=== PATIENT | female | born 1965 | race Caucasian/White ===

== ENCOUNTER 2018-01-14 09:30 | Outpatient (CLI) | payer MEDICAID ==
[~2018-01-14] VITALS: Ht 157.5 cm; Wt 108.4 kg
[2018-01-14] MEDS ORDERED: INSU100V31 IJ (09:41)
[2018-01-14] MEDS ORDERED: ROSU20TA31 PO (09:41)
[2018-01-14] MEDS ORDERED: SITA25TA5 PO (09:41)
[2018-01-14] MEDS ORDERED: LEVO75TA6 PO (09:41)
[2018-01-14] MEDS ORDERED: GABA-488 PO (09:41)
[2018-01-14] MEDS ORDERED: DILT120C63 PO (09:41)
[2018-01-14] MEDS ORDERED: BUME1TAB4 PO (09:41)
[2018-01-14] MEDS ORDERED: TRAZ-189 PO (09:41)
[2018-01-14] MEDS ORDERED: ESCI20TA PO (09:41)
[2018-01-14] MEDS ORDERED: HYDR12.5 PO (09:41)
[2018-01-14] MEDS ORDERED: FERR325T18 PO (09:41)
[2018-01-14] MEDS ORDERED: COLC0.6T56 PO (09:41)
[2018-01-14] MEDS ORDERED: INSU100V5 SQ (09:41)
== END 2018-01-14 10:24 ==
LOC: PREOP 09:30
PROVIDERS: ATTEND Internal Medicine
DX: Z01.818 Encounter for other preprocedural examination (principal)

== ENCOUNTER 2018-01-18 07:27 | Day surgery (SDC) | payer MEDICAID ==
--- NOTE | 2018-01-17 15:42 | HISTORY AND PHYSICAL ---
DATE OF SERVICE: 01/18/2018 COLONOSCOPY HISTORY AND PHYSICAL HISTORY OF PRESENT ILLNESS: The patient is a 52-year-old white female referred by Dr. Lundy for screening colonoscopy. She did have a bout of left lower quadrant abdominal pain and has a known history of diverticulum. She was treated as diverticulitis. She had some bowel habit change with cramping and loss of appetite. After antibiotics after several days, there was improvement in her symptoms. She states she is back to her more chronic left-sided lumbar back pain that radiates around into the left groin area. It tends to be somewhat positional and worse if she is standing for too long and will typically subside within 5 to 10 minutes of lying down. She denies any current chills or fever. In 2000, she reported colonoscopy. She was told she had diverticulum at that time and she believes she may have had a polyp or 2, but she is not sure. She does not recall if there was no one who has recommended that she undergo colonoscopy again. FAMILY HISTORY: Pertinent for one maternal grandparent with prostate cancer and colon cancer. She believes he was over the age of 65 diagnosis. Mother had lung cancer with liver and adrenal metastasis and father had lung cancer as well in their 60s and 70s. Both were heavy smokers. She also has one sister with lung cancer, also heavy smoker. SOCIAL HISTORY: She reports no significant past alcohol history. She did smoke with a [id number] smoking history, but quit over 10 years ago. PAST MEDICAL HISTORY: She has a history of type 2 diabetes mellitus which is insulin requiring, hypothyroidism, depression, hypertension, obesity and gout as well as hyperlipidemia. She has no known history of coronary artery disease. PHYSICAL EXAMINATION: GENERAL: Reveals a pleasant overweight white female, in no acute distress. VITAL SIGNS: Blood pressure 136/70, BMI 40 to 44 ranges. The patient roughly 5 feet 2 inches and weighing 239 pounds. HEENT: Oral cavity reveals a Mallampati class 3 pharyngeal configuration. CHEST: Clear. CARDIOVASCULAR: Reveals regular rate and rhythm without murmur, S3 or S4. ABDOMEN: Soft, supple. There is no tenderness to palpation. No masses noted, but obesity precludes sensitivity evaluation. Bowel sounds are positive in all 4 quadrants. EXTREMITIES: Reveal no cyanosis or clubbing. There is trace bilateral edema. No venous insufficiency changes are noted. ASSESSMENT AND PLAN: The patient is set up for screening colonoscopy on 01/18 advising that we wait several weeks due to possible recent diagnosis of diverticulitis with reported known diverticulosis. There is also questionable past history of polyp formation. Prep instructions with the Suprep kit were given. The patient reports that she had significant difficulty with her colonoscopy in 2000. We will obtain anesthesiology consultation for Diprivan administration. Considering this and likely significant diverticular disease. I thank you for the referral of this pleasant lady. Job ID: [id number] DocumentID: [id number] Dictated Date: 01/08/2018 11:58:33 Drying Frame Operator Date: 01/08/2018 12:54:25 Dictated By: KIRT ANN MD
[~2018-01-18] VITALS: Ht 157.5 cm; Wt 108.4 kg
[~2018-01-18 07:27] MED LIST: BUME1TAB4 PO; COLC0.6T56 PO; DILT120C63 PO; ESCI20TA PO; FERR325T18 PO; GABA-488 PO; HYDR12.5 PO; INSU100V31 IJ; INSU100V5 SQ; LEVO75TA6 PO; ROSU20TA31 PO; SITA25TA5 PO; TRAZ-189 PO
[2018-01-18] MEDS ORDERED: D5 LR IV SOLUTION 1,000 ML IV STA (07:38)
[2018-01-18] MEDS ORDERED: D5 LR IV SOLUTION 1,000 ML IV ONE (07:40)
[2018-01-18] MEDS ORDERED: LIDOCAINE JELLY 2% (XYLOCAINE) 5 ML TUBE MM PRN (07:45)
[2018-01-18] MEDS ORDERED: fentaNYL INJECTION 100 MCG/2 ML AMP IVP PRN (07:45)
[2018-01-18] MEDS ORDERED: MIDAZOLAM 2 MG/2 ML (VERSED) VIAL IVP PRN (07:45)
[2018-01-18] MEDS ORDERED: ESCI20TA PO (07:52)
[2018-01-18] MEDS ORDERED: MIDAZOLAM 2 MG/2 ML (VERSED) VIAL ONE (08:31)
[2018-01-18] MEDS ORDERED: proPOfol 200 MG/20 ML (DIPRIVAN) VIAL IV ONE (08:31)
--- NOTE | 2018-01-18 08:37 | Pre-Op Note & Conscious Sedat ---
Pre-Operative Progress Note H&P Reviewed The H&P was reviewed, patient examined and no changes noted. Date H&P Reviewed: Jan 18, 2018 Time H&P Reviewed: 08:30 Conscious Sedation Pre-Proced ASA Class: 3 Airway Mallampati Classification: (kaw appropriate class) I. II. III, IV Lungs Heart ASA score ASA 1: a normal healthy patient ASA 2: a patient with a mild systemic disease (mid diabetes, controlled hypertension, obesity ASA 3: a patient with a severe systemic disease that limits activity (angina , COPD, prior Myocardial infarction) ASA 4: a patient with an incapacitating disease that is a constant threat to life (CHF, renal failure) ASA 5: a moribund patient not expected to survive 24 hrs. (ruptured aneurysm) ASA 6: a declared brain patient whose organs are being harvested. For emergent operations, add the letter E after the classification Grade 3 Sedation Plan: Analgesia, Amnesia, Plan communicated to team members, Discussed options with patient/fam, Discussed risks with patient/fam Note The patient is an appropriate candidate to undergo the planned procedure, sedation, and anesthesia. The patient immediately re-assessed prior to indication. KIRT ANN MD Jan 18, 2018 08:37
[2018-01-18] MEDS ORDERED: LIDOCAINE JELLY 2% (XYLOCAINE) 5 ML TUBE ONE (08:41)
[2018-01-18 09:15] VITALS: BP 139/70
--- NOTE | 2018-01-18 09:26 | Anesthesia-General Post-Op ---
MAC Patient Condition Mental Status/LOC: Same as Preop Cardiovascular: Satisfactory Nausea/Vomiting: Absent Respiratory: Satisfactory Pain: Controlled Complications: Absent Post Op Complications Complications None Follow Up Care/Instructions Patient Instructions None needed. Anesthesiology Discharge Order Discharge Order Patient is doing well, no complaints, stable vital signs, no apparent adverse anesthesia problems. No complications reported per nursing. JELENA HUSSEIN CRNA Jan 18, 2018 09:26
--- OUTSIDE RECORDS SUMMARY | 2018-01-18 09:39 | XMS REPORT | Referral Summary ---
Author Author [facility] Organization [facility] Address Unknown Phone Unavailable Care Team Providers Care Rotary Cutter Name Role Phone Connie Begum PCP Unavailable Encounter VC Date(s): 09/14/17 - 09/15/17 [facility] [address] [place] [address] [phone] Discharge Disposition: 01-Home or Self Care Attending Physician: Ruthie Rodgers MD Admitting Physician: Jaciel Castro MD Vital Signs Most recent to 1 oldest [Reference Range]: Temperature Oral 36.8 degC [35.8-37.3 degC] (09/15/17 8:00 AM) Peripheral Pulse 60 bpm Rate [60-100 bpm] (09/15/17 8:00 AM) Respiratory Rate 18 br/min [14-20 br/min] (09/15/17 8:00 AM) Blood Pressure 128/75 mmHg [90-140/60-90 mmHg] (09/15/17 8:00 AM) SpO2 95 % (09/15/17 8:00 AM) Remote Telemetry Initiated (09/14/17 5:14 AM) Problem List Condition Effective Dates Status Health Status Informant Acute Active pain(Confirmed) COPD (chronic Active patient obstructive pulmonary disease)(Confirmed) CHF (congestive Active patient heart failure)(Confirmed) Diabetes(Confirmed) Active patient Hypertension(Confirm Active patient ed) Allergies, Adverse Reactions, Alerts Substance Reaction Severity Status sulfa drugs Active Medications aspirin 325 mg, Oral, Daily, 0 Refill(s) Start Date: 09/14/17 Status: Ordered bumetanide 1 mg, Oral, Daily, 0 Refill(s) Start Date: 09/14/17 Status: Ordered colchicine 0.3 mg, Oral, Daily, 0 Refill(s) Start Date: 09/14/17 Status: Ordered cyclobenzaprine 10 mg oral tablet 10 mg 1 tabs, Oral, TID, as needed for muscle spasm, 0 Refill(s) Start Date: 09/14/17 Status: Ordered dilTIAZem 120 mg oral tablet 120 mg 1 tabs, Oral, Daily, # 90 tabs, 0 Refill(s) Start Date: 09/14/17 Status: Ordered escitalopram 20 mg oral tablet 20 mg 1 tabs, Oral, Daily, 0 Refill(s) Start Date: 09/14/17 Status: Ordered gabapentin 300 mg, Oral, TID, 0 Refill(s) Start Date: 09/14/17 Status: Ordered hydroCHLOROthiazide 12.5 mg oral capsule 12.5 mg 1 caps, Oral, Daily, # 30 caps, 0 Refill(s) Start Date: 09/14/17 Status: Ordered Januvia 25 mg, Oral, Daily, 0 Refill(s) Start Date: 09/14/17 Status: Ordered Levemir 100 units/mL subcutaneous solution 40 units, SubCutaneous, BID, 0 Refill(s) Start Date: 09/14/17 Status: Ordered levothyroxine 75 mcg, Oral, Daily, 0 Refill(s) Start Date: 09/14/17 Status: Ordered loratadine 10 mg, Oral, Daily, 0 Refill(s) Start Date: 09/14/17 Status: Ordered NovoLOG 100 units/mL injectable solution 25 units, SubCutaneous, TIDAC, 0 Refill(s) Start Date: 09/14/17 Status: Ordered ProAir HFA 90 mcg/inh inhalation aerosol 2 puffs, Inhalation, QID, as needed for wheezing, 0 Refill(s) Start Date: 09/14/17 Status: Ordered rosuvastatin 20 mg, Oral, Daily, 0 Refill(s) Start Date: 09/14/17 Status: Ordered traZODone 100 mg, Oral, Bedtime (once a day), 0 Refill(s) Start Date: 09/14/17 Status: Ordered Results Hematology Most recent to 1 oldest [Reference Range]: WBC [4.8-10.8 6.2 10*3/uL 10*3/uL] (09/15/17 7:46 AM) RBC [4.00-5.20] 3.98 *LOW* (09/15/17 7:46 AM) Hgb [12.0-16.0 11.2 gm/dL gm/dL] *LOW* (09/15/17 7:46 AM) Hct [37.0-47.0 %] 36.6 % *LOW* (09/15/17 7:46 AM) MCV [82.0-99.0 fL] 92.0 fL (09/15/17 7:46 AM) MCH [27.0-32.0 pg] 28.1 pg (09/15/17 7:46 AM) MCHC [32.0-36.0 30.6 gm/dL gm/dL] *LOW* (09/15/17 7:46 AM) RDW [11.5-14.5 %] 14.5 % (09/15/17 7:46 AM) Platelet [150-400 154 10*3/uL 10*3/uL] (09/15/17 7:46 AM) MPV [9.4-12.4 fL] 11.6 fL (09/15/17 7:46 AM) Immature 0.3 % Granulocytes (09/15/17 7:46 AM) [0.0-1.0 %] Neutrophils [51-75 57 % %] (09/15/17 7:46 AM) Lymphocytes [20-46 34 % %] (09/15/17 7:46 AM) Monocytes [4-11 %] 6 % (09/15/17 7:46 AM) Eosinophils [0-4 %] 3 % (09/15/17 7:46 AM) Basophils [0-2 %] 1 % (09/15/17 7:46 AM) Neutro Absolute 3.51 [1.90-7.00] (09/15/17 7:46 AM) Lymph Absolute 2.11 [0.80-3.30] (09/15/17 7:46 AM) Frio Absolute 0.36 [0.30-1.00] (09/15/17 7:46 AM) Eos Absolute 0.18 [0.00-0.50] (09/15/17 7:46 AM) Baso Absolute 0.03 [0.00-0.20] (09/15/17 7:46 AM) Nucleated RBC 0.0 /100 WBC Automated [0 /100 (09/15/17 7:46 AM) WBC] Chemistry Most recent to 1 oldest [Reference Range]: Sodium Lvl [136-144 139 mEq/L mEq/L] (09/15/17 7:46 AM) Potassium Lvl 3.7 mEq/L [3.6-5.1 mEq/L] (09/15/17 7:46 AM) Chloride [99-109 106 mEq/L mEq/L] (09/15/17 7:46 AM) CO2 [22-32 mEq/L] 26 mEq/L (09/15/17 7:46 AM) AGAP [3-20 mEq/L] 7 mEq/L (09/15/17 7:46 AM) BUN [4-20 mg/dL] 52 mg/dL *HI* (09/15/17 7:46 AM) Glucose Lvl [70-100 150 mg/dL mg/dL] *HI* (09/15/17 7:46 AM) Creatinine Lvl 1.69 mg/dL [0.44-1.03 mg/dL] *HI* (09/15/17 7:46 AM) eGFR [>60 mL/min] 32 mL/min 1 *ABN* (09/15/17 7:46 AM) Calcium Lvl 8.4 mg/dL [8.6-10.0 mg/dL] *LOW* (09/15/17 7:46 AM) Albumin Lvl [3.5-4.8 2.9 gm/dL gm/dL] *LOW* (09/15/17 7:46 AM) Total Protein 5.8 gm/dL [6.1-7.9 gm/dL] *LOW* (09/15/17 7:46 AM) Globulin [1.9-4.3 2.9 gm/dL gm/dL] (09/15/17 7:46 AM) ALT [14-54 U/L] 15 U/L (09/15/17 7:46 AM) AST [15-41 U/L] 17 U/L (09/15/17 7:46 AM) Alk Phos [26-104 47 U/L U/L] (09/15/17 7:46 AM) Bili Total [0.2-1.2 0.4 mg/dL 2 mg/dL] (09/15/17 7:46 AM) Bili Direct [0.0-0.2 0.0 mg/dL mg/dL] (09/15/17 7:46 AM) Bili Indirect 0.4 mg/dL [0.0-1.0 mg/dL] (09/15/17 7:46 AM) Magnesium Lvl 1.9 mg/dL [1.8-2.5 mg/dL] (09/15/17 7:46 AM) Phosphorus [2.4-4.7 3.3 mg/dL 3 mg/dL] (09/15/17 7:46 AM) BNP [0-99 pg/mL] 131 pg/mL *HI* (09/15/17 7:46 AM) Lipase Lvl [8-48 147 U/L U/L] *HI* (09/15/17 7:46 AM) Blood Glucose, 139 mg/dL Capillary [70-100 *HI* mg/dL] (09/15/17 6:47 AM) Chol [0-199 mg/dL] 199 mg/dL (09/14/17 5:45 AM) Trig [0-149 mg/dL] 714 mg/dL 4 *HI* (09/14/17 5:45 AM) HDL [40-84 mg/dL] 24 mg/dL *LOW* (09/14/17 5:45 AM) LDL [0-130] INVALID (09/14/17 5:45 AM) VLDL Cholesterol INVALID [0-28] (09/14/17 5:45 AM) Cardiac Risk 8.3 [0.0-5.0] *HI* (09/14/17 5:45 AM) Hgb A1c [4.1-5.6 %] 7.9 % *HI* (09/14/17 5:45 AM) eAvg Glucose 180.0 mg/dL (09/14/17 5:45 AM) 1Result Comment: Multiply eGFR results by 1.21 for race. 2Result Comment: Naproxen, specifically the metabolite O-desmethylnaproxen, may cause spurious elevation in Total Bilirubin levels. 3Result Comment: High dosages of liposomal Amphotericin B (AmBisome) therapy or other drug preparations that use a liposomal envelope to facilitate drug delivery may cause falsely elevated results for phosphorus. 4Result Comment: LDL and VLDL are invalid with Triglyceride greater than 400. Urinalysis Most recent to 1 oldest [Reference Range]: UA Color Yellow (09/14/17 6:55 AM) UA Appear Sl Cloudy (09/14/17 6:55 AM) UA pH [5.0-8.0] 5.0 (09/14/17 6:55 AM) UA Leuk Est Trace [Negative] *ABN* (09/14/17 6:55 AM) UA Nitrite Negative [Negative] (09/14/17 6:55 AM) UA Protein Pos 2+ [Negative] *ABN* (09/14/17 6:55 AM) UA Glucose Negative [Negative] (09/14/17 6:55 AM) UA Ketones Negative [Negative] (09/14/17 6:55 AM) UA Urobilinogen Negative [<1.0] (09/14/17 6:55 AM) UA Bili [Negative] Negative (09/14/17 6:55 AM) UA Blood [Negative] Negative (09/14/17 6:55 AM) UA Spec Grav 1.015 [1.003-1.030] (09/14/17 6:55 AM) Type Clean Catch (09/14/17 6:55 AM) UA WBC [0-4] 10-20 *ABN* (09/14/17 6:55 AM) UA RBC [0-2] 0-2 (09/14/17 6:55 AM) Epithelial Cells 0-2 (09/14/17 6:55 AM) UA Bacteria Numerous *ABN* (09/14/17 6:55 AM) UA Hyal Cast [0-3] 1-3 (09/14/17 6:55 AM) UA Mucous Present (09/14/17 6:55 AM) Microbiology Reports TEST: Respiratory Virus Panel - PCR STATUS: Auth (Verified) BODY SITE: SOURCE: Nasopharyngeal Swab COLLECTED DATE/TIME: 09/14/17 8:05 AM Respiratory Virus Panel - PCR Enterovirus/Rhinovirus Detected - Specimen tested for the following targets: Influenza A, Influenza A subtype H1, Influenza A subtype H3, Influenza A 2009 H1N1, Influenza B, Respiratory Syncytial Virus subtype A, Respiratory Syncytial Virus subtype B, Adenovirus, Rhinovirus/Enterovirus, Coronavirus, Parainfluenza Virus 1, Parainfluenza Virus 2, Parainfluenza Virus 3, Parainfluenza Virus 4, Human Metapneumovirus, Chlamydia pneumoniae and Mycoplasma pneumoniae. ORGANISM:Enterovirus/Rhinovirus TEST: Urine Culture STATUS: Auth (Verified) BODY SITE: SOURCE: Urine COLLECTED DATE/TIME: 09/14/17 6:55 AM Urine Culture Normal urogenital/skin jann present Immunizations No data available for this section Procedures No data available for this section Social History Social History Type Response Smoking Status Never (less than 100 in lifetime) entered on: 09/14/17 Assessment and Plan No data available for this section
[2018-01-18 09:45] VITALS: BP 163/71
[2018-01-18 09:50] VITALS: BP 152/80
[2018-01-18 09:56] VITALS: BP 152/80
--- NOTE | 2018-01-18 13:17 | OPERATIVE REPORT ---
DATE OF SERVICE: COLONOSCOPY SUMMARY INDICATION FOR THE PROCEDURE: Screening colonoscopy. The patient was placed in the left lateral decubitus position. Prior to undergoing a colonoscopy, digital rectal evaluation was performed. Anal sphincter tone was normal and the perianal reflex was intact. The colonoscope was then inserted into the rectum and under direct visualization advanced to the cecum. The cecum was identified by identification of the ileocecal valve and cecal strap. Photographic documentation was obtained. Careful inspection was made as colonoscope was withdrawn. FINDINGS: There was no evidence for internal or external hemorrhoids. There was some mild perianal erythema, but no evidence to suggest tenia or Jacklyn on gross inspection. The rectum was unremarkable. A moderate number of small to medium size sigmoid diverticulum were present without evidence for diverticulitis. No other sigmoid colonic abnormalities were appreciated. The descending colon, splenic flexure, transverse colon, hepatic flexure, ascending colon and cecum were unremarkable. ASSESSMENT AND PLAN: Moderate diverticular disease confined to the sigmoid colon was present without evidence for diverticulitis. This was otherwise normal colonoscopy of the cecum. Advocate consideration for repeat screening colonoscopy in 10 years. I thank you for the referral. Job ID: [id number] DocumentID: [id number] Dictated Date: 01/18/2018 09:10:54 Motorcycle Fabricator Date: 01/18/2018 13:16:22 Dictated By: KIRT ANN MD [facility]
== END 2018-01-18 09:58 | disposition home or self-care (01) ==
LOC: ENDO 07:27
PROVIDERS: ATTEND Internal Medicine
DX: Z12.11 Encounter for screening for malignant neoplasm of colon (principal); K57.30 Diverticulosis of large intestine without perforation or abscess without bleeding; I25.10 Atherosclerotic heart disease of native coronary artery without angina pectoris; I11.0 Hypertensive heart disease with heart failure; I50.9 Heart failure, unspecified; E11.43 Type 2 diabetes mellitus with diabetic autonomic (poly)neuropathy; E66.01 Morbid (severe) obesity due to excess calories; Z68.41 Body mass index [BMI] 40.0-44.9, adult; Z79.84 Long term (current) use of oral hypoglycemic drugs; Z79.899 Other long term (current) drug therapy
CPT/HCPCS: 82962

== ENCOUNTER → 2018-02-22 | Outpatient (CLI) | payer MEDICAID ==
--- NOTE | 2018-02-22 11:46 | Diagnostic Imaging Report ---
PROCEDURE: MRI lumbar spine. TECHNIQUE: Multiplanar, multisequence MRI of the lumbar spine was performed without contrast. INDICATION: Chronic low back pain as well as right hip pain radiating into the leg with numbness and tingling. COMPARISON: No prior studies are available for comparison. FINDINGS: There is straightening of the normal lumbar lordotic curvature. Alignment is normal. Vertebral body heights are maintained. 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 No acute compression fracture is seen. There is some mild disc desiccation at L1-2 and L4-5 levels as well as slight disc space narrowing compatible with degenerative change. The conus is unremarkable at the T12-L1 level. T12-L1: No central canal or neural foraminal narrowing is identified. L1-2: Unremarkable. L2-3: Unremarkable. L3-4: Minimal left far lateral broad-based disc/osteophyte complex is present resulting in slight left neural foraminal narrowing. Right neural foramen and central canal are patent. L4-5: Degenerative facet changes and broad-based disc/osteophyte complex are present. Central canal is widely patent. There does appear to be moderate neural foraminal narrowing as well as bilateral lateral recess narrowing. L5-S1: Unremarkable. Paraspinous tissues are unremarkable. IMPRESSION: Lumbar spondylosis. There is bilateral lateral recess and neural foraminal narrowing at L4-5 level, greater on the right. No central canal stenosis is seen. There is also mild left neural foraminal narrowing at L3-4. No acute compression fracture is seen. Dictated by: Dictated on workstation # [id number]
== END ==
LOC: RAD 10:46
PROVIDERS: ATTEND Internal Medicine
DX: M48.061 Spinal stenosis, lumbar region without neurogenic claudication (principal); M47.26 Other spondylosis with radiculopathy, lumbar region; M99.73 Connective tissue and disc stenosis of intervertebral foramina of lumbar region
CPT/HCPCS: 72148

== ENCOUNTER 2018-04-24 11:40 | Outpatient (CLI) | payer MEDICAID ==
[~2018-04-24] VITALS: Ht 157.5 cm; Wt 108.4 kg
[2018-04-24] MEDS ORDERED: ALLO100T PO (11:46)
[2018-04-24] MEDS ORDERED: GABA-486 PO (11:46)
== END 2018-04-24 12:16 | disposition home or self-care (01) ==
LOC: PREOP 11:40
PROVIDERS: ATTEND Surgery
DX: Z01.818 Encounter for other preprocedural examination (principal)

== ENCOUNTER 2018-04-26 09:26 | Day surgery (SDC) | payer MEDICAID ==
[~2018-04-26] VITALS: Ht 157.5 cm; Wt 108.4 kg
[~2018-04-26 09:26] MED LIST changes: +ALLO100T PO; +GABA-486 PO
[2018-04-26] MEDS ORDERED: BUPIVACAINE 0.5% 30 ML (SENSORCAINE) VIAL ONE (09:35)
[2018-04-26] MEDS ORDERED: LIDOCAINE 1% INJ 20 ML 20 ML VIAL ONE (09:36)
[2018-04-26] MEDS ORDERED: FAMOTIDINE 20MG/2ML IV (PEPCID) ONE (09:40)
[2018-04-26] MEDS ORDERED: LACTATED RINGERS 1,000 ML IV PRN (09:46)
[2018-04-26] MEDS ORDERED: MIDAZOLAM 2 MG/2 ML (VERSED) VIAL ONE (09:47)
[2018-04-26] MEDS ORDERED: proPOfol 200 MG/20 ML (DIPRIVAN) VIAL IV ONE ×3 (09:47→10:49)
[2018-04-26] MEDS ORDERED: PROPOFOL INJECTION 50 ML IV ONE (09:48)
[2018-04-26] MEDS ORDERED: fentaNYL INJECTION 100 MCG/2 ML AMP ONE ×2 (09:48→10:39)
[2018-04-26] MEDS ORDERED: ONDANSETRON 4 MG/2 ML (SDV) Z0FRAN ONE (09:56)
[2018-04-26] MEDS ORDERED: ceFAZolin 2 GM IV Premixed 50 ML IV ONE (10:00)
[2018-04-26 10:16] VITALS: BP 167/105
--- NOTE | 2018-04-26 10:21 | Progress Note-Pre Operative ---
Pre-Operative Progress Note H&P Reviewed The H&P was reviewed, patient examined and no changes noted. Date Seen by Provider: Apr 26, 2018 Time Seen by Provider: 10:20 Date H&P Reviewed: Apr 26, 2018 Time H&P Reviewed: 10:20 Pre-Operative Diagnosis: skin lesion nose SAVANNAH VILLAR DO Apr 26, 2018 10:21
[2018-04-26] MEDS ORDERED: MUPIROCIN 2% OINT 22 GM (BACTROBAN) TUBE ONE (10:51)
--- NOTE | 2018-04-26 11:09 | Progress Note-Post Operative ---
Post-Operative Progess Note Surgeon (s)/Director Of Labor Relations (s) Surgeon SAVANNAH VILLAR DO Director Of Labor Relations: na Pre-Operative Diagnosis skin lesion nose Post-Operative Diagnosis same Procedure & Operative Findings Date of Procedure 04/26/18 Procedure Performed/Findings excision skin lesion nose 0.5x1.3 Anesthesia Type gen Estimated Blood Loss Estimated blood loss (mL): min Specimens/Packing Specimens Removed skin lesion nose SAVANNAH VLILAR DO Apr 26, 2018 11:09
[2018-04-26] MEDS ORDERED: fentaNYL INJECTION 100 MCG/2 ML AMP IVP ONE (11:15)
[2018-04-26] MEDS ORDERED: morphine INJ 10 MG/ML 1ML (SYR OR VIAL) IVP ONE (11:15)
--- NOTE | 2018-04-26 11:18 | Discharge Inst-Simple/Standard ---
Discharge Inst-Standard Patient Instructions/Follow Up Plan of Care/Instructions/FU: [address] Chung nurse to possibly remove sutures. Follow up with Dr. Chung in 1-2 weeks. Activity as Tolerated: Yes Discharge Diet: Regular Diet Other Inst to Patient Instructions: May shower in 24 hours, no tub bath or soaking. No Smoking Skin/Wound Care: Keep clean and dry. Symptoms to Report: Appetite Changes, Extremity Discoloration, Numbness/Tingling, Swelling Increased , Bleeding Excessive, Eyesight Changes, Pain Increased, Urine Color Change, Constipation(Persistent), Fever over 101 degree F, Pain/Pressure in chest, Urinating Difficulty, Cough Up/Vomit Blood, Heart Beat Irreg/Pounding, Pain/ Pressure in jaw, Vaginal Bleeding Increase, Cramps in feet or legs, Lightheadedness, Pain/Pressure in shoulder, Diarrhea(Persistent), Memory Changes Suddenly, Questions/Concerns, Weight gain consecutive days, Dizziness/ Fainting, Nausea/Vomiting, Shortness of Breath, Weight gain over 2 pounds If questions or concerns contact your physician Or seek help at emergency department. SAVANNAH CHUNG DO Apr 26, 2018 11:18
[2018-04-26] MEDS ORDERED: NEO/POLY/BAC (NEOSPORIN) OINT 15 GM TUBE ONE (11:21)
[2018-04-26] MEDS ORDERED: diphenhydrAMINE 50 MG/ML INJ (BENADRYL) ONE (11:48)
[2018-04-26] MEDS ORDERED: diphenhydrAMINE 50 MG/ML INJ (BENADRYL) IVP ONE (12:00)
[2018-04-26 12:15] VITALS: BP 162/72
[2018-04-26 12:45] VITALS: BP 154/64
--- NOTE | 2018-04-26 12:46 | Anesthesia-General Post-Op ---
General Patient Condition Mental Status/LOC: Same as Preop Cardiovascular: Satisfactory Nausea/Vomiting: Absent Respiratory: Satisfactory Pain: Controlled Complications: Absent Post Op Complications Complications None Follow Up Care/Instructions Patient Instructions None needed. Anesthesia/Patient Condition Patient Condition Patient is doing well, no complaints, stable vital signs, no apparent adverse anesthesia problems. No complications reported per nursing. D/C home per [facility] Criteria: Yes CONSTANCE JONAS CRNA Apr 26, 2018 12:46
[2018-04-26] MEDS: ONDANSETRON 4 MG/2 ML (SDV) Z0FRAN IVP PRN ×2 (12:47→13:08)
[2018-04-26 13:15] VITALS: BP 146/78
--- NOTE | 2018-04-26 15:33 | OPERATIVE REPORT ---
DATE OF SERVICE: 04/26/2018 PREOPERATIVE DIAGNOSIS: Skin lesion, nose. POSTOPERATIVE DIAGNOSIS: Skin lesion, nose. PROCEDURE: Excision of skin lesion of nose 1.3 x 0.5 cm. SURGEON: Savannah Chung DO. ANESTHESIA: General. ESTIMATED BLOOD LOSS: Minimal. COMPLICATIONS: None. INDICATIONS: The patient is a 53-year-old female with nonhealing skin lesion on the bridge of her nose. She understands risks and benefits of procedure and wished to proceed with procedure. Consent was signed in the chart. DESCRIPTION OF PROCEDURE: The patient was taken into the operating suite. She was prepped and draped in sterile fashion. Surgical pause was performed. Local anesthetic was infiltrated around the lesion. A 15 blade scalpel was used to make an elliptical incision around the lesion and skin and subcutaneous tissue was removed. The skin was then closed using 5-0 Prolene in a simple interrupted fashion. The area was then washed and dried and antibiotic ointment was placed over the incision. The specimen was labeled for orientation and sent to pathology. Job ID: [id number] DocumentID: [id number] Dictated Date: 04/26/2018 11:29:07 Equipment Specialist Date: 04/26/2018 15:33:04 Dictated By: SAVANNAH CHUNG DO
== END 2018-04-26 13:25 | disposition home or self-care (01) ==
LOC: SDC 09:26
PROVIDERS: ATTEND Surgery
DX: D23.39 Other benign neoplasm of skin of other parts of face (principal); E11.40 Type 2 diabetes mellitus with diabetic neuropathy, unspecified; I13.0 Hypertensive heart and chronic kidney disease with heart failure and stage 1 through stage 4 chronic kidney disease, or unspecified chronic kidney disease; I50.9 Heart failure, unspecified; N18.9 Chronic kidney disease, unspecified; K21.9 Gastro-esophageal reflux disease without esophagitis; Z79.4 Long term (current) use of insulin; Z79.899 Other long term (current) drug therapy
CPT/HCPCS: 82962; 87081; 88305

== ENCOUNTER → 2018-06-25 | Outpatient (CLI) | payer MEDICAID ==
--- NOTE | 2018-06-25 12:23 | Diagnostic Imaging Report ---
PROCEDURE: US DOPPLER ABD/COMPLETE TECHNIQUE: Multiple real-time grayscale images were obtained over the kidneys in various projections. Duplex evaluation of renal arteries was also attempted. INDICATION: Chronic kidney disease There are no prior renal Doppler studies available for comparison. This study was technically difficult due to patient's body habitus. Both kidneys were identified. Right kidney measures 12.7 x 5.1 x 7.5 CM while the left kidney is estimated to be 13.2 x 5.2 x 7.0 CM. There is no evidence for a solid renal mass or for hydronephrosis of either kidney. The renal cortices are normal in thickness and echogenicity. Both renal arteries were identified. The renal artery to aorta ratios are within normal limits and there is no sign of a hemodynamically significant stenosis of either renal artery. The bladder was not imaged during the course this exam. IMPRESSION: 1. There is no evidence for a solid renal mass or for an acute abnormality of the kidney. 2. The renal cortices are normal in thickness and echogenicity. 3. There is no sign of renal artery stenosis. 4. The bladder was not imaged during the course of this exam. Dictated by: Dictated on workstation # [id number]
--- NOTE | 2018-06-25 12:24 | Diagnostic Imaging Report ---
Pelvic ultrasound, limited. Indication: Bladder function. There no prior studies available for comparison. The bladder was imaged. The bladder is fairly well distended. There is no obvious bladder abnormality evident. The prevoid bladder volume was 361.3 mL. Following voiding there was only 12 mL of urine still present. Impression: 1. There is no obvious bladder abnormality evident. 2. There was good clearing of the urine from the bladder following voiding. Dictated by: Dictated on workstation # [id number]
== END ==
LOC: RAD 08:40
PROVIDERS: ATTEND Nurse Practitioner
DX: E11.22 Type 2 diabetes mellitus with diabetic chronic kidney disease (principal); N18.4 Chronic kidney disease, stage 4 (severe); E11.21 Type 2 diabetes mellitus with diabetic nephropathy; M10.9 Gout, unspecified; I12.9 Hypertensive chronic kidney disease with stage 1 through stage 4 chronic kidney disease, or unspecified chronic kidney disease; E78.5 Hyperlipidemia, unspecified; I50.9 Heart failure, unspecified; N39.0 Urinary tract infection, site not specified; Z87.891 Personal history of nicotine dependence
CPT/HCPCS: 76857; 93975

== ENCOUNTER 2018-08-27 10:48 | Emergency (ER) | payer MEDICAID ==
[~2018-08-27] VITALS: Ht 160 cm; Wt 111.1 kg
[~2018-08-27 10:48] MED LIST changes: -DILT120C63 PO; +DILT120C94 PO
--- NOTE | 2018-08-27 12:55 | ED Integumentary General ---
General Chief Complaint: Skin/Wound Problems Stated Complaint: POSSIBLE NECK ABCESS Nursing Triage Note: PT PRESENTS TO ED FROM DR HAYWARD OFFICE WITH COMPLAINTS OF NECK SWELLING AND REDNESS/SORE AREA. REPORTS FIRST NOTICED IT 3 DAYS AGO. PT ALSO REPORTS L EAR PAIN. Source: patient Exam Limitations: no limitations History of Present Illness Date Seen by Provider: Aug 27, 2018 Time Seen by Provider: 11:50 Initial Comments 53-year-old female who was sent to the emergency room by Dr. Liriano's office with complaints of neck swelling for the past 3 days. She reports that she she just woke up with the swelling 3 days ago but it has not changed in size when she noticed it 3 days ago. She denies fevers, nausea, vomiting, or shortness of breath. Timing/Duration: other (3 days ago) Severity: mild Associated Symptoms: swelling/mass/lumps (neck) Allergies and Home Medications Allergies Coded Allergies: Sulfa (Sulfonamide Antibiotics) (Verified Allergy, Mild, HIVES, 01/14/18) Home Medications Bumetanide 1 Mg Tablet, 1 MG PO DAILY, (Reported) Cefuroxime Axetil 250 Mg Tablet, 250 MG PO BID Prescribed by: SHERLYN HARRIS on 08/27/18 1347 Escitalopram Oxalate 20 Mg Tablet, 40 MG PO DAILY, (Reported) take 2 (20mg) tabs Gabapentin 100 Mg Capsule, 100 MG PO TID, (Reported) Insulin Determir 1,000 Units/10 Ml Soln, 45 UNITS SQ BID, (Reported) Insulin Regular, Human 100 Unit/1 Ml Vial, 35 UNIT IJ TIDAC, (Reported) Levothyroxine Sodium 75 Mcg Tablet, 75 MCG PO DAILY, (Reported) Rosuvastatin Calcium 20 Mg Tablet, 20 MG PO DAILY, (Reported) Sitagliptin Phosphate 25 Mg Tablet, 25 MG PO DAILY, (Reported) Trazodone HCl 50 Mg Tablet, 50 MG PO HS, (Reported) Patient Home Medication List Home Medication List Reviewed: Yes Review of Systems Review of Systems Constitutional: no symptoms reported, see HPI EENTM: see HPI, other (swelling of neck) All Other Systems Reviewed Negative Unless Noted: Yes Past Pbovbjb-Pmxhwi-Kigprv Hx Past Med/Social Hx: Reviewed Nursing Past Med/Soc Hx Patient Social History Alcohol Use: Denies Use Recreational Drug Use: Yes (MARIJUANA) Smoking Status: Former Smoker Former Smoker, Quit: Jan 14, 1999 Recent Foreign Travel: No Contact w/Someone Who Travel: No Recent Infectious Disease Expo: No Recent Hopitalizations: No Physical Abuse: No Sexual Abuse: No Mistreated: No Fear: No Seasonal Allergies Seasonal Allergies: Yes Past Medical History Surgeries: Yes (PILONIDAL CYST, DX LAP ) Gallbladder, Hysterectomy Respiratory: Yes COPD Cardiac: Yes (CHF) High Cholesterol, Hypertension Neurological: Yes Neuropathy 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 Disorders: No [employer] 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[employer]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[employer] History: Hysterectomy Sexually Transmitted Disease: No HIV/AIDS: No Renal Failure, UTI-Chronic Gastrointestinal: Yes Chronic Constipation, Chronic Diarrhea Musculoskeletal: Yes Arthritis, Chronic Back Pain Endocrine: Yes Diabetes, Insulin dep Are Your Blood Sugars Over 250: No HEENT: No Loss of Vision: Bilateral Hearing Impairment: Denies Cancer: Yes Skin Psychosocial: Yes Anxiety, Depression Integumentary: Yes (skin lesion) Blood Disorders: No Adverse Reaction/Blood Tranf: No (N/A) Family Medical History Reviewed Nursing Family Hx Physical Exam Vital Signs Vital Signs - First Documented 08/27/18 11:35 Temp 98.8 Pulse 60 Resp 18 B/P (MAP) 177/75 (109) Pulse Ox 96 Capillary Refill : Less Than 3 Seconds General Appearance: WD/WN, no apparent distress Neck: full range of motion, supple, normal inspection, other (anterior neck swelling and tenderness see images for location) Cardiovascular: normal peripheral pulses, regular rate, rhythm, no edema, no gallop, no JVD, no murmur Respiratory: chest non-tender, lungs clear, normal breath sounds, no respiratory distress, no accessory muscle use Gastrointestinal: normal bowel sounds, non tender, soft, no organomegaly, no pulsatile mass Extremities: normal capillary refill Neurologic/Psychiatric: alert, normal mood/affect, oriented x 3 Skin: normal color, warm/dry Skin Problem Location: neck Skin Problem Character: swelling Progress/Results/Core Measures Results/Orders Lab Results Laboratory Tests Test 08/27/18 12:57 Range/Units White Blood Count 11.7 H 4.3-11.0 10^3/uL Red Blood Count 4.26 L 4.35-5.85 10^6/uL Hemoglobin 11.5 11.5-16.0 G/DL Hematocrit 39 35-52 % Mean Corpuscular Volume 91 80-99 FL Mean Corpuscular Hemoglobin 27 25-34 PG Mean Corpuscular Hemoglobin Concent 30 L 32-36 G/DL Red Cell Distribution Width 15.3 H 10.0-14.5 % Platelet Count 220 130-400 10^3/uL Mean Platelet Volume 11.2 H 7.4-10.4 FL Neutrophils (%) (Auto) 71 42-75 % Lymphocytes (%) (Auto) 21 12-44 % Monocytes (%) (Auto) 7 0-12 % Eosinophils (%) (Auto) 1 0-10 % Basophils (%) (Auto) 0 0-10 % Neutrophils # (Auto) 8.3 H 1.8-7.8 X 10^3 Lymphocytes # (Auto) 2.5 1.0-4.0 X 10^3 Monocytes # (Auto) 0.8 0.0-1.0 X 10^3 Eosinophils # (Auto) 0.2 0.0-0.3 10^3/uL Basophils # (Auto) 0.0 0.0-0.1 10^3/uL Prothrombin Time 13.8 12.2-14.7 SEC INR Comment 1.1 0.8-1.4 Activated Partial Thromboplast Time 35 24-35 SEC Sodium Level 143 135-145 MMOL/L Potassium Level 3.5 L 3.6-5.0 MMOL/L Chloride Level 103 98-107 MMOL/L Carbon Dioxide Level 31 21-32 MMOL/L Anion Gap 9 5-14 MMOL/L Blood Urea Nitrogen 21 H 7-18 MG/DL Creatinine 1.98 H 0.60-1.30 MG/DL Estimat Glomerular Filtration Rate 26 BUN/Creatinine Ratio 11 Glucose Level 181 H 70-105 MG/DL Lactic Acid Level 0.81 0.50-2.00 MMOL/L Calcium Level 9.1 8.5-10.1 MG/DL Corrected Calcium 9.7 8.5-10.1 MG/DL Total Bilirubin 0.3 0.1-1.0 MG/DL Aspartate Amino Transf (AST/SGOT) 13 5-34 U/L Alanine Aminotransferase (ALT/SGPT) 9 0-55 U/L Alkaline Phosphatase 84 40-136 U/L Total Protein 6.6 6.4-8.2 GM/DL Albumin 3.3 3.2-4.5 GM/DL Thyroid Stimulating Hormone (TSH) 7.19 H 0.35-4.94 UIU/ML Free Thyroxine 0.81 0.70-1.48 NG/DL My Orders Orders - SHERLYN HARRIS Free T4 (Free Thyroxine) (08/27/18 11:57) Thyroid Stimulating Hormone (08/27/18 11:57) Cbc With Automated Diff (08/27/18 11:57) Comprehensive Metabolic Panel (08/27/18 11:57) Blood Culture (08/27/18 11:57) Protime With Inr (08/27/18 11:57) Partial Thromboplastin Time (08/27/18 11:57) Saline Lock/Iv-Start (08/27/18 11:57) Lactic Acid Analyzer (08/27/18 11:57) Ct Neck (Soft Tissue) Wo (08/27/18 11:57) Vital Signs/I&O 08/27/18 11:35 Temp 98.8 Pulse 60 Resp 18 B/P (MAP) 177/75 (109) Pulse Ox 96 Blood Pressure Mean: 109 Progress Progress Note : Time: 11:[address] soft tissue neck without contrast was ordered due to the patient's chronic stage IV kidney disease. 1335: Discussed the case with Dr. Zhao and he believes that it is a thyroglossal duct cyst and would like the patient placed on Ceftin 250 mg twice a day for 10 days and he will see the patient in the office this week for possible I&D. Diagnostic Imaging Diagonstic Imaging: CT Plain Films/CT/US/NM/MRI: other (neck) Comments [facility], [place] NAME: EVASABINO M [employer] REC#: [id number] PT STATUS: REG ER : 1965 PHYSICIAN: SHERLYN HARRIS ADMIT DATE: 08/27/18/ER Draft Date of Exam:08/27/18 CT NECK (SOFT TISSUE) WO PROCEDURE: CT neck soft tissue without contrast. TECHNIQUE: Multiple contiguous axial images were obtained through the neck without the use of intravenous contrast. INDICATION: Neck pain and swelling. COMPARISON: No prior studies are available for comparison. FINDINGS: The visualized intracranial structures are unremarkable. Posterior nasopharynx and oropharynx are unremarkable. Parapharyngeal fat planes are preserved. At the floor of the mouth, there is a rounded low density mass measuring 3.1 cm AP x 3.3 cm transverse x 2.2 cm cephalocaudal. This appears to displace the genioglossus and geniohyoid musculature laterally. This displaces the mylohyoid muscle inferiorly. No gas within the collection is identified. The posterior margin of this mass does abut the anterior aspect of the hyoid. Submandibular and parotid glands are symmetric bilaterally. No definite cervical lymphadenopathy is seen. No other fluid collections are identified. IMPRESSION: Circumscribed low-density mass at the floor of the mouth in the midline, with posterior margin abutting the hyoid. Diagnostic considerations include abscess, thyroglossal duct cyst as well as other less common things such as dermoid/epidermoid. MRI may be useful for further evaluation, if clinically indicated. No other significant abnormalities seen. Dictated on workstation # [id number] Dict: 08/27/18 1245 Trans: 08/27/18 1321 TS [id number] Interpreted by: ARPITA GUADARRAMA MD Electronically signed by: Reviewed: Reviewed by Me Departure Impression Primary Impression: thyroid glossal duct cyst Additional Impression: Abscess of neck Disposition: HOME, SELF-CARE Condition: Stable/Unchanged Departure-Patient Inst. Decision time for Depature: 13:43 Referrals: KEN VERNON MD (PCP/Family) Primary Care Physician Patient Instructions: ABSCESS Add. Discharge Instructions: Take antibiotics as directed. You may use Tylenol as directed by the bottle for pain relief. I have made you an appointment with Dr. Zhao on 08/29/18 at 3:15 for evaluation and possible drainage of the cyst. It would probably be best if you arrived a little early to fill out paperwork. Return back to the emergency room for worsening pain, swelling, shortness of breath, feeling like her throat was closing, or any other worsening symptoms or concerns as needed. All discharge instructions reviewed with patient and/or family. Voiced understanding. Scripts Cefuroxime Axetil (Cefuroxime) 250 Mg Tablet 250 MG PO BID for 10 Days, #20 TAB Prov: SHERLYN HARRIS 08/27/18 Images Head/Face 1 - Swelling Copy Copies To 1: JASEN ZHAO MD, TRAVIS Aug 27, 2018 12:55
[2018-08-27 13:07] LABS: BASOPHILS % (AUTO) 0 % (0-10); EOSINOPHILS # (AUTO) 0.2 10^3/uL (0.0-0.3); EOSINOPHILS % (AUTO) 1 % (0-10); HEMATOCRIT 39 % (35-52); HEMOGLOBIN 11.5 G/DL (11.5-16.0); LYMPHOCYTES # (AUTO) 2.5 X 10^3 (1.0-4.0); LYMPHOCYTES % (AUTO) 21 % (12-44); MEAN CORPUSCULAR HEMOGLOBIN 27 PG (25-34); MEAN CORPUSCULAR HGB CONC 30 G/DL (32-36); MEAN CORPUSCULAR VOLUME 91 FL (80-99); MEAN PLATELET VOLUME 11.2 FL (7.4-10.4); MONOCYTES # (AUTO) 0.8 X 10^3 (0.0-1.0); MONOCYTES % (AUTO) 7 % (0-12); NEUTROPHILS # (AUTO) 8.3 X 10^3 (1.8-7.8); NEUTROPHILS % (AUTO) 71 % (42-75); PLATELET COUNT 220 10^3/uL (130-400); RED CELL DISTRIBUTION WIDTH 15.3 % (10.0-14.5); WHITE BLOOD COUNT 11.7 10^3/uL (4.3-11.0)
[2018-08-27 13:20] LABS: INR 1.1 (0.8-1.4); PROTHROMBIN TIME PATIENT 13.8 SEC (12.2-14.7)
--- NOTE | 2018-08-27 13:21 | Diagnostic Imaging Report ---
PROCEDURE: CT neck soft tissue without contrast. TECHNIQUE: Multiple contiguous axial images were obtained through the neck without the use of intravenous contrast. INDICATION: Neck pain and swelling. COMPARISON: No prior studies are available for comparison. FINDINGS: The visualized intracranial structures are unremarkable. Posterior nasopharynx and oropharynx are unremarkable. Parapharyngeal fat planes are preserved. At the floor of the mouth, there is a rounded low density mass measuring 3.1 cm AP x 3.3 cm transverse x 2.2 cm cephalocaudal. This appears to displace the genioglossus and geniohyoid musculature laterally. This displaces the mylohyoid muscle inferiorly. No gas within the collection is identified. The posterior margin of this mass does abut the anterior aspect of the hyoid. Submandibular and parotid glands are symmetric bilaterally. No definite cervical lymphadenopathy is seen. No other fluid collections are identified. IMPRESSION: Circumscribed low-density mass at the floor of the mouth in the midline, with posterior margin abutting the hyoid. Diagnostic considerations include abscess, thyroglossal duct cyst as well as other less common things such as dermoid/epidermoid. MRI may be useful for further evaluation, if clinically indicated. No other significant abnormalities seen. Dictated by: Dictated on workstation # [id number]
[2018-08-27 13:25] LABS: ALBUMIN 3.3 GM/DL (3.2-4.5); BILIRUBIN,TOTAL 0.3 MG/DL (0.1-1.0); CALCIUM 9.1 MG/DL (8.5-10.1); CREATININE SERUM 1.98 MG/DL (0.60-1.30); POTASSIUM 3.5 MMOL/L (3.6-5.0); TOTAL PROTEIN 6.6 GM/DL (6.4-8.2)
[2018-08-27] MEDS ORDERED: CEFU250T80 PO (13:47)
[2018-08-27 13:49] LABS: FREE T4 (FREE THYROXINE) 0.81 NG/DL (0.70-1.48)
[2018-08-27 14:23] VITALS: BP 142/80
== END 2018-08-27 14:23 | disposition home or self-care (01) ==
LOC: EDUNIT# 10:48 → ER 10:51
DX: L02.11 Cutaneous abscess of neck (principal); Q89.2 Congenital malformations of other endocrine glands; J44.9 Chronic obstructive pulmonary disease, unspecified; E78.00 Pure hypercholesterolemia, unspecified; I11.0 Hypertensive heart disease with heart failure; I50.9 Heart failure, unspecified; E11.40 Type 2 diabetes mellitus with diabetic neuropathy, unspecified; F41.9 Anxiety disorder, unspecified; F32.9 Major depressive disorder, single episode, unspecified; Z85.828 Personal history of other malignant neoplasm of skin; Z87.19 Personal history of other diseases of the digestive system; Z88.2 Allergy status to sulfonamides; Z79.4 Long term (current) use of insulin; Z87.891 Personal history of nicotine dependence; Z90.710 Acquired absence of both cervix and uterus; Z98.890 Other specified postprocedural states
CPT/HCPCS: 36415; 70490; 80053; 83605; 84439; 84443; 85025; 85610; 85730; 87040

== ENCOUNTER 2019-03-06 19:22 | Inpatient (IN) | payer MEDICARE, MEDICAID | END 2019-03-07 15:24 | disposition other institution (70) | LOC: ER 19:22 → ICU 21:25 | DX: I13.0 Hypertensive heart and chronic kidney disease with heart failure and stage 1 through stage 4 chronic kidney disease, or unspecified chronic kidney disease (principal); N18.4 Chronic kidney disease, stage 4 (severe); I50.9 Heart failure, unspecified; N39.0 Urinary tract infection, site not specified; D63.1 Anemia in chronic kidney disease; E03.9 Hypothyroidism, unspecified; E11.40 Type 2 diabetes mellitus with diabetic neuropathy, unspecified; J30.2 Other seasonal allergic rhinitis; E78.00 Pure hypercholesterolemia, unspecified; M19.91 Primary osteoarthritis, unspecified site; M54.9 Dorsalgia, unspecified; E83.42 Hypomagnesemia; E88.09 Other disorders of plasma-protein metabolism, not elsewhere classified; E83.51 Hypocalcemia; Z79.4 Long term (current) use of insulin; Z85.828 Personal history of other malignant neoplasm of skin; Z91.19 Patient's noncompliance with other medical treatment and regimen ==

== ENCOUNTER → 2019-04-08 | Outpatient (CLI) | payer MEDICARE, MEDICAID ==
[~2019-04-08] VITALS: Ht 157 cm; Wt 123.0 kg
[~2019-04-08] MED LIST changes: +AMLO5TAB9 PO; +AMOX500T2 PO; +ASPI-999 PO; -BUME1TAB4 PO; +BUME1TAB8 PO; +CATHETER FLUSH 10 ML SYR IV PRN; +CEFU250T80 PO; +ERGO50006 PO; +ESCI20TA45 PO; +INSU100I14 SQ; +INSU100I29 SC; +LEVO150T PO; +LISI10TA2 PO; +METO-395 PO; +REGADENOSON 0.4 MG/5 ML SYR (LEXISCAN) IV ONE; -ROSU20TA31 PO; +ROSU20TA32 PO; -TRAZ-189 PO; +TRAZ-222 PO
[2019-04-08 09:33] VITALS: BP 154/83
[2019-04-08 09:36] VITALS: BP 154/74
--- NOTE | 2019-04-08 15:24 | STRESS TEST ---
DATE OF SERVICE: 04/08/2019 RESTING AND POST REGADENOSON TECHNETIUM-99M TETROFOSMIN SPECT CT IMAGING ORDERING PHYSICIAN: Tj Manjarrez MD, MARYJO, FACP, FACC. PRIMARY CARE PHYSICIAN: Dr. Lundy. CLINICAL DIAGNOSIS: Acute diastolic heart failure. Baseline images were carried out after injection of 10.93 mCi of technetium-99m Tetrofosmin. This was followed by 0.4 mg regadenoson and 29.3 mCi of technetium-99m Tetrofosmin for stress imaging. Electrocardiogram showed atrial fibrillation versus ectopic atrial rhythm. Ventricular rate varied between 50 and 80 beats per minute. The electrocardiogram did not change significantly with regadenoson infusion. Review of images at rest and following stress indicates a small transient anterolateral perfusion defect. Gated images show normal global left ventricular systolic function with normal regional wall motion. Left ventricular ejection fraction is calculated to be 69%. Left ventricular end diastolic volume is 95 mL. TID is absent (0.99). CONCLUSIONS: 1. This study is suggestive of a small amount of anterolateral ischemia. 2. No evidence of significant myocardial infarction. 3. Normal regional wall motion. 4. Normal global left ventricular systolic function with a calculated ejection fraction of 69%. Job ID: [id number] DocumentID: [id number] Dictated Date: 04/08/2019 12:42:28 Administrative Technician Date: 04/08/2019 15:22:48 Dictated By: TJ MANJARREZ MD, MA, FACP, FACC,
== END ==
LOC: CARD 07:55
PROVIDERS: ATTEND Internal Medicine Cardiovascular Disease
DX: I50.31 Acute diastolic (congestive) heart failure (principal); I13.0 Hypertensive heart and chronic kidney disease with heart failure and stage 1 through stage 4 chronic kidney disease, or unspecified chronic kidney disease; E11.22 Type 2 diabetes mellitus with diabetic chronic kidney disease; N18.4 Chronic kidney disease, stage 4 (severe)
CPT/HCPCS: 78452; 93017

== ENCOUNTER 2019-04-10 13:22 | Outpatient (RCR) | payer MEDICARE, MEDICAID ==
[~2019-04-10] VITALS: Ht 157 cm; Wt 123.0 kg
[~2019-04-10 13:22] MED LIST changes: -CATHETER FLUSH 10 ML SYR IV PRN; -REGADENOSON 0.4 MG/5 ML SYR (LEXISCAN) IV ONE
[2019-04-10] MEDS ORDERED: ACETAMINOPHEN 500 MG TAB (TYLENOL) PO PRN (13:45)
[2019-04-10] MEDS ORDERED: diphenhydrAMINE 50 MG/ML INJ (BENADRYL) IV PRN (13:45)
[2019-04-10] MEDS: FERRIC CARBOXYMALTOSE INJ 750 MG in NS (IVPB) 250 ML IV SCH (14:02)
[2019-04-10 15:41] VITALS: BP 134/59
[2019-04-17 11:05] VITALS: BP 145/76
[2019-04-17] MEDS: FERRIC CARBOXYMALTOSE INJ 750 MG in NS (IVPB) 250 ML IV SCH (11:49)
== END 2019-04-17 12:15 | disposition home or self-care (01) ==
LOC: SDC 13:22
PROVIDERS: ATTEND Internal Medicine Nephrology
DX: N18.4 Chronic kidney disease, stage 4 (severe) (principal); D50.9 Iron deficiency anemia, unspecified; D63.1 Anemia in chronic kidney disease
CPT/HCPCS: 96365

== ENCOUNTER 2019-08-06 20:39 | Outpatient (CLI) | payer MEDICARE, OTHER, MEDICAID ==
[~2019-08-06 20:39] MED LIST changes: +DILT120C88 PO; -DILT120C94 PO; -METO-395 PO; +MTP100TCR PO; -TRAZ-222 PO; +TRZ50T PO
== END 2019-08-07 07:29 | disposition home or self-care (01) ==
LOC: SLEEP 20:39
PROVIDERS: ATTEND Nurse Practitioner
DX: G47.33 Obstructive sleep apnea (adult) (pediatric) (principal); I10 Essential (primary) hypertension
CPT/HCPCS: 95811

== ENCOUNTER 2019-08-26 20:56 | Outpatient (CLI) | payer MEDICARE, MEDICAID | END 2019-08-27 06:25 | disposition home or self-care (01) | LOC: SLEEP 20:56 | PROVIDERS: ATTEND Nurse Practitioner | DX: G47.33 Obstructive sleep apnea (adult) (pediatric) (principal); G47.36 Sleep related hypoventilation in conditions classified elsewhere | CPT/HCPCS: 95811 ==

== ENCOUNTER → 2019-09-01 | Outpatient (CLI) | payer MEDICARE, MEDICAID ==
--- NOTE | 2019-09-01 11:45 | Diagnostic Imaging Report ---
INDICATION: Screening. The current study was also evaluated with a Computer Aided Detection (CAD) system. 3-D Tomographic imaging was also performed. No prior examinations are available for comparison. FINDINGS: There are scattered fibroglandular densities bilaterally. There are benign-type calcifications in both breasts. There is no dominant mass, spiculated lesion, or suspicious calcification identified. Skin, nipples, and axillae are unremarkable. IMPRESSION: Benign. ACR BI-RADS Category 2: Benign findings. Result letter will be mailed to the patient. Note: At least 10% of breast cancer is not imaged by mammography. Dictated by: Dictated on workstation # [id number]
== END ==
LOC: RAD 10:19
PROVIDERS: ATTEND Internal Medicine
DX: Z12.31 Encounter for screening mammogram for malignant neoplasm of breast (principal)
CPT/HCPCS: 77067

== ENCOUNTER 2019-12-27 15:05 | Emergency (ER) | payer MEDICARE, MEDICAID ==
[~2019-12-27] VITALS: Ht 160 cm; Wt 106.4 kg
--- OUTSIDE RECORDS SUMMARY | 2019-12-27 15:12 | XMS REPORT | Continuity of Care Document ---
Author Organization Unknown Address Unknown Phone Unavailable Allergies Active Description Code Type Severity Reaction Onset Reported/Identified Relationship to Patient Clinical Status Yes sulfa drugs NKMA N/A N/A 09/14/2017 Yes Sulfa (Sulfonamide Antibiotics) [id number] Drug Allergy Mild HIVES 8 Medications Medication Packaging Start Date St op Date Route Dosage Sig heparin(heparin) 1 mL 09/14/2017 09/15/2017 SubCutaneous 5,000 units 5,000 units = 1 mL, SubCutaneous, q8hr cyclobenzaprine(cyclobenzapr ine 10 mg oral tablet) 1 tabs 09/14/2017 Oral 1 0 mg 10 mg = 1 tabs, Oral, TID, P RN: as needed for muscle spasm, 0 Refill(s) albuterol(ProAir HFA 90 mcg/ inh inhalation aerosol) 2 puffs 09/14/2017 Inhalation 2 puffs, Inhalation, QID, [place] N: as needed for wheezing, 0 Refill(s) insulin detemir(Levemir 100 units/mL subcutaneous solution) 09/14/2017 SubCutaneous 40 units 40 units, SubCutaneous, BID, 0 Refill(s) escitalopram(escitalopram 20 mg oral table t) 1 tabs 09/14/2017 Oral 20 mg 20 mg = 1 tabs, Oral, Daily, 0 Refill(s) lisinopril(lisinopril 20 mg oral tablet) 1 tabs 09/14/2017 09/15/2017 Oral 20 mg 20 mg = 1 tabs, Oral, Daily, 0 Refill(s) cefTRIAXone(Rocephin) 10 mL 09/14/2017 09/15/2017 IV Push 1 g 1 g = 10 mL, IV Push, q24hr ondansetron(Zofran) 2 mL 09/14/2017 09/15/2017 IV Push 4 mg 4 mg = 2 mL, IV Push, q6hr, PRN: Nausea or Vomiting HYDROmorphone(Dilaudid) 1 mL 09/14/2017 09/15/2017 IV Push 1 mg 1 mg = 1 mL, IV Push, q4hr, PRN: Pain diltiazem(dilTIAZem 120 mg oral tablet) 1 tabs 09/14/2017 Oral 120 mg 120 mg = 1 tabs, Oral, Daily, 90 tabs, 0 Refill(s) colchicine(colchicine) 09/14/2017 Oral 0.3 mg 0.3 mg, Oral, Daily, 0 Refill(s) sitaGLIPtin(Januvia) 09/14/2017 Oral 25 mg 25 m g, Oral, Daily, 0 Refill(s) gabapentin(gabapentin) 09/14/2017 Oral 300 mg 300 mg, Oral, TID, 0 Refill(s) levothyroxine(levothyroxine) 09/14/2017 Oral 75 mcg 75 mcg, Oral, Daily, 0 Refill(s) rosuvastatin(rosuvastatin) 09/14/2017 Oral 20 mg 20 mg, Oral, Daily, 0 Refill(s) hydrochlorothiazide(hydroCHL OROthiazide 12.5 mg oral capsule) 1 caps 09/14/2017 Oral 12.5 mg 12.5 mg = 1 caps, Oral, Celso y, 30 caps, 0 Refill(s) bumetanide(bumetanide) 09/14/2017 Oral 1 mg 1 mg , Oral, Daily, 0 Refill(s) traZODone(traZODone) 09/14/2017 Oral 100 mg 100 mg, Oral, Bedtime (once a day), 0 Refill(s) loratadine(loratadine) 09/14/2017 Oral 10 mg 10 m g, Oral, Daily, 0 Refill(s) aspirin(aspirin) 09/14/2017 Oral 325 mg 325 mg, Oral, Daily, 0 Refill(s) HYDROcodone-acetaminophen(No rco 5 mg-325 mg oral tablet) 1 tabs 09/14/2017 09/15/2017 Oral 1 tabs, Oral, q4 hr, PRN: Pain Moderate (4-6) pantoprazole(Protonix) 1 tab s 09/14/2017 09/15/2017 Oral 40 mg 40 mg = 1 tabs, Oral, Before Breakfast albuterol sulfate HFA 90 mcg /actuation aerosol inhaler Canister 10/10/2017 9 0 mcg/actuation 2 (two) Puff(s) daily as ne eded traZODone 100 mg tablet Tabl et 10/10/2017 100 mg take 1 (one) Tablet by Oral route at bedtime levothyroxine 75 mcg tablet Tablet 10/10/2017 75 mcg 1 (one) by Oral route daily cyclobenzaprine 10 mg tablet Tablet 10/10/2017 10 mg take 1 (one) Tablet by Oral route three times per day as needed hydroCHLOROthiazide 12.5 mg tablet Tablet 10/10/2017 12.5 mg take 1 (one) Tablet by Oral route daily NovoLOG 100 unit/mL subcutaneous solution Milliliter 10/10/2017 100 un it/mL take 25 Milliliter(s) by Sub cutaneous route three times per day Levemir 100 unit/mL subcutaneous solution Milliliter 10/10/2017 100 un it/mL take 40 Unit(s) by Subcutane ous route two times per day colchicine 0.6 mg capsule Ca psule 10/10/2017 0.6 mg take 0.5 (1/2) Capsule by Oral route daily aspirin 325 mg tablet Box 10/10/2017 325 mg raquel e 1 (one) Tablet by Oral route daily rosuvastatin 20 mg tablet Ta blet 10/10/2017 20 mg take 1 (one) Tablet by Oral route daily escitalopram 20 mg tablet Bl ister 10/10/2017 20 mg take 1 (one) Tablet by Oral route daily bumetanide 1 mg tablet Table t 10/10/2017 1 mg take 1 (one) Tablet by Oral route daily dilTIAZem 120 mg tablet Tabl et 10/10/2017 120 mg take 1 (one) Tablet by Oral route daily loratadine [address] 10/10/2017 10 mg take 1 (one) Tablet by Oral route daily Januvia 25 mg tablet Tablet 10/10/2017 25 mg take 1 (one) Tablet by Oral route daily ferrous sulfate 325 mg (65 mg iron) tablet Blister 10/11/2017 05/09/2018 325 mg (65 mg iron) 1 (one) by Oral route two ti mes per day for 30 days Problems Date Dx Coded Attending Type Code Diagnosis Diagnosed By 06/14/1214 LINH CORLEY MD Ot D50.9 IRON DEFICIENCY ANEMIA, UNSPECIFIED 06/14/1214 LINH CORLEY MD Ot D63.1 ANEMIA IN CHRONIC KIDNEY DISEASE 06/14/1214 BARNEY CROWDER, LINH Ot N18.4 CHRONIC KIDNEY DISEASE, STAGE 4 (SEVERE) 09/17/2017 Sarraf,, Chady Final B97. 10 Unspecified enterovirus as the cause of diseases classified elsewhere 09/17/2017 Sarraf,, Chady Final B97. 89 Other viral agents as the cause of diseases classified elsewhere 09/17/2017 Sarraf,, Chady Final D63. 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 8 Other obesity 09/17/2017 Sarraf,, Chady Final E78. 5 Hyperlipidemia, unspecified 09/17/2017 Sarraf,, Chady Final E86. 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 9 Heart failure, unspecified 09/17/2017 Sarraf,, Chady Final J06. 9 Acute upper respiratory infection, unspecified 09/17/2017 Sarraf,, Chady Final K85. 90 Acute pancreatitis without necrosis or infection, unspecified 09/17/2017 Sarraf,, Chady Final M10. 9 Gout, unspecified 09/17/2017 Sarraf,, Chady Final N18. 3 Chronic kidney disease, stage 3 (moderate) 09/17/2017 Sarraf,, Chady Final N39. 0 Urinary tract infection, site not specified 09/17/2017 Sarraf,, Chady Final R19. 7 Diarrhea, unspecified 09/17/2017 Sarraf,, Chady Final R55 Syncope and collapse 09/17/2017 Sarraf,, Chady Final Z68. 41 Body mass index (BMI) 40.0-44.9, adult 09/17/2017 Sarraf,, Chady Final N17. 9 Acute kidney failure, unspecified 09/19/2017 TIMBO SMITH I D64.89 Other specified anemias JASEN KHAN MD 09/19/2017 LUIS, TIMBO I E11.22 Type 2 diabetes mellitus with diabetic chronic kidney disease BILL CROWDER, JASEN Greene 09/19/2017 LUISPERCY DALEYD I E66.8 Other obesity BILL CROWDER, JASEN Greene 09/19/2017 PERCY SMITHD I I12.9 Hypertensive chronic kidney disease with stage 1 through stage 4 chronic kidney disease, or unspecified chronic kidney disease BILL CROWDER, JASEN Greene 09/19/2017 LUISPERCY DALEYD I N17.8 Other acute kidney failure BILL CROWDER, JASEN Greene 09/19/2017 PERCY SMITHD I N18.3 Chronic kidney disease, stage 3 (moderate) BILL CROWDER, JASEN Greene 09/19/2017 PERCY SMITHD I R19.7 Diarrhea, unspecified BILL CROWDER, JASEN Greene 09/19/2017 PERCY SMITHD I R55 Syncope and collapse JASEN KHAN MD 09/19/2017 LUISPERCY DALEYD I D64.89 Other specified anemias RANJIT CROWDER, YECENIA 09/19/2017 TIMBO SMITH I E11.22 Type 2 diabetes mellitus with diabetic chronic kidney disease RANJIT CROWDER, YECENIA 09/19/2017 LUISPERCY DALEYD I E66.8 Other obesity RANJIT CROWDER, YECENIA 09/19/2017 TIMBO SMITH I I12.9 Hypertensive chronic kidney disease with stage 1 through stage 4 chronic kidney disease, or unspecified chronic kidney disease RANJIT CROWDER, YECENIA 09/19/2017 LUISPERCY DALEYD I N17.8 Other acute kidney failure RANJIT CROWDER, YECENIA 09/19/2017 PERCY SMITHD I N18.3 Chronic kidney disease, stage 3 (moderate) RANJIT CROWDER, YECENIA 09/19/2017 PERCY SMITHD I R19.7 Diarrhea, unspecified RANJIT CROWDER, YECENIA 09/19/2017 PERCY SMITHD I R55 Syncope and collapse RANJIT CROWDER, YECENIA 10/18/2017 PERCY SMITHD I D50.8 Other iron deficiency anemias TIMBO SMITH I 10/18/2017 LUISDMITRIYTIMBO I E11.22 Type 2 diabetes mellitus with diabetic chronic kidney disease TIMBO SMITH I 10/18/2017 LUIS, TIMBO I I12.9 Hypertensive chronic kidney disease with stage 1 through stage 4 chronic kidney disease, or unspecified chronic kidney disease LUIS, TIMBO I 10/18/2017 LUIS, TIMBO I N18.3 Chronic kidney disease, stage 3 (moderate) LUIS, TIMBO I 01/11/2018 SETH CROWDER, KIRT [place] Ot Z01.818 ENCOUNTER FOR OTHER PREPROCEDURAL EXAMIN 01/14/2018 KIRT ANN MD Ot Z01.818 ENCOUNTER FOR OTHER PREPROCEDURAL EXAMIN 01/14/2018 KIRT ANN MD Ot Z01.818 ENCOUNTER FOR OTHER PREPROCEDURAL EXAMIN 01/14/2018 KIRT ANN MD Ot Z01.818 ENCOUNTER FOR OTHER PREPROCEDURAL EXAMIN 01/18/2018 KIRT ANN MD Ot E11. 43 TYPE 2 DIABETES W DIABETIC AUTONOMIC (PO 01/18/2018 KIRT ANN MD Ot E66. 01 MORBID (SEVERE) OBESITY DUE TO EXCESS CA 01/18/2018 KIRT ANN MD Ot I11. 0 HYPERTENSIVE HEART DISEASE WITH HEART FA 01/18/2018 KIRT ANN MD Ot I25. 10 ATHSCL HEART DISEASE OF [place] CORONARY 01/18/2018 KIRT ANN MD Ot I50. 9 HEART FAILURE, UNSPECIFIED 01/18/2018 KIRT ANN MD Ot K57. 30 DVRTCLOS OF LG INT W/O PERFORATION OR AB 01/18/2018 KIRT ANN MD Ot Z12. 11 ENCOUNTER FOR SCREENING FOR MALIGNANT NE 01/18/2018 KIRT ANN MD Ot Z68. 41 BODY MASS INDEX (BMI) 40.0-44.9, ADULT 01/18/2018 KIRT ANN MD Ot Z79. 84 [facility] (CURRENT) USE OF ORAL HYPOGLYC 01/18/2018 KIRT ANN MD Ot Z79.899 OTHER [facility] (CURRENT) DRUG THERAPY 01/22/2018 KIRT ANN MD Ot E11. 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 01 MORBID (SEVERE) OBESITY DUE TO EXCESS CA 01/22/2018 KIRT ANN MD Ot I11. 0 HYPERTENSIVE HEART DISEASE WITH HEART FA 01/22/2018 KIRT ANN MD, Ot I25. 10 ATHSCL HEART DISEASE OF [place] CORONARY 01/22/2018 KIRT ANN MD Ot I50. 9 HEART FAILURE, UNSPECIFIED 01/22/2018 KIRT NAN MD, Ot K57. 30 DVRTCLOS OF LG INT W/O PERFORATION OR AB 01/22/2018 KIRT ANN MD Ot Z12. 11 ENCOUNTER FOR SCREENING FOR MALIGNANT NE 01/22/2018 KIRT ANN MD Ot Z68. 41 BODY MASS INDEX (BMI) 40.0-44.9, ADULT 01/22/2018 KIRT ANN MD Ot Z79. 84 [facility] (CURRENT) USE OF ORAL HYPOGLYC 01/22/2018 KIRT ANN MD, Ot Z79.899 OTHER [facility] (CURRENT) DRUG THERAPY 01/23/2018 KIRT ANN MD Ot E11. 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 01 MORBID (SEVERE) OBESITY DUE TO EXCESS CA 01/23/2018 KIRT ANN MD Ot I11. 0 HYPERTENSIVE HEART DISEASE WITH HEART FA 01/23/2018 KIRT ANN MD, Ot I25. 10 ATHSCL HEART DISEASE OF [place] CORONARY 01/23/2018 KIRT ANN MD, Ot I50. 9 HEART FAILURE, UNSPECIFIED 01/23/2018 KIRT ANN MD, Ot K57. 30 DVRTCLOS OF LG INT W/O PERFORATION OR AB 01/23/2018 KIRT ANN MD Ot Z12. 11 ENCOUNTER FOR SCREENING FOR MALIGNANT NE 01/23/2018 KIRT ANN MD Ot Z68. 41 BODY MASS INDEX (BMI) 40.0-44.9, ADULT 01/23/2018 KIRT ANN MD Ot Z79. 84 [facility] (CURRENT) USE OF ORAL HYPOGLYC 01/23/2018 KIRT ANN MD Ot Z79.899 OTHER STUDENT LIFE COORDINATOR (CURRENT) DRUG THERAPY 03/05/2018 Ot M47.26 OTH ER SPONDYLOSIS WITH RADICULOPATHY, WONG 03/05/2018 Ot M48.061 SP INAL STENOSIS, LUMBAR REGION WITHOUT N 03/05/2018 Ot M99.73 CON N TISS AND DISC STENOS OF INTVRT [place] 04/24/2018 SAVANNAH VILLAR DO Ot Z01.818 ENCOUNTER FOR OTHER PREPROCEDURAL EXAMIN 04/26/2018 VILLAR DOSAVANNAH D Ot D23. 39 OTHER BENIGN NEOPLASM OF SKIN OF OTHER P 04/26/2018 VILLAR DO, SAVANNAH D Ot E11. 40 TYPE 2 DIABETES MELLITUS WITH DIABETIC N 04/26/2018 VILLAR DOILIANATT D Ot I13. 0 HYP HRT CHR [place] DIS W HRT FAIL AND ST 04/26/2018 VILLAR DOILIANATT D Ot I50. 9 HEART FAILURE, UNSPECIFIED 04/26/2018 VILLAR DO, SAVANNAH D Ot K21. 9 GASTRO-ESOPHAGEAL REFLUX DISEASE WITHOUT 04/26/2018 VILLAR DO, SAVANNAH D Ot N18. 9 CHRONIC KIDNEY DISEASE, UNSPECIFIED 04/26/2018 VILLAR DOSAVANNAH D Ot Z79. 4 STUDENT LIFE COORDINATOR (CURRENT) USE OF INSULIN 04/26/2018 VILLAR DOSAVANNAH D Ot Z79.899 OTHER [facility] (CURRENT) DRUG THERAPY 04/30/2018 VILLAR DOSAVANNAH D Ot D23. 39 OTHER BENIGN NEOPLASM OF SKIN OF OTHER P 04/30/2018 VILLAR DO, SAVANNAH D Ot E11. 40 TYPE 2 DIABETES MELLITUS WITH DIABETIC N 04/30/2018 VILLAR DO, SAVANNAH D Ot I13. 0 HYP HRT CHR KD[place] DIS W HRT FAIL AND ST 04/30/2018 VILLAR DOSAVANNAH D Ot I50. 9 HEART FAILURE, UNSPECIFIED 04/30/2018 VILLAR DO SAVANNAH D Ot K21. 9 GASTRO-ESOPHAGEAL REFLUX DISEASE WITHOUT 04/30/2018 VILLAR DOILIANATT D Ot N18. 9 CHRONIC KIDNEY DISEASE, UNSPECIFIED 04/30/2018 VILLAR DOSAVANNAH D Ot Z79. 4 STUDENT LIFE COORDINATOR (CURRENT) USE OF INSULIN 04/30/2018 VILLAR DO, SAVANNAH D Ot Z79.899 OTHER STUDENT LIFE COORDINATOR (CURRENT) DRUG THERAPY 04/30/2018 VILLAR DO, SAVANNAH D Ot D23. 39 OTHER BENIGN NEOPLASM OF SKIN OF OTHER P 04/30/2018 VILLAR DO, SAVANNAH D Ot E11. 40 TYPE 2 DIABETES MELLITUS WITH DIABETIC N 04/30/2018 VILLAR DO, SAVANNAH D Ot I13. 0 HYP HRT CHR KD[place] DIS W HRT FAIL AND ST 04/30/2018 VILLAR DO, SAVANNAH D Ot I50. 9 HEART FAILURE, UNSPECIFIED 04/30/2018 VILLAR DO, SAVANNAH D Ot K21. 9 GASTRO-ESOPHAGEAL REFLUX DISEASE WITHOUT 04/30/2018 VILLAR DO, SAVANNAH D Ot N18. 9 CHRONIC KIDNEY DISEASE, UNSPECIFIED 04/30/2018 VILLAR DO, SAVANNAH D Ot Z79. 4 [facility] (CURRENT) USE OF INSULIN 04/30/2018 VILLAR DO, SAVANNAH D Ot Z79.899 OTHER STUDENT LIFE COORDINATOR (CURRENT) DRUG THERAPY 05/09/2018 VILLAR DO, SAVANNAH D Ot D23. 39 OTHER BENIGN NEOPLASM OF SKIN OF OTHER P 05/09/2018 VILLAR DO, SAVANNAH D Ot E11. 40 TYPE 2 DIABETES MELLITUS WITH DIABETIC N 05/09/2018 VILLAR DO, SAVANNAH D Ot I13. 0 HYP HRT CHR [place] DIS W HRT FAIL AND ST 05/09/2018 VILLAR DO, SAVANNAH D Ot I50. 9 HEART FAILURE, UNSPECIFIED 05/09/2018 VILLAR DO, SAVANNAH D Ot K21. 9 GASTRO-ESOPHAGEAL REFLUX DISEASE WITHOUT 05/09/2018 VILLAR DO, SAVANNAH D Ot N18. 9 CHRONIC KIDNEY DISEASE, UNSPECIFIED 05/09/2018 VLILAR DO, SAVANNAH D Ot Z79. 4 [facility] (CURRENT) USE OF INSULIN 05/09/2018 VILLAR DO, SAVANNAH D Ot Z79.899 OTHER STUDENT LIFE COORDINATOR (CURRENT) DRUG THERAPY 06/27/2018 ISABELLA MEJIA APRN Ot E11.21 TYPE 2 DIABETES MELLITUS WITH DIABETIC N 06/27/2018 ISABELLA MEJIA APRN Ot E11.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 W DIABETIC FUNERAL SERVICE APPRENTICE 06/27/2018 ISABELLA MEJIA APRN Ot E78.5 HYPERLIPIDEMIA, UNSPECIFIED 06/27/2018 ISABELLA MEJIA APRN Ot I12.9 HYPERTENSIVE CHRONIC KIDNEY DISEASE W ST 06/27/2018 ISABELLA MEJIA APRN Ot I50.9 HEART FAILURE, UNSPECIFIED 06/27/2018 ISABELLA MEJIA APRN Ot M10.9 GOUT, UNSPECIFIED 06/27/2018 ISABELLA MEJIA APRN Ot N18.4 CHRONIC KIDNEY DISEASE, STAGE 4 (SEVERE) 06/27/2018 ISABELLA MEJIA APRN Ot N39.0 URINARY TRACT INFECTION, SITE NOT SPECIF 06/27/2018 ISABELLA MEJIA APRN Ot Z87.891 PERSONAL HISTORY OF NICOTINE DEPENDENCE 07/10/2018 ISABELLA MEJIA PV DESIGN ENGINEER Ot E11.21 TYPE 2 DIABETES MELLITUS WITH DIABETIC N 07/10/2018 ISABELLA MEJIA APRN Ot E11.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 W DIABETIC FUNERAL SERVICE APPRENTICE 07/10/2018 ISABELLA MEJIA APRN Ot E78.5 HYPERLIPIDEMIA, UNSPECIFIED 07/10/2018 ISABELLA MEJIA APRN Ot I12.9 HYPERTENSIVE CHRONIC KIDNEY DISEASE W ST 07/10/2018 ISABELLA MEJIA APRN Ot I50.9 HEART FAILURE, UNSPECIFIED 07/10/2018 ISABELLA MEJIA APRN Ot M10.9 GOUT, UNSPECIFIED 07/10/2018 ISABELLA MEJIA APRN Ot N18.4 CHRONIC KIDNEY DISEASE, STAGE 4 (SEVERE) 07/10/2018 ISABELLA MEJIA PV DESIGN ENGINEER Ot N39.0 URINARY TRACT INFECTION, SITE NOT SPECIF 07/10/2018 ISABELLA MEJIA APRN Ot Z87.891 PERSONAL HISTORY OF NICOTINE DEPENDENCE 08/27/2018 SHERLYN HARRIS Ot E11.40 TYPE 2 DIABETES MELLITUS WITH DIABETIC N 08/27/2018 SHERLYN HARRIS Ot E78.00 PURE HYPERCHOLESTEROLEMIA, UNSPECIFIED 08/27/2018 SHERLYN HARRIS Ot F32.9 MAJOR DEPRESSIVE DISORDER, SINGLE EPISOD 08/27/2018 SHERLYN HARRIS Ot F41.9 ANXIETY DISORDER, UNSPECIFIED 08/27/2018 SHERLYN HARRIS Ot I11.0 HYPERTENSIVE HEART DISEASE WITH HEART FA 08/27/2018 SHERLYN HARRIS Ot I50.9 HEART FAILURE, UNSPECIFIED 08/27/2018 SHERLYN HARRIS Ot J44.9 CHRONIC OBSTRUCTIVE PULMONARY DISEASE, U 08/27/2018 SHERLYN HARRIS Ot L02.11 CUTANEOUS ABSCESS OF NECK 08/27/2018 SHERLYN HARRIS Ot 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 08/27/2018 SHERLYN HARRIS Ot R22.0 LOCALIZED SWELLING, MASS AND LUMP, HEAD 08/27/2018 SHERLYN HARRIS Ot Z79.4 [facility] (CURRENT) USE OF INSULIN 08/27/2018 SHERLYN HARRIS Ot Z85.828 PERSONAL HISTORY OF OTHER MALIGNANT NEOP 08/27/2018 SHERLYN HARRIS Ot Z87.19 PERSONAL HISTORY OF OTHER DISEASES OF TH 08/27/2018 SHERLYN HARRIS Ot Z87.891 PERSONAL HISTORY OF NICOTINE DEPENDENCE 08/27/2018 SHERLYN HARRIS Ot Z88.2 ALLERGY STATUS TO SULFONAMIDES STATUS 08/27/2018 SHERLYN HARRIS Ot Z90.710 ACQUIRED ABSENCE OF BOTH CERVIX AND UTER 08/27/2018 SHERLYN HARRIS Ot Z98.890 OTHER SPECIFIED POSTPROCEDURAL STATES 08/27/2018 ISABELLA MEJIA PV DESIGN ENGINEER Ot E11.21 TYPE 2 DIABETES MELLITUS WITH DIABETIC N 08/27/2018 ISABELLA MEJIA PV DESIGN ENGINEER Ot E11.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 W DIABETIC FUNERAL SERVICE APPRENTICE 08/27/2018 ISABELLA MEJIA APRN Ot E78.5 HYPERLIPIDEMIA, UNSPECIFIED 08/27/2018 ISABELLA MEJIA APRN Ot I12.9 HYPERTENSIVE CHRONIC KIDNEY DISEASE W ST 08/27/2018 ISABELLA MEJIA APRN Ot I50.9 HEART FAILURE, UNSPECIFIED 08/27/2018 ISABELLA MEJIA APRN Ot M10.9 GOUT, UNSPECIFIED 08/27/2018 ISABELLA MEJIA APRN Ot N18.4 CHRONIC KIDNEY DISEASE, STAGE 4 (SEVERE) 08/27/2018 ISABELLA MEJIA APRN Ot N39.0 URINARY TRACT INFECTION, SITE NOT SPECIF 08/27/2018 ISABELLA MEJIA APRN Ot Z87.891 PERSONAL HISTORY OF NICOTINE DEPENDENCE 08/29/2018 SHERLYN HARRIS Ot E11.40 TYPE 2 DIABETES MELLITUS WITH DIABETIC N 08/29/2018 SHERLYN HARRIS Ot E78.00 PURE HYPERCHOLESTEROLEMIA, UNSPECIFIED 08/29/2018 SHERLYN HARRIS Ot F32.9 MAJOR DEPRESSIVE DISORDER, SINGLE EPISOD 08/29/2018 SHERLYN HARRIS Ot F41.9 ANXIETY DISORDER, UNSPECIFIED 08/29/2018 SHERLYN HARRIS Ot I11.0 HYPERTENSIVE HEART DISEASE WITH HEART FA 08/29/2018 SHERLYN HARRIS Ot I50.9 HEART FAILURE, UNSPECIFIED 08/29/2018 SHERLYN HARRIS Ot J44.9 CHRONIC OBSTRUCTIVE PULMONARY DISEASE, U 08/29/2018 SHERLYN HARRIS Ot L02.11 CUTANEOUS ABSCESS OF NECK 08/29/2018 SHERLYN HARRIS Ot 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 08/29/2018 SHERLYN HARRIS Ot R22.0 LOCALIZED SWELLING, MASS AND LUMP, HEAD 08/29/2018 SHERLYN HARRIS Ot Z79.4 [facility] (CURRENT) USE OF INSULIN 08/29/2018 SHERLYN HARRIS Ot Z85.828 PERSONAL HISTORY OF OTHER MALIGNANT NEOP 08/29/2018 SHERLYN HARRIS Ot Z87.19 PERSONAL HISTORY OF OTHER DISEASES OF TH 08/29/2018 SHERLYN HARRIS Ot Z87.891 PERSONAL HISTORY OF NICOTINE DEPENDENCE 08/29/2018 SHERLYN HARRIS Ot Z88.2 ALLERGY STATUS TO SULFONAMIDES STATUS 08/29/2018 SHERLYN HARRIS Ot Z90.710 ACQUIRED ABSENCE OF BOTH CERVIX AND UTER 08/29/2018 SHERLYN HARRIS Ot Z98.890 OTHER SPECIFIED POSTPROCEDURAL STATES 03/06/2019 ISABELLA MEJIA APRN Ot E11.21 TYPE 2 DIABETES MELLITUS WITH DIABETIC N 03/06/2019 ISABELLA MEJIA APRN Ot E11.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 W DIABETIC FUNERAL SERVICE APPRENTICE 03/06/2019 ISABELLA MEJIA APRN Ot E78.5 HYPERLIPIDEMIA, UNSPECIFIED 03/06/2019 ISABELLA MEJIA APRN Ot I12.9 HYPERTENSIVE CHRONIC KIDNEY DISEASE W ST 03/06/2019 ISABELLA MEJIA APRN Ot I50.9 HEART FAILURE, UNSPECIFIED 03/06/2019 ISABELLA MEJIA APRN Ot M10.9 GOUT, UNSPECIFIED 03/06/2019 ISABELLA MEJIA APRN Ot N18.4 CHRONIC KIDNEY DISEASE, STAGE 4 (SEVERE) 03/06/2019 ISABELLA MEJIA APRN Ot N39.0 URINARY TRACT INFECTION, SITE NOT SPECIF 03/06/2019 ISABELLA MEJIA APRN Ot Z87.891 PERSONAL HISTORY OF NICOTINE DEPENDENCE 03/07/2019 CLAUDIO FARAH MD, Ot D63 .1 ANEMIA IN CHRONIC KIDNEY DISEASE 03/07/2019 CLAUDIO FARAH MD, Ot E03 .9 HYPOTHYROIDISM, UNSPECIFIED 03/07/2019 CLAUDIO FARAH MD Ot E11.21 TYPE 2 DIABETES MELLITUS WITH DIABETIC N 03/07/2019 CLAUDIO FARAH MD, Ot E11.40 TYPE 2 DIABETES MELLITUS WITH DIABETIC N 03/07/2019 CLAUDIO FARAH MD Ot E66 .9 OBESITY, UNSPECIFIED 03/07/2019 CLAUDIO FARAH MD, Ot E78.00 PURE HYPERCHOLESTEROLEMIA, UNSPECIFIED 03/07/2019 CLAUDIO FARAH MD, Ot E83.42 HYPOMAGNESEMIA 03/07/2019 CLAUDIO FARAH MD Ot E83.51 HYPOCALCEMIA 03/07/2019 CLAUDIO FARAH MD, Ot E88.09 OT DISORDERS OF PLASMA-PROTEIN METABOLI 03/07/2019 CLAUDIO FARAH MD Ot F32 .9 MAJOR DEPRESSIVE DISORDER, SINGLE EPISOD 03/07/2019 CLAUDIO FARAH MD, Ot F41 .9 ANXIETY DISORDER, UNSPECIFIED 03/07/2019 CLAUDIO FARAH MD, Ot I13 .0 HYP HRT CHR [place] DIS W HRT FAIL AND ST 03/07/2019 CLAUDIO FARAH MD Ot I50.31 ACUTE DIASTOLIC (CONGESTIVE) HEART FAILU 03/07/2019 CLAUDIO FARAH MD, Ot I50 .9 HEART FAILURE, UNSPECIFIED 03/07/2019 CLAUDIO FARAH MD Ot J30 .2 OTHER SEASONAL ALLERGIC RHINITIS 03/07/2019 CLAUDIO FARAH MD, Ot M19.91 PRIMARY OSTEOARTHRITIS, UNSPECIFIED SITE 03/07/2019 CLAUDIO FARAH MD, Ot M54 .9 DORSALGIA, UNSPECIFIED 03/07/2019 CLAUDIO FARAH MD, Ot N18 .4 CHRONIC KIDNEY DISEASE, STAGE 4 (SEVERE) 03/07/2019 CLAUDIO FARAH MD, Ot N39 .0 URINARY TRACT INFECTION, SITE NOT SPECIF 03/07/2019 CLAUDIO FARAH MD, Ot Z68.42 BODY MASS INDEX (BMI) 45.0-49.9, ADULT 03/07/2019 CLAUDIO FARAH MD, Ot Z79 .4 [facility] (CURRENT) USE OF INSULIN 03/07/2019 CLAUDIO FARAH MD, Ot Z85.828 PERSONAL HISTORY OF OTHER MALIGNANT NEOP 03/07/2019 CLAUDIO FARAH MD, Ot Z91.19 PATIENT'S NONCOMPLIANCE W OT MEDICAL TR 03/17/2019 ISABELLA MEJIA APRN Ot E11.21 TYPE 2 DIABETES MELLITUS WITH DIABETIC N 03/17/2019 ISABELLA MEJIA APRN Ot E11.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 W DIABETIC FUNERAL SERVICE APPRENTICE 03/17/2019 ISABELLA MEJIA APRN Ot E78.5 HYPERLIPIDEMIA, UNSPECIFIED 03/17/2019 ISABELLA MEJIA APRN Ot I12.9 HYPERTENSIVE CHRONIC KIDNEY DISEASE W ST 03/17/2019 ISABELLA MEJIA APRN Ot I50.9 HEART FAILURE, UNSPECIFIED 03/17/2019 ISABELLA MEJIA APRN Ot M10.9 GOUT, UNSPECIFIED 03/17/2019 ISABELLA MEJIA APRN Ot N18.4 CHRONIC KIDNEY DISEASE, STAGE 4 (SEVERE) 03/17/2019 ISABELLA MEJIA APRN Ot N39.0 URINARY TRACT INFECTION, SITE NOT SPECIF 03/17/2019 ISABELLA MEJIA APRN Ot Z87.891 PERSONAL HISTORY OF NICOTINE DEPENDENCE 03/17/2019 ISABELLA MEJIA APRN Ot E11.21 TYPE 2 DIABETES MELLITUS WITH DIABETIC N 03/17/2019 ISABELLA MEJIA APRN Ot E11.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 W DIABETIC FUNERAL SERVICE APPRENTICE 03/17/2019 ISABELLA MEJIA APRN Ot E78.5 HYPERLIPIDEMIA, UNSPECIFIED 03/17/2019 ISABELLA MEJIA APRN Ot I12.9 HYPERTENSIVE CHRONIC KIDNEY DISEASE W ST 03/17/2019 ISABELLA MEJIA APRN Ot I50.9 HEART FAILURE, UNSPECIFIED 03/17/2019 ISABELLA MEJIA APRN Ot M10.9 GOUT, UNSPECIFIED 03/17/2019 ISABELLA MEJIA APRN Ot N18.4 CHRONIC KIDNEY DISEASE, STAGE 4 (SEVERE) 03/17/2019 ISABELLA MEJIA APRN Ot N39.0 URINARY TRACT INFECTION, SITE NOT SPECIF 03/17/2019 ISABELLA MEJIA APRN Ot Z87.891 PERSONAL HISTORY OF NICOTINE DEPENDENCE 04/08/2019 ISABELLA MEJIA APRN Ot E11.21 TYPE 2 DIABETES MELLITUS WITH DIABETIC N 04/08/2019 ISABELLA MEJIA APRN Ot E11.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 W DIABETIC FUNERAL SERVICE APPRENTICE 04/08/2019 ISABELLA MEJIA APRN Ot E78.5 HYPERLIPIDEMIA, UNSPECIFIED 04/08/2019 ISABELLA MEJIA APRN Ot I12.9 HYPERTENSIVE CHRONIC KIDNEY DISEASE W ST 04/08/2019 ISABELLA MEJIA APRN Ot I50.9 HEART FAILURE, UNSPECIFIED 04/08/2019 ISABELLA MEJIA APRN Ot M10.9 GOUT, UNSPECIFIED 04/08/2019 ISABELLA MEJIA APRN Ot N18.4 CHRONIC KIDNEY DISEASE, STAGE 4 (SEVERE) 04/08/2019 ISABELLA MEJIA APRN Ot N39.0 URINARY TRACT INFECTION, SITE NOT SPECIF 04/08/2019 ISABELLA MEJIA APRN Ot Z87.891 PERSONAL HISTORY OF NICOTINE DEPENDENCE 04/08/2019 ISABELLA MEJIA APRN Ot E11.21 TYPE 2 DIABETES MELLITUS WITH DIABETIC N 04/08/2019 ISABELLA MEJIA APRN Ot E11.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 W DIABETIC FUNERAL SERVICE APPRENTICE 04/08/2019 ISABELLA MEJIA APRN Ot E78.5 HYPERLIPIDEMIA, UNSPECIFIED 04/08/2019 ISABELLA MEJIA APRN Ot I12.9 HYPERTENSIVE CHRONIC KIDNEY DISEASE W ST 04/08/2019 ISABELLA MEJIA APRN Ot I50.9 HEART FAILURE, UNSPECIFIED 04/08/2019 ISABELLA MEJIA APRN Ot M10.9 GOUT, UNSPECIFIED 04/08/2019 ISABELLA MEJIA APRN Ot N18.4 CHRONIC KIDNEY DISEASE, STAGE 4 (SEVERE) 04/08/2019 ISABELLA MEJIA APRN Ot N39.0 URINARY TRACT INFECTION, SITE NOT SPECIF 04/08/2019 ISABELLA MEJIA APRN Ot Z87.891 PERSONAL HISTORY OF NICOTINE DEPENDENCE 04/10/2019 JOHANNA CROWDER FACC, LYDIA FACP CCDS Ot E11.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 W DIABETIC FUNERAL SERVICE APPRENTICE 04/10/2019 JOHANNA CROWDER FACC, LYDIA FACP CCDS Ot I13.0 HYP HRT CHR KDNY DIS W HRT FAIL AND ST 04/10/2019 JOHANNA CROWDER FACC, LYDIA FACP CCDS Ot I50.31 ACUTE DIASTOLIC (CONGESTIVE) HEART FAILU 04/10/2019 JOHANNA CROWDER FACC, LYDIA FACP CCDS Ot N18.4 CHRONIC KIDNEY DISEASE, STAGE 4 (SEVERE) 04/17/2019 LINH CORLEY MD Ot D50.9 IRON DEFICIENCY ANEMIA, UNSPECIFIED 04/17/2019 LINH CORLEY MD Ot D63.1 ANEMIA IN CHRONIC KIDNEY DISEASE 04/17/2019 LINH CORLEY MD Ot N18.4 CHRONIC KIDNEY DISEASE, STAGE 4 (SEVERE) 04/17/2019 LINH CORLEY MD Ot D50.9 IRON DEFICIENCY ANEMIA, UNSPECIFIED 04/17/2019 BARNEY CROWDER LINH Ot D63.1 ANEMIA IN CHRONIC KIDNEY DISEASE 04/17/2019 LINH CORLEY MD Ot N18.4 CHRONIC KIDNEY DISEASE, STAGE 4 (SEVERE) 04/17/2019 LINH CORLEY MD Ot D50.9 IRON DEFICIENCY ANEMIA, UNSPECIFIED 04/17/2019 LINH CORLEY MD Ot D63.1 ANEMIA IN CHRONIC KIDNEY DISEASE 04/17/2019 LINH CORLEY MD Ot N18.4 CHRONIC KIDNEY DISEASE, STAGE 4 (SEVERE) 05/09/2019 JOHANNA CROWDER FACC, ALI FACP CCDS Ot E11.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 W DIABETIC FUNERAL SERVICE APPRENTICE 05/09/2019 JOHANNA CROWDER FACC, ALI FACP CCDS Ot I13.0 HYP HRT CHR KDNY DIS W HRT FAIL AND ST 05/09/2019 JOHANNA CROWDER FACC, ALI FACP CCDS Ot I50.31 ACUTE DIASTOLIC (CONGESTIVE) HEART FAILU 05/09/2019 JOHANNA CROWDER FACC, ALI FACP CCDS Ot N18.4 CHRONIC KIDNEY DISEASE, STAGE 4 (SEVERE) 08/05/2019 ISABELLA MEJIA APRN Ot G47.33 OBSTRUCTIVE SLEEP APNEA (ADULT) (PEDIATR 08/06/2019 ISABELLA MEJIA PV DESIGN ENGINEER Ot G47.33 OBSTRUCTIVE SLEEP APNEA (ADULT) (PEDIATR 08/06/2019 ISABELLA MEJIA APRN Ot G47.33 OBSTRUCTIVE SLEEP APNEA (ADULT) (PEDIATR 08/06/2019 ISABLELA MEJIA APRN Ot G47.33 OBSTRUCTIVE SLEEP APNEA (ADULT) (PEDIATR 08/07/2019 ISABELLA MEJIA APRN Ot G47.33 OBSTRUCTIVE SLEEP APNEA (ADULT) (PEDIATR 08/07/2019 DOUTHITT, ISABELLA B PV DESIGN ENGINEER Ot I10 ESSENTIAL (PRIMARY) HYPERTENSION 08/08/2019 ISABELLA MEJIA PV DESIGN ENGINEER Ot G47.33 OBSTRUCTIVE SLEEP APNEA (ADULT) (PEDIATR 08/08/2019 ISABELLA MEJIA PV DESIGN ENGINEER Ot I10 ESSENTIAL (PRIMARY) HYPERTENSION 08/15/2019 YAZMIN, DAYNA R PV DESIGN ENGINEER Ot G47.33 OBSTRUCTIVE SLEEP APNEA (ADULT) (PEDIATR 08/21/2019 YAZMIN, DAYNA R PV DESIGN ENGINEER Ot G47.33 OBSTRUCTIVE SLEEP APNEA (ADULT) (PEDIATR 08/21/2019 YAZMIN, DAYNA R PV DESIGN ENGINEER Ot G47.33 OBSTRUCTIVE SLEEP APNEA (ADULT) (PEDIATR 08/21/2019 YAZMIN, DAYNA R PV DESIGN ENGINEER Ot G47.33 OBSTRUCTIVE SLEEP APNEA (ADULT) (PEDIATR 08/21/2019 YAZMIN, DAYNA R PV DESIGN ENGINEER Ot G47.33 OBSTRUCTIVE SLEEP APNEA (ADULT) (PEDIATR 08/21/2019 YAZMIN, DAYNA R PV DESIGN ENGINEER Ot G47.33 OBSTRUCTIVE SLEEP APNEA (ADULT) (PEDIATR 08/22/2019 YAZMIN, DAYNA R PV DESIGN ENGINEER Ot G47.33 OBSTRUCTIVE SLEEP APNEA (ADULT) (PEDIATR 08/22/2019 YAZMIN, DAYNA R PV DESIGN ENGINEER Ot G47.33 OBSTRUCTIVE SLEEP APNEA (ADULT) (PEDIATR 08/22/2019 YAZMIN, DAYNA R PV DESIGN ENGINEER Ot G47.33 OBSTRUCTIVE SLEEP APNEA (ADULT) (PEDIATR 08/26/2019 YAZMIN, DAYNA R PV DESIGN ENGINEER Ot G47.33 OBSTRUCTIVE SLEEP APNEA (ADULT) (PEDIATR 08/26/2019 SAULO CROWDER, KEN Sood Ot Z12.31 ENCNTR SCREEN MAMMOGRAM FOR MALIGNANT NE 08/26/2019 DAYNA ARCE R PV DESIGN ENGINEER Ot G47.33 OBSTRUCTIVE SLEEP APNEA (ADULT) (PEDIATR 08/26/2019 SAULO CROWDER, KEN Sood Ot Z12.31 ENCNTR SCREEN MAMMOGRAM FOR MALIGNANT NE 08/27/2019 DAYNA ARCE R PV DESIGN ENGINEER Ot G47.33 OBSTRUCTIVE SLEEP APNEA (ADULT) (PEDIATR 08/27/2019 DAYNA ARCE R PV DESIGN ENGINEER Ot G47.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 08/27/2019 SAULO CROWDER, KEN Sood Ot Z12.31 ENCNTR SCREEN MAMMOGRAM FOR MALIGNANT NE 09/02/2019 KEN VERNON MD Ot Z12.31 ENCNTR SCREEN MAMMOGRAM FOR MALIGNANT NE 09/03/2019 DAYNA ARCE APRN Ot G47.33 OBSTRUCTIVE SLEEP APNEA (ADULT) (PEDIATR 09/03/2019 DAYNA ARCE APRN Ot G47.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 09/16/2019 KEN VERNON MD, Ot Z12.31 ENCNTR SCREEN MAMMOGRAM FOR MALIGNANT NE 09/16/2019 KEN VERNON MD, Ot Z12.31 ENCNTR SCREEN MAMMOGRAM FOR MALIGNANT NE 09/19/2019 KEN VERNON MD, Ot Z12.31 ENCNTR SCREEN MAMMOGRAM FOR MALIGNANT NE Procedures Code Description [place] [id number] [facility], per day, for the evaluation and management of a patient, which requires these JASEN KHAN MD 09/19/2017 [id number] [facility], per day, for the evaluation and management of a patient, which requires at YECENIA CHURCH MD 09/19/2017 [id number] Offi ce or other outpatient visit for the evaluation and management of an established patient, which TIMBO SMITH I 10/18/2017 [id number] Offi ce or other outpatient visit for the evaluation and management of an established patient, which TIMBO SMITH I 03/29/2018 [id number] [facility], per day, for the evaluation and management of a patient, which requires these JASEN KHAN MD 03/29/2018 [id number] [facility], per day, for the evaluation and management of a patient, which requires at YECENIA CHURCH MD 03/29/2018 Results Test Result Range Glucose NPT - 09/14/17 05:14 Glucose NPT 148 mg/dL 70-100 CBC With Platelet and Differential - 09/02 05:45 Absolute Basophils 0.03 10*3/uL 0.00-0.2 0 Absolute Eosinophils 0.18 10*3/uL 0.00-0 .50 Absolute Lymphocytes 2.95 10*3/uL 0.80-3 .30 Absolute Monocytes 0.51 10*3/uL 0.30-1.0 0 Absolute Neutrophils 6.13 10*3/uL 1.90-7 .00 Basophils 0 % 0-2 Eosinophils 2 % 0-4 HCT 34.6 % 37.0-47.0 HGB 10.8 g/dL 12.0-16.0 Immature Granulocytes 0.2 % 0.0-1.0 Lymphocytes 30 % 20-46 MCH 28.4 pg 27.0-32.0 MCHC 31.2 g/dL 32.0-36.0 MCV 91.1 fL 82.0-99.0 Monocytes 5 % 4-11 MPV 11.4 fL 9.4-12.4 Neutrophils 63 % 51-75 Nucleated RBC Automated 0.0 /100 WBC Platelet Count 173 K/uL 150-400 RBC 3.80 10*6/uL 4.00-5.20 RDW 15.0 % 11.5-14.5 WBC 9.8 K/uL 4.8-10.8 Comprehensive Metabolic Panel (CMP) - 05:45 Albumin 2.9 g/dL 3.5-4.8 Alkaline Phosphatase 49 U/L 26-104 ALT (SGPT) 14 U/L 14-54 Anion Gap 11 mEq/L 3-20 AST (SGOT) 14 U/L 15-41 Bilirubin Total 0.1 mg/dL 0.2-1.2 BUN 80 mg/dL 4-20 Calcium 7.5 mg/dL 8.6-10.0 Chloride 102 mEq/L 99-109 CO2 24 mEq/L 22-32 Creatinine 3.50 mg/dL 0.44-1.03 Globulin 2.7 g/dL 1.9-4.3 Glucose 139 mg/dL 70-100 Potassium 3.6 mEq/L 3.6-5.1 Protein 5.6 g/dL 6.1-7.9 Sodium 137 mEq/L 136-144 Magnesium - 09/14/17 05:45 Magnesium 1.9 mg/dL 1.8-2.5 Lipase - 09/14/17 05:45 Lipase 58 U/L 8-48 Phosphorus - 09/14/17 05:45 Phosphorus 5.6 mg/dL 2.4-4.7 eGFR - 09/14/17 05:45 eGFR 14 mL/min >60 Hemoglobin A1C - 09/14/17 05:45 Hemoglobin A1C 7.9 % 4.1-5.6 Estimated Average Glucose - 09/14/17 05: 45 Estimated Average Glucose 180.0 mg/dL Lipid Panel - 09/14/17 05:45 Cardiac Risk 8.3 0.0-5.0 Cholesterol 199 mg/dL 0-199 HDL Cholesterol 24 mg/dL 40-84 LDL Cholesterol INVALID mg/dL 0-130 Triglycerides 714 mg/dL 0-149 VLDL Cholesterol INVALID mg/dL 0-28 Urinalysis with reflex microscopic - 09/02 06:55 Appearance Sl Cloudy NA Bilirubin Negative NA Negative Blood Negative NA Negative Color Yellow NA Glucose, Urine Negative Negative Ketones Negative Negative Leukocyte Esterase Trace NA Negative Nitrites Negative NA Negative pH 5.0 NA 5.0-8.0 Protein Pos 2+ NA Negative Specific Siren 1.015 NA 1.003-1.030 UA Collection type Clean Catch NA Urobilinogen Negative mg/dL <1.0 Urine Microscopic - 09/14/17 06:55 Bacteria Numerous NA Epithelial Cells 0 /HPF Hyaline Casts 1 /LPF 0-3 RBC, Urine 0 /HPF 0-2 Urine Mucus Present NA WBC, Urine 10 /HPF 0-4 Sodium Random Urine - 09/14/17 06:55 Sodium Random Urine 39 mEq/L Creatinine Random Urine - 09/14/17 06:55 Creatinine Random Urine 153 mg/dL Glucose NPT - 09/14/17 21:19 Glucose NPT 134 mg/dL 70-100 Glucose NPT - 09/15/17 06:47 Glucose NPT 139 mg/dL 70-100 CBC With Platelet and Differential - 09/30 07:46 Absolute Basophils 0.03 10*3/uL 0.00-0.2 0 Absolute Eosinophils 0.18 10*3/uL 0.00-0 .50 Absolute Lymphocytes 2.11 10*3/uL 0.80-3 .30 Absolute Monocytes 0.36 10*3/uL 0.30-1.0 0 Absolute Neutrophils 3.51 10*3/uL 1.90-7 .00 Basophils 1 % 0-2 Eosinophils 3 % 0-4 HCT 36.6 % 37.0-47.0 HGB 11.2 g/dL 12.0-16.0 Immature Granulocytes 0.3 % 0.0-1.0 Lymphocytes 34 % 20-46 MCH 28.1 pg 27.0-32.0 MCHC 30.6 g/dL 32.0-36.0 MCV 92.0 fL 82.0-99.0 Monocytes 6 % 4-11 MPV 11.6 fL 9.4-12.4 Neutrophils 57 % 51-75 Nucleated RBC Automated 0.0 /100 WBC Platelet Count 154 K/uL 150-400 RBC 3.98 10*6/uL 4.00-5.20 RDW 14.5 % 11.5-14.5 WBC 6.2 K/uL 4.8-10.8 B-Type Natriuretic Peptide - 09/15/17 07 :46 B-Type Natriuretic Peptide 131 pg/mL 0-9 9 Magnesium - 09/15/17 07:46 Magnesium 1.9 mg/dL 1.8-2.5 Comprehensive Metabolic Panel (CMP) - 07:46 Albumin 2.9 g/dL 3.5-4.8 Alkaline Phosphatase 47 U/L 26-104 ALT (SGPT) 15 U/L 14-54 Anion Gap 7 mEq/L 3-20 AST (SGOT) 17 U/L 15-41 Bilirubin Total 0.4 mg/dL 0.2-1.2 BUN 52 mg/dL 4-20 Calcium 8.4 mg/dL 8.6-10.0 Chloride 106 mEq/L 99-109 CO2 26 mEq/L 22-32 Creatinine 1.69 mg/dL 0.44-1.03 Globulin 2.9 g/dL 1.9-4.3 Glucose 150 mg/dL 70-100 Potassium 3.7 mEq/L 3.6-5.1 Protein 5.8 g/dL 6.1-7.9 Sodium 139 mEq/L 136-144 Renal Function Panel - 09/15/17 07:46 Phosphorus 3.3 mg/dL 2.4-4.7 Hepatic Function Panel - 09/15/17 07:46 Bilirubin Direct 0.0 mg/dL 0.0-0.2 Bilirubin Indirect 0.4 mg/dL 0.0-1.0 Lipase - 09/15/17 07:46 Lipase 147 U/L 8-48 eGFR - 09/15/17 07:46 eGFR 32 mL/min >60 Capillary blood glucose measurement by g lucometer (mass/volume) - 01/18/18 08:32 Capillary blood glucose measurement by glucometer (mas s/volume) 186 mg/dL 70-110 Methicillin resistant Staphylococcus aur eus (MRSA) screening culture - 04/26/18 09:40 Methicillin resistant Staphylococcus aureus (MRSA) scr eening culture NEG NRG Capillary blood glucose measurement by g lucometer (mass/volume) - 04/26/18 09:42 Capillary blood glucose measurement by glucometer (mas s/volume) 210 mg/dL 70-110 Complete blood count (CBC) with automate d white blood cell (WBC) differential - 08/27/18 12:57 Blood leukocytes automated count (number/volume) 11.7 10*3/uL 4.3-11.0 Blood erythrocytes automated count (number/volume) 4.26 10*6/uL 4.35-5.85 Venous blood hemoglobin measurement (mass/volume) 11.5 g/dL 11.5-16.0 Blood hematocrit (volume fraction) 39 % 35-52 Automated erythrocyte mean corpuscular volume 91 [ foz_us] 80-99 Automated erythrocyte mean corpuscular h emoglobin (mass per erythrocyte) 27 pg 25-34 Automated erythrocyte mean corpuscular h emoglobin concentration measurement (mass/volume) 30 g/dL 32-36 Automated erythrocyte distribution width ratio 15. 3 % 10.0- 14.5 Automated blood platelet count (count/volume) 220 10*3/uL 130-400 Automated blood platelet mean volume measurement 11.2 [foz_us] 7.4-10.4 Automated blood neutrophils/100 leukocytes 71 % 42-75 Automated blood lymphocytes/100 leukocytes 21 % 12-44 Blood monocytes/100 leukocytes 7 % 0-12 Automated blood eosinophils/100 leukocytes 1 % 0-10 Automated blood basophils/100 leukocytes 0 % 0-10 Blood neutrophils automated count (number/volume) 8.3 10*3 1.8-7.8 Blood lymphocytes automated count (number/volume) 2.5 10*3 1.0-4.0 Blood monocytes automated count (number/volume) 0. 8 10*3 0.0-1.0 Automated eosinophil count 0.2 10*3/uL 0 .0-0.3 Automated blood basophil count (count/volume) 0.0 10*3/uL 0.0-0.1 Blood lactic acid measurement (moles/vol ume) - 08/27/18 12:57 Blood lactic acid measurement (moles/volume) 0.81 mmol/L 0.50-2.00 PT panel in platelet poor plasma by coag ulation assay - 08/27/18 12:57 Prothrombin time (PT) in platelet poor plasma by coagu lation assay 13.8 s 12.2-14.7 INR in platelet poor plasma or blood by coagulation as say 1.1 0.8-1.4 Activated partial thromboplastin time (a PTT) in platelet poor plasma bycoagulation assay - 08/27/18 12:57 Activated partial thromboplastin time (a PTT) in platelet poor plasma bycoagulation assay 35 s 24-35 Comprehensive metabolic panel - 08/27/18 12:57 Serum or plasma sodium measurement (moles/volume) 143 mmol/L 135-145 Serum or plasma potassium measurement (moles/volume) 3.5 mmol/L 3.6-5.0 Serum or plasma chloride measurement (moles/volume) 103 mmol/L 98-107 Carbon dioxide 31 mmol/L 21-32 Serum or plasma anion gap determination (moles/volume) 9 mmol/L 5-14 Serum or plasma urea nitrogen measurement (mass/volume ) 21 mg/dL 7-18 Serum or plasma creatinine measurement (mass/volume) 1.98 mg/dL 0.60-1.30 Serum or plasma urea nitrogen/creatinine mass ratio 11 NRG Serum or plasma creatinine measurement w ith calculation of estimated glomerular filtration rate 26 NRG Serum or plasma glucose measurement (mass/volume) 181 mg/dL 70-105 Serum or plasma calcium measurement (mass/volume) 9.1 mg/dL 8.5-10.1 Serum or plasma total bilirubin measurement (mass/volu me) 0.3 mg/dL 0.1-1.0 Serum or plasma alkaline phosphatase apurva surement (enzymatic activity/volume) 84 U/L 40-136 Serum or plasma aspartate aminotransfera se measurement (enzymatic activity/volume) 13 U/L 5-34 Serum or plasma alanine aminotransferase measurement (enzymatic activity/volume) 9 U/L 0-55 Serum or plasma protein measurement (mass/volume) 6.6 g/dL 6.4-8.2 Serum or plasma albumin measurement (mass/volume) 3.3 g/dL 3.2-4.5 CALCIUM CORRECTED 9.7 mg/dL 8.5-10.1 THYROID STIMULATING HORMONE - 08/27/18 1 2:57 THYROID STIMULATING HORMONE 7.19 u[iU]/mL 0.35-4.94 Serum or plasma thyroxine (T4) free wolf urement (mass/volume) - 08/27/18 12:57 Serum or plasma thyroxine (T4) free measurement (mass/ volume) 0.81 ng/dL 0.70-1.48 Bacterial blood culture - 08/27/18 12:57 Bacterial blood culture NG NRG Bacterial blood culture - 08/27/18 13:21 Bacterial blood culture NG NRG Bacterial blood culture - 03/06/19 17:59 Bacterial blood culture NG NRG Complete blood count (CBC) with automate d white blood cell (WBC) differential - 03/06/19 19:59 Blood leukocytes automated count (number/volume) 8.7 10*3/uL 4.3-11.0 Blood erythrocytes automated count (number/volume) 3.48 10*6/uL 4.35-5.85 Venous blood hemoglobin measurement (mass/volume) 9.6 g/dL 11.5-16.0 Blood hematocrit (volume fraction) 32 % 35-52 Automated erythrocyte mean corpuscular volume 91 [ foz_us] 80-99 Automated erythrocyte mean corpuscular h emoglobin (mass per erythrocyte) 28 pg 25-34 Automated erythrocyte mean corpuscular h emoglobin concentration measurement (mass/volume) 30 g/dL 32-36 Automated erythrocyte distribution width ratio 15. 5 % 10.0- 14.5 Automated blood platelet count (count/volume) 185 10*3/uL 130-400 Automated blood platelet mean volume measurement 11.6 [foz_us] 7.4-10.4 Automated blood neutrophils/100 leukocytes 71 % 42-75 Automated blood lymphocytes/100 leukocytes 21 % 12-44 Blood monocytes/100 leukocytes 6 % 0-12 Automated blood eosinophils/100 leukocytes 2 % 0-10 Automated blood basophils/100 leukocytes 1 % 0-10 Blood neutrophils automated count (number/volume) 6.2 10*3 1.8-7.8 Blood lymphocytes automated count (number/volume) 1.8 10*3 1.0-4.0 Blood monocytes automated count (number/volume) 0. 6 10*3 0.0-1.0 Automated eosinophil count 0.2 10*3/uL 0 .0-0.3 Automated blood basophil count (count/volume) 0.0 10*3/uL 0.0-0.1 Blood lactic acid measurement (moles/vol ume) - 03/06/19 19:59 Blood lactic acid measurement (moles/volume) 0.86 mmol/L 0.50-2.00 Comprehensive metabolic panel - 03/06/19 19:59 Serum or plasma sodium measurement (moles/volume) 144 mmol/L 135-145 Serum or plasma potassium measurement (moles/volume) 3.8 mmol/L 3.6-5.0 Serum or plasma chloride measurement (moles/volume) 109 mmol/L 98-107 Carbon dioxide 25 mmol/L 21-32 Serum or plasma anion gap determination (moles/volume) 10 mmol/L 5-14 Serum or plasma urea nitrogen measurement (mass/volume ) 34 mg/dL 7-18 Serum or plasma creatinine measurement (mass/volume) 2.83 mg/dL 0.60-1.30 Serum or plasma urea nitrogen/creatinine mass ratio 12 NRG Serum or plasma creatinine measurement w ith calculation of estimated glomerular filtration rate 17 NRG Serum or plasma glucose measurement (mass/volume) 144 mg/dL 70-105 Serum or plasma calcium measurement (mass/volume) 8.0 mg/dL 8.5-10.1 Serum or plasma total bilirubin measurement (mass/volu me) 0.2 mg/dL 0.1-1.0 Serum or plasma alkaline phosphatase apurva surement (enzymatic activity/volume) 62 U/L 40-136 Serum or plasma aspartate aminotransfera se measurement (enzymatic activity/volume) 13 U/L 5-34 Serum or plasma alanine aminotransferase measurement (enzymatic activity/volume) 9 U/L 0-55 Serum or plasma protein measurement (mass/volume) 5.5 g/dL 6.4-8.2 Serum or plasma albumin measurement (mass/volume) 2.6 g/dL 3.2-4.5 CALCIUM CORRECTED 9.1 mg/dL 8.5-10.1 Magnesium - 03/06/19 19:59 Magnesium 1.4 mg/dL 1.6-2.4 Serum or plasma creatine kinase measurem ent (enzymatic activity/volume) - 03/06/19 19:59 Serum or plasma creatine kinase measurem ent (enzymatic activity/volume) 65 U/L 29-168 PT panel in platelet poor plasma by coag ulation assay - 03/06/19 19:59 Prothrombin time (PT) in platelet poor plasma by coagu lation assay 14.3 s 12.2-14.7 INR in platelet poor plasma or blood by coagulation as say 1.1 0.8-1.4 Activated partial thromboplastin time (a PTT) in platelet poor plasma bycoagulation assay - 03/06/19 19:59 Activated partial thromboplastin time (a PTT) in platelet poor plasma bycoagulation assay 33 s 24-35 Serum or plasma creatine kinase MB measu rement (enzymatic activity/volume) - 03/06/19 19:59 Serum or plasma creatine kinase MB measu rement (enzymatic activity/volume) 1.1 ng/mL <6.6 Serum or plasma troponin i.cardiac measu rement (mass/volume) - 03/06/19 19:59 Serum or plasma troponin i.cardiac measurement (mass/v olume) < ng/mL <0.028 Myoglobin, serum - 03/06/19 19:59 Myoglobin, serum 70.8 ng/mL 10.0-92.0 Serum or plasma thyroxine (T4) free wolf urement (mass/volume) - 03/06/19 19:59 Serum or plasma thyroxine (T4) free measurement (mass/ volume) 0.49 ng/dL 0.70-1.48 Serum or plasma lithium measurement (mol es/volume) - 03/06/19 19:59 BNP PT 233.7 pg/mL <100.0 Serum or plasma thyrotropin measurement by detection limit <=0.05 miu/l (units/volume) - 03/06/19 19:59 Serum or plasma thyrotropin measurement by detection limit <=0.05 miu/l (units/volume) 31.47 u[iU]/mL 0.35-4.94 Bacterial blood culture - 03/06/19 20:29 Bacterial blood culture NG NRG Complete urinalysis with reflex to cultu re - 03/06/19 20:56 Urine color determination YELLOW NRG Urine clarity determination CLEAR NR G Urine pH measurement by test strip 6 5-9 Specific gravity of urine by test strip 1.020 1.016-1.022 Urine protein assay by test strip, semi-quantitative 4+ NEGATIVE Urine glucose detection by automated test strip 2+ NEGATIVE Erythrocytes detection in urine sediment by light micr oscopy 1+ NEGATIVE Urine ketones detection by automated test strip NE GATIVE NEGATIVE Urine nitrite detection by test strip NEGATIVE NEGATIVE Urine total bilirubin detection by test strip NEGA TIVE NEGATIVE Urine urobilinogen measurement by automated test strip (mass/volume) NORMAL NORMAL Urine leukocyte esterase detection by dipstick NEG ATIVE NEGATIVE Automated urine sediment erythrocyte cou nt by microscopy (number/high power field) NONE NRG Automated urine sediment leukocyte count by microscopy (number/high power field) [HPF] NRG Bacteria detection in urine sediment by light microsco py MODERATE NRG Squamous epithelial cells detection in u rine sediment by light microscopy RARE NRG Crystals detection in urine sediment by light microsco py NONE NRG Casts detection in urine sediment by light microscopy PRESENT NRG Mucus detection in urine sediment by light microscopy NEGATIVE NRG Complete urinalysis with reflex to culture YES NRG WBC casts detection in urine sediment by light microsc opy 0-2 NRG Coarse granular casts detection in urine sediment by l ight microscopy RARE NRG Bacterial urine culture - 03/06/19 20:56 Bacterial urine culture 3 OR MORE NRG COLONY COUNT 60,000 cfu/ml NRG FTX;REPORTABLE GRAM POSITIVES, SUGGESTING PROBABLE NRG FREE TEXT ENTRY 2 COLLECTION CONTAMINATION WITH SK IN LEONA NRG FREE TEXT ENTRY 3 NO SUSCEPTIBILITY PERFORMED NRG Complete blood count (CBC) with automate d white blood cell (WBC) differential - 03/07/19 03:17 Blood leukocytes automated count (number/volume) 9.6 10*3/uL 4.3-11.0 Blood erythrocytes automated count (number/volume) 3.79 10*6/uL 4.35-5.85 Venous blood hemoglobin measurement (mass/volume) 10.4 g/dL 11.5-16.0 Blood hematocrit (volume fraction) 35 % 35-52 Automated erythrocyte mean corpuscular volume 91 [ foz_us] 80-99 Automated erythrocyte mean corpuscular h emoglobin (mass per erythrocyte) 27 pg 25-34 Automated erythrocyte mean corpuscular h emoglobin concentration measurement (mass/volume) 30 g/dL 32-36 Automated erythrocyte distribution width ratio 15. 6 % 10.0- 14.5 Automated blood platelet count (count/volume) 195 10*3/uL 130-400 Automated blood platelet mean volume measurement 11.2 [foz_us] 7.4-10.4 Automated blood neutrophils/100 leukocytes 70 % 42-75 Automated blood lymphocytes/100 leukocytes 22 % 12-44 Blood monocytes/100 leukocytes 6 % 0-12 Automated blood eosinophils/100 leukocytes 2 % 0-10 Automated blood basophils/100 leukocytes 0 % 0-10 Blood neutrophils automated count (number/volume) 6.7 10*3 1.8-7.8 Blood lymphocytes automated count (number/volume) 2.1 10*3 1.0-4.0 Blood monocytes automated count (number/volume) 0. 6 10*3 0.0-1.0 Automated eosinophil count 0.2 10*3/uL 0 .0-0.3 Automated blood basophil count (count/volume) 0.0 10*3/uL 0.0-0.1 Comprehensive metabolic panel - 03/07/19 03:17 Serum or plasma sodium measurement (moles/volume) 144 mmol/L 135-145 Serum or plasma potassium measurement (moles/volume) 3.4 mmol/L 3.6-5.0 Serum or plasma chloride measurement (moles/volume) 108 mmol/L 98-107 Carbon dioxide 25 mmol/L 21-32 Serum or plasma anion gap determination (moles/volume) 11 mmol/L 5-14 Serum or plasma urea nitrogen measurement (mass/volume ) 41 mg/dL 7-18 Serum or plasma creatinine measurement (mass/volume) 2.83 mg/dL 0.60-1.30 Serum or plasma urea nitrogen/creatinine mass ratio 14 NRG Serum or plasma creatinine measurement w ith calculation of estimated glomerular filtration rate 17 NRG Serum or plasma glucose measurement (mass/volume) 137 mg/dL 70-105 Serum or plasma calcium measurement (mass/volume) 8.4 mg/dL 8.5-10.1 Serum or plasma total bilirubin measurement (mass/volu me) 0.2 mg/dL 0.1-1.0 Serum or plasma alkaline phosphatase apurva surement (enzymatic activity/volume) 65 U/L 40-136 Serum or plasma aspartate aminotransfera se measurement (enzymatic activity/volume) 11 U/L 5-34 Serum or plasma alanine aminotransferase measurement (enzymatic activity/volume) 9 U/L 0-55 Serum or plasma protein measurement (mass/volume) 5.8 g/dL 6.4-8.2 Serum or plasma albumin measurement (mass/volume) 2.8 g/dL 3.2-4.5 CALCIUM CORRECTED 9.4 mg/dL 8.5-10.1 Magnesium - 03/07/19 03:17 Magnesium 1.6 mg/dL 1.6-2.4 Serum or plasma troponin i.cardiac measu rement (mass/volume) - 03/07/19 03:17 Serum or plasma troponin i.cardiac measurement (mass/v olume) 0.029 ng/mL <0.028 Capillary blood glucose measurement by g lucometer (mass/volume) - 03/07/19 11:14 Capillary blood glucose measurement by glucometer (mas s/volume) 157 mg/dL 70-110 Radiology Report from [id number] on 09/14 10:09:00 Reason For ExamAbdominal pain, epigastri cREPORTINDICATION:Abdominal pain.TECHNIQUE:Abdominal sonography was performed in the routine fashion.FINDINGS:The liver shows normal echogenicity with no focal lesions. The gallbladder issurgically absent. The common duct measures 4.8 mm. The pancreas is unremarkableto the extent seen. The spleen is unremarkable and not enlarged. The visualizedportions of the aorta and IVC are normal. The right kidney is unremarkablemeasuring 12.6 cm in length. The left kidney measures 12.2 cm in length andshows A cyst measuring 2.1 x 1.5 cm. The portal vein is patent with f low in thenormal direction toward the liver. There is no ascites.IMPRESSION:Status post cholecystectomy. Small cyst in the left kidney inferiorly. Nohydronephrosis. There is no ascites.Dictated on worksta tion:[id number] Line PRELIMINARY DICTATED BY: ALBIN GUTIERREZ MDDICTATED DT/TM: 09/14/2017 9:54 Radiology Report from [id number] on 09/14 10:09:00 Reason For ExamSyncopeREPORTIndication: Syncope.Procedure: Carotid Doppler study performed in the routine fashion with colorflow Doppler and waveform analysis.There is minimal plaquing in the carotid bifurcation on both sides. ICA/CCAsystolic velocity ratio is 0.6 on the right side and 0.8 on the left side. Bothvertebral show antegrade flow.Parameters based on the consensus panel Ramos-Scale and Doppler ultrasoundcriteria publishedNov2002, Radiology, Volume 229.DOPPLER (peak systolic velocity M/SRight LeftCCA 1.29 0.9ICA 0.8 0.74RATIO 0.6 0.8ECA 0.96 1.02VERT 0.64 0.59Impression:Minimal plaquing in the carotid bifurcation on both sides. No significantstenosis hemodynamically. Both vertebrals are patent.Dictated on workstation:[id number] Line PRELIMINARY DICTATED BY: ALBIN GUTIERREZ MDDICTATED DT/TM: 09/14/2017 9:49 Radiology Report from [id number] on 09/14 12:41:00 Reason For ExamCoughREPORTINDICATION: Co ugh.COMPARISON: None available.TECHNIQUE: Frontal and lateral radiographs of the chest dated September 14, 2017.FINDINGS: The cardiac silhouette is mildly enlarged. No significant pulmonaryvascular congestion. The lungs are clear. No pleural effusion. No pneumothorax.Mild scattered osseous degenerative changes without acute osseous abnormality.IMPRESSION: Cardiomegaly without overt congestive heart failure or additionalsuperimposed acute cardiopulmonary abnormality.Dictated on workstation:[id number] Line PRELIMINARY DICTATED BY: MANSI LARSON MDDICTATED DT/TM: 09/14/2017 12:38 Encounters ACCT No. Visit Date/Time Discharge Status Pt. Type Provider Facility Loc./Unit Complaint [id number] 09/14/2017 04:48:00 018 10:59:00 DIS Inpatient Rodgers Chady [facility] F5SE Pancreatitis, Acute Renal Failure [id number] 09/15/2017 05:19:03 Document Registration [id number] 12/18/2017 13:34:06 018 23:59:59 [facility] Outpatient TIMBO SMITH I [id number] 09/01/2019 10:19:00 020 23:59:59 CLS Outpatient KEN VERNON MD [facility] RAD SCREENING [id number] 08/26/2019 20:56:00 020 06:25:00 DIS Outpatient DAYNA ARCE APRN [facility] SLEEP OBSTRUCTIVE SLEEP APNE A [id number] 08/06/2019 20:39:00 020 07:29:00 DIS Outpatient ISABELLA MEJIA APRN [facility] SLEEP KARO G47.33 [id number] 04/10/2019 13:22:00 12:15:00 DIS Outpatient LINH CORLEY MD [facility] IRON DEFICIENCY ANEMIA [id number] 04/08/2019 07:55:00 23:59:59 CLS Outpatient JOHANNA CROWDER FACC, LYDIA BRICEÑO CC DS [facility] CARD ACUTE DIAST OLIC CHF [id number] 03/06/2019 21:25:00 15:24:00 DIS Inpatient CLAUDIO FARAH MD [facility] ICU CHF,UTI,CHRONIC RENAL FAILURE,HYPOMAGNESEMIA,HYPOT [id number] 08/27/2018 10:51:00 14:23:00 DIS Emergency KIMBERLY SHERLYN [facility] ER POSSIBLE NECK ABCESS [id number] 06/25/2018 08:40:00 23:59:59 CLS Outpatient ISABELLA MEJIA APRN [facility] RAD CKD STAGE 4 [id number] 04/26/2018 09:26:00 13:25:00 DIS Outpatient SAVANNAH VILLAR DO [facility] SKIN LESION NOSE [id number] 04/24/2018 11:40:00 12:16:00 DIS Outpatient SAVANNAH VILLAR DO [facility] PREOP SKIN LESION NOSE [id number] 01/18/2018 07:27:00 09:58:00 DIS Outpatient KIRT ANN MD [facility] ENDO SCREENING [id number] 01/14/2018 09:30:00 10:24:00 DIS Outpatient KIRT ANN MD [facility] PREOP COLONOSCOPY [id number] 04/26/2018 09:26:00 Document Registration [id number] 02/22/2018 10:46:00 Document Registration
[2019-12-27 15:40] LABS: BASOPHILS # (AUTO) 0.1 10^3/uL (0.0-0.1); BASOPHILS % (AUTO) 1 % (0-10); EOSINOPHILS # (AUTO) 0.2 10^3/uL (0.0-0.3); EOSINOPHILS % (AUTO) 2 % (0-10); HEMATOCRIT 42 % (35-52); HEMOGLOBIN 13.3 G/DL (11.5-16.0); LYMPHOCYTES # (AUTO) 1.8 X 10^3 (1.0-4.0); LYMPHOCYTES % (AUTO) 18 % (12-44); MEAN CORPUSCULAR HEMOGLOBIN 32 PG (25-34); MEAN CORPUSCULAR HGB CONC 31 G/DL (32-36); MEAN CORPUSCULAR VOLUME 102 FL (80-99); MEAN PLATELET VOLUME 10.3 FL (7.4-10.4); MONOCYTES # (AUTO) 0.7 X 10^3 (0.0-1.0); MONOCYTES % (AUTO) 7 % (0-12); NEUTROPHILS # (AUTO) 7.3 X 10^3 (1.8-7.8); NEUTROPHILS % (AUTO) 73 % (42-75); PLATELET COUNT 263 10^3/uL (130-400); RED CELL DISTRIBUTION WIDTH 19.2 % (10.0-14.5)
[2019-12-27] MEDS: NS IV 1000 ML 1,000 ML IV SCH ×2 (15:46→18:29)
[2019-12-27 15:50] LABS: ALBUMIN 4.3 GM/DL (3.2-4.5); POTASSIUM 4.2 MMOL/L (3.6-5.0)
[2019-12-27 15:51] LABS: CALCIUM 8.4 MG/DL (8.5-10.1)
[2019-12-27 15:52] LABS: TOTAL PROTEIN 8.9 GM/DL (6.4-8.2)
[2019-12-27 15:54] LABS: BILIRUBIN,TOTAL 0.5 MG/DL (0.1-1.0); PROTHROMBIN TIME PATIENT 13.3 SEC (12.2-14.7)
[2019-12-27 15:56] LABS: CREATININE SERUM 4.42 MG/DL (0.60-1.30)
--- NOTE | 2019-12-27 16:17 | ED Cardiac General ---
History of Present Illness General Chief Complaint: Cardiac/General Problems Stated Complaint: HIGH PULSE - 145 Nursing Triage Note: Patient ambulatory to ER room 3 with complaint of elevated heart rate. Patient states she was at dialysis today and was sent to ER due to heart rate being 140. Patient is MCGRAW x4. She denies any chest pain, shortness of breath or weakness. She states she left dialysis 30 minutes early today due to having cramping in her arms. Patient states she does have an abscess under the right breast that was looked at by Dr. Vital on . She was not placed on any antibiotics and it was not drained. Source: patient Exam Limitations: no limitations History of Present Illness Date Seen by Provider: Dec 27, 2019 Time Seen by Provider: 15:30 Initial Comments Here with report of rapid heart rate. She was at dialysis today and left approximately 30 minutes early due to cramps in her left arm. They noted that she had rapid heart rate recommended she come to the emergency department. She has been following with a senior control systems engineer here in [facility] but she does not know the name (I believe this is Dr. Manjarrez). Apparently she's had intermittent fast heart rate. Was seen by the senior control systems engineer last week and they're setting her up for either Holter monitor or implanted monitor next month. Arrives with heart rate of 144 that appears to be sustained. Denies chest pain, breathing problems, fever, chills, sore throat or cough. Does have a small abscess under the right breast. Reports taking her medications as directed. Also reports doing dialysis as prescribed. Follows with Dr. Carrasco for nephrology thru [facility] in [facility]. Timing/Duration: 1 hour, constant Severity: mild Location: other (no pain) Activities at Onset: other (dialysis) Prior CP/Workup: echocardiography, stress test Modifying Factors: improves with rest NTG SL HIDE SALTER: No ASA po HIDE SALTER: Yes Associated Systoms: No Chest Pain, No Cough, No Fever/Chills, No Nausea/Vomiting, No Shortness of Air, No Weakness Allergies and Home Medications Allergies Coded Allergies: Sulfa (Sulfonamide Antibiotics) (Verified Allergy, Mild, HIVES, 01/14/18) Home Medications Amlodipine Besylate 5 Mg Tablet, 5 MG PO DAILY, (Reported) Amoxicillin 500 Mg Tablet, 500 MG PO BID Prescribed by: CLAUDIO FARAH on 03/07/19 1429 Aspirin 81 Mg Tab.chew, 81 MG PO DAILY Prescribed by: CLAUDIO FARAH on 03/07/19 1435 Bumetanide 1 Mg Tablet, 2 MG PO DAILY, (Reported) TAKES 2 (1MG) TABLETS Ergocalciferol (Vitamin D2) 50,000 Unit Capsule, 50,000 UNITS PO Fr, (Reported) Escitalopram Oxalate 20 Mg Tablet, 40 MG PO DAILY, (Reported) TAKES 2 (20MG) TABLETS Gabapentin 300 Mg Capsule, 600 MG PO BID, (Reported) LAST FILLED #180 12-19-18 TAKES 2 (300MG) CAPSULES Insulin Aspart 300 Units/3 Ml Solution, 20 UNITS SQ AC, (Reported) LAST FILLED AUG 2018 Insulin Detemir 100 Unit/1 Ml Insuln.pen, 40 UNITS SC BID, (Reported) Levothyroxine Sodium 150 Mcg Tablet, 150 MCG PO DAILY@0630 Prescribed by: CLAUDIO FARAH on 03/07/19 1435 Lisinopril 10 Mg Tablet, 10 MG PO DAILY, (Reported) Metoprolol Succinate 100 Mg Tab.er.24h, 100 MG PO DAILY Prescribed by: CLAUDIO FARAH on 03/07/19 1435 Rosuvastatin Calcium 20 Mg Tablet, 20 MG PO HS, (Reported) Sitagliptin Phosphate 25 Mg Tablet, 25 MG PO DAILY, (Reported) LAST FILLED #90 11-15-18 Trazodone HCl 50 Mg Tablet, 50 MG PO HS, (Reported) Patient Home Medication List Home Medication List Reviewed: Yes Review of Systems Review of Systems Constitutional: see HPI; No chills, No fever EENTM: No Symptoms Reported Respiratory: No Symptoms Reported Cardiovascular: See HPI; Denies Chest Pain, Denies Edema Gastrointestinal: Denies Nausea, Denies Vomiting Genitourinary: No Symptoms Reported Musculoskeletal: no symptoms reported Skin: see HPI, change in color, lesions Psychiatric/Neurological: No Symptoms Reported All Other Systems Reviewed Negative Unless Noted: Yes Past Uoncjbk-Fctqgw-Kckeht Hx Past Med/Social Hx: Reviewed Nursing Past Med/Soc Hx Patient Social History Alcohol Use: Denies Use Recreational Drug Use: Yes Drug of Choice: THC Smoking Status: Former Smoker Former Smoker, Quit: Jan 14, 1999 2nd Hand Smoke Exposure: No Recent Foreign Travel: No Contact w/Someone Who Travel: No Recent Infectious Disease Expo: No Recent Hopitalizations: No Immunizations Up To Date Tetanus Booster (TDap): Less than 5yrs PED Vaccines UTD: Yes Seasonal Allergies Seasonal Allergies: Yes Past Medical History Surgeries: Yes (PILONIDAL CYST; DX LAPAROSCOPY; HYST/BSO, dialysis shunt in right forearm ) Dialysis, Gallbladder, Hysterectomy, Oophorectomy Respiratory: Yes COPD Cardiac: Yes (CHF) Chronic Edema/Swelling, High Cholesterol, Hypertension Neurological: No Neuropathy 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 Disorders: No Female 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 Disorders: 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: Hysterectomy, Menopausal Sexually Transmitted Disease: No HIV/AIDS: No Genitourinary: Yes Renal Failure, Dialysis, UTI-Chronic Gastrointestinal: Yes Chronic Constipation, Chronic Diarrhea Musculoskeletal: Yes Arthritis, Chronic Back Pain Endocrine: Yes Diabetes, Insulin dep HEENT: No Loss of Vision: Bilateral Hearing Impairment: Denies Cancer: Yes Skin Psychosocial: Yes Anxiety, Depression Integumentary: Yes (skin lesion) Blood Disorders: No Adverse Reaction/Blood Tranf: No (N/A) Family Medical History Reviewed Nursing Family Hx Cardiovascular disease G8 SISTER Diabetes mellitus G8 SISTER FH: lung cancer G8 SISTER Physical Exam Vital Signs Vital Signs - First Documented 12/27/19 12/27/19 15:18 16:52 Temp 36.5 Pulse 142 Resp 20 B/P (MAP) 81/60 (67) Pulse Ox 94 O2 Delivery Room Air O2 Flow Rate 2.00 Capillary Refill : Less Than 3 Seconds Height, Weight, BMI Height: 5'3.00" Weight: 264lbs. 1.0oz. 119.711945pk; 41.00 BMI Method:Stated General Appearance: No Apparent Distress, WD/WN HEENT: PERRL/EOMI, Pharynx Normal Neck: Non Tender, Supple Respiratory: Lungs Clear, Normal Breath Sounds Cardiovascular: No Murmur, Tachycardia, Other (heart rate 144-146 without any significant variability despite movement, breathing or other stimuli.) Gastrointestinal: Non Tender, Soft Extremity: Normal Range of Motion, Non Tender Neurologic/Psychiatric: Alert, Oriented x3 Skin: Warm/Dry, Other (2 x 2 centimeter abscess to the fold line of the right breast laterally.) Focused Exam Lactate Level 12/27/19 15:31: Lactic Acid Level 1.93 Lactic Acid Level Laboratory Tests Test 12/27/19 15:31 Lactic Acid Level 1.93 MMOL/L (0.50-2.00) Procedures/Interventions Patient Education: Explained Benefits, Explained Risks, Pt. Ack. Understanding Agreement on procedure with pt: Yes Breath Sounds per Auscultation: Clear Heart Sounds per Auscultation: Regular Airway Exam: Mouth opens >2 fingers, Neck Full Range of Motion, Visulation of Uvula Sedation Adminstration Time: 17:33 Total Time spent in CS 15 min 1745: Tolerated procedure well with no complications. Already recovering from sedation. 1805: Blood pressure 104/45 and recovered Progress/Results/Core Measures Results/Orders Lab Results Laboratory Tests Test 12/27/19 15:31 Range/Units White Blood Count 10.0 4.3-11.0 10^3/uL Red Blood Count 4.16 L 4.35-5.85 10^6/uL Hemoglobin 13.3 11.5-16.0 G/DL Hematocrit 42 35-52 % Mean Corpuscular Volume 102 H 80-99 FL Mean Corpuscular Hemoglobin 32 25-34 PG Mean Corpuscular Hemoglobin Concent 31 L 32-36 G/DL Red Cell Distribution Width 19.2 H 10.0-14.5 % Platelet Count 263 130-400 10^3/uL Mean Platelet Volume 10.3 7.4-10.4 FL Neutrophils (%) (Auto) 73 42-75 % Lymphocytes (%) (Auto) 18 12-44 % Monocytes (%) (Auto) 7 0-12 % Eosinophils (%) (Auto) 2 0-10 % Basophils (%) (Auto) 1 0-10 % Neutrophils # (Auto) 7.3 1.8-7.8 X 10^3 Lymphocytes # (Auto) 1.8 1.0-4.0 X 10^3 Monocytes # (Auto) 0.7 0.0-1.0 X 10^3 Eosinophils # (Auto) 0.2 0.0-0.3 10^3/uL Basophils # (Auto) 0.1 0.0-0.1 10^3/uL Prothrombin Time 13.3 12.2-14.7 SEC INR Comment 1.0 0.8-1.4 Activated Partial Thromboplast Time 30 24-35 SEC Sodium Level 138 135-145 MMOL/L Potassium Level 4.2 3.6-5.0 MMOL/L Chloride Level 96 L 98-107 MMOL/L Carbon Dioxide Level 23 21-32 MMOL/L Anion Gap 19 H 5-14 MMOL/L Blood Urea Nitrogen 36 H 7-18 MG/DL Creatinine 4.42 H 0.60-1.30 MG/DL Estimat Glomerular Filtration Rate 10 BUN/Creatinine Ratio 8 Glucose Level 268 H 70-105 MG/DL Lactic Acid Level 1.93 0.50-2.00 MMOL/L Calcium Level 8.4 L 8.5-10.1 MG/DL Corrected Calcium 8.2 L 8.5-10.1 MG/DL Total Bilirubin 0.5 0.1-1.0 MG/DL Aspartate Amino Transf (AST/SGOT) 19 5-34 U/L Alanine Aminotransferase (ALT/SGPT) 10 0-55 U/L Alkaline Phosphatase 100 40-136 U/L Troponin I < 0.028 <0.028 NG/ML B-Type Natriuretic Peptide 456.6 H <100.0 PG/ML Total Protein 8.9 H 6.4-8.2 GM/DL Albumin 4.3 3.2-4.5 GM/DL My Orders Orders - ALY JORDAN MD BNP (12/27/19 15:41) Troponin I (12/27/19 15:41) Amiodarone For Bolus (Cordarone Bolus) (12/27/19 16:59) Amiodarone For Bolus (Cordarone Bolus) (12/27/19 17:02) D5w 100 Ml Ivpb (Dextrose 5% Water Iv So (12/27/19 17:02) Propofol Injection (Diprivan Injection) (12/27/19 17:19) Vital Signs/I&O 12/27/19 12/27/19 12/27/19 12/27/19 15:18 16:52 17:00 17:22 Temp 36.5 36.5 Pulse 142 141 Resp 20 24 B/P (MAP) 81/60 (67) 103/65 Pulse Ox 94 89 97 O2 Delivery Room Air Nasal Cannula Nasal Cannula Nasal Cannula O2 Flow Rate 2.00 2.00 2.00 2.00 12/27/19 12/27/19 17:27 17:47 Pulse 60 63 Resp 14 14 B/P (MAP) 95/39 80/39 Pulse Ox 96 99 O2 Delivery Nasal Cannula Nasal Cannula O2 Flow Rate 4.00 4.00 Blood Pressure Mean: 67 Progress Progress Note : Progress Note Seen and evaluated. IV, labs, UA, blood cultures and lactic acid ordered. Chest x-ray and EKG ordered. EKG noted with machinery sinus tachycardia although I believe this is atrial flutter given the limited variability and paroxysmal report. I did discuss the case with Dr. Thapa as patient is hypotensive in the 70s and 80s. We have initiated normal saline 500 mL bolus and all that will allow us to initiate medication dosing versus sacrum as cardioversion. Patient is denying pain, weakness or breathing problems and otherwise appears stable despite her blood pressure. 1605: Blood pressure has improved somewhat. Dr. hTapa will see the patient in the emergency department. Patient has stated that she does not want to be transferred and does not want stay in the hospital. I did discuss with her that this may present challenges and cannot assure her safety for her but we will do everything we can emergency department to improve her situation and then she can decide after that. She was in agreement with that plan. Monitor patient.. 1725: I did discuss at length with the patient and her boyfriend regarding current situation. She has agreed to synchronized cardioversion after discussion with myself and the senior control systems engineer, Dr. Thapa. 1733: Sedation initiated. 1740: Synchronized cardioversion complete with excellent results and patient now in sinus rhythm at rate of 68. 1753: I did discuss the case with Dr. Mabry at [facility] in [facility] who accepts the patient for transfer to their ICU. 1805: Blood pressure has been up and down but currently 104/45. 1815: Blood pressure right at 90 systolic. We will use fluid if needed to keep blood pressure appropriate although patient is mentating well and showing no signs of distress. O2 sat 100% on 2 L. No respiratory distress. Pending bed assignment and transfer to [facility] in [facility]. Initial ECG Impression Date: Dec 27, 2019 Initial ECG Impression Time: 15:19 Initial ECG Rate: 144 Initial ECG Rhythm: S.Tach Comment Atrial flutter with normal axis. No evidence of ST elevation CT. Nonverbal on monitor. Discussed with cardiology. Interpreted by me. EKG : EKG Time: 17:45 Rate: 68 Rhythm: Normal Sinus Comment Sinus rhythm with normal axis. No evidence of ST elevation CT. Change from previous done earlier which was atrial flutter. Interpreted by me. Departure Impression Primary Impression: Atrial flutter Qualified Codes: I48.3 - Typical atrial flutter Additional Impression: End stage renal disease on dialysis Disposition: XFER SHT-TRM HOSP Condition: Stable Transfer Transfer Reason: Exceeds level of care Time Spoke to Accepting Phy: 17:53 Transfer Facility: [place], [place], Dr. Mabry accepting Method of Transfer: EMS Departure-Patient Inst. Referrals: BIMAL VITAL MD (PCP/Family) Primary Care Physician ALY JORDAN MD Dec 27, 2019 16:17
--- NOTE | 2019-12-27 16:31 | Diagnostic Imaging Report ---
INDICATION: Rapid heart rate. TIME OF EXAM: 4:20 p.m. COMPARISON: Correlation is made with prior chest from 03/07/2019. FINDINGS: The heart is enlarged. The lungs are clear. No infiltrate or failure is seen. No effusion or pneumothorax is detected. IMPRESSION: Stable cardiomegaly. No acute feature is detected. Dictated by: Dictated on workstation # [id number]
--- NOTE | 2019-12-27 16:40 | NUR ---
Fluids restarted per verbal order by Dr. Fontanez due to patient's systolic BP of 77. Patient remains awake and alert. She denies any chest pain or shortness of breath.
--- NOTE | 2019-12-27 16:51 | NUR ---
Patient placed on 2 LPM of oxygen due to oxygen saturation of 89% while sleeping. Oxygen saturation rises to 95%.
[2019-12-27] MEDS ORDERED: AMIODARONE (OMNICELL DRIP KIT) 150 MG/3 ML IV ONE ×2 (16:59→17:02)
--- NOTE | 2019-12-27 17:00 | NUR ---
17:00 Consent signed by patient for sychronized cardioversion. Dr. Fontanez and Dr. Thapa in room with patient. Patient verbalizes understanding of risks and benefits associated with procedure. 17:20 Defibrillator pads placed anteriorly and posteriorly per Dr. Thapa. 17:22 BP 103/65, Pulse 141, O2 Saturation 97% 2 LPM, Co2 40, Resp. 24 17:22 Propofol 25 mg given in left forearm IV by Dr. Fontanez. 17:24 Patient remains awake and alert. 2nd dose of Propofol [address] Fontanez. 17:25 Patient still awake. 3rd dose of Propofol [address] Fontanez. 17:26 Pulse 141, Co2 32, Resp 14, O2 Sat 95% 4 LPM 17:27 Synchronized cardioversion performed at 120 joules. Patient's heart rate is now 60. 17:27 BP 95/39, Pulse 60, O2 97% 4 LPM, Co2 35 17:29 Repeat EKG done showing Sinus Rhythm. 17:41 BP 81/44, Pulse 62, O2 Sat 97% 4 LPM, Co2 40 17:55 BP 105/45, Pulse 64, O2 Sat 95% 4 LPM, Co2 44. Patient is awake and alert. Sitting up in bed.
[2019-12-27] MEDS ORDERED: D5W 100 ML IVPB 100 ML IV ONE (17:02)
[2019-12-27] MEDS ORDERED: proPOfol 200 MG/20 ML (DIPRIVAN) VIAL IV ONE ×2 (17:19→18:45)
--- NOTE | 2019-12-27 18:05 | NUR ---
Patient awake and alert, talking to family on phone. Patient's heart rate is 64 showing Normal Sinus rhythm.
--- NOTE | 2019-12-27 18:26 | NUR ---
Report called to Elsa ESPARZA at [facility]. Room # 4117 obtained.
--- NOTE | 2019-12-27 18:28 | NUR ---
2nd liter of NS infusing at TKO rate per verbal order by Dr. Fontanez.
[2019-12-27 18:57] VITALS: BP 91/55
--- NOTE | 2019-12-27 18:57 | NUR ---
[facility] arrived to transfer patient. Patient remains awake and alert at time of transfer. Patient is able to drink water without difficulty. She denies any chest pain or shortness of breath. Heart rate remains 68 showing Normal Sinus rhythm. NS infusing TKO rate upon transfer. Personal belongings sent with patient.
--- NOTE | 2019-12-27 21:36 | Consultation-Cardiology ---
HPI-Cardiology Cardiology Consultation: Date of Consultation 12/27/19 Date of Admission Attending Physician Admitting Physician Gabby Benavidez MD Consulting Physician Rex THAPA MD HPI: Time Seen by a Provider: 16:50 Chief Complaint: Atrial flutter This is a 54 -year-old lady with history of end-stage renal disease on dialysis, diabetes, hypertension, hyperlipidemia. She follows with Dr. Carrasco for nephrology at [facility] in [place]. During dialysis today she was noted to have rapid heart beating and therefore was sent to the ER. She was found to be in atrial flutter with rapid ventricular rate. She denied any complaints however her blood pressure systolic was consistently below 90 mmHg. She denies active smoking. Pertinent family history is negative. Review of Systems-Cardiology Review of Systems Constitutional: As described under HPI; No As described under HPI, No no symptoms reported, No chills, No fever, No lightheadedness Eyes: No As described under HPI, No no symptoms reported, No blindness, No b lurred vision, No contact lenses, No drainage, No decreased acuity, No foreign body sensation, No pain, No vision change Ears/Nose/Throat: No As described under HPI, No no symptoms reported, No chronic hearing loss, No ear discharge, No ear pain, No nasal drainage, No ulcerations Respiratory: No no symptoms reported; As described under HPI; No As described under HPI, No cough, No orthopnea, No shortness of breath, No SOB with excertion Cardiovascular: No no symptoms reported; As described under HPI; No As described under HPI, No chest pain, No edema, No irregular heart rate, No lightheadedness; palpitations Gastrointestinal: No no symptoms reported, No As described under HPI, No abdomen distended, No abdominal pain, No blood streaked bowels, No constipation, No diarrhea, No nausea, No vomiting, No stool coloration changes Genitourinary: No As described under HPI, No burning, No dysuria, No discharge, No frequency, No flank pain, No hematuria, No urgency : Yes : No Skin: No rash, No skin related problems, No ulcerations Psychiatric/Neurological: No anxiety, No depression, No seizure, No focal weakness, No syncope Hematologic: No bleeding abnormalities All Other Systems Reviewed Negative Unless Noted: Yes [id number] Hx Patient Social History Alcohol Use: Denies Use Recreational Drug Use: Yes Drug of Choice: THC Smoking Status: Former Smoker 2nd Hand Smoke Exposure: No Recent Foreign Travel: No Recent Infectious Disease Expo: No Hospitalization with Isolation: Denies Immunizations Up To Date Tetanus Booster (TDap): Less than 5yrs Past Medical History PMH As described under Assessment. Family Medical History Family History: Cardiovascular disease G8 SISTER Diabetes mellitus G8 SISTER FH: lung cancer G8 SISTER Allergies and Home Medications Allergies Coded Allergies: Sulfa (Sulfonamide Antibiotics) (Verified Allergy, Mild, HIVES, 01/14/18) Home Medications Amlodipine Besylate 5 Mg Tablet, 5 MG PO DAILY, (Reported) Amoxicillin 500 Mg Tablet, 500 MG PO BID Prescribed by: CLAUDIO FARAH on 03/07/19 1429 Aspirin 81 Mg Tab.chew, 81 MG PO DAILY Prescribed by: CLAUDIO FARAH on 03/07/19 1435 Bumetanide 1 Mg Tablet, 2 MG PO DAILY, (Reported) TAKES 2 (1MG) TABLETS Ergocalciferol (Vitamin D2) 50,000 Unit Capsule, 50,000 UNITS PO Fr, (Reported) Escitalopram Oxalate 20 Mg Tablet, 40 MG PO DAILY, (Reported) TAKES 2 (20MG) TABLETS Gabapentin 300 Mg Capsule, 600 MG PO BID, (Reported) LAST FILLED #180 12-19-18 TAKES 2 (300MG) CAPSULES Insulin Aspart 300 Units/3 Ml Solution, 20 UNITS SQ AC, (Reported) LAST FILLED AUG 2018 Insulin Detemir 100 Unit/1 Ml Insuln.pen, 40 UNITS SC BID, (Reported) Levothyroxine Sodium 150 Mcg Tablet, 150 MCG PO DAILY@0630 Prescribed by: CLAUDIO FARAH on 03/07/19 1435 Lisinopril 10 Mg Tablet, 10 MG PO DAILY, (Reported) Metoprolol Succinate 100 Mg Tab.er.24h, 100 MG PO DAILY Prescribed by: CLAUDIO FARAH on 03/07/19 1435 Rosuvastatin Calcium 20 Mg Tablet, 20 MG PO HS, (Reported) Sitagliptin Phosphate 25 Mg Tablet, 25 MG PO DAILY, (Reported) LAST FILLED #90 11-15-18 Trazodone HCl 50 Mg Tablet, 50 MG PO HS, (Reported) Patient Home Medication List Home Medication List Reviewed: Yes Physical Exam-Cardiology Physical Exam Vital Signs/I&O Capillary Refill : Less Than 3 Seconds Constitutional: AAO x 3 HEENT: PERRL; No discharge; hearing is well preserved, oral hygience is good; No ulceration, No xanthelasmas are seen Neck: No carotid bruit; carotid pulses are 2 + bilaterally Respiratory: chest is bilaterally symmetric, lungs clear to auscultation; No wheezing, No pleural rub Cardiovascular: irregularly irregular, tachycardia, S1 and S2; No diastolic murmur, No systolic murmur Gastrointestinal: distended, audible bowel sounds; No spleenomegaly Rectal: deferred Extremities: normal range of motion, non-tender, normal inspection, pedal edema; No clubbing, No cyanosis, No significant edema Neurologic/Psychiatric: no motor/sensory deficits, alert, normal mood/affect, oriented x 3, power is 5/5 both on sides Skin: cool; No rash, No ulcerations Data Review Labs Microbiology 12/27/19 Blood Culture - Preliminary, Resulted No growth ECG Impression ECG Comment Atrial flutter with rapid ventricular rate heart rate close to 150 BPM. A/P-Cardiology Assessment/Admission Diagnosis Atrial flutter with rapid ventricular rate, Hypotension with systolic blood pressure of less than 90 mmHg, End stage renal disease on dialysis, Diabetes, Hypertension, Hyperlipidemia, Plan Critically ill patient. Over 30 minutes were spent at the bedside of the patient. She had rapid atrial flutter with hemodynamic compromise. Wide open IV fluids given. Atrial flutter with rapid ventricular rate, with hemodynamic compromise. Electrical cardioversion is recommended. Risk of stroke was discussed with the patient. Propofol will be given by Dr. Fontanez. Since the patient has hemodynamically significant atrial flutter she'll be a candidate for atrial flutter ablation in the future. Hypotension with systolic blood pressure of less than 90 mmHg, did not respond to IV fluids. Likely due to atrial flutter with rapid ventricular rate. Emergent electrical cardioversion is recommended. End stage renal disease on dialysis, will require transfer to [facility] where her travel sales consultant is. Diabetes, continue outpatient medical therapy. Hypertension, currently hypotensive. Hyperlipidemia, on statin therapy as an outpatient. Thank you for your consultation. Please call me if you have any questions. Damaris Thapa MD, FACP, FACC, FSCAI, FHRS, CCDS Interventional Cardiology Cardiac Electrophysiology Vascular Medicine and Endovascular Interventions Clinical Quality Measures AMI/AHF: ASA po Prior to arrival: Yes Rex THAPA MD Dec 27, 2019 21:36
--- NOTE | 2019-12-27 21:37 | Cardioversion ---
Cardioversion PROCEDURE PHYSICIAN: Damaris Thapa MD DATE OF PROCEDURE: 12/27/19 DIRECT EXTERNAL ELECTRICAL CARDIOVERSION: Indications: Atrial Flutter with rapid ventricular rate Preoperative diagnoses: Atrial Flutter with rapid ventricular rate Postoperative diagnosis: Sinus rhythm, Successful Electrical Cardioversion History: Hemodynamically significant atrial flutter with 2-1 AV block. Anesthesia: By Dr Fontanez with propofol. 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 Electrical cardioversion was carried out with anesthesia support with propofol. 120 joules of synchronized shock was delivered through external patches which promptly r estored sinus rhythm. The patient tolerated the procedure well. Conclusions: 1.Successful Cardioversion. 2.Continue oral anticoagulation and rate controlling agent. 3.I'm happy to see her as an outpatient in the electrophysiology office. Damaris Thapa MD, [facility] Cardiac Electrophysiology Rex THAPA MD Dec 27, 2019 21:37
== END 2019-12-27 18:58 | disposition short-term general hospital (02) ==
LOC: EDUNIT# 15:05 → ER 15:07
DX: I48.92 Unspecified atrial flutter (principal); E11.22 Type 2 diabetes mellitus with diabetic chronic kidney disease; I13.2 Hypertensive heart and chronic kidney disease with heart failure and with stage 5 chronic kidney disease, or end stage renal disease; I50.9 Heart failure, unspecified; N18.6 End stage renal disease; E78.00 Pure hypercholesterolemia, unspecified; E11.40 Type 2 diabetes mellitus with diabetic neuropathy, unspecified; F41.9 Anxiety disorder, unspecified; F32.9 Major depressive disorder, single episode, unspecified; Z85.828 Personal history of other malignant neoplasm of skin; Z88.2 Allergy status to sulfonamides; Z79.4 Long term (current) use of insulin; Z79.82 Long term (current) use of aspirin; Z99.2 Dependence on renal dialysis; Z82.49 Family history of ischemic heart disease and other diseases of the circulatory system; Z80.1 Family history of malignant neoplasm of trachea, bronchus and lung
CPT/HCPCS: 36415; 71045; 80053; 83605; 83880; 84484; 85025; 85610; 85730; 87040; 93041; 99291

== ENCOUNTER 2019-12-30 16:10 | Emergency (ER) | payer MEDICARE, MEDICAID ==
[~2019-12-30] VITALS: Ht 157 cm; Wt 106.4 kg
[2019-12-30] MEDS ORDERED: fentaNYL INJECTION 100 MCG/2 ML AMP INJ ONE (16:14)
[2019-12-30] MEDS ORDERED: MIDAZOLAM 5 MG/5 ML (VERSED) VIAL IJ ONE (16:14)
[2019-12-30] MEDS ORDERED: ENOXAPARIN 100 MG/1 ML (LOVENOX) SYR SC ONE (16:15)
[2019-12-30] MEDS ORDERED: ASPIRIN 81 MG CHEW (CHILDREN'S ASA) PO ONE (16:15)
[2019-12-30] MEDS ORDERED: dilTIAZem DRIP PRE-MIX 125 ML IV ONE (16:18)
[2019-12-30 16:29] LABS: BASOPHILS # (AUTO) 0.1 10^3/uL (0.0-0.1); BASOPHILS % (AUTO) 1 % (0-10); EOSINOPHILS # (AUTO) 0.1 10^3/uL (0.0-0.3); EOSINOPHILS % (AUTO) 1 % (0-10); HEMATOCRIT 42 % (35-52); HEMOGLOBIN 13.1 G/DL (11.5-16.0); LYMPHOCYTES # (AUTO) 1.7 X 10^3 (1.0-4.0); LYMPHOCYTES % (AUTO) 20 % (12-44); MEAN CORPUSCULAR HEMOGLOBIN 32 PG (25-34); MEAN CORPUSCULAR HGB CONC 31 G/DL (32-36); MEAN CORPUSCULAR VOLUME 103 FL (80-99); MEAN PLATELET VOLUME 10.5 FL (7.4-10.4); MONOCYTES # (AUTO) 0.6 X 10^3 (0.0-1.0); MONOCYTES % (AUTO) 7 % (0-12); NEUTROPHILS # (AUTO) 6.2 X 10^3 (1.8-7.8); NEUTROPHILS % (AUTO) 72 % (42-75); PLATELET COUNT 194 10^3/uL (130-400); WHITE BLOOD COUNT 8.7 10^3/uL (4.3-11.0)
[2019-12-30] MEDS ORDERED: ENOXAPARIN 40 MG/0.4 ML (LOVENOX) SYR SC ONE (16:30)
[2019-12-30] MEDS ORDERED: dilTIAZem DRIP PRE-MIX 125 ML IV SCH (16:30)
--- NOTE | 2019-12-30 16:32 | ED Cardiac General ---
History of Present Illness General Chief Complaint: Cardiac/General Problems Stated Complaint: ATRIAL FLUTTER Source: patient, other ([facility] NURSE) History of Present Illness Date Seen by Provider: Dec 30, 2019 Time Seen by Provider: 16:15 Initial Comments PT ARRIVES VIA POV FROM [facility] PT WITH RECENT ONSET OF ATRIAL FLUTTER WAS SEEN HERE AND CARDIOVERTED ON SUNDAY NIGHT 12/27/19 AND TRANSFERRED TO [facility], DUE TO PT BEING ON DIALYSIS WAS DISMISSED LAST PM FROM [facility] HAD FOLLOW UP APPOINTMENT TO ESTABLISH CARE TODAY AT [facility] PT WAS FOUND TO BE BACK IN ATRIAL FLUTTER--PT STATES SHE WOKE UP AT 0600 THIS MORNING AND HAD SENSATION OF BEING BACK IN ATRIAL FLUTTER NO CHEST PAIN NO SHORTNESS OF BREATH NO SWELLING IN LEGS/ FEET OR PAIN IN CALVES NO DIZZINESS OR SYNCOPE NO SWEATS PT HAS ESRD ON DIALYSIS --DUE TOMORROW MORNING FOR NEXT SESSION PT IS INSULIN DIABETIC PT HAS NOT BEEN WEARING HER CPAP PRESCRIBED PT WAS PRESCRIBED ELIQUIS, LOPRESSOR, AND DOXYCYCLINE AND LACTOBACILLUS AT DISMISSAL FROM HOSPITAL, BUT DID NOT INTAKE SPECIALIST THOSE RX'S YET PT WAS ADVISED TO STOP HER AMLODIPINE AND TOPROL XL 100 MG NO KNOWN EXPOSURE TO COVID-19 Allergies and Home Medications Allergies Coded Allergies: Sulfa (Sulfonamide Antibiotics) (Verified Allergy, Mild, HIVES, 01/14/18) Home Medications Amlodipine Besylate 5 Mg Tablet, 5 MG PO DAILY, (Reported) Amoxicillin 500 Mg Tablet, 500 MG PO BID Prescribed by: CLAUDIO FARAH on 03/07/19 1429 Aspirin 81 Mg Tab.chew, 81 MG PO DAILY Prescribed by: CLAUDIO FARAH on 03/07/19 1435 Bumetanide 1 Mg Tablet, 2 MG PO DAILY, (Reported) TAKES 2 (1MG) TABLETS Diltiazem HCl 120 Mg Cap.er.24h, 120 MG PO DAILY Prescribed by: BENTON SANDERS on 12/30/19 1820 Ergocalciferol (Vitamin D2) 50,000 Unit Capsule, 50,000 UNITS PO Fr, (Reported) Escitalopram Oxalate 20 Mg Tablet, 40 MG PO DAILY, (Reported) TAKES 2 (20MG) TABLETS Gabapentin 300 Mg Capsule, 600 MG PO BID, (Reported) LAST FILLED #180 12-19-18 TAKES 2 (300MG) CAPSULES Insulin Aspart 300 Units/3 Ml Solution, 20 UNITS SQ AC, (Reported) LAST FILLED AUG 2018 Insulin Detemir 100 Unit/1 Ml Insuln.pen, 40 UNITS SC BID, (Reported) Levothyroxine Sodium 150 Mcg Tablet, 150 MCG PO DAILY@0630 Prescribed by: CLAUDIO FARAH on 03/07/19 1435 Lisinopril 10 Mg Tablet, 10 MG PO DAILY, (Reported) Metoprolol Succinate 100 Mg Tab.er.24h, 100 MG PO DAILY Prescribed by: CLAUDIO FARAH on 03/07/19 1435 Rosuvastatin Calcium 20 Mg Tablet, 20 MG PO HS, (Reported) Sitagliptin Phosphate 25 Mg Tablet, 25 MG PO DAILY, (Reported) LAST FILLED #90 11-15-18 Trazodone HCl 50 Mg Tablet, 50 MG PO HS, (Reported) Patient Home Medication List Home Medication List Reviewed: Yes Review of Systems Review of Systems Constitutional: no symptoms reported; No chills, No diaphoresis, No dizziness, No fever, No malaise, No weakness Respiratory: No Symptoms Reported; Denies Cough, Denies Shortness of Air Cardiovascular: See HPI; Denies Chest Pain, Denies Edema; Irregular Heart Rate; Denies Lightheadedness; Palpitations Gastrointestinal: No Symptoms Reported Genitourinary: No Symptoms Reported Musculoskeletal: no symptoms reported Skin: no symptoms reported Psychiatric/Neurological: No Symptoms Reported Endocrine: No Symptoms Reported Past Juhnsbu-Bxercg-Bwfchc Hx Past Med/Social Hx: Reviewed and Corrections made Patient Social History Alcohol Use: Denies Use Recreational Drug Use: Yes (THC) Drug of Choice: THC Smoking Status: Former Smoker Type Used: Cigarettes Former Smoker, Quit: Jan 14, 1999 2nd Hand Smoke Exposure: No Recent Foreign Travel: No Contact w/Someone Who Travel: No Recent Hopitalizations: No Immunizations Up To Date Tetanus Booster (TDap): Less than 5yrs PED Vaccines UTD: Yes Seasonal Allergies Seasonal Allergies: Yes Past Medical History Surgeries: Yes (PILONIDAL CYST; DX LAPAROSCOPY; HYST/BSO, dialysis shunt in right forearm ) Dialysis, Gallbladder, Hysterectomy, Oophorectomy Respiratory: Yes Sleep Apnea, COPD Currently Using CPAP: No (HAS CPAP, BUT DOES NOT WEAR IT) Cardiac: Yes (CHF; ELEVATED TRIGLYCERIDES; ATRIAL FLUTTER) Chronic Edema/Swelling, High Cholesterol, Hypertension Neurological: Yes Neuropathy 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 Disorders: No Female 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 Disorders: 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, 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 Sexually Transmitted Disease: No HIV/AIDS: No Genitourinary: Yes (DIALYSIS M-W-F) Renal Failure, Dialysis, UTI-Chronic Gastrointestinal: Yes Chronic Constipation, Chronic Diarrhea Musculoskeletal: Yes Arthritis, Chronic Back Pain Endocrine: Yes Diabetes, Insulin dep HEENT: No Loss of Vision: Bilateral Hearing Impairment: Denies Cancer: Yes Skin Psychosocial: Yes Anxiety, Depression Integumentary: Yes (skin lesion) Blood Disorders: No Adverse Reaction/Blood Tranf: No (N/A) Family Medical History Cardiovascular disease G8 SISTER Diabetes mellitus G8 SISTER FH: lung cancer G8 SISTER Physical Exam Vital Signs Vital Signs - First Documented 12/30/19 12/30/19 16:15 16:17 Temp 37.0 Pulse 140 Resp 20 B/P (MAP) 133/77 (95) Pulse Ox 95 O2 Delivery Nasal Cannula O2 Flow Rate 2.00 Capillary Refill : Height, Weight, BMI Height: 5'3.00" Weight: 264lbs. 1.0oz. 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 Ack. Understanding Agreement on procedure with pt: Yes Patient History: Sleep Apnea Breath Sounds per Auscultation: Clear Heart Sounds per Auscultation: Regular Airway Exam: Mouth opens >2 fingers, Neck Full Range of Motion, Visulation of Uvula Sedation Adminstration Time: 1723 SEE NURSING NOTES FOR DETAILS CARDIOVERSION PERFORMED BY DR. RIVERA AT 120 J X 1 ATTEMPT Progress/Results/Core Measures Results/Orders Lab Results Laboratory Tests Test 12/30/19 16:17 Range/Units White Blood Count 8.7 4.3-11.0 10^3/uL Red Blood Count 4.08 L 4.35-5.85 10^6/uL Hemoglobin 13.1 11.5-16.0 G/DL Hematocrit 42 35-52 % Mean Corpuscular Volume 103 H 80-99 FL Mean Corpuscular Hemoglobin 32 25-34 PG Mean Corpuscular Hemoglobin Concent 31 L 32-36 G/DL Red Cell Distribution Width 19.0 H 10.0-14.5 % Platelet Count 194 130-400 10^3/uL Mean Platelet Volume 10.5 H 7.4-10.4 FL Neutrophils (%) (Auto) 72 42-75 % Lymphocytes (%) (Auto) 20 12-44 % Monocytes (%) (Auto) 7 0-12 % Eosinophils (%) (Auto) 1 0-10 % Basophils (%) (Auto) 1 0-10 % Neutrophils # (Auto) 6.2 1.8-7.8 X 10^3 Lymphocytes # (Auto) 1.7 1.0-4.0 X 10^3 Monocytes # (Auto) 0.6 0.0-1.0 X 10^3 Eosinophils # (Auto) 0.1 0.0-0.3 10^3/uL Basophils # (Auto) 0.1 0.0-0.1 10^3/uL Prothrombin Time 14.2 12.2-14.7 SEC INR Comment 1.1 0.8-1.4 Activated Partial Thromboplast Time 33 24-35 SEC Sodium Level 140 135-145 MMOL/L Potassium Level 4.1 3.6-5.0 MMOL/L Chloride Level 99 98-107 MMOL/L Carbon Dioxide Level 22 21-32 MMOL/L Anion Gap 19 H 5-14 MMOL/L Blood Urea Nitrogen 53 H 7-18 MG/DL Creatinine 6.19 #H 0.60-1.30 MG/DL Estimat Glomerular Filtration Rate 7 BUN/Creatinine Ratio 9 Glucose Level 241 H 70-105 MG/DL Calcium Level 8.6 8.5-10.1 MG/DL Corrected Calcium 8.6 8.5-10.1 MG/DL Magnesium Level 2.4 1.6-2.4 MG/DL Total Bilirubin 0.4 0.1-1.0 MG/DL Aspartate Amino Transf (AST/SGOT) 13 5-34 U/L Alanine Aminotransferase (ALT/SGPT) 10 0-55 U/L Alkaline Phosphatase 85 40-136 U/L Troponin I < 0.028 <0.028 NG/ML B-Type Natriuretic Peptide 504.7 H <100.0 PG/ML Total Protein 8.0 6.4-8.2 GM/DL Albumin 4.0 3.2-4.5 GM/DL Free Thyroxine 0.74 0.70-1.48 NG/DL TSH [place] Testing 5.35 H 0.35-4.94 UIU/ML My Orders Orders - BENTON SANDERS DO Ed Iv/Invasive Line Start (12/30/19 16:13) Ekg Tracing (12/30/19 16:13) O2 (12/30/19 16:13) Monitor-Rhythm Ecg Trace Only (12/30/19 16:13) Chest 1 View, Ap/Pa Only (12/30/19 16:13) BNP (12/30/19 16:13) Cbc With Automated Diff (12/30/19 16:13) Comprehensive Metabolic Panel (12/30/19 16:13) Magnesium (12/30/19 16:13) Protime With Inr (12/30/19 16:13) Partial Thromboplastin Time (12/30/19 16:13) Thyroid Analyzer (12/30/19 16:13) Troponin I (12/30/19 16:13) Aspirin Chewable Tablet (Baby Aspirin Ch (12/30/19 16:15) Enoxaparin Injection (Lovenox Injection) (12/30/19 16:15) Diltiazem Drip Pre-Mix (Cardizem Drip Pr (12/30/19 16:18) Diltiazem Injection (Cardizem Injection) (12/30/19 16:18) Enoxaparin Injection (Lovenox Injection) (12/30/19 16:30) Diltiazem Injection (Cardizem Injection) (12/30/19 16:30) Diltiazem Drip Pre-Mix (Cardizem Drip Pr (12/30/19 16:30) Digoxin Injection (Lanoxin Injection) (12/30/19 17:15) Free T4 (Free Thyroxine) (12/30/19 16:17) Propofol Drip (Icu) (Diprivan Drip (Icu) (12/30/19 17:42) Diltiazem Cd 24 Hr Capsule (Cardizem Cd (12/30/19 18:15) Ekg Tracing (12/30/19 18:24) Ekg Tracing (12/30/19 18:24) Ekg Tracing (12/30/19 18:24) Fentanyl Injection (Sublimaze Injection (12/30/19 16:14) Midazolam Injection (Versed Injection) (12/30/19 16:14) Medications Given in ED Vital Signs/I&O 12/30/19 12/30/19 12/30/19 12/30/19 16:15 16:17 17:38 17:52 Temp 37.0 Pulse 140 141 Resp 20 B/P (MAP) 133/77 (95) Pulse Ox 95 94 O2 Delivery Nasal Cannula Nasal Cannula Nasal Cannula O2 Flow Rate 2.00 2.00 2.00 2.00 12/30/19 12/30/19 17:54 19:18 Temp 37.0 Pulse 133 65 Resp 20 B/P (MAP) 136/72 95/51 (93) Pulse Ox 96 O2 Delivery Room Air Initial ECG Impression Date: Dec 30, 2019 Initial ECG Impression Time: 16:11 Initial ECG Rate: 143 Initial ECG Rhythm: S.Tach (VS A FLUTTER) EKG : EKG Time: 16:17 Rate: 140 Rhythm: A Fib/Flutter (A FLUTTER) Comment EKG #3 AT 1756--RATE 140, ATRIAL FLUTTER EKG #4 AT 1807--RATE 64--NSR Diagnostic Imaging Comments CXR--PER RADIOLOGIST REPORT AT 1725 IMPRESSION: No acute cardiopulmonary process is detected. Reviewed: Reviewed by Me Departure Communication (Admissions) 1708--SPOKE WITH DR RIVERA, HE ADVISES TO GIVE DIGOXIN 0.5 MG IV X 1 DOSE, AND HE WILL BE IN TO SEE PT. 1723--DR. RIVERA HERE TO SEE PT. HAS DISCUSSED WITH PT AND WILL DO CARDIOVERSION HERE IN ER, PT HAS NOT HAD ANY CHANGE IN HEART RATE DESPITE CARDIZEM AND DIGOXIN. POST CARDIOVERSION, DR. RIVERA ADVISES TO START PT ON CARDIZEM CD 120--GIVE FIR ST DOSE HERE. HAVE PT INTAKE SPECIALIST RX FOR ELIQUIS IN THE MORNING WILL SEND HOME TONIGHT, PT CAN HAVE REGULARLY SCHEDULED DIALYSIS IN THE MORNING HE WILL SEE PT IN OFFICE AND WILL SCHEDULE CARDIAC ABLATION IN NEAR FUTURE Impression Primary Impression: Atrial flutter with rapid ventricular response Additional Impressions: ESRD (end stage renal disease) on dialysis IDDM (insulin dependent diabetes mellitus) S/P CARDIOVERSION Disposition: 01 HOME, SELF-CARE Condition: Improved Departure-Patient Inst. Referrals: Rex RIVERA MD, JULIE A MD (PCP/Family) Primary Care Physician Patient Instructions: Cardioversion (DC), Atrial Flutter (DC) Add. Discharge Instructions: INTAKE SPECIALIST YOUR ELIQUIS AND OTHER PRESCRIPTIONS IN THE MORNING AND TAKE PRESCRIBED FOLLOW UP WITH DR. RIVERA THIS WEEK FOR FURTHER CARE--CALL IN AM FOR APPOINTMENT RETURN TO ER IF SYMPTOMS RETURN All discharge instructions reviewed with patient and/or family. Voiced understa nding. Scripts Diltiazem HCl (Cardizem Cd) 120 Mg Cap.er.24h 120 MG PO DAILY, #30 CAP Prov: BENTON SANDERS DO 12/30/19 BENTON SANDERS DO Dec 30, 2019 16:32
[2019-12-30 16:47] LABS: INR 1.1 (0.8-1.4); PROTHROMBIN TIME PATIENT 14.2 SEC (12.2-14.7)
[2019-12-30 16:58] LABS: ALANINE AMINOTRANSFERASE 10 U/L (0-55); ALKALINE PHOSPHATASE 85 U/L (40-136); BILIRUBIN,TOTAL 0.4 MG/DL (0.1-1.0); BUN/CREATININE RATIO 9; CALCIUM 8.6 MG/DL (8.5-10.1); CARBON DIOXIDE 22 MMOL/L (21-32); CHLORIDE 99 MMOL/L (98-107); CREATININE SERUM 6.19 MG/DL (0.60-1.30); GFR ESTIMATED 7; GLUCOSE 241 MG/DL (70-105); MAGNESIUM 2.4 MG/DL (1.6-2.4); POTASSIUM 4.1 MMOL/L (3.6-5.0); SODIUM 140 MMOL/L (135-145)
[2019-12-30] MEDS ORDERED: DIGOXIN 0.25 MG/ML (LANOXIN) 2 ML AMP IV ONE (17:15)
[2019-12-30 17:19] LABS: TSH (THYROID ANALYZER) 5.35 UIU/ML (0.35-4.94)
--- NOTE | 2019-12-30 17:24 | Diagnostic Imaging Report ---
INDICATION: Atrial flutter. TIME OF EXAM: 05:19 p.m. COMPARISON: Correlation is made with prior chest from 12/27/2019. FINDINGS: The heart size is normal. The pulmonary vascularity is unremarkable. The lungs are clear. No infiltrate, effusion or pneumothorax is detected. IMPRESSION: No acute cardiopulmonary process is detected. Dictated by: Dictated on workstation # [id number]
[2019-12-30] MEDS ORDERED: PROPOFOL DRIP (ICU) 100 ML IV ONE (17:42)
--- NOTE | 2019-12-30 17:52 | NUR ---
175 PULSE 133, RESP 7, 95% ON 2 LPM NC, CO2 38, 136/72 175 CARDIZEM DRIP DC'D PER DR. RIVERA 175 PROPOFOL 25MG (ALL PROPOFOL PUSHES BY DR. SANDERS) 175 PROPOFOL 25 MG 175 PROPOFOL 25 MG 180 PT DENTURES TAKEN OUT 180 VERSED 4 MG 180 FENTANYL 50 MCG 180 CHARGE ZOLL TO 120 J, ALL CLEAR, SHOCK DELIVERED BY DR. RIVERA 180 PULSE 61, 6 RESP, 98% ON 3 LPM NC, CO2 24, 107/56 1818 PT ASKING FOR A DRINK, ADVISED WE ARE GOING TO WAIT A FEW MORE MINUTES FOR HER TO WAKE UP MORE AND PT STATES UNDERSTANDING. 182 PT STATES NAME AND BIRTHDAY WHEN ASKED, KNOWS DAY OF WEEK AND DATE OF MONTH
[2019-12-30 18:05] LABS: FREE T4 (FREE THYROXINE) 0.74 NG/DL (0.70-1.48)
[2019-12-30] MEDS ORDERED: dilTIAZem120 MG (CARDIZEM CD) CAP PO SCH (18:15)
[2019-12-30] MEDS ORDERED: DILT120C82 PO (18:20)
[2019-12-30 19:18] VITALS: BP 95/51
--- NOTE | 2019-12-30 19:28 | Consultation-Cardiology ---
HPI-Cardiology Cardiology Consultation: Date of Consultation 12/30/19 Date of Admission Attending Physician Admitting Physician Gabby Benavidez MD Consulting Physician Rex THAPA MD HPI: Time Seen by a Provider: 16:45 Chief Complaint: Palpitations This is a 54-year-old lady with known history of end-stage renal disease on dial ysis and follows with Dr. Carrasco at [facility]. She gets her dialysis done in [place]. She also has history of hypertension and hyperlipidemia. Significant diabetes. She was recently seen on 12/27/2019 for hemodynamically significant atrial flutter with 2-1 AV block with RVR requiring urgent cardioversion. Due to history of dialysis she was transferred to [facility]. She remained in sinus rhythm until 12/30/2019. She was discharged on 12/29/2019 from [facility]. According to the patient she started to have palpitations few hours before arrival to the ER. She denies any syncope, near- syncope, shortness of breath or chest pain. She denies active smoking. No significant family history of premature CAD. Review of Systems-Cardiology Review of Systems Constitutional: As described under HPI; No As described under HPI, No no symptoms reported, No chills, No fever, No lightheadedness Eyes: No As described under HPI, No no symptoms reported, No blindness, No blurred vision, No contact lenses, No drainage, No decreased acuity, No foreign body sensation, No pain, No vision change Ears/Nose/Throat: No As described under HPI, No no symptoms reported, No chr onic hearing loss, No ear discharge, No ear pain, No nasal drainage, No ulcerations Respiratory: No no symptoms reported; As described under HPI; No As described under HPI, No cough, No orthopnea, No shortness of breath, No SOB with excertion Cardiovascular: No no symptoms reported; As described under HPI; No As described under HPI, No chest pain, No edema, No irregular heart rate, No lightheadedness; palpitations Gastrointestinal: No no symptoms reported, No As described under HPI, No abdomen distended, No abdominal pain, No blood streaked bowels, No constipation, No diarrhea, No nausea, No vomiting, No stool coloration changes Genitourinary: No As described under HPI, No burning, No dysuria, No discharge, No frequency, No flank pain, No hematuria, No urgency : Yes : No Skin: No rash, No skin related problems, No ulcerations Psychiatric/Neurological: No anxiety, No depression, No seizure, No focal weakness, No syncope Hematologic: No bleeding abnormalities [id number] Hx Patient Social History Alcohol Use: Denies Use Recreational Drug Use: Yes (THC) Drug of Choice: THC Smoking Status: Former Smoker Type Used: Cigarettes 2nd Hand Smoke Exposure: No Recent Foreign Travel: No Recent Infectious Disease Expo: No Immunizations Up To Date Tetanus Booster (TDap): Less than 5yrs Past Medical History PMH As described under Assessment. Family Medical History Family History: Cardiovascular disease G8 SISTER Diabetes mellitus G8 SISTER FH: lung cancer G8 SISTER Allergies and Home Medications Allergies Coded Allergies: Sulfa (Sulfonamide Antibiotics) (Verified Allergy, Mild, HIVES, 01/14/18) Home Medications Amlodipine Besylate 5 Mg Tablet, 5 MG PO DAILY, (Reported) Amoxicillin 500 Mg Tablet, 500 MG PO BID Prescribed by: CLAUDIO FARAH on 03/07/19 1429 Aspirin 81 Mg Tab.chew, 81 MG PO DAILY Prescribed by: CLAUDIO FARAH on 03/07/19 1435 Bumetanide 1 Mg Tablet, 2 MG PO DAILY, (Reported) TAKES 2 (1MG) TABLETS Diltiazem HCl 120 Mg Cap.er.24h, 120 MG PO DAILY Prescribed by: BENTON SANDERS on 12/30/19 1820 Ergocalciferol (Vitamin D2) 50,000 Unit Capsule, 50,000 UNITS PO Fr, (Reported) Escitalopram Oxalate 20 Mg Tablet, 40 MG PO DAILY, (Reported) TAKES 2 (20MG) TABLETS Gabapentin 300 Mg Capsule, 600 MG PO BID, (Reported) LAST FILLED #180 12-19-18 TAKES 2 (300MG) CAPSULES Insulin Aspart 300 Units/3 Ml Solution, 20 UNITS SQ AC, (Reported) LAST FILLED AUG 2018 Insulin Detemir 100 Unit/1 Ml Insuln.pen, 40 UNITS SC BID, (Reported) Levothyroxine Sodium 150 Mcg Tablet, 150 MCG PO DAILY@0630 Prescribed by: CLAUDIO FARAH on 03/07/19 1435 Lisinopril 10 Mg Tablet, 10 MG PO DAILY, (Reported) Metoprolol Succinate 100 Mg Tab.er.24h, 100 MG PO DAILY Prescribed by: CLAUDIO FARAH on 03/07/19 1435 Rosuvastatin Calcium 20 Mg Tablet, 20 MG PO HS, (Reported) Sitagliptin Phosphate 25 Mg Tablet, 25 MG PO DAILY, (Reported) LAST FILLED #90 11-15-18 Trazodone HCl 50 Mg Tablet, 50 MG PO HS, (Reported) Patient Home Medication List Home Medication List Reviewed: Yes Physical Exam-Cardiology Physical Exam Vital Signs/I&O Capillary Refill : Less Than 3 Seconds Constitutional: appears stated age, AAO x 3; No apparent distress; well- developed, well-nourished HEENT: PERRL; No discharge; hearing is well preserved, oral hygience is good; No ulceration, No xanthelasmas are seen Neck: No carotid bruit; carotid pulses are 2 + bilaterally Respiratory: chest is bilaterally symmetric, lungs clear to auscultation Cardiovascular: irregularly irregular, tachycardia, S1 and S2 Gastrointestinal: soft, audible bowel sounds; No spleenomegaly Rectal: deferred Extremities: normal range of motion, non-tender, normal inspection, pedal edema; No clubbing, No cyanosis, No significant edema Neurologic/Psychiatric: no motor/sensory deficits, alert, normal mood/affect, oriented x 3, power is 5/5 both on sides Skin: normal color, warm/dry; No rash, No ulcerations Data Review Labs Laboratory Tests 12/30/19 16:17: White Blood Count 8.7, Red Blood Count 4.08L, Hemoglobin 13.1, Hematocrit 42, Mean Corpuscular Volume 103H, Mean Corpuscular Hemoglobin 32, Mean Corpuscular Hemoglobin Concent 31L, Red Cell Distribution Width 19.0H, Platelet Count 194, M malgorzata Platelet Volume 10.5H, Neutrophils (%) (Auto) 72, Lymphocytes (%) (Auto) 20, Monocytes (%) (Auto) 7, Eosinophils (%) (Auto) 1, Basophils (%) (Auto) 1, Neutrophils # (Auto) 6.2, Lymphocytes # (Auto) 1.7, Monocytes # (Auto) 0.6, Eosinophils # (Auto) 0.1, Basophils # (Auto) 0.1, Prothrombin Time 14.2, INR Comment 1.1, Activated Partial Thromboplast Time 33, Sodium Level 140, Potassium Level 4.1, Chloride Level 99, Carbon Dioxide Level 22, Anion Gap 19H, Blood Urea Nitrogen 53H, Creatinine 6.19#H, Estimat Glomerular Filtration Rate 7, BUN/Creatinine Ratio 9, Glucose Level 241H, Calcium Level 8.6, Corrected Calcium 8.6, Magnesium Level 2.4, Total Bilirubin 0.4, Aspartate Amino Transf (AST/SGOT) 13, Alanine Aminotransferase (ALT/SGPT) 10, Alkaline Phosphatase 85, Troponin I < 0.028, B-Type Natriuretic Peptide 504.7H, Total Protein 8.0, Albumin 4.0, Free Thyroxine 0.74, TSH [place] Testing 5.35H ECG Impression ECG Comment Rapid atrial flutter with 2-1 AV block. A/P-Cardiology Assessment/Admission Diagnosis Atrial flutter with rapid ventricular rate, End stage renal disease on dialysis, Diabetes, Hypertension, Hyperlipidemia, Plan Atrial flutter with rapid ventricular rate, started a few hours ago. She was supposed to be on Eliquis on discharge from [facility] on 12/29/2019, however she did not picker operator her prescription. Systolic blood pressure between 110 - 120. Electrical cardioversion was recommended. Risk of stroke was discussed. I discussed atrial flutter ablation, the patient agrees with the procedure. We will schedule it as soon as possible. Patient will be discharged on oral anticoagulation and follow-up with me in the office. However we will try to schedule atrial flutter ablation in the next one week or 2 weeks. End stage renal disease on dialysis, Diabetes, continue outpatient medical therapy. Hypertension, continue outpatient medical therapy. Hyperlipidemia, on statin therapy as an outpatient. Thank you for your consultation. Please call me if you have any questions. Damaris Thapa MD, FACP, FACC, FSCAI, FHRS, CCDS Interventional Cardiology Cardiac Electrophysiology Vascular Medicine and Endovascular Interventions Rex THAPA MD Dec 30, 2019 19:28
--- NOTE | 2019-12-30 19:30 | Cardioversion ---
Cardioversion PROCEDURE PHYSICIAN: Damaris Thapa MD DATE OF PROCEDURE: 12/30/19 DIRECT EXTERNAL ELECTRICAL CARDIOVERSION: Indications: Atrial flutter with rapid ventricular rate Preoperative diagnoses: Atrial Flutter with rapid ventricular rate Postoperative diagnosis: Sinus rhythm, Successful Electrical Cardioversion History: symptomatic atrial flutter since a few hours. s/p Cardioversion on 12/27/2019 for Aflutter with RVR and hemodynamic compromise. She was in [facility] till yesterday and was in sinus rhythm. She went into AF this morning. 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 Electrical cardioversion was carried out with anesthesia support with propofol. 120 joules of synchronized shock was delivered through external patches which promptly restored sinus rhythm. The patient tolerated the procedure well. Conclusions: 1.Successful Cardioversion. 2.Continue oral anticoagulation and rate controlling agent. 3.Follow up in office in 7 days. Damaris Thapa MD, RS, CCDS Cardiac Electrophysiology Rex THAPA MD Dec 30, 2019 19:30
--- OUTSIDE RECORDS SUMMARY | 2019-12-30 19:52 | XMS REPORT | Continuity of Care Document ---
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 9 HEART FAILURE, UNSPECIFIED 01/18/2018 KIRT ANN MD Ot K57. 30 DVRTCLOS OF LG INT W/O PERFORATION OR AB 01/18/2018 KIRT ANN MD Ot Z12. 11 ENCOUNTER FOR SCREENING FOR MALIGNANT NE 01/18/2018 KIRT ANN MD Ot Z68. 41 BODY MASS INDEX (BMI) 40.0-44.9, ADULT 01/18/2018 KIRT ANN MD Ot Z79. 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 01 MORBID (SEVERE) OBESITY DUE TO EXCESS CA 01/22/2018 KIRT ANN MD Ot I11. 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 9 HEART FAILURE, UNSPECIFIED 01/22/2018 KIRT ANN MD, Ot K57. 30 DVRTCLOS OF LG INT W/O PERFORATION OR AB 01/22/2018 KIRT ANN MD Ot Z12. 11 ENCOUNTER FOR SCREENING FOR MALIGNANT NE 01/22/2018 KIRT ANN MD Ot Z68. 41 BODY MASS INDEX (BMI) 40.0-44.9, ADULT 01/22/2018 KIRT ANN MD Ot Z79. 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 01 MORBID (SEVERE) OBESITY DUE TO EXCESS CA 01/23/2018 KIRT ANN MD Ot I11. 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 9 HEART FAILURE, UNSPECIFIED 01/23/2018 KIRT ANN MD, Ot K57. 30 DVRTCLOS OF LG INT W/O PERFORATION OR AB 01/23/2018 KIRT ANN MD Ot Z12. 11 ENCOUNTER FOR SCREENING FOR MALIGNANT NE 01/23/2018 KIRT ANN MD Ot Z68. 41 BODY MASS INDEX (BMI) 40.0-44.9, ADULT 01/23/2018 KIRT ANN MD Ot Z79. 84 [facility] (CURRENT) USE OF ORAL HYPOGLYC 01/23/2018 KIRT ANN MD Ot Z79.899 OTHER STUDENT EDUCATION SPECIALIST (CURRENT) DRUG THERAPY 03/05/2018 Ot M47.26 OTH [...] VILLAR DOSAVANNAH D Ot Z79. 4 STUDENT EDUCATION SPECIALIST (CURRENT) USE OF INSULIN 04/26/2018 VILLAR DOSAVANNAH D Ot Z79.899 OTHER [facility] (CURRENT) DRUG THERAPY 04/30/2018 VILLAR DOSAVANNAH D [...] VILLAR DOSAVANNAH D Ot Z79. 4 STUDENT EDUCATION SPECIALIST (CURRENT) USE OF INSULIN 04/30/2018 VILLAR DO, SAVANNAH D Ot Z79.899 OTHER STUDENT EDUCATION SPECIALIST (CURRENT) DRUG THERAPY 04/30/2018 VILLAR DO, SAVANNAH D Ot D23. 39 OTHER BENIGN NEOPLASM OF SKIN OF OTHER P 04/30/2018 VILLAR DO, SAVANNAH D Ot E11. 40 TYPE 2 DIABETES MELLITUS WITH DIABETIC N 04/30/2018 VILLAR DO, SAVANNAH D Ot I13. 0 HYP HRT CHR KDNY DIS W HRT FAIL AND ST 04/30/2018 VILLAR DO, SAAVNNAH D Ot I50. 9 HEART FAILURE, UNSPECIFIED 04/30/2018 VILLAR DO, SAVANNAH D Ot K21. 9 GASTRO-ESOPHAGEAL REFLUX DISEASE WITHOUT 04/30/2018 VILLAR DO, SAVANNAH D Ot N18. 9 CHRONIC KIDNEY DISEASE, UNSPECIFIED 04/30/2018 VILLAR DO, SAVANNAH D Ot Z79. 4 [facility] (CURRENT) USE OF INSULIN 04/30/2018 VILLAR DO, SAVANNAH D Ot Z79.899 OTHER STUDENT EDUCATION SPECIALIST (CURRENT) DRUG THERAPY 05/09/2018 VILLAR DO, SAVANNAH [...] N18. 9 CHRONIC KIDNEY DISEASE, UNSPECIFIED 05/09/2018 VILLAR DO, SAVANNAH D Ot Z79. 4 [facility] (CURRENT) USE OF INSULIN 05/09/2018 VILLAR DO, SAVANNAH D Ot Z79.899 OTHER STUDENT EDUCATION SPECIALIST (CURRENT) DRUG THERAPY 06/27/2018 ISABELLA MEJIA APRN Ot E11.21 TYPE 2 DIABETES MELLITUS WITH DIABETIC N 06/27/2018 ISABELLA MEJIA APRN Ot E11.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 W DIABETIC MANAGER NURSING 06/27/2018 ISABELLA MEJIA APRN Ot E78.5 HYPERLIPIDEMIA, UNSPECIFIED 06/27/2018 ISABELAL MEJIA APRN Ot I12.9 HYPERTENSIVE CHRONIC KIDNEY [...] HISTORY OF NICOTINE DEPENDENCE 07/10/2018 ISABELLA MEJIA STARBUCKS CLERK Ot E11.21 TYPE 2 DIABETES MELLITUS WITH DIABETIC N 07/10/2018 ISABELLA MEJIA APRN Ot E11.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 W DIABETIC MANAGER NURSING 07/10/2018 ISABELLA MEJIA APRN Ot E78.5 HYPERLIPIDEMIA, UNSPECIFIED 07/10/2018 ISABELLA MEJIA APRN Ot I12.9 HYPERTENSIVE CHRONIC KIDNEY DISEASE W ST 07/10/2018 ISABELLA MEJIA APRN Ot I50.9 HEART FAILURE, UNSPECIFIED 07/10/2018 ISABELLA MEJIA APRN Ot M10.9 GOUT, UNSPECIFIED 07/10/2018 ISABELLA MEJIA APRN Ot N18.4 CHRONIC KIDNEY DISEASE, STAGE 4 (SEVERE) 07/10/2018 ISABELLA MEJIA STARBUCKS CLERK Ot N39.0 URINARY TRACT INFECTION, SITE NOT [...] LUMP, HEAD 08/27/2018 SHERLYN HARRIS Ot Z79.4 [facility] (CURRENT) USE OF INSULIN 08/27/2018 SHERLYN HARRIS [...] OTHER SPECIFIED POSTPROCEDURAL STATES 08/27/2018 ISABELLA MEJIA STARBUCKS CLERK Ot E11.21 TYPE 2 DIABETES MELLITUS WITH DIABETIC N 08/27/2018 ISABELLA MEJIA STARBUCKS CLERK Ot E11.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 W DIABETIC MANAGER NURSING 08/27/2018 ISABELLA MEJIA APRN Ot E78.5 HYPERLIPIDEMIA, UNSPECIFIED 08/27/2018 ISABELLA MEJIA APRN Ot I12.9 HYPERTENSIVE CHRONIC KIDNEY DISEASE W ST 08/27/2018 ISABELLA MEJIA APRN Ot I50.9 HEART FAILURE, UNSPECIFIED 08/27/2018 ISABELLA MEJIA APRN Ot M10.9 GOUT, UNSPECIFIED 08/27/2018 ISABELLA EMJIA APRN Ot N18.4 CHRONIC KIDNEY DISEASE, STAGE [...] LUMP, HEAD 08/29/2018 SHERLYN HARRIS Ot Z79.4 [facility] (CURRENT) USE OF INSULIN 08/29/2018 SHERLYN HARRIS [...] E11.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 W DIABETIC MANAGER NURSING 03/06/2019 ISABELLA MEJIA APRN Ot E78.5 HYPERLIPIDEMIA, [...] 03/07/2019 CLAUDIO FARAH MD, Ot Z79 .4 [facility] (CURRENT) USE OF INSULIN 03/07/2019 CLAUDIO FARAH MD, Ot Z85.828 PERSONAL HISTORY OF OTHER MALIGNANT NEOP 03/07/2019 CLAUDIO FARAH MD, Ot Z91.19 PATIENT'S NONCOMPLIANCE W OT MEDICAL TR 03/17/2019 ISABELLA MEJIA APRN Ot E11.21 TYPE 2 DIABETES MELLITUS WITH DIABETIC N 03/17/2019 ISABELLA MEJIA APRN Ot E11.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 W DIABETIC MANAGER NURSING 03/17/2019 ISABELLA MEJIA APRN Ot E78.5 HYPERLIPIDEMIA, [...] E11.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 W DIABETIC MANAGER NURSING 03/17/2019 ISABELLA MEJIA APRN Ot E78.5 HYPERLIPIDEMIA, [...] E11.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 W DIABETIC MANAGER NURSING 04/08/2019 ISABELLA MEJIA APRN Ot E78.5 HYPERLIPIDEMIA, [...] E11.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 W DIABETIC MANAGER NURSING 04/08/2019 ISABELLA MEJIA APRN Ot E78.5 HYPERLIPIDEMIA, [...] E11.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 W DIABETIC MANAGER NURSING 04/10/2019 JOHANNA CROWDER FACC, LYDIA FACP CCDS [...] E11.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 W DIABETIC MANAGER NURSING 05/09/2019 JOHANNA CROWDER FACC, ALI FACP CCDS Ot I13.0 HYP HRT CHR KDNY DIS W HRT FAIL AND ST 05/09/2019 JOHANNA CROWDER FACC, ALI FACP CCDS Ot I50.31 ACUTE DIASTOLIC (CONGESTIVE) HEART FAILU 05/09/2019 JOHANNA CROWDER FACC, ALI FACP CCDS Ot N18.4 CHRONIC KIDNEY DISEASE, STAGE 4 (SEVERE) 08/05/2019 ISABELLA MEJIA APRN Ot G47.33 OBSTRUCTIVE SLEEP APNEA (ADULT) (PEDIATR 08/06/2019 ISABELLA MEJIA STARBUCKS CLERK Ot G47.33 OBSTRUCTIVE SLEEP APNEA (ADULT) (PEDIATR 08/06/2019 ISABELLA MEJIA APRN Ot G47.33 OBSTRUCTIVE SLEEP APNEA (ADULT) (PEDIATR 08/06/2019 ISABELLA MEJIA APRN Ot G47.33 OBSTRUCTIVE SLEEP APNEA (ADULT) (PEDIATR 08/07/2019 ISABELLA MEJIA APRN Ot G47.33 OBSTRUCTIVE SLEEP APNEA (ADULT) (PEDIATR 08/07/2019 DOUTHITT, ISABELLA B STARBUCKS CLERK Ot I10 ESSENTIAL (PRIMARY) HYPERTENSION 08/08/2019 ISABELLA MEJIA STARBUCKS CLERK Ot G47.33 OBSTRUCTIVE SLEEP APNEA (ADULT) (PEDIATR 08/08/2019 ISABELLA MEJIA STARBUCKS CLERK Ot I10 ESSENTIAL (PRIMARY) HYPERTENSION 08/15/2019 YAZMIN, DAYNA R STARBUCKS CLERK Ot G47.33 OBSTRUCTIVE SLEEP APNEA (ADULT) (PEDIATR 08/21/2019 YAZMIN, DAYNA R STARBUCKS CLERK Ot G47.33 OBSTRUCTIVE SLEEP APNEA (ADULT) (PEDIATR 08/21/2019 YAZMIN, DAYNA R STARBUCKS CLERK Ot G47.33 OBSTRUCTIVE SLEEP APNEA (ADULT) (PEDIATR 08/21/2019 YAZMIN, DAYNA R STARBUCKS CLERK Ot G47.33 OBSTRUCTIVE SLEEP APNEA (ADULT) (PEDIATR 08/21/2019 YAZMIN, DAYNA R STARBUCKS CLERK Ot G47.33 OBSTRUCTIVE SLEEP APNEA (ADULT) (PEDIATR 08/21/2019 YAZMIN, DAYNA R STARBUCKS CLERK Ot G47.33 OBSTRUCTIVE SLEEP APNEA (ADULT) (PEDIATR 08/22/2019 YAZMIN, DAYNA R STARBUCKS CLERK Ot G47.33 OBSTRUCTIVE SLEEP APNEA (ADULT) (PEDIATR 08/22/2019 YAZMIN, DAYNA R STARBUCKS CLERK Ot G47.33 OBSTRUCTIVE SLEEP APNEA (ADULT) (PEDIATR 08/22/2019 YAZMIN, DAYNA R STARBUCKS CLERK Ot G47.33 OBSTRUCTIVE SLEEP APNEA (ADULT) (PEDIATR 08/26/2019 YAZMIN, DAYNA R STARBUCKS CLERK Ot G47.33 OBSTRUCTIVE SLEEP APNEA (ADULT) (PEDIATR 08/26/2019 SAULO CROWDER, KEN Sood Ot Z12.31 ENCNTR SCREEN MAMMOGRAM FOR MALIGNANT NE 08/26/2019 DAYNA ARCE R STARBUCKS CLERK Ot G47.33 OBSTRUCTIVE SLEEP APNEA (ADULT) (PEDIATR 08/26/2019 SAULO CROWDER, KEN Sood Ot Z12.31 ENCNTR SCREEN MAMMOGRAM FOR MALIGNANT NE 08/27/2019 DAYNA ARCE R STARBUCKS CLERK Ot G47.33 OBSTRUCTIVE SLEEP APNEA (ADULT) (PEDIATR 08/27/2019 DAYNA ARCE R STARBUCKS CLERK Ot G47.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 [...] Code Description [place] [address] [facility], per day, for the evaluation and management of a patient, which requires these JASEN KHAN MD 09/19/2017 [id number] [facility], per day, for the evaluation and management of a patient, which requires at YECENIA CHURCH MD 09/19/2017 [id number] Offi ce or other outpatient visit for the evaluation and management of an established patient, which TIMBO SMITH I 10/18/2017 97974 Offi ce or other outpatient visit for the evaluation and management of an established patient, which TIMBO SMITH I 03/29/2018 299[address] [facility], per day, for the evaluation and management of a patient, which requires these JASEN KHAN MD 03/29/2018 16483 [facility], per day, for the evaluation and management [...] 5.0-8.0 Protein Pos 2+ NA Negative Specific Elk 1.015 NA 1.003-1.030 UA Collection type Clean [...] by glucometer (mas s/volume) 157 mg/dL 70-110 Complete blood count (CBC) with automate d white blood cell (WBC) differential - 12/27/19 15:31 Blood leukocytes automated count (number/volume) 10.0 10*3/uL 4.3-11.0 Blood erythrocytes automated count (number/volume) 4.16 10*6/uL 4.35-5.85 Venous blood hemoglobin measurement (mass/volume) 13.3 g/dL 11.5-16.0 Blood hematocrit (volume fraction) 42 % 35-52 Automated erythrocyte mean corpuscular volume 102 [foz_us] 80-99 Automated erythrocyte mean corpuscular h emoglobin (mass per erythrocyte) 32 pg 25-34 Automated erythrocyte mean corpuscular h emoglobin concentration measurement (mass/volume) 31 g/dL 32-36 Automated erythrocyte distribution width ratio 19. 2 % 10.0- 14.5 Automated blood platelet count (count/volume) 263 10*3/uL 130-400 Automated blood platelet mean volume measurement 10.3 [foz_us] 7.4-10.4 Automated blood neutrophils/100 leukocytes 73 % 42-75 Automated blood lymphocytes/100 leukocytes 18 % 12-44 Blood monocytes/100 leukocytes 7 % 0-12 Automated blood eosinophils/100 leukocytes 2 % 0-10 Automated blood basophils/100 leukocytes 1 % 0-10 Blood neutrophils automated count (number/volume) 7.3 10*3 1.8-7.8 Blood lymphocytes automated count (number/volume) 1.8 10*3 1.0-4.0 Blood monocytes automated count (number/volume) 0. 7 10*3 0.0-1.0 Automated eosinophil count 0.2 10*3/uL 0 .0-0.3 Automated blood basophil count (count/volume) 0.1 10*3/uL 0.0-0.1 Comprehensive metabolic panel - 12/27/19 15:31 Serum or plasma sodium measurement (moles/volume) 138 mmol/L 135-145 Serum or plasma potassium measurement (moles/volume) 4.2 mmol/L 3.6-5.0 Serum or plasma chloride measurement (moles/volume) 96 mmol/L 98-107 Carbon dioxide 23 mmol/L 21-32 Serum or plasma anion gap determination (moles/volume) 19 mmol/L 5-14 Serum or plasma urea nitrogen measurement (mass/volume ) 36 mg/dL 7-18 Serum or plasma creatinine measurement (mass/volume) 4.42 mg/dL 0.60-1.30 Serum or plasma urea nitrogen/creatinine mass ratio 8 NRG Serum or plasma creatinine measurement w ith calculation of estimated glomerular filtration rate 10 NRG Serum or plasma glucose measurement (mass/volume) 268 mg/dL 70-105 Serum or plasma calcium measurement (mass/volume) 8.4 mg/dL 8.5-10.1 Serum or plasma total bilirubin measurement (mass/volu me) 0.5 mg/dL 0.1-1.0 Serum or plasma alkaline phosphatase apurva surement (enzymatic activity/volume) 100 U/L 40-136 Serum or plasma aspartate aminotransfera se measurement (enzymatic activity/volume) 19 U/L 5-34 Serum or plasma alanine aminotransferase measurement (enzymatic activity/volume) 10 U/L 0-55 Serum or plasma protein measurement (mass/volume) 8.9 g/dL 6.4-8.2 Serum or plasma albumin measurement (mass/volume) 4.3 g/dL 3.2-4.5 CALCIUM CORRECTED 8.2 mg/dL 8.5-10.1 Blood lactic acid measurement (moles/vol ume) - 12/27/19 15:31 Blood lactic acid measurement (moles/volume) 1.93 mmol/L 0.50-2.00 PT panel in platelet poor plasma by coag ulation assay - 12/27/19 15:31 Prothrombin time (PT) in platelet poor plasma by coagu lation assay 13.3 s 12.2-14.7 INR in platelet poor plasma or blood by coagulation as say 1.0 0.8-1.4 Activated partial thromboplastin time (a PTT) in platelet poor plasma bycoagulation assay - 12/27/19 15:31 Activated partial thromboplastin time (a PTT) in platelet poor plasma bycoagulation assay 30 s 24-35 Serum or plasma troponin i.cardiac measu rement (mass/volume) - 12/27/19 15:31 Serum or plasma troponin i.cardiac measurement (mass/v olume) < ng/mL <0.028 Serum or plasma lithium measurement (mol es/volume) - 12/27/19 15:31 BNP PT 456.6 pg/mL <100.0 Bacterial blood culture - 12/27/19 15:31 Bacterial blood culture NG NRG Bacterial blood culture - 12/27/19 15:48 Bacterial blood culture NG NRG Complete blood count (CBC) with automate d white blood cell (WBC) differential - 12/30/19 16:17 Blood leukocytes automated count (number/volume) 8.7 10*3/uL 4.3-11.0 Blood erythrocytes automated count (number/volume) 4.08 10*6/uL 4.35-5.85 Venous blood hemoglobin measurement (mass/volume) 13.1 g/dL 11.5-16.0 Blood hematocrit (volume fraction) 42 % 35-52 Automated erythrocyte mean corpuscular volume 103 [foz_us] 80-99 Automated erythrocyte mean corpuscular h emoglobin (mass per erythrocyte) 32 pg 25-34 Automated erythrocyte mean corpuscular h emoglobin concentration measurement (mass/volume) 31 g/dL 32-36 Automated erythrocyte distribution width ratio 19. 0 % 10.0- 14.5 Automated blood platelet count (count/volume) 194 10*3/uL 130-400 Automated blood platelet mean volume measurement 10.5 [foz_us] 7.4-10.4 Automated blood neutrophils/100 leukocytes 72 % 42-75 Automated blood lymphocytes/100 leukocytes 20 % 12-44 Blood monocytes/100 leukocytes 7 % 0-12 Automated blood eosinophils/100 leukocytes 1 % 0-10 Automated blood basophils/100 leukocytes 1 % 0-10 Blood neutrophils automated count (number/volume) 6.2 10*3 1.8-7.8 Blood lymphocytes automated count (number/volume) 1.7 10*3 1.0-4.0 Blood monocytes automated count (number/volume) 0. 6 10*3 0.0-1.0 Automated eosinophil count 0.1 10*3/uL 0 .0-0.3 Automated blood basophil count (count/volume) 0.1 10*3/uL 0.0-0.1 PT panel in platelet poor plasma by coag ulation assay - 12/30/19 16:17 Prothrombin time (PT) in platelet poor plasma by coagu lation assay 14.2 s 12.2-14.7 INR in platelet poor plasma or blood by coagulation as say 1.1 0.8-1.4 Activated partial thromboplastin time (a PTT) in platelet poor plasma bycoagulation assay - 12/30/19 16:17 Activated partial thromboplastin time (a PTT) in platelet poor plasma bycoagulation assay 33 s 24-35 Comprehensive metabolic panel - 12/30/19 16:17 Serum or plasma sodium measurement (moles/volume) 140 mmol/L 135-145 Serum or plasma potassium measurement (moles/volume) 4.1 mmol/L 3.6-5.0 Serum or plasma chloride measurement (moles/volume) 99 mmol/L 98-107 Carbon dioxide 22 mmol/L 21-32 Serum or plasma anion gap determination (moles/volume) 19 mmol/L 5-14 Serum or plasma urea nitrogen measurement (mass/volume ) 53 mg/dL 7-18 Serum or plasma creatinine measurement (mass/volume) 6.19 mg/dL 0.60-1.30 Serum or plasma urea nitrogen/creatinine mass ratio 9 NRG Serum or plasma creatinine measurement w ith calculation of estimated glomerular filtration rate 7 NRG Serum or plasma glucose measurement (mass/volume) 241 mg/dL 70-105 Serum or plasma calcium measurement (mass/volume) 8.6 mg/dL 8.5-10.1 Serum or plasma total bilirubin measurement (mass/volu me) 0.4 mg/dL 0.1-1.0 Serum or plasma alkaline phosphatase apurva surement (enzymatic activity/volume) 85 U/L 40-136 Serum or plasma aspartate aminotransfera se measurement (enzymatic activity/volume) 13 U/L 5-34 Serum or plasma alanine aminotransferase measurement (enzymatic activity/volume) 10 U/L 0-55 Serum or plasma protein measurement (mass/volume) 8.0 g/dL 6.4-8.2 Serum or plasma albumin measurement (mass/volume) 4.0 g/dL 3.2-4.5 CALCIUM CORRECTED 8.6 mg/dL 8.5-10.1 Magnesium - 12/30/19 16:17 Magnesium 2.4 mg/dL 1.6-2.4 Serum or plasma lithium measurement (mol es/volume) - 12/30/19 16:17 BNP PT 504.7 pg/mL <100.0 Serum or plasma troponin i.cardiac measu rement (mass/volume) - 12/30/19 16:17 Serum or plasma troponin i.cardiac measurement (mass/v olume) < ng/mL <0.028 Serum or plasma thyroxine (T4) free wolf urement (mass/volume) - 12/30/19 16:17 Serum or plasma thyroxine (T4) free measurement (mass/ volume) 0.74 ng/dL 0.70-1.48 Serum or plasma thyrotropin measurement by detection limit <=0.05 miu/l (units/volume) - 12/30/19 16:17 Serum or plasma thyrotropin measurement by detection limit <=0.05 miu/l (units/volume) 5.35 u[iU]/mL 0.35-4.94 Radiology Report from [id number] on 09/14 10:09:00 Reason For ExamAbdominal pain, [...] Nohydronephrosis. There is no ascites.Dictated on worksta tion:[id number] Line PRELIMINARY DICTATED BY: ALBIN GUTIERREZ MDDICTATED DT/TM: 09/14/2017 9:54 Radiology Report from [id number] on 09/14 10:09:00 Reason For ExamSyncopeREPORTIndication: Syncope.Procedure: Carotid Doppler study performed in the routine fashion with colorflow Doppler and waveform analysis.There is minimal plaquing in the carotid bifurcation on both sides. ICA/CCAsystolic velocity ratio is 0.6 on the right side and 0.8 on the left side. Bothvertebral show antegrade flow.Parameters based on the consensus panel Ramos-Scale and Doppler ultrasoundcriteria publishedMay 2003, Radiology, Volume 229.DOPPLER (peak systolic velocity M/SRight LeftCCA 1.29 0.9ICA 0.8 0.74RATIO 0.6 0.8ECA 0.96 1.02VERT 0.64 0.59Impression:Minimal plaquing in the carotid bifurcation on both sides. No significantstenosis hemodynamically. Both vertebrals are patent.Dictated on workstation:[id number] Line PRELIMINARY DICTATED BY: ALBIN GUTIERREZ MDDICTATED DT/TM: 09/14/2017 9:49 Radiology Report from [id number] on 09/14 12:41:00 Reason For ExamCoughREPORTINDICATION: Co ugh.COMPARISON: None available.TECHNIQUE: Frontal and lateral radiographs of the chest dated September 14, 2017.FINDINGS: The cardiac silhouette is mildly enlarged. No significant pulmonaryvascular congestion. The lungs are clear. No pleural effusion. No pneumothorax.Mild scattered osseous degenerative changes without acute osseous abnormality.IMPRESSION: Cardiomegaly without overt congestive heart failure or additionalsuperimposed acute cardiopulmonary abnormality.Dictated on workstation:[id number] Line PRELIMINARY DICTATED BY: MANSI LARSON MDDICTATED DT/TM: 09/14/2017 12:38 Encounters ACCT No. Visit Date/Time Discharge Status Pt. Type Provider Facility Loc./Unit Complaint [id number] 09/14/2017 04:48:00 018 10:59:00 DIS [facility], Acute Renal Failure [id number] 09/15/2017 05:19:03 Document Registration [id number] 12/18/2017 13:34:06 018 23:59:59 [facility] Outpatient LUISPERCY GreeneAmish Gardiner [id number] 12/27/2019 15:07:00 020 18:58:00 DIS Emergency NIKKI MD, ALY [place] [facility] ER HIGH PULSE - 14 5 [id number] 09/01/2019 10:19:00 23:59:59 CLS Outpatient SAULO CROWDER, KEN Sood [facility] RAD SCREENING [id number] 08/26/2019 20:56:00 06:25:00 DIS Outpatient DAYNA ARCE APRN [facility] SLEEP OBSTRUCTIVE SLEEP APNE A [id number] 08/06/2019 20:39:00 07:29:00 DIS Outpatient ISABELLA MEJIA APRN [facility] SLEEP KARO G47.33 [id number] 04/10/2019 13:22:00 12:15:00 DIS Outpatient BARNEY CROWDER, LINH [facility] [address] IRON DEFICIENCY ANEMIA [id number] 04/08/2019 07:55:00 23:59:59 CLS Outpatient JOHANNA CROWDER FACC, LYDIA BRICEÑO CC DS [facility] CARD ACUTE DIAST OLIC CHF [id number] 03/06/2019 21:25:00 15:24:00 DIS Inpatient GAGAN CROWDER, CLAUDIO Coyne [facility] ICU CHF,UTI,CHRONIC RENAL FAILURE,HYPOMAGNESEMIA,HYPOT [id number] 08/27/2018 10:51:00 14:23:00 DIS Emergency SHERLYN HARRIS [facility] ER POSSIBLE NECK ABCESS [id number] 06/25/2018 08:40:00 23:59:59 CLS Outpatient ISABELLA MEJIA APRN [facility] RAD CKD STAGE 4 [id number] 04/26/2018 09:26:00 13:25:00 DIS Outpatient SAVANNAH VILLAR DO [facility] [address] SKIN LESION NOSE [id number] 04/24/2018 11:40:00 12:16:00 DIS Outpatient SAVANNAH VILLAR DO [facility] PREOP SKIN LESION NOSE [id number] 01/18/2018 07:27:00 018 09:58:00 DIS Outpatient KIRT ANN MD [facility] ENDO SCREENING [id number] 01/14/2018 09:30:00 018 10:24:00 DIS Outpatient KIRT ANN MD [facility] PREOP COLONOSCOPY [id number] 12/30/2019 16:36:00 Document Registration [id number] 04/26/2018 09:26:00 Document Registration [id number] 02/22/2018 10:46:00 Document Registration
== END 2019-12-30 19:17 | disposition home or self-care (01) ==
LOC: EDUNIT# 16:12 → ER 16:13
DX: I48.92 Unspecified atrial flutter (principal); E11.22 Type 2 diabetes mellitus with diabetic chronic kidney disease; I13.2 Hypertensive heart and chronic kidney disease with heart failure and with stage 5 chronic kidney disease, or end stage renal disease; N18.6 End stage renal disease; E78.00 Pure hypercholesterolemia, unspecified; E11.40 Type 2 diabetes mellitus with diabetic neuropathy, unspecified; F41.9 Anxiety disorder, unspecified; F32.9 Major depressive disorder, single episode, unspecified; Z99.2 Dependence on renal dialysis; Z98.890 Other specified postprocedural states; Z88.2 Allergy status to sulfonamides; Z79.82 Long term (current) use of aspirin; Z79.4 Long term (current) use of insulin; Z87.891 Personal history of nicotine dependence; Z85.828 Personal history of other malignant neoplasm of skin; Z80.1 Family history of malignant neoplasm of trachea, bronchus and lung; Z82.49 Family history of ischemic heart disease and other diseases of the circulatory system
CPT/HCPCS: 36415; 71045; 80053; 83735; 83880; 84439; 84443; 84484; 85025; 85610; 85730; 92960; 93005; 93041; 99291

== ENCOUNTER 2020-01-10 08:12 | Observation (INO) | payer MEDICARE, MEDICAID ==
[~2020-01-10] VITALS: Ht 157.4 cm; Wt 106.0 kg
[~2020-01-10 08:12] MED LIST changes: +DILT120C82 PO
--- OUTSIDE RECORDS SUMMARY | 2020-01-10 08:19 | XMS REPORT | Continuity of Care Document ---
Author Organization Unknown Address Unknown Phone Unavailable Allergies Active Description Code Type Severity Reaction Onset Reported/Identified Relationship to Patient Clinical Status Yes sulfa drugs NKMA N/A N/A 09/14/2017 Yes Sulfa (Sulfonamide Antibiotics) [id number] Drug Allergy Mild HIVES 8 Medications [...] puffs 09/14/2017 Inhalation 2 puffs, Inhalation, QID, AL N: as needed for wheezing, 0 Refill(s) [...] Ot I25. 10 ATHSCL HEART DISEASE OF [place] CORONARY 01/18/2018 KIRT ANN MD Ot I50. 9 HEART FAILURE, UNSPECIFIED 01/18/2018 KIRT ANN MD Ot K57. 30 DVRTCLOS OF LG INT W/O PERFORATION OR AB 01/18/2018 KIRT ANN MD Ot Z12. 11 ENCOUNTER FOR SCREENING FOR MALIGNANT NE 01/18/2018 KIRT ANN MD Ot Z68. 41 BODY MASS INDEX (BMI) 40.0-44.9, ADULT 01/18/2018 KIRT ANN MD Ot Z79. 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 01 MORBID (SEVERE) OBESITY DUE TO EXCESS CA 01/22/2018 KIRT ANN MD Ot I11. 0 HYPERTENSIVE HEART DISEASE WITH HEART FA 01/22/2018 KIRT ANN MD, Ot I25. 10 ATHSCL HEART DISEASE OF [place] CORONARY 01/22/2018 KIRT ANN MD Ot I50. 9 HEART FAILURE, UNSPECIFIED 01/22/2018 KIRT ANN MD, Ot K57. 30 DVRTCLOS OF LG INT W/O PERFORATION OR AB 01/22/2018 KIRT ANN MD Ot Z12. 11 ENCOUNTER FOR SCREENING FOR MALIGNANT NE 01/22/2018 KIRT ANN MD Ot Z68. 41 BODY MASS INDEX (BMI) 40.0-44.9, ADULT 01/22/2018 KIRT ANN MD Ot Z79. 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 01 MORBID (SEVERE) OBESITY DUE TO EXCESS CA 01/23/2018 KIRT ANN MD Ot I11. 0 HYPERTENSIVE HEART DISEASE WITH HEART FA 01/23/2018 KIRT ANN MD, Ot I25. 10 ATHSCL HEART DISEASE OF [place] CORONARY 01/23/2018 KIRT ANN MD, Ot I50. 9 HEART FAILURE, UNSPECIFIED 01/23/2018 KIRT ANN MD, Ot K57. 30 DVRTCLOS OF LG INT W/O PERFORATION OR AB 01/23/2018 KIRT ANN MD Ot Z12. 11 ENCOUNTER FOR SCREENING FOR MALIGNANT NE 01/23/2018 KIRT ANN MD Ot Z68. 41 BODY MASS INDEX (BMI) 40.0-44.9, ADULT 01/23/2018 KIRT ANN MD Ot Z79. 84 LONGTERM (CURRENT) USE OF ORAL HYPOGLYC 01/23/2018 KIRT ANN MD Ot Z79.899 OTHER WALL COVERING INSTALLER (CURRENT) DRUG THERAPY 03/05/2018 Ot M47.26 OTH [...] 04/26/2018 VILLAR DOSAVANNAH D Ot Z79. 4 WALL COVERING INSTALLER (CURRENT) USE OF INSULIN 04/26/2018 VILLAR DOSAVANNAH D Ot Z79.899 OTHER LONGTERM (CURRENT) DRUG THERAPY 04/30/2018 VILLAR DOSAVANNAH D [...] 04/30/2018 VILLAR DOSAVANNAH D Ot Z79. 4 WALL COVERING INSTALLER (CURRENT) USE OF INSULIN 04/30/2018 VILLAR DO, SAVANNAH D Ot Z79.899 OTHER WALL COVERING INSTALLER (CURRENT) DRUG THERAPY 04/30/2018 VILLAR DO, SAVANNAH [...] VILLAR DO, SAVANNAH D Ot Z79. 4 LONGTERM (CURRENT) USE OF INSULIN 04/30/2018 VILLAR DO, SAVANNAH D Ot Z79.899 OTHER WALL COVERING INSTALLER (CURRENT) DRUG THERAPY 05/09/2018 VILLAR DO, SAVANNAH [...] VILLAR DO, SAVANNAH D Ot Z79. 4 LONGTERM (CURRENT) USE OF INSULIN 05/09/2018 VILLAR DO, SAVANNAH D Ot Z79.899 OTHER WALL COVERING INSTALLER (CURRENT) DRUG THERAPY 06/27/2018 ISABELLA MEJIA APRN Ot E11.21 TYPE 2 DIABETES MELLITUS WITH DIABETIC N 06/27/2018 ISABELLA MEJIA APRN Ot E11.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 W DIABETIC FILLER WIPER 06/27/2018 ISABELLA MEJIA APRN Ot E78.5 HYPERLIPIDEMIA, [...] HISTORY OF NICOTINE DEPENDENCE 07/10/2018 ISABELLA MEJIA TURBINE OPERATOR Ot E11.21 TYPE 2 DIABETES MELLITUS WITH DIABETIC N 07/10/2018 ISABELLA MEJIA APRN Ot E11.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 W DIABETIC FILLER WIPER 07/10/2018 ISABELLA EMJIA APRN Ot E78.5 HYPERLIPIDEMIA, UNSPECIFIED 07/10/2018 ISABELLA MEJIA APRN Ot I12.9 HYPERTENSIVE CHRONIC KIDNEY DISEASE W ST 07/10/2018 ISABELLA MEJIA APRN Ot I50.9 HEART FAILURE, UNSPECIFIED 07/10/2018 ISABELLA MEJIA APRN Ot M10.9 GOUT, UNSPECIFIED 07/10/2018 ISABELLA MEJIA APRN Ot N18.4 CHRONIC KIDNEY DISEASE, STAGE 4 (SEVERE) 07/10/2018 ISABELLA MEJIA TURBINE OPERATOR Ot N39.0 URINARY TRACT INFECTION, SITE NOT [...] LUMP, HEAD 08/27/2018 SHERLYN HARRIS Ot Z79.4 LONGTERM (CURRENT) USE OF INSULIN 08/27/2018 SHERLYN HARRIS [...] OTHER SPECIFIED POSTPROCEDURAL STATES 08/27/2018 ISABELLA MEJIA TURBINE OPERATOR Ot E11.21 TYPE 2 DIABETES MELLITUS WITH DIABETIC N 08/27/2018 ISABELLA MEJIA TURBINE OPERATOR Ot E11.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 W DIABETIC FILLER WIPER 08/27/2018 ISABELLA MEJIA APRN Ot E78.5 HYPERLIPIDEMIA, [...] LUMP, HEAD 08/29/2018 SHERLYN HARRIS Ot Z79.4 LONGTERM (CURRENT) USE OF INSULIN 08/29/2018 SHERLYN HARRIS [...] E11.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 W DIABETIC FILLER WIPER 03/06/2019 ISABELLA MEJIA APRN Ot E78.5 HYPERLIPIDEMIA, [...] 03/07/2019 CLAUDIO FARAH MD, Ot Z79 .4 LONGTERM (CURRENT) USE OF INSULIN 03/07/2019 CLAUDIO FARAH MD, Ot Z85.828 PERSONAL HISTORY OF OTHER MALIGNANT NEOP 03/07/2019 CLAUDIO FARAH MD, Ot Z91.19 PATIENT'S NONCOMPLIANCE W OT MEDICAL TR 03/17/2019 ISABELLA MEJIA APRN Ot E11.21 TYPE 2 DIABETES MELLITUS WITH DIABETIC N 03/17/2019 ISABELLA MEJIA APRN Ot E11.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 W DIABETIC FILLER WIPER 03/17/2019 ISABELLA MEJIA APRN Ot E78.5 HYPERLIPIDEMIA, [...] E11.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 W DIABETIC FILLER WIPER 03/17/2019 ISABELLA MEJIA APRN Ot E78.5 HYPERLIPIDEMIA, [...] 2 DIABETES MELLITUS WITH DIABETIC N 04/08/2019 IASBELLA MEJIA APRN Ot E11.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 W DIABETIC FILLER WIPER 04/08/2019 ISABELLA MEJIA APRN Ot E78.5 HYPERLIPIDEMIA, [...] E11.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 W DIABETIC FILLER WIPER 04/08/2019 ISABELLA MEJIA APRN Ot E78.5 HYPERLIPIDEMIA, [...] E11.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 W DIABETIC FILLER WIPER 04/10/2019 JOHANNA CROWDER FACC, LYDIA FACP CCDS [...] E11.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 W DIABETIC FILLER WIPER 05/09/2019 JOHANNA CROWDER FACC, ALI FACP CCDS Ot I13.0 HYP HRT CHR KDNY DIS W HRT FAIL AND ST 05/09/2019 JOHANNA CROWDER FACC, ALI FACP CCDS Ot I50.31 ACUTE DIASTOLIC (CONGESTIVE) HEART FAILU 05/09/2019 JOHANNA CROWDER FACC, ALI FACP CCDS Ot N18.4 CHRONIC KIDNEY DISEASE, STAGE 4 (SEVERE) 08/05/2019 ISABELLA MEJIA APRN Ot G47.33 OBSTRUCTIVE SLEEP APNEA (ADULT) (PEDIATR 08/06/2019 ISABELLA MEJIA TURBINE OPERATOR Ot G47.33 OBSTRUCTIVE SLEEP APNEA (ADULT) (PEDIATR 08/06/2019 ISABELLA MEJIA APRN Ot G47.33 OBSTRUCTIVE SLEEP APNEA (ADULT) (PEDIATR 08/06/2019 ISABELLA MEJIA APRN Ot G47.33 OBSTRUCTIVE SLEEP APNEA (ADULT) (PEDIATR 08/07/2019 ISABELLA MEJIA APRN Ot G47.33 OBSTRUCTIVE SLEEP APNEA (ADULT) (PEDIATR 08/07/2019 DOUTHITT, ISABELLA B TURBINE OPERATOR Ot I10 ESSENTIAL (PRIMARY) HYPERTENSION 08/08/2019 ISABELLA MEJIA TURBINE OPERATOR Ot G47.33 OBSTRUCTIVE SLEEP APNEA (ADULT) (PEDIATR 08/08/2019 ISABELLA MEJIA TURBINE OPERATOR Ot I10 ESSENTIAL (PRIMARY) HYPERTENSION 08/15/2019 YAZMIN, DAYNA R TURBINE OPERATOR Ot G47.33 OBSTRUCTIVE SLEEP APNEA (ADULT) (PEDIATR 08/21/2019 YAZMIN, DAYNA R TURBINE OPERATOR Ot G47.33 OBSTRUCTIVE SLEEP APNEA (ADULT) (PEDIATR 08/21/2019 YAZMIN, DAYNA R TURBINE OPERATOR Ot G47.33 OBSTRUCTIVE SLEEP APNEA (ADULT) (PEDIATR 08/21/2019 YAZMIN, DAYNA R TURBINE OPERATOR Ot G47.33 OBSTRUCTIVE SLEEP APNEA (ADULT) (PEDIATR 08/21/2019 YAZMIN, DAYNA R TURBINE OPERATOR Ot G47.33 OBSTRUCTIVE SLEEP APNEA (ADULT) (PEDIATR 08/21/2019 YAZMIN, DAYNA R TURBINE OPERATOR Ot G47.33 OBSTRUCTIVE SLEEP APNEA (ADULT) (PEDIATR 08/22/2019 YAZMIN, DAYNA R TURBINE OPERATOR Ot G47.33 OBSTRUCTIVE SLEEP APNEA (ADULT) (PEDIATR 08/22/2019 YAZMIN, DAYNA R TURBINE OPERATOR Ot G47.33 OBSTRUCTIVE SLEEP APNEA (ADULT) (PEDIATR 08/22/2019 YAZMIN, DAYNA R TURBINE OPERATOR Ot G47.33 OBSTRUCTIVE SLEEP APNEA (ADULT) (PEDIATR 08/26/2019 YAZMIN, DAYNA R TURBINE OPERATOR Ot G47.33 OBSTRUCTIVE SLEEP APNEA (ADULT) (PEDIATR 08/26/2019 SAULO CROWDER, KEN Sood Ot Z12.31 ENCNTR SCREEN MAMMOGRAM FOR MALIGNANT NE 08/26/2019 DAYNA ARCE R TURBINE OPERATOR Ot G47.33 OBSTRUCTIVE SLEEP APNEA (ADULT) (PEDIATR 08/26/2019 SAULO CROWDER, KEN Sood Ot Z12.31 ENCNTR SCREEN MAMMOGRAM FOR MALIGNANT NE 08/27/2019 DAYNA ARCE R TURBINE OPERATOR Ot G47.33 OBSTRUCTIVE SLEEP APNEA (ADULT) (PEDIATR 08/27/2019 DAYNA ARCE R TURBINE OPERATOR Ot G47.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 08/27/2019 SAULO CROWDER, KEN Sood Ot Z12.31 ENCNTR SCREEN MAMMOGRAM FOR MALIGNANT NE 09/02/2019 KEN VERNON MD Ot Z12.31 ENCNTR SCREEN MAMMOGRAM FOR MALIGNANT NE 09/03/2019 DAYNA ARCE TURBINE OPERATOR Ot G47.33 OBSTRUCTIVE SLEEP APNEA (ADULT) (PEDIATR 09/03/2019 DAYNA ARCE TURBINE OPERATOR Ot G47.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 09/16/2019 SAULO CROWDER, KEN Sood Ot Z12.31 ENCNTR SCREEN MAMMOGRAM FOR MALIGNANT NE 09/16/2019 SAULO CROWDER, KEN Sood Ot Z12.31 ENCNTR SCREEN MAMMOGRAM FOR MALIGNANT NE 09/19/2019 SAULO CROWDER, KEN Sood Ot Z12.31 ENCNTR SCREEN MAMMOGRAM FOR MALIGNANT NE 12/30/2019 TOMMY DO B[place] Herny Ot E11.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 W DIABETIC FILLER WIPER 12/30/2019 [place] DOARIADNAA Henry Ot E11.40 TYPE 2 DIABETES MELLITUS WITH DIABETIC N 12/30/2019 TOMMY DO, [place] Figueroa Ot E78.00 PURE HYPERCHOLESTEROLEMIA, UNSPECIFIED 12/30/2019 [place] DO, [place] K Ot F32.9 MAJOR DEPRESSIVE DISORDER, SINGLE EPISOD 12/30/2019 [place] DOARIADNAA Henry Ot F41.9 ANXIETY DISORDER, UNSPECIFIED 12/30/2019 [place] DO, [place] K Ot I13.2 HYP HRT CHR KDNY DIS W HRT FAIL AND W 12/30/2019 TOMMY DO, [place] K Ot I48.92 UNSPECIFIED ATRIAL FLUTTER 12/30/2019 [place] DO [place] K Ot N18.6 END STAGE RENAL DISEASE 12/30/2019 [place] DO [place] K Ot Z79.4 LONGTERM (CURRENT) USE OF INSULIN 12/30/2019 [facility] [place] K Ot Z79.82 WALL COVERING INSTALLER (CURRENT) USE OF ASPIRIN 12/30/2019 [place] DO [place] K Ot Z80.1 FAMILY HISTORY OF MALIG NEOPLASM OF [place] 12/30/2019 [place] DOARIADNAA K Ot Z82.49 FAMILY HX OF ISCHEM HEART DIS AND OTH DI 12/30/2019 TOMMY DOARIADNAA Henry Ot Z85.828 PERSONAL HISTORY OF OTHER MALIGNANT NEOP 12/30/2019 [place] DOARIADNAA K Ot Z87.891 PERSONAL HISTORY OF NICOTINE DEPENDENCE 12/30/2019 [place] DOARIADNAA Henry Ot Z88.2 ALLERGY STATUS TO SULFONAMIDES STATUS 12/30/2019 [place] DOARIADNAA Henry Ot Z98.890 OTHER SPECIFIED POSTPROCEDURAL STATES 12/30/2019 TOMMY DO, [place] K Ot Z99.2 DEPENDENCE ON RENAL DIALYSIS 12/31/2019 ALY JORDAN MD, Ot E11.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 W DIABETIC FILLER WIPER 12/31/2019 ALY JORDAN MD, Ot E11.40 TYPE 2 DIABETES MELLITUS WITH DIABETIC N 12/31/2019 ALY JORDAN MD, Ot E78.00 PURE HYPERCHOLESTEROLEMIA, UNSPECIFIED 12/31/2019 ALY JORDAN MD, Ot F32.9 MAJOR DEPRESSIVE DISORDER, SINGLE EPISOD 12/31/2019 ALY JORDAN MD, Ot F41.9 ANXIETY DISORDER, UNSPECIFIED 12/31/2019 ALY JORDAN MD, Ot I13.2 HYP HRT CHR KDNY DIS W HRT FAIL AND W 12/31/2019 ALY JORDAN MD, Ot I48.92 UNSPECIFIED ATRIAL FLUTTER 12/31/2019 ALY JODRAN MD, Ot I50.9 HEART FAILURE, UNSPECIFIED 12/31/2019 ALY JORDAN MD, Ot N18.6 END STAGE RENAL DISEASE 12/31/2019 ALY JORDAN MD, Ot Z79.4 WALL COVERING INSTALLER (CURRENT) USE OF INSULIN 12/31/2019 ALY JORDAN MD, Ot Z79.82 WALL COVERING INSTALLER (CURRENT) USE OF ASPIRIN 12/31/2019 ALY JORDAN MD, Ot Z80.1 FAMILY HISTORY OF MALIG NEOPLASM OF [place] 12/31/2019 ALY JORDAN MD, Ot Z82.49 FAMILY HX OF ISCHEM HEART DIS AND OTH DI 12/31/2019 ALY JORDAN MD, Ot Z85.828 PERSONAL HISTORY OF OTHER MALIGNANT NEOP 12/31/2019 ALY JORDAN MD, Ot Z88.2 ALLERGY STATUS TO SULFONAMIDES STATUS 12/31/2019 ALY JORDAN MD, Ot Z99.2 DEPENDENCE ON RENAL DIALYSIS 01/02/2020 TOMMY DO, BENTON K Ot E11.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 W DIABETIC FILLER WIPER 01/02/2020 TOMMY DO, B[place] K Ot E11.40 TYPE 2 DIABETES MELLITUS WITH DIABETIC N 01/02/2020 TOMMY DO, BENTON K Ot E78.00 PURE HYPERCHOLESTEROLEMIA, UNSPECIFIED 01/02/2020 TOMMY DO, BENTON K Ot F32.9 MAJOR DEPRESSIVE DISORDER, SINGLE EPISOD 01/02/2020 TOMMY DO, [place] K Ot F41.9 ANXIETY DISORDER, UNSPECIFIED 01/02/2020 [place] DO, [place] K Ot I13.2 HYP HRT CHR KDNY DIS W HRT FAIL AND W 01/02/2020 TOMMY DO, BENTON K Ot I48.92 UNSPECIFIED ATRIAL FLUTTER 01/02/2020 [place] DO [place] K Ot N18.6 END STAGE RENAL DISEASE 01/02/2020 [place] DO, [place] K Ot Z79.4 WALL COVERING INSTALLER (CURRENT) USE OF INSULIN 01/02/2020 [place] DO, [place] K Ot Z79.82 LONGTERM (CURRENT) USE OF ASPIRIN 01/02/2020 [facility], [place] K Ot Z80.1 FAMILY HISTORY OF MALIG NEOPLASM OF [place]AC 01/02/2020 [facility], [place] K Ot Z82.49 FAMILY HX OF ISCHEM HEART DIS AND OTH DI 01/02/2020 [place] DO [place] K Ot Z85.828 PERSONAL HISTORY OF OTHER MALIGNANT NEOP 01/02/2020 [place] DO, [place] K Ot Z87.891 PERSONAL HISTORY OF NICOTINE DEPENDENCE 01/02/2020 [facility], [place] K Ot Z88.2 ALLERGY STATUS TO SULFONAMIDES STATUS 01/02/2020 [facility] [place] K Ot Z98.890 OTHER SPECIFIED POSTPROCEDURAL STATES 01/02/2020 TOMMY DO, B[place] K Ot Z99.2 DEPENDENCE ON RENAL DIALYSIS Procedures Code Description [place] [address] [facility], per day, for the evaluation and management of a patient, which requires JASEN Jerez MD 09/19/2017 [address] [facility], per day, for the evaluation and management of a patient, which requires at YECENIA CHURCH MD 09/19/2017 68102 Offi ce or other outpatient visit for the evaluation and management of an established patient, which TIMBO SMITH I 10/18/2017 88342 Offi ce or other outpatient visit for the evaluation and management of an established patient, which TIMBO SMITH I 03/29/2018 [address] [facility], per day, for the evaluation and management of a patient, which requires these JASEN KHAN MD 03/29/2018 [address] [facility], per day, for the evaluation and [...] 5.0-8.0 Protein Pos 2+ NA Negative Specific [place] 1.015 NA 1.003-1.030 UA Collection type Clean [...] troponin i.cardiac measu rement (mass/volume) - 03/06/19 19: Serum or plasma troponin i.cardiac measurement (mass/v [...] (units/volume) 5.35 u[iU]/mL 0.35-4.94 Radiology Report from [id number] on 09/14 10:09:00 Reason For ExamAbdominal pain, [...] Nohydronephrosis. There is no ascites.Dictated on worksta tion:[id number] Line PRELIMINARY DICTATED BY: ALBIN GUTIERREZ MDDICTATED DT/TM: 09/14/2017 9:54 Radiology Report from [id number] on 09/14 10:09:00 Reason For ExamSyncopeREPORTIndication: Syncope.Procedure: [...] significantstenosis hemodynamically. Both vertebrals are patent.Dictated on workstation:[id number] Line PRELIMINARY DICTATED BY: ALBIN GUTIERREZ MDDICTATED DT/TM: 09/14/2017 9:49 Radiology Report from [id number] on 09/14 12:41:00 Reason For ExamCoughREPORTINDICATION: Co ugh.COMPARISON: None available.TECHNIQUE: Frontal and lateral radiographs of the chest dated September 14, 2017.FINDINGS: The cardiac silhouette is mildly enlarged. No significant pulmonaryvascular congestion. The lungs are clear. No pleural effusion. No pneumothorax.Mild scattered osseous degenerative changes without acute osseous abnormality.IMPRESSION: Cardiomegaly without overt congestive heart failure or additionalsuperimposed acute cardiopulmonary abnormality.Dictated on workstation:[id number] Line PRELIMINARY DICTATED BY: MANSI LARSON MDDICTATED DT/TM: 09/14/2017 12:38 Encounters ACCT No. Visit Date/Time Discharge Status Pt. Type Provider Facility Loc./Unit Complaint [id number] 09/14/2017 04:48:00 10:59:00 DIS Inpatient VishalRuthie a [facility] [place] VCF F5SE Pancreatitis, Acute Renal Failure [id number] 09/15/2017 05:19:03 Document Registration [id number] 12/18/2017 13:34:06 23:59:59 CLS Outpatient TIMBO SMITH I [id number] 12/30/2019 16:13:00 19:17:00 DIS Emergency TOMMY BENTON TAN a [facility] ER ATRIAL FLUTTER [id number] 12/27/2019 15:07:00 18:58:00 DIS Outpatient NIKKI CROWDER, ALY [place] [facility] ER HIGH PULSE - 14 5 [id number] 09/01/2019 10:19:00 23:59:59 CLS Outpatient SAULO CROWDER, KEN Sood [facility] RAD SCREENING [id number] 08/26/2019 20:56:00 06:25:00 DIS Outpatient DAYNA ARCE APRN [facility] SLEEP OBSTRUCTIVE SLEEP APNE A [id number] 08/06/2019 20:39:00 07:29:00 DIS Outpatient ISABELLA MEJIA APRN [facility] SLEEP KARO G47.33 [id number] 04/10/2019 13:22:00 12:15:00 DIS Outpatient LINH CORLEY MD [facility] SDC IRON DEFICIENCY ANEMIA [id number] 04/08/2019 07:55:00 23:59:59 CLS Outpatient JOHANNA CROWDER FACC, LYDIA BRICEÑO CC DS [facility] CARD ACUTE DIAST OLIC CHF [id number] 03/06/2019 21:25:00 15:24:00 DIS Inpatient CLAUDIO FARAH MD [facility] ICU CHF,UTI,CHRONIC RENAL FAILURE,HYPOMAGNESEMIA,HYPOT [id number] 08/27/2018 10:51:00 14:23:00 DIS Emergency SHERLYN HARRIS [facility] ER POSSIBLE NECK ABCESS [id number] 06/25/2018 08:40:00 23:59:59 CLS Outpatient ISABELLA MEJIA APRN [facility] RAD CKD STAGE 4 [id number] 04/26/2018 09:26:00 018 13:25:00 DIS Outpatient SAVANNAH VILLAR DO [facility] SDC SKIN LESION NOSE [id number] 04/24/2018 11:40:00 018 12:16:00 DIS Outpatient SAVANNAH VILLAR DO [facility] PREOP SKIN LESION NOSE [id number] 01/18/2018 07:27:00 018 09:58:00 DIS Outpatient KIRT ANN MD [facility] ENDO SCREENING [id number] 01/14/2018 09:30:00 10:24:00 DIS Outpatient KIRT ANN MD [facility] PREOP COLONOSCOPY [id number] 04/26/2018 09:26:00 Document Registration [id number] 02/22/2018 10:46:00 Document Registration
[2020-01-10 08:58] LABS: BASOPHILS # (AUTO) 0.1 10^3/uL (0.0-0.1); BASOPHILS % (AUTO) 1 % (0-10); EOSINOPHILS # (AUTO) 0.2 10^3/uL (0.0-0.3); EOSINOPHILS % (AUTO) 1 % (0-10); HEMATOCRIT 42 % (35-52); LYMPHOCYTES # (AUTO) 2.5 X 10^3 (1.0-4.0); LYMPHOCYTES % (AUTO) 22 % (12-44); MEAN CORPUSCULAR HEMOGLOBIN 32 PG (25-34); MEAN CORPUSCULAR HGB CONC 31 G/DL (32-36); MEAN CORPUSCULAR VOLUME 102 FL (80-99); MEAN PLATELET VOLUME 11.1 FL (7.4-10.4); MONOCYTES # (AUTO) 0.9 X 10^3 (0.0-1.0); MONOCYTES % (AUTO) 8 % (0-12); NEUTROPHILS # (AUTO) 7.7 X 10^3 (1.8-7.8); NEUTROPHILS % (AUTO) 69 % (42-75); PLATELET COUNT 248 10^3/uL (130-400); RED CELL DISTRIBUTION WIDTH 17.7 % (10.0-14.5); WHITE BLOOD COUNT 11.3 10^3/uL (4.3-11.0)
[2020-01-10] MEDS ORDERED: dilTIAZem120 MG (CARDIZEM CD) CAP PO SCH (09:00)
[2020-01-10 09:03] LABS: POTASSIUM 4.2 MMOL/L (3.6-5.0)
[2020-01-10 09:09] LABS: CREATININE SERUM 6.01 MG/DL (0.60-1.30)
[2020-01-10 09:11] LABS: MAGNESIUM 2.5 MG/DL (1.6-2.4)
[2020-01-10] MEDS ORDERED: APIXABAN 5 MG (ELIQUIS) TABLET PO ONE (09:15)
[2020-01-10] MEDS ORDERED: dilTIAZem DRIP PRE-MIX 125 ML IV SCH ×2 (10:45→12:15)
--- NOTE | 2020-01-10 10:55 | ED Cardiac General ---
History of Present Illness General Chief Complaint: Cardiac/General Problems Stated Complaint: SOA - A FLUTTER Nursing Triage Note: Pt to ED with c/o atrial flutter. Pt reports two episodes of atrial flutter in the past two weeks and had cardioversion twice. Pt reports seeing Dr. Thapa. Pt reports' "I don't feel bad or hurt." Pt reports symptoms began last night. Pt does c/o mild headache. Pt receives dialysis on , , . Pt reports recently being prescribed Cardizem and Eliquis. Source: patient Exam Limitations: no limitations History of Present Illness Date Seen by Provider: Jan 10, 2020 Time Seen by Provider: 08:38 Initial Comments This 54-year-old woman with known atrial flutter with RVR presents to the emergency room with complaints of tachycardia. She has been seen twice recently for the same issue and has undergone cardioversion as medical therapies were not effective. The first time she presented she was also hypotensive and unstable. She also has end-stage renal disease and is on dialysis. She receives her dialysis Mondays, Wednesdays and Fridays. Symptoms started last night and persisted this morning. She denies any chest pain. She has mild headache. She has seen Dr. Thapa in the hospital but has not established with a professor of latin american studies in the outpatient setting yet. Her primary care provider is Dr. Bimal Vital at [facility] and her force adjustment supervisor is Dr. Luna Paredes at [facility]. She takes Cardizem CD 120 mg which she has not yet had this morning. She also takes Toprol-XL 25 mg daily which she has also not had. Her Eliquis was taken last night but not yet this morning. Allergies and Home Medications Allergies Coded Allergies: Sulfa (Sulfonamide Antibiotics) (Verified Allergy, Mild, HIVES, 01/14/18) Home Medications Amlodipine Besylate 5 Mg Tablet, 5 MG PO DAILY, (Reported) Amoxicillin 500 Mg Tablet, 500 MG PO BID Prescribed by: CLAUDIO FARAH on 03/07/19 1429 Aspirin 81 Mg Tab.chew, 81 MG PO DAILY Prescribed by: CLAUDIO FARAH on 03/07/19 1435 Bumetanide 1 Mg Tablet, 2 MG PO DAILY, (Reported) TAKES 2 (1MG) TABLETS Diltiazem HCl 120 Mg Cap.er.24h, 120 MG PO DAILY Prescribed by: BENTON SANDERS on 12/30/19 1820 Ergocalciferol (Vitamin D2) 50,000 Unit Capsule, 50,000 UNITS PO Fr, (Reported) Escitalopram Oxalate 20 Mg Tablet, 40 MG PO DAILY, (Reported) TAKES 2 (20MG) TABLETS Gabapentin 300 Mg Capsule, 600 MG PO BID, (Reported) LAST FILLED #180 12-19-18 TAKES 2 (300MG) CAPSULES Insulin Aspart 300 Units/3 Ml Solution, 20 UNITS SQ AC, (Reported) LAST FILLED AUG 2018 Insulin Detemir 100 Unit/1 Ml Insuln.pen, 40 UNITS SC BID, (Reported) Levothyroxine Sodium 150 Mcg Tablet, 150 MCG PO DAILY@0630 Prescribed by: CLAUDIO FARAH on 03/07/19 1435 Lisinopril 10 Mg Tablet, 10 MG PO DAILY, (Reported) Metoprolol Succinate 100 Mg Tab.er.24h, 100 MG PO DAILY Prescribed by: CLAUDIO FARAH on 03/07/19 1435 Rosuvastatin Calcium 20 Mg Tablet, 20 MG PO HS, (Reported) Sitagliptin Phosphate 25 Mg Tablet, 25 MG PO DAILY, (Reported) LAST FILLED #90 11-15-18 Trazodone HCl 50 Mg Tablet, 50 MG PO HS, (Reported) Patient Home Medication List Home Medication List Reviewed: Yes Review of Systems Review of Systems Constitutional: no symptoms reported EENTM: No Symptoms Reported Respiratory: No Symptoms Reported Cardiovascular: See HPI; Denies Chest Pain Gastrointestinal: No Symptoms Reported Genitourinary: No Symptoms Reported Musculoskeletal: no symptoms reported Skin: no symptoms reported Psychiatric/Neurological: See HPI, Headache Endocrine: No Symptoms Reported Hematologic/Lymphatic: No Symptoms Reported Past Vmvneyu-Gmaley-Wybauu Hx Past Med/Social Hx: Reviewed Nursing Past Med/Soc Hx Patient Social History Alcohol Use: Denies Use Recreational Drug Use: Yes Drug of Choice: THC Smoking Status: Former Smoker Type Used: Cigarettes Former Smoker, Quit: Jan 14, 1999 2nd Hand Smoke Exposure: No Recent Foreign Travel: No Contact w/Someone Who Travel: No Recent Infectious Disease Expo: No Recent Hopitalizations: Yes (12/27/2019) Immunizations Up To Date Tetanus Booster (TDap): Less than 5yrs PED Vaccines UTD: Yes Seasonal Allergies Seasonal Allergies: Yes Past Medical History Surgeries: Yes (PILONIDAL CYST; DX LAPAROSCOPY; HYST/BSO, dialysis shunt in right forearm ) Dialysis, Gallbladder, Hysterectomy, Oophorectomy Respiratory: Yes Sleep Apnea, COPD Currently Using CPAP: No (HAS CPAP, BUT DOES NOT WEAR IT) Cardiac: Yes (CHF; ELEVATED TRIGLYCERIDES; ATRIAL FLUTTER) Chronic Edema/Swelling, High Cholesterol, Hypertension Neurological: Yes Neuropathy 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 Disorders: No Female 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 Disorders: 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, Menopausal Sexually Transmitted Disease: No HIV/AIDS: No Genitourinary: Yes (DIALYSIS M-W-F) Renal Failure, Dialysis, UTI-Chronic Gastrointestinal: Yes Chronic Constipation, Chronic Diarrhea Musculoskeletal: Yes Arthritis, Chronic Back Pain Endocrine: Yes Diabetes, Insulin dep HEENT: No Loss of Vision: Bilateral Hearing Impairment: Denies Cancer: Yes Skin Psychosocial: Yes Anxiety, Depression Integumentary: Yes (skin lesion) Blood Disorders: No Adverse Reaction/Blood Tranf: No (N/A) Family Medical History Cardiovascular disease G8 SISTER Diabetes mellitus G8 SISTER FH: lung cancer G8 SISTER Physical Exam Vital Signs Vital Signs - First Documented 01/10/20 08:20 Temp 37.1 Pulse 137 Resp 15 B/P (MAP) 118/74 (89) Pulse Ox 96 O2 Delivery Room Air Capillary Refill : Less Than 3 Seconds Height, Weight, BMI Height: 5'3.00" Weight: 264lbs. 1.0oz. 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 Ack. Understanding Patient History: Sleep Apnea Breath Sounds per Auscultation: Clear Heart Sounds per Auscultation: Regular Airway Exam: Mouth opens >2 fingers, Neck Full Range of Motion, Visulation of Uvula Sedation Adminstration Time: 6403 Progress/Results/Core Measures Results/Orders Lab Results Laboratory Tests Test 01/10/20 08:25 Range/Units White Blood Count 11.3 H 4.3-11.0 10^3/uL Red Blood Count 4.09 L 4.35-5.85 10^6/uL Hemoglobin 13.0 11.5-16.0 G/DL Hematocrit 42 35-52 % Mean Corpuscular Volume 102 H 80-99 FL Mean Corpuscular Hemoglobin 32 25-34 PG Mean Corpuscular Hemoglobin Concent 31 L 32-36 G/DL Red Cell Distribution Width 17.7 H 10.0-14.5 % Platelet Count 248 130-400 10^3/uL Mean Platelet Volume 11.1 H 7.4-10.4 FL Neutrophils (%) (Auto) 69 42-75 % Lymphocytes (%) (Auto) 22 12-44 % Monocytes (%) (Auto) 8 0-12 % Eosinophils (%) (Auto) 1 0-10 % Basophils (%) (Auto) 1 0-10 % Neutrophils # (Auto) 7.7 1.8-7.8 X 10^3 Lymphocytes # (Auto) 2.5 1.0-4.0 X 10^3 Monocytes # (Auto) 0.9 0.0-1.0 X 10^3 Eosinophils # (Auto) 0.2 0.0-0.3 10^3/uL Basophils # (Auto) 0.1 0.0-0.1 10^3/uL Sodium Level 141 135-145 MMOL/L Potassium Level 4.2 3.6-5.0 MMOL/L Chloride Level 99 98-107 MMOL/L Carbon Dioxide Level 22 21-32 MMOL/L Anion Gap 20 H 5-14 MMOL/L Blood Urea Nitrogen 56 H 7-18 MG/DL Creatinine 6.01 H 0.60-1.30 MG/DL Estimat Glomerular Filtration Rate 7 BUN/Creatinine Ratio 9 Glucose Level 234 H 70-105 MG/DL Calcium Level 9.0 8.5-10.1 MG/DL Magnesium Level 2.5 H 1.6-2.4 MG/DL My Orders Orders - STEPHANE ROSE MD Basic Metabolic Panel (01/10/20 08:51) Cbc With Automated Diff (01/10/20 08:51) Magnesium (01/10/20 08:51) Ed Iv/Invasive Line Start (01/10/20 08:51) Ekg Tracing (01/10/20 08:51) Monitor-Rhythm Ecg Trace Only (01/10/20 08:51) Diltiazem Injection (Cardizem Injection) (01/10/20 09:00) Diltiazem Cd 24 Hr Capsule (Cardizem Cd (01/10/20 09:00) Metoprolol Succinate (Xl) Tab (Toprol Xl (01/10/20 09:15) Apixaban Tablet (Eliquis Tablet) (01/10/20 09:15) Diltiazem Drip Pre-Mix (Cardizem Drip Pr (01/10/20 10:45) Lorazepam Injection (Ativan Injection) (01/10/20 11:00) Medications Given in ED Current Medications Medications Dose Ordered Sig/Darren Route Start Time Stop Time Status Last Admin Dose Admin Apixaban 5 mg ONCE ONCE PO 01/10/20 09:15 01/10/20 09:16 DC 01/10/20 09:10 5 MG Diltiazem HCl 10 mg ONCE ONCE IVP 01/10/20 09:00 01/10/20 09:01 DC 01/10/20 09:03 10 MG Lorazepam 0.5 mg ONCE ONCE IVP 01/10/20 11:00 01/10/20 11:01 DC 01/10/20 11:06 0.5 MG Metoprolol Succinate 25 mg ONCE ONCE PO 01/10/20 09:15 01/10/20 09:16 DC 01/10/20 09:10 25 MG Vital Signs/I&O 01/10/20 08:20 Temp 37.1 Pulse 137 Resp 15 B/P (MAP) 118/74 (89) Pulse Ox 96 O2 Delivery Room Air Blood Pressure Mean: 89 Progress Progress Note : Time: 11:00 Progress Note Patient was seen and examined and case discussed with Dr. Thapa. We attempted treatment with her usual oral Cardizem and Toprol XL and combination with a Cardizem bolus of 10 mg. After more than an hour she was still in atrial flutter with RVR. I discussed the case again with Dr. Thpaa who would like to attempt a CHRIS cardioversion in the ICU around noon. Case was also discussed with Dr. Casper who agrees with admission. Initial ECG Impression Date: Jan 10, 2020 Initial ECG Impression Time: 08:28 Initial ECG Rate: 135 Initial ECG Rhythm: A Fib/Flutter (with RVR) Initial ECG Impression: Normal (atrial flutter with RVR) Departure Communication (Admissions) Time/Spoke to Admitting Phy: 10:40 Dr. Casper Time/Spoke to Consulting Phy: 10:30 Dr. Thapa Impression Primary Impression: Atrial flutter with rapid ventricular response Disposition: ADMITTED INPATIENT Condition: Stable Admissions Decision to Admit Reason: Admit from ER (General) Decision to Admit/Date: Jan 10, 2020 Time/Decision to Admit Time: 10:30 Departure-Patient Inst. Referrals: BIMAL VITAL MD (PCP/Family) Primary Care Physician STEPHANE ROSE MD Jan 10, 2020 10:55
[2020-01-10] MEDS ORDERED: LORazepam INJ 2 MG/ML (ATIVAN) VIAL IVP ONE (11:00)
--- OUTSIDE RECORDS SUMMARY | 2020-01-10 11:15 | XMS REPORT | Continuity of Care Document ---
Author Organization Unknown Address Unknown Phone Unavailable Allergies Active Description Code Type Severity Reaction Onset Reported/Identified Relationship to Patient Clinical Status Yes sulfa drugs NKMA N/A N/A 09/14/2017 Yes Sulfa (Sulfonamide Antibiotics) [id number] Drug Allergy Mild HIVES 8 Medications [...] puffs 09/14/2017 Inhalation 2 puffs, Inhalation, QID, CO N: as needed for wheezing, 0 Refill(s) [...] (moderate) LUIS, TIMBO I 01/11/2018 SETH CROWDER, KITR [place] Ot Z01.818 ENCOUNTER FOR OTHER PREPROCEDURAL [...] Ot I25. 10 ATHSCL HEART DISEASE OF [place] CORONARY 01/18/2018 KIRT ANN MD Ot I50. 9 HEART FAILURE, UNSPECIFIED 01/18/2018 KIRT ANN MD Ot K57. 30 DVRTCLOS OF LG INT W/O PERFORATION OR AB 01/18/2018 KIRT ANN MD Ot Z12. 11 ENCOUNTER FOR SCREENING FOR MALIGNANT NE 01/18/2018 KIRT ANN MD Ot Z68. 41 BODY MASS INDEX (BMI) 40.0-44.9, ADULT 01/18/2018 KIRT ANN MD Ot Z79. 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 01 MORBID (SEVERE) OBESITY DUE TO EXCESS CA 01/22/2018 KIRT ANN MD Ot I11. 0 HYPERTENSIVE HEART DISEASE WITH HEART FA 01/22/2018 KIRT ANN MD, Ot I25. 10 ATHSCL HEART DISEASE OF [place] CORONARY 01/22/2018 KIRT ANN MD Ot I50. 9 HEART FAILURE, UNSPECIFIED 01/22/2018 KIRT ANN MD, Ot K57. 30 DVRTCLOS OF LG INT W/O PERFORATION OR AB 01/22/2018 KIRT ANN MD Ot Z12. 11 ENCOUNTER FOR SCREENING FOR MALIGNANT NE 01/22/2018 KIRT ANN MD Ot Z68. 41 BODY MASS INDEX (BMI) 40.0-44.9, ADULT 01/22/2018 KIRT ANN MD Ot Z79. 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 01 MORBID (SEVERE) OBESITY DUE TO EXCESS CA 01/23/2018 KIRT ANN MD Ot I11. 0 HYPERTENSIVE HEART DISEASE WITH HEART FA 01/23/2018 KIRT ANN MD, Ot I25. 10 ATHSCL HEART DISEASE OF [place] CORONARY 01/23/2018 KIRT ANN MD, Ot I50. 9 HEART FAILURE, UNSPECIFIED 01/23/2018 KIRT ANN MD, Ot K57. 30 DVRTCLOS OF LG INT W/O PERFORATION OR AB 01/23/2018 KIRT ANN MD Ot Z12. 11 ENCOUNTER FOR SCREENING FOR MALIGNANT NE 01/23/2018 KIRT ANN MD Ot Z68. 41 BODY MASS INDEX (BMI) 40.0-44.9, ADULT 01/23/2018 KIRT ANN MD Ot Z79. 84 CARE HOME (CURRENT) USE OF ORAL HYPOGLYC 01/23/2018 KIRT ANN MD Ot Z79.899 OTHER COUNTER MOLDER (CURRENT) DRUG THERAPY 03/05/2018 Ot M47.26 OTH [...] 04/26/2018 VILLAR DOSAVANNAH D Ot Z79. 4 COUNTER MOLDER (CURRENT) USE OF INSULIN 04/26/2018 VILLAR DOSAVANNAH D Ot Z79.899 OTHER CARE HOME (CURRENT) DRUG THERAPY 04/30/2018 VILLAR DOSAVANNAH D [...] 04/30/2018 VILLAR DOSAVANNAH D Ot Z79. 4 COUNTER MOLDER (CURRENT) USE OF INSULIN 04/30/2018 VILLAR DO, SAVANNAH D Ot Z79.899 OTHER COUNTER MOLDER (CURRENT) DRUG THERAPY 04/30/2018 VILLAR DO, SAVANNAH [...] VILLAR DO, SAVANNAH D Ot Z79. 4 CARE HOME (CURRENT) USE OF INSULIN 04/30/2018 VILLAR DO, SAVANNAH D Ot Z79.899 OTHER COUNTER MOLDER (CURRENT) DRUG THERAPY 05/09/2018 VILLAR DO, SAVANNAH [...] VILLAR DO, SAVANNAH D Ot Z79. 4 CARE HOME (CURRENT) USE OF INSULIN 05/09/2018 VILLAR DO, SAVANNAH D Ot Z79.899 OTHER COUNTER MOLDER (CURRENT) DRUG THERAPY 06/27/2018 ISABELLA MEJIA APRN Ot E11.21 TYPE 2 DIABETES MELLITUS WITH DIABETIC N 06/27/2018 ISABELLA MEJIA APRN Ot E11.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 W DIABETIC IT SECURITY CONSULTANT 06/27/2018 ISABELLA MEJIA APRN Ot E78.5 HYPERLIPIDEMIA, [...] HISTORY OF NICOTINE DEPENDENCE 07/10/2018 ISABELLA MEJIA SOIL BIOLOGY TEACHER Ot E11.21 TYPE 2 DIABETES MELLITUS WITH DIABETIC N 07/10/2018 ISABELLA MEJIA APRN Ot E11.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 W DIABETIC IT SECURITY CONSULTANT 07/10/2018 ISABELLA MEJIA APRN Ot E78.5 HYPERLIPIDEMIA, UNSPECIFIED 07/10/2018 ISABELLA MEJIA APRN Ot I12.9 HYPERTENSIVE CHRONIC KIDNEY DISEASE W ST 07/10/2018 ISABELLA MEJIA APRN Ot I50.9 HEART FAILURE, UNSPECIFIED 07/10/2018 ISABELLA MEJIA APRN Ot M10.9 GOUT, UNSPECIFIED 07/10/2018 ISABELLA MEJIA APRN Ot N18.4 CHRONIC KIDNEY DISEASE, STAGE 4 (SEVERE) 07/10/2018 ISABELLA MEJIA SOIL BIOLOGY TEACHER Ot N39.0 URINARY TRACT INFECTION, SITE NOT [...] LUMP, HEAD 08/27/2018 SHERLYN HARRIS Ot Z79.4 CARE HOME (CURRENT) USE OF INSULIN 08/27/2018 SHERLYN HARRIS Ot Z85.828 PERSONAL HISTORY OF OTHER MALIGNANT NEOP 08/27/2018 SHERLYN HARRIS Ot Z87.19 PERSONAL HISTORY OF OTHER DISEASES OF TH 08/27/2018 SHERLYN HARRIS Ot Z87.891 PERSONAL HISTORY OF NICOTINE DEPENDENCE 08/27/2018 SHERLYN HARRIS Ot Z88.2 ALLERGY STATUS TO SULFONAMIDES STATUS 08/27/2018 SHERLYN HARRIS Ot Z90.710 ACQUIRED ABSENCE OF BOTH CERVIX AND UTER 08/27/2018 SHRELYN HARRIS Ot Z98.890 OTHER SPECIFIED POSTPROCEDURAL STATES 08/27/2018 ISABELLA MEJIA SOIL BIOLOGY TEACHER Ot E11.21 TYPE 2 DIABETES MELLITUS WITH DIABETIC N 08/27/2018 ISABELLA MEJIA SOIL BIOLOGY TEACHER Ot E11.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 W DIABETIC IT SECURITY CONSULTANT 08/27/2018 ISABELLA MEJIA APRN Ot E78.5 HYPERLIPIDEMIA, [...] LUMP, HEAD 08/29/2018 SHERLYN HARRIS Ot Z79.4 CARE HOME (CURRENT) USE OF INSULIN 08/29/2018 SHERLYN HARRIS [...] E11.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 W DIABETIC IT SECURITY CONSULTANT 03/06/2019 ISABELLA MEJIA APRN Ot E78.5 HYPERLIPIDEMIA, [...] MD, Ot E78.00 PURE HYPERCHOLESTEROLEMIA, UNSPECIFIED 03/07/2019 CLAUDOI FARAH MD, Ot E83.42 HYPOMAGNESEMIA 03/07/2019 CLAUDIO [...] 03/07/2019 CLAUDIO FARAH MD, Ot Z79 .4 CARE HOME (CURRENT) USE OF INSULIN 03/07/2019 CLAUDIO FARAH MD, Ot Z85.828 PERSONAL HISTORY OF OTHER MALIGNANT NEOP 03/07/2019 CLAUDIO FARAH MD, Ot Z91.19 PATIENT'S NONCOMPLIANCE W OT MEDICAL TR 03/17/2019 ISABELLA MEJIA APRN Ot E11.21 TYPE 2 DIABETES MELLITUS WITH DIABETIC N 03/17/2019 ISABELLA MEJIA APRN Ot E11.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 W DIABETIC IT SECURITY CONSULTANT 03/17/2019 ISABELLA MEJIA APRN Ot E78.5 HYPERLIPIDEMIA, [...] E11.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 W DIABETIC IT SECURITY CONSULTANT 03/17/2019 ISABELLA MEJIA APRN Ot E78.5 HYPERLIPIDEMIA, [...] E11.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 W DIABETIC IT SECURITY CONSULTANT 04/08/2019 ISABELLA MEJIA APRN Ot E78.5 HYPERLIPIDEMIA, UNSPECIFIED 04/08/2019 ISABELLA MEJIA APRN Ot I12.9 HYPERTENSIVE CHRONIC KIDNEY DISEASE W ST 04/08/2019 ISABELLA MEJIA APRN Ot I50.9 HEART FAILURE, UNSPECIFIED 04/08/2019 ISABELLA MEJIA APRN Ot M10.9 GOUT, UNSPECIFIED 04/08/2019 ISABELLA MEJIA APRN Ot N18.4 CHRONIC KIDNEY DISEASE, STAGE 4 (SEVERE) 04/08/2019 ISABLELA MEJIA APRN Ot N39.0 URINARY TRACT INFECTION, SITE NOT SPECIF 04/08/2019 ISABELLA MEJIA APRN Ot Z87.891 PERSONAL HISTORY OF NICOTINE DEPENDENCE 04/08/2019 ISABELLA MEJIA APRN Ot E11.21 TYPE 2 DIABETES MELLITUS WITH DIABETIC N 04/08/2019 ISABELLA MEJIA APRN Ot E11.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 W DIABETIC IT SECURITY CONSULTANT 04/08/2019 ISABELLA MEJIA APRN Ot E78.5 HYPERLIPIDEMIA, [...] E11.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 W DIABETIC IT SECURITY CONSULTANT 04/10/2019 JOHANNA CROWDER FACC, LYDIA FACP CCDS [...] E11.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 W DIABETIC IT SECURITY CONSULTANT 05/09/2019 JOHANNA CROWDER FACC, ALI FACP CCDS Ot I13.0 HYP HRT CHR KDNY DIS W HRT FAIL AND ST 05/09/2019 JOHANNA CROWDER FACC, ALI FACP CCDS Ot I50.31 ACUTE DIASTOLIC (CONGESTIVE) HEART FAILU 05/09/2019 JOHANNA CROWDER FACC, ALI FACP CCDS Ot N18.4 CHRONIC KIDNEY DISEASE, STAGE 4 (SEVERE) 08/05/2019 ISABELLA MEJIA APRN Ot G47.33 OBSTRUCTIVE SLEEP APNEA (ADULT) (PEDIATR 08/06/2019 ISABELLA MEJIA SOIL BIOLOGY TEACHER Ot G47.33 OBSTRUCTIVE SLEEP APNEA (ADULT) (PEDIATR 08/06/2019 ISABELLA MEJIA APRN Ot G47.33 OBSTRUCTIVE SLEEP APNEA (ADULT) (PEDIATR 08/06/2019 ISABELLA MEJIA APRN Ot G47.33 OBSTRUCTIVE SLEEP APNEA (ADULT) (PEDIATR 08/07/2019 ISABELLA MEJIA APRN Ot G47.33 OBSTRUCTIVE SLEEP APNEA (ADULT) (PEDIATR 08/07/2019 DOUTHITT, ISABELLA B SOIL BIOLOGY TEACHER Ot I10 ESSENTIAL (PRIMARY) HYPERTENSION 08/08/2019 ISABELLA MEJIA SOIL BIOLOGY TEACHER Ot G47.33 OBSTRUCTIVE SLEEP APNEA (ADULT) (PEDIATR 08/08/2019 ISABELLA MEJIA SOIL BIOLOGY TEACHER Ot I10 ESSENTIAL (PRIMARY) HYPERTENSION 08/15/2019 YAZMIN, DAYNA R SOIL BIOLOGY TEACHER Ot G47.33 OBSTRUCTIVE SLEEP APNEA (ADULT) (PEDIATR 08/21/2019 YAZMIN, DAYNA R SOIL BIOLOGY TEACHER Ot G47.33 OBSTRUCTIVE SLEEP APNEA (ADULT) (PEDIATR 08/21/2019 YAZMIN, DAYNA R SOIL BIOLOGY TEACHER Ot G47.33 OBSTRUCTIVE SLEEP APNEA (ADULT) (PEDIATR 08/21/2019 YAZMIN, DAYNA R SOIL BIOLOGY TEACHER Ot G47.33 OBSTRUCTIVE SLEEP APNEA (ADULT) (PEDIATR 08/21/2019 YAZMIN, DAYNA R SOIL BIOLOGY TEACHER Ot G47.33 OBSTRUCTIVE SLEEP APNEA (ADULT) (PEDIATR 08/21/2019 YAZMIN, DAYNA R SOIL BIOLOGY TEACHER Ot G47.33 OBSTRUCTIVE SLEEP APNEA (ADULT) (PEDIATR 08/22/2019 YAZMIN, DAYNA R SOIL BIOLOGY TEACHER Ot G47.33 OBSTRUCTIVE SLEEP APNEA (ADULT) (PEDIATR 08/22/2019 YAZMIN, DAYNA R SOIL BIOLOGY TEACHER Ot G47.33 OBSTRUCTIVE SLEEP APNEA (ADULT) (PEDIATR 08/22/2019 YAZMIN, DAYNA R SOIL BIOLOGY TEACHER Ot G47.33 OBSTRUCTIVE SLEEP APNEA (ADULT) (PEDIATR 08/26/2019 YAZMIN, DAYNA R SOIL BIOLOGY TEACHER Ot G47.33 OBSTRUCTIVE SLEEP APNEA (ADULT) (PEDIATR 08/26/2019 SAULO CROWDER, KEN Sood Ot Z12.31 ENCNTR SCREEN MAMMOGRAM FOR MALIGNANT NE 08/26/2019 DAYNA ARCE R SOIL BIOLOGY TEACHER Ot G47.33 OBSTRUCTIVE SLEEP APNEA (ADULT) (PEDIATR 08/26/2019 SAULO CROWDER, KEN Sood Ot Z12.31 ENCNTR SCREEN MAMMOGRAM FOR MALIGNANT NE 08/27/2019 DAYNA ARCE R SOIL BIOLOGY TEACHER Ot G47.33 OBSTRUCTIVE SLEEP APNEA (ADULT) (PEDIATR 08/27/2019 DAYNA ARCE R SOIL BIOLOGY TEACHER Ot G47.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 08/27/2019 SAULO CROWDER, KEN Sood Ot Z12.31 ENCNTR SCREEN MAMMOGRAM FOR MALIGNANT NE 09/02/2019 KEN VERNON MD Ot Z12.31 ENCNTR SCREEN MAMMOGRAM FOR MALIGNANT NE 09/03/2019 DAYNA ARCE SOIL BIOLOGY TEACHER Ot G47.33 OBSTRUCTIVE SLEEP APNEA (ADULT) (PEDIATR 09/03/2019 DAYNA ARCE SOIL BIOLOGY TEACHER Ot G47.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 09/16/2019 SAULO CROWDER, KEN Sood Ot Z12.31 ENCNTR SCREEN MAMMOGRAM FOR MALIGNANT NE 09/16/2019 SAULO CROWDER, KEN Sood Ot Z12.31 ENCNTR SCREEN MAMMOGRAM FOR MALIGNANT NE 09/19/2019 SAULO CROWDER, KEN Sood Ot Z12.31 ENCNTR SCREEN MAMMOGRAM FOR MALIGNANT NE 12/30/2019 TOMMY DO BENTON Henry Ot E11.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 W DIABETIC IT SECURITY CONSULTANT 12/30/2019 SEDGWICK DOARIADNAA Henry Ot E11.40 TYPE 2 DIABETES MELLITUS WITH DIABETIC N 12/30/2019 TOMMY DO, BENTON Figueroa Ot E78.00 PURE HYPERCHOLESTEROLEMIA, UNSPECIFIED 12/30/2019 SEDGWICK DO, BENTON K Ot F32.9 MAJOR DEPRESSIVE DISORDER, SINGLE EPISOD 12/30/2019 SEDGWICK DOARIADNAA Henry Ot F41.9 ANXIETY DISORDER, UNSPECIFIED 12/30/2019 SEDGWICK DO, BENTON K Ot I13.2 HYP HRT CHR KDNY DIS W HRT FAIL AND W 12/30/2019 TOMMY DO, BENTON K Ot I48.92 UNSPECIFIED ATRIAL FLUTTER 12/30/2019 SEDGWICK DO [place] K Ot N18.6 END STAGE RENAL DISEASE 12/30/2019 SEDGWICK DO [place]ENT[place] K Ot Z79.4 CARE HOME (CURRENT) USE OF INSULIN 12/30/2019 [facility] B[place] K Ot Z79.82 COUNTER MOLDER (CURRENT) USE OF ASPIRIN 12/30/2019 SEDGWICK DO [place] K Ot Z80.1 FAMILY HISTORY OF MALIG NEOPLASM OF [place] 12/30/2019 SEDGWICK DOARIADNAA K Ot Z82.49 FAMILY HX OF ISCHEM HEART DIS AND OTH DI 12/30/2019 TOMMY DOARIADNAA Henry Ot Z85.828 PERSONAL HISTORY OF OTHER MALIGNANT NEOP 12/30/2019 SEDGWICK DOARIADNAA K Ot Z87.891 PERSONAL HISTORY OF NICOTINE DEPENDENCE 12/30/2019 SEDGWICK DOARIADNAA Henry Ot Z88.2 ALLERGY STATUS TO SULFONAMIDES STATUS 12/30/2019 SEDGWICK DOARIADNAA Henry Ot Z98.890 OTHER SPECIFIED POSTPROCEDURAL STATES 12/30/2019 TOMMY DO, BENTON K Ot Z99.2 DEPENDENCE ON RENAL DIALYSIS 12/31/2019 ALY JORDAN MD, Ot E11.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 W DIABETIC IT SECURITY CONSULTANT 12/31/2019 ALY JORDAN MD, Ot E11.40 TYPE 2 DIABETES MELLITUS WITH DIABETIC N 12/31/2019 ALY JORDAN MD, Ot E78.00 PURE HYPERCHOLESTEROLEMIA, UNSPECIFIED 12/31/2019 ALY JORDAN MD, Ot F32.9 MAJOR DEPRESSIVE DISORDER, SINGLE EPISOD 12/31/2019 ALY JORDAN MD, Ot F41.9 ANXIETY DISORDER, UNSPECIFIED 12/31/2019 ALY JORDAN MD, Ot I13.2 HYP HRT CHR KDNY DIS W HRT FAIL AND W 12/31/2019 AYL JORDAN MD, Ot I48.92 UNSPECIFIED ATRIAL FLUTTER 12/31/2019 ALY JORDAN MD, Ot I50.9 HEART FAILURE, UNSPECIFIED 12/31/2019 ALY JORDAN MD, Ot N18.6 END STAGE RENAL DISEASE 12/31/2019 ALY JORDAN MD, Ot Z79.4 COUNTER MOLDER (CURRENT) USE OF INSULIN 12/31/2019 ALY JORDAN MD, Ot Z79.82 COUNTER MOLDER (CURRENT) USE OF ASPIRIN 12/31/2019 ALY JORDAN [...] E11.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 W DIABETIC IT SECURITY CONSULTANT 01/02/2020 TOMMY DO, BENTON K Ot E11.40 TYPE 2 DIABETES MELLITUS WITH DIABETIC N 01/02/2020 TOMMY DO, BENTON K Ot E78.00 PURE HYPERCHOLESTEROLEMIA, UNSPECIFIED 01/02/2020 TOMMY DO, BENTON K Ot F32.9 MAJOR DEPRESSIVE DISORDER, SINGLE EPISOD 01/02/2020 TOMMY DO, BENTON K Ot F41.9 ANXIETY DISORDER, UNSPECIFIED 01/02/2020 SEDGWICK DO, BENTON K Ot I13.2 HYP HRT CHR KDNY DIS W HRT FAIL AND W 01/02/2020 TOMMY DO, BENTON K Ot I48.92 UNSPECIFIED ATRIAL FLUTTER 01/02/2020 SEDGWICK DO [place] K Ot N18.6 END STAGE RENAL DISEASE 01/02/2020 SEDGWICK DO, BENTON K Ot Z79.4 COUNTER MOLDER (CURRENT) USE OF INSULIN 01/02/2020 SEDGWICK DO, BENTON K Ot Z79.82 CARE HOME (CURRENT) USE OF ASPIRIN 01/02/2020 [facility], [place] K Ot Z80.1 FAMILY HISTORY OF MALIG NEOPLASM OF [place] 01/02/2020 [facility], [place] K Ot Z82.49 FAMILY HX OF ISCHEM HEART DIS AND OTH DI 01/02/2020 SEDGWICK DO BENTON K Ot Z85.828 PERSONAL HISTORY OF OTHER MALIGNANT NEOP 01/02/2020 SEDGWICK DO, BENTON K Ot Z87.891 PERSONAL HISTORY OF NICOTINE DEPENDENCE 01/02/2020 [facility], [place] K Ot Z88.2 ALLERGY STATUS TO SULFONAMIDES STATUS 01/02/2020 [facility] BENT[place] K Ot Z98.890 OTHER SPECIFIED POSTPROCEDURAL STATES 01/02/2020 TOMMY DO, BENTON K Ot Z99.2 DEPENDENCE ON RENAL DIALYSIS Procedures Code Description [place] [address] [facility], per day, for the evaluation and management of a patient, which requires JASEN Jerez MD 09/19/2017 226[address] [facility], per day, for the evaluation and management of a patient, which requires at YECENIA CHURCH MD 09/19/2017 11888 Offi ce or other outpatient visit for the evaluation and management of an established patient, which TIMBO SMITH I 10/18/2017 49005 Offi ce or other outpatient visit for the evaluation and management of an established patient, which TIMBO SMITH I 03/29/2018 50528 [facility], per day, for the evaluation and management of a patient, which requires these JASEN KHAN MD 03/29/2018 55365 [facility], per day, for the evaluation and management [...] 5.0-8.0 Protein Pos 2+ NA Negative Specific [place] 1.015 NA 1.003-1.030 UA Collection type Clean [...] (units/volume) 5.35 u[iU]/mL 0.35-4.94 Radiology Report from [id number] on 09/14 10:09:00 Reason For ExamAbdominal pain, [...] Nohydronephrosis. There is no ascites.Dictated on worksta tion:[id number] Line PRELIMINARY DICTATED BY: ALBIN GUTIERREZ MDDICTATED DT/TM: 09/14/2017 9:54 Radiology Report from [id number] on 09/14 10:09:00 Reason For ExamSyncopeREPORTIndication: Syncope.Procedure: [...] significantstenosis hemodynamically. Both vertebrals are patent.Dictated on workstation:[id number] Line PRELIMINARY DICTATED BY: ALBIN GUTIERREZ MDDICTATED DT/TM: 09/14/2017 9:49 Radiology Report from [id number] on 09/14 12:41:00 Reason For ExamCoughREPORTINDICATION: Co ugh.COMPARISON: None available.TECHNIQUE: Frontal and lateral radiographs of the chest dated September 14, 2017.FINDINGS: The cardiac silhouette is mildly enlarged. No significant pulmonaryvascular congestion. The lungs are clear. No pleural effusion. No pneumothorax.Mild scattered osseous degenerative changes without acute osseous abnormality.IMPRESSION: Cardiomegaly without overt congestive heart failure or additionalsuperimposed acute cardiopulmonary abnormality.Dictated on workstation:[id number] Line PRELIMINARY DICTATED BY: MANSI LARSON MDDICTATED DT/TM: 09/14/2017 12:38 Encounters ACCT No. Visit Date/Time Discharge Status Pt. Type Provider Facility Loc./Unit Complaint [id number] 09/14/2017 04:48:00 10:59:00 DIS Inpatient VishalRuthie a [facility] [place] VCF F5SE Pancreatitis, Acute Renal Failure [id number] 09/15/2017 05:19:03 Document Registration [id number] 12/18/2017 13:34:06 23:59:59 CLS Outpatient TIMBO SMITH I [id number] 12/30/2019 16:13:00 19:17:00 DIS Emergency TOMMY BENTON TAN a [facility] ER ATRIAL FLUTTER [id number] 12/27/2019 15:07:00 18:58:00 DIS Outpatient NIKKI CROWDER, ALY [place] Via [facility] ER HIGH PULSE - 14 5 [id number] 09/01/2019 10:19:00 23:59:59 CLS Outpatient SAULO CROWDER, KEN Sood Via [facility] RAD SCREENING [id number] 08/26/2019 20:56:00 06:25:00 DIS Outpatient DAYNA ARCE APRN Via [facility] SLEEP OBSTRUCTIVE SLEEP APNE A [id number] 08/06/2019 20:39:00 07:29:00 DIS Outpatient ISABELLA MEJIA APRN Via [facility] SLEEP KARO G47.33 [id number] 04/10/2019 13:22:00 12:15:00 DIS Outpatient LINH CORLEY MD Via [facility] SDC IRON DEFICIENCY ANEMIA [id number] 04/08/2019 07:55:00 23:59:59 CLS Outpatient JOHANNA CROWDER FACC, LYDIA BRICEÑO CC DS Via [facility] CARD ACUTE DIAST OLIC CHF [id number] 03/06/2019 21:25:00 15:24:00 DIS Inpatient CLAUDIO FARAH MD Via [facility] ICU CHF,UTI,CHRONIC RENAL FAILURE,HYPOMAGNESEMIA,HYPOT [id number] 08/27/2018 10:51:00 14:23:00 DIS Emergency SHERLYN HARRIS Via [facility] ER POSSIBLE NECK ABCESS [id number] 06/25/2018 08:40:00 23:59:59 CLS Outpatient ISABELLA MEJIA APRN Via [facility] RAD CKD STAGE 4 [id number] 04/26/2018 09:26:00 018 13:25:00 DIS Outpatient SAVANNAH VILLAR DO Via [facility] SDC SKIN LESION NOSE [id number] 04/24/2018 11:40:00 018 12:16:00 DIS Outpatient SAVANNAH VILLAR DO Via [facility] PREOP SKIN LESION NOSE [id number] 01/18/2018 07:27:00 018 09:58:00 DIS Outpatient KIRT ANN MD Via [facility] ENDO SCREENING [id number] 01/14/2018 09:30:00 10:24:00 DIS Outpatient KIRT ANN MD Via [facility] PREOP COLONOSCOPY [id number] 04/26/2018 09:26:00 Document Registration [id number] 02/22/2018 10:46:00 Document Registration
[2020-01-10] MEDS ORDERED: NS IV 500 ML 500 ML ONE (11:54)
[2020-01-10] MEDS ORDERED: LIDOCAINE 2% VISCOUS 15 ML UDC ONE ×2 (11:54→11:57)
[2020-01-10] MEDS ORDERED: proPOfol 200 MG/20 ML (DIPRIVAN) VIAL IV ONE (12:02)
[2020-01-10] MEDS ORDERED: MIDAZOLAM 5 MG/5 ML (VERSED) VIAL ONE (12:02)
[2020-01-10 12:15] VITALS: BP 131/67
--- NOTE | 2020-01-10 12:32 | Short Stay Summary-Hospitalist ---
Short Stay Diagnosis D/C Date 01/10/20 Paroxysmal atrial flutter with rapid ventricular response Clinical Quality Measures DVT/VTE Risk/Contraindication: Risk Factor Score Per Nursin RFS Level Per Nursing on Admit: 3=High KIRT ANN MD Jan 10, 2020 12:32
[2020-01-10] MEDS ORDERED: NS IV 500 ML 500 ML IV SCH (12:50)
[2020-01-10] MEDS ORDERED: MIDAZOLAM 5 MG/5 ML (VERSED) VIAL IVP ONE (12:50)
[2020-01-10] MEDS ORDERED: proPOfol 500 MG/50 ML (DIPRIVAN) VIAL IV ONE (12:50)
[2020-01-10] MEDS ORDERED: LIDOCAINE 2% VISCOUS 15 ML UDC PO ONE (12:50)
[2020-01-10 13:00] VITALS: BP 99/48
[2020-01-10 13:15] VITALS: BP 92/79
--- NOTE | 2020-01-10 13:15 | NUR ---
1245 Dr Thapa to bedside. Explained procedure and answered all questions. Consents signed. 1250 3mg Versed administered. 120mg of Propofol administered. 1252 CHRIS preformed. Proceed to Cardioversion per Dr Thapa. 1255 Shock administered at 120 joules. 1256 Pt has returned to Normal Sinus Rhythm. 1300 EKG obtained.
[2020-01-10 13:30] VITALS: BP 93/45
--- NOTE | 2020-01-10 13:41 | Anesthesia-General Post-Op ---
MAC Patient Condition Mental Status/LOC: Same as Preop Cardiovascular: Satisfactory Nausea/Vomiting: Absent Respiratory: Satisfactory Pain: Controlled Complications: Absent Post Op Complications Complications None Follow Up Care/Instructions Patient Instructions None needed. Anesthesiology Discharge Order Discharge Order Patient is doing well, no complaints, stable vital signs, no apparent adverse anesthesia problems. No complications reported per nursing. JELENA HUSSEIN CRNA Jan 10, 2020 13:41
[2020-01-10 14:00] VITALS: BP 109/57
[2020-01-10 15:00] VITALS: BP 118/66
--- NOTE | 2020-01-10 17:07 | NUR ---
Pt has been monitored continuously post procedure. Vitals have remained stable. No acute Changes. No new complaints. Pt is able to eat and ambulate. Pt is no longer on O2. Dr Thapa updated on pt status.
--- NOTE | 2020-01-10 22:01 | Cardioversion ---
Cardioversion PROCEDURE PHYSICIAN: Damaris Thapa MD DATE OF PROCEDURE: 01/10/20 DIRECT EXTERNAL ELECTRICAL CARDIOVERSION: Indications: Atrial Fibrillation with rapid ventricular rate Preoperative diagnoses: Atrial Fibrillation with rapid ventricular rate Postoperative diagnosis: Sinus rhythm, Successful Electrical Cardioversion History: This is a 54-year-old lady with end-stage renal disease. She presents with atrial flutter with 2-1 AV block. Degenerated to atrial fibrillation. Anesthesia: By Anesthesia services Complications: None Specimen: None Contrast: 0 Flouroscopy: none Procedure Details: The patient was brought the produce laborer after informed consent was taken, all the risks and complications were explained including the risk of stroke. Transesophageal echocardiogram did not demonstrate any left atrial or left atria l appendage thrombus. Electrical cardioversion was carried out with anesthesia support with propofol. 120 joules of synchronized shock was delivered through external patches which promptly restored sinus rhythm. The patient tolerated the procedure well. Conclusions: 1.Successful Cardioversion. 2.Continue oral anticoagulation and rate controlling agent. 3.Follow up in office in 7 days. Damaris Thapa MD, [facility] Cardiac Electrophysiology Rex THAPA MD Jan 10, 2020 22:01
--- NOTE | 2020-01-10 22:01 | Consultation-Cardiology ---
HPI-Cardiology Cardiology Consultation: Date of Consultation 01/10/20 Date of Admission Attending Physician Ivan Casper MD Admitting Physician Gabby Benavidez MD Consulting Physician Rex THAPA MD HPI: Time Seen by a Provider: 12:00 Chief Complaint: Tachycardia This is a 54-year-old lady with known history of end-stage renal disease on dialysis and follows with Dr. Carrasco at [facility]. She gets her dialysis done in [place]. She also has history of hypertension and hyperlipidemia. Significant diabetes. She was recently seen on 12/27/2019 and 12/30/2019 for hemodynamically significant atrial flutter with 2-1 AV block with RVR requiring urgent cardioversion. She denies any syncope, near-syncope, shortness of breath or chest pain. She denies active smoking. No significant family history of premature CAD. Review of Systems-Cardiology Review of Systems Constitutional: As described under HPI; No As described under HPI, No no symptoms reported, No chills, No fever, No lightheadedness Eyes: No As described under HPI, No no symptoms reported, No blindness, No blurred vision, No contact lenses, No drainage, No decreased acuity, No foreign body sensation, No pain, No vision change Ears/Nose/Throat: No As described under HPI, No no symptoms reported, No chronic hearing loss, No ear discharge, No ear pain, No nasal drainage, No ulcerations Respiratory: No no symptoms reported; As described under HPI; No As described under HPI, No cough, No orthopnea, No shortness of breath, No SOB with excertion Cardiovascular: No no symptoms reported; As described under HPI; No As de scribed under HPI, No chest pain, No edema, No irregular heart rate, No lightheadedness; palpitations Gastrointestinal: No no symptoms reported, No As described under HPI, No abdomen distended, No abdominal pain, No blood streaked bowels, No constipation, No diarrhea, No nausea, No vomiting, No stool coloration changes Genitourinary: No As described under HPI, No burning, No dysuria, No discharge, No frequency, No flank pain, No hematuria, No urgency : Yes : No Skin: No rash, No skin related problems, No ulcerations Psychiatric/Neurological: No anxiety, No depression, No seizure, No focal weakness, No syncope Hematologic: No bleeding abnormalities VJB-Zbjgxh-Ejlekl Hx Patient Social History Alcohol Use: Denies Use Recreational Drug Use: Yes Drug of Choice: THC Smoking Status: Former Smoker Type Used: Cigarettes 2nd Hand Smoke Exposure: No Recent Foreign Travel: No Recent Infectious Disease Expo: No Hospitalization with Isolation: Denies Immunizations Up To Date Tetanus Booster (TDap): Less than 5yrs Past Medical History PMH As described under Assessment. Family Medical History Family History: Cardiovascular disease G8 SISTER Diabetes mellitus G8 SISTER FH: lung cancer G8 SISTER Allergies and Home Medications Allergies Coded Allergies: Sulfa (Sulfonamide Antibiotics) (Verified Allergy, Mild, HIVES, 01/14/18) Home Medications Amlodipine Besylate 5 Mg Tablet, 5 MG PO DAILY, (Reported) Amoxicillin 500 Mg Tablet, 500 MG PO BID Prescribed by: CLAUDIO FARAH on 03/07/19 1429 Aspirin 81 Mg Tab.chew, 81 MG PO DAILY Prescribed by: CLAUDIO FARAH on 03/07/19 1435 Bumetanide 1 Mg Tablet, 2 MG PO DAILY, (Reported) TAKES 2 (1MG) TABLETS Diltiazem HCl 120 Mg Cap.er.24h, 120 MG PO DAILY Prescribed by: BENTON SANDERS on 12/30/19 1820 Ergocalciferol (Vitamin D2) 50,000 Unit Capsule, 50,000 UNITS PO Fr, (Reported) Escitalopram Oxalate 20 Mg Tablet, 40 MG PO DAILY, (Reported) TAKES 2 (20MG) TABLETS Gabapentin 300 Mg Capsule, 600 MG PO BID, (Reported) LAST FILLED #180 12-19-18 TAKES 2 (300MG) CAPSULES Insulin Aspart 300 Units/3 Ml Solution, 20 UNITS SQ AC, (Reported) LAST FILLED AUG 2018 Insulin Detemir 100 Unit/1 Ml Insuln.pen, 40 UNITS SC BID, (Reported) Levothyroxine Sodium 150 Mcg Tablet, 150 MCG PO DAILY@0630 Prescribed by: CLAUDIO FARAH on 03/07/19 1435 Lisinopril 10 Mg Tablet, 10 MG PO DAILY, (Reported) Metoprolol Succinate 100 Mg Tab.er.24h, 100 MG PO DAILY Prescribed by: CLAUDIO FARAH on 03/07/19 1435 Rosuvastatin Calcium 20 Mg Tablet, 20 MG PO HS, (Reported) Sitagliptin Phosphate 25 Mg Tablet, 25 MG PO DAILY, (Reported) LAST FILLED #90 5-3-19 Trazodone HCl 50 Mg Tablet, 50 MG PO HS, (Reported) Patient Home Medication List Home Medication List Reviewed: Yes Physical Exam-Cardiology Physical Exam Vital Signs/I&O 01/11/20 00:00 Intake Total 1087 ml Output Total 200 ml Balance 887 ml Capillary Refill : Less Than 3 Seconds Constitutional: appears stated age, AAO x 3; No apparent distress; well- developed, well-nourished HEENT: PERRL; No discharge; hearing is well preserved, oral hygience is good; No ulceration, No xanthelasmas are seen Neck: No carotid bruit; carotid pulses are 2 + bilaterally Respiratory: chest is bilaterally symmetric, lungs clear to auscultation Cardiovascular: irregularly irregular, tachycardia, S1 and S2 Gastrointestinal: soft, audible bowel sounds; No spleenomegaly Rectal: deferred Extremities: normal range of motion, non-tender, normal inspection, pedal edema; No clubbing, No cyanosis, No significant edema Neurologic/Psychiatric: no motor/sensory deficits, alert, normal mood/affect, oriented x 3, power is 5/5 both on sides Skin: normal color, warm/dry; No rash, No ulcerations Data Review Labs ECG Impression ECG Comment Atrial flutter with 2-1 AV block. A/P-Cardiology Assessment/Admission Diagnosis Typical atrial flutter with 2-1 AV block, Degenerated to atrial fibrillation with RVR, Diabetes, End-stage renal disease, Hypertension, Hyperlipidemia Plan Typical atrial flutter with 2-1 AV block, Degenerated to atrial fibrillation with RVR, recommend transesophageal echocardiogram assisted cardioversion. Informed consent taken and plan from the patient. 1/500 chance of esophageal damage was discussed. 1 percent risk of stroke was also discussed. Patient accepted all risk and would like to proceed with the procedure. Uninterrupted oral anticoagulation. I spoke at length with the patient and recommended atrial flutter ablation since the patient has had 3 episodes in the last 2 weeks. The first episode was hemodynamically significant as well. Diabetes, continue to follow clinically. End-stage renal disease, dialysis with [facility] Sunday, Sunday, Sunday. Hypertension, stable. Hyperlipidemia, continue statin therapy. Thank you for your consultation. Please call me if you have any questions. Damaris Thapa MD, FACP, FACC, FSCAI, FHRS, CCDS Interventional Cardiology Cardiac Electrophysiology Vascular Medicine and Endovascular Interventions Clinical Quality Measures DVT/VTE Risk/Contraindication: Risk Factor Score Per Nursin RFS Level Per Nursing on Admit: 3=High Rex THAPA MD Jan 10, 2020 22:01
--- NOTE | 2020-01-11 12:27 | Short Stay Summary-Hospitalist ---
History of Present Illness HPI/Chief Complaint This 54-year-old woman with known atrial flutter with RVR presents to the emergency room with complaints of tachycardia. She has been seen twice recently for the same issue and has undergone cardioversion as medical therapies were not effective. The first time she presented she was also hypotensive and unstable. She also has end-stage renal disease and is on dialysis. She receives her dialysis Mondays, Wednesdays and Fridays. Symptoms started last night and persisted this morning. She denies any chest pain. She has mild headache. She has seen Dr. Thapa in the hospital but has not established with a client experience specialist in the outpatient setting yet. Her primary care provider is Dr. Bimal Vital at [facility] and her traveling sales representative is Dr. Luna Paredes at [facility]. She takes Cardizem CD 120 mg which she has not yet had this morning. She also takes Toprol-XL 25 mg daily which she has also not had. Her Eliquis was taken last night but not yet this morning. Patient denied chest pain or shortness of breath and is being admitted for urgent cardioversion. Per Dr. Thapa pending CHRIS evaluation. Date Seen 01/10/20 Time Seen by a Provider: 12:00 Attending Physician Ivan Casper MD PCP Bimal Vital MD Referring Physician Date of Admission Jan 10, 2020 at 11:10 Home Medications & Allergies Home Medications Reviewed patient Home Medication Reconciliation performed by pharmacy medication reconciliations staging technician and/or nursing. Patients Allergies have been reviewed. Allergies Allergies Coded Allergies Sulfa (Sulfonamide Antibiotics) (Verified Allergy, Mild, HIVES, 01/14/18) Past Bdbdwqz-Ywbxjh-Akzrey Hx Past Med/Social Hx: Reviewed Nursing Past Med/Soc Hx, Reviewed and Corrections made Patient Social History Alcohol Use: Denies Use Recreational Drug Use: Yes Drug of Choice: THC Smoking Status: Former Smoker Former Smoker, Quit: Jan 14, 1999 Type Used: Cigarettes 2nd Hand Smoke Exposure: No Recent Foreign Travel: No Contact w/other who traveled: No Recent Hopitalizations: Yes (12/27/2019) Recent Infectious Disease Expo: No Immunizations Up To Date Tetanus Booster (TDap): Less than 5yrs Pediatric: Yes Seasonal Allergies Seasonal Allergies: Yes Past Medical History Surgeries: Dialysis, Gallbladder, Hysterectomy, Oophorectomy Currently Using CPAP: No (HAS CPAP, BUT DOES NOT WEAR IT) Cardiac: Chronic Edema/Swelling, High Cholesterol, Hypertension Neurological: Neuropathy 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: No Sexually Transmitted Disease: No HIV/AIDS: No Female 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 Disorders: 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 Hysterectomy, Menopausal Genitourinary: Renal Failure, Dialysis, UTI-Chronic Gastrointestinal: Chronic Constipation, Chronic Diarrhea Musculoskeletal: Arthritis, Chronic Back Pain Endocrine: Diabetes, Insulin dep Loss of Vision: Bilateral Hearing Impairment: Denies Cancer: Skin Psychosocial: Anxiety, Depression History of Blood Disorders: No Adverse Reaction to Blood Hurst: No (N/A) Family History Cardiovascular disease G8 SISTER Diabetes mellitus G8 SISTER FH: lung cancer G8 SISTER Review of Systems Constitutional: see HPI Physical Exam Physical Exam Vital Signs Vital Signs - First Documented 01/10/20 01/10/20 08:20 12:00 Temp 37.1 Pulse 137 Resp 15 B/P (MAP) 118/74 (89) Pulse Ox 96 O2 Delivery Room Air O2 Flow Rate 2.50 Capillary Refill : Less Than 3 Seconds Height, Weight, BMI Height: 5'3.00" Weight: 264lbs. 1.0oz. [id number]; 42.00 BMI Method:Stated General Appearance: No Apparent Distress, WD/WN HEENT: PERRL/EOMI, Normal ENT Inspection Neck: Normal Inspection Respiratory: Lungs Clear, Normal Breath Sounds Cardiovascular: No Edema, No Murmur, Tachycardia Gastrointestinal: Normal Bowel Sounds Extremity: Normal Inspection, No Pedal Edema, Other (thrill in the right arm from the dialysis fistula) Neurologic/Psychiatric: Alert, Oriented x3, No Motor/Sensory Deficits, Normal Mood/Affect, registered nurse fetal II-XII Norm as Tested Skin: Normal Color, Warm/Dry Results Results/Procedures Labs Laboratory Tests 01/10/20 08:25 Patient resulted labs reviewed. Short Stay Diagnosis Discharge Diagnosis-Short Stay Admission Diagnosis 1. Paroxysmal atrial flutter with rapid ventricular response 2. End-stage renal disease on hemodialysis. Final Discharge Diagnosis As per admission diagnosis Conclusion Plan Patient was admitted to intensive care unit. Echocardiography transesophageal was unremarkable. No evidence for intracardiac thrombus formation was noted. LV function was reportedly normal but an ejection fraction estimation was not given. Patient underwent uneventful cardioversion. Patient has follow-up with Dr. Thapa to discuss future ablation due to the recurrent nature of her atrial flutter as well as the fact that is symptomatic. Her metoprolol XL was increased to 100 mg daily and her other medications remain unchanged with follow-up appointment with Dr. Thapa in one week. Clinical Quality Measures DVT/VTE Risk/Contraindication: Risk Factor Score Per Nursin RFS Level Per Nursing on Admit: 3=High Copy Copies To 1: BIMAL VITAL MD, MARK D MD Jan 11, 2020 12:27
[2020-01-14] MEDS ORDERED: SEVE800T7 (03:28)
[2020-01-14] MEDS ORDERED: APIX5TAB (03:28)
== END 2020-01-10 17:05 | disposition home or self-care (01) ==
LOC: EDUNIT# 08:12 → ER 08:13 → ICU 11:10
PROVIDERS: ADMIT Internal Medicine; ATTEND Internal Medicine
DX: I48.91 Unspecified atrial fibrillation (principal); I48.3 Typical atrial flutter; I13.2 Hypertensive heart and chronic kidney disease with heart failure and with stage 5 chronic kidney disease, or end stage renal disease; E11.22 Type 2 diabetes mellitus with diabetic chronic kidney disease; N18.6 End stage renal disease; I50.9 Heart failure, unspecified; F41.9 Anxiety disorder, unspecified; F32.9 Major depressive disorder, single episode, unspecified; K21.9 Gastro-esophageal reflux disease without esophagitis; E78.2 Mixed hyperlipidemia; J44.9 Chronic obstructive pulmonary disease, unspecified; I34.0 Nonrheumatic mitral (valve) insufficiency; E11.40 Type 2 diabetes mellitus with diabetic neuropathy, unspecified; G47.30 Sleep apnea, unspecified; G89.29 Other chronic pain; M19.90 Unspecified osteoarthritis, unspecified site; Z79.01 Long term (current) use of anticoagulants; Z79.82 Long term (current) use of aspirin; Z79.4 Long term (current) use of insulin; Z79.899 Other long term (current) drug therapy; Z88.2 Allergy status to sulfonamides; Z87.891 Personal history of nicotine dependence; Z99.2 Dependence on renal dialysis; Z85.828 Personal history of other malignant neoplasm of skin; Z80.1 Family history of malignant neoplasm of trachea, bronchus and lung
CPT/HCPCS: 36415; 80048; 83735; 85025; 93005; 93041; 93312; 93320; 93325; G0378

== ENCOUNTER 2020-01-13 16:06 | Emergency (ER) | payer MEDICARE, MEDICAID ==
[~2020-01-13] VITALS: Ht 157.5 cm; Wt 106.1 kg
--- NOTE | 2020-01-13 16:38 | ED Cardiac General ---
History of Present Illness General Chief Complaint: Cardiac/General Problems Stated Complaint: A FLUTTER Nursing Triage Note: pt amb to rm 5 with complaint of aflutter. at time of triage, pt states she sneezed while sitting in the waiting room and states heart went back into sinus rhythm. states the a flutter started at 1530 after waking up from a nap. (KYLIE KNOX,MED STUDENT) History of Present Illness Date Seen by Provider: Jan 13, 2020 Time Seen by Provider: 16:16 Initial Comments Mrs. Mehta presents to the emergency department this afternoon wt complaints of atrial flutter. She states she noticed she was in atrial flutter after waking up from a nap this afternoon around 1530. While sitting in the waiting room Aimee Bates sneezed and noticed immediately after that her pulse was regular. She denies chest pain, shortness of breath at this time. She has been having an increasing number of palpitations and feeling her heart "flutter" over the past few days. Aimee Bates has been seen in the ED for atrial flutter several times over the last 2 weeks, most recently on 01/09 she was admitted to the ICU for CHRIS and cardioversion which were successful and uneventful. She was discharged at that time with an appointment scheduled for an ablation on 01/22/2020. She has been taking medications as prescribed. She currently gets dialysis on // Timing/Duration: 1 hour Severity: moderate Associated Systoms: No Chest Pain, No Cough, No Fever/Chills, No Shortness of Air; Other (palpitations) (KYLIE KNOX,MED STUDENT) Initial Comments I was personally present for the history and physical and agree with MS4 documentation as above. (STEPHANE ROSE MD) Allergies and Home Medications Allergies Coded Allergies: Sulfa (Sulfonamide Antibiotics) (Verified Allergy, Mild, HIVES, 01/14/18) Home Medications Amlodipine Besylate 5 Mg Tablet, 5 MG PO DAILY, (Reported) Amoxicillin 500 Mg Tablet, 500 MG PO BID Prescribed by: CLAUDIO FARAH on 03/07/19 1429 Aspirin 81 Mg Tab.chew, 81 MG PO DAILY Prescribed by: CLAUDIO FARAH on 03/07/19 1435 Bumetanide 1 Mg Tablet, 2 MG PO DAILY, (Reported) TAKES 2 (1MG) TABLETS Diltiazem HCl 120 Mg Cap.er.24h, 120 MG PO DAILY Prescribed by: BENTON SANDERS on 12/30/19 1820 Ergocalciferol (Vitamin D2) 50,000 Unit Capsule, 50,000 UNITS PO Fr, (Reported) Escitalopram Oxalate 20 Mg Tablet, 40 MG PO DAILY, (Reported) TAKES 2 (20MG) TABLETS Gabapentin 300 Mg Capsule, 600 MG PO BID, (Reported) LAST FILLED #180 12-19-18 TAKES 2 (300MG) CAPSULES Insulin Aspart 300 Units/3 Ml Solution, 20 UNITS SQ AC, (Reported) LAST FILLED AUG 2018 Insulin Detemir 100 Unit/1 Ml Insuln.pen, 40 UNITS SC BID, (Reported) Levothyroxine Sodium 150 Mcg Tablet, 150 MCG PO DAILY@0630 Prescribed by: CLAUDIO FARAH on 03/07/19 1435 Lisinopril 10 Mg Tablet, 10 MG PO DAILY, (Reported) Metoprolol Succinate 100 Mg Tab.er.24h, 100 MG PO DAILY Prescribed by: CLAUDIO FARAH on 03/07/19 1435 Rosuvastatin Calcium 20 Mg Tablet, 20 MG PO HS, (Reported) Sitagliptin Phosphate 25 Mg Tablet, 25 MG PO DAILY, (Reported) LAST FILLED #90 11-15-18 Trazodone HCl 50 Mg Tablet, 50 MG PO HS, (Reported) Patient Home Medication List Home Medication List Reviewed: Yes (KYLIE NKOX,KARLIE STUDENT) Review of Systems Review of Systems Constitutional: no symptoms reported EENTM: No Symptoms Reported Respiratory: No Symptoms Reported Cardiovascular: Denies Chest Pain; Irregular Heart Rate, Palpitations Gastrointestinal: No Symptoms Reported Genitourinary: No Symptoms Reported Musculoskeletal: no symptoms reported Skin: no symptoms reported Psychiatric/Neurological: No Symptoms Reported Endocrine: No Symptoms Reported Hematologic/Lymphatic: No Symptoms Reported (KYLIE KNOX MED STUDENT) Past Estyagh-Scxqka-Vahcop Hx Patient Social History Alcohol Use: Denies Use Recreational Drug Use: Yes Drug of Choice: THC Smoking Status: Former Smoker Type Used: Cigarettes Former Smoker, Quit: Jan 14, 1999 2nd Hand Smoke Exposure: No Recent Foreign Travel: No Contact w/Someone Who Travel: No Recent Infectious Disease Expo: No Recent Hopitalizations: Yes (12/27/2019) (KYLIE KNOX,KARLIE STUDENT) Immunizations Up To Date Tetanus Booster (TDap): Less than 5yrs PED Vaccines UTD: Yes (KYLIE KNOX MED STUDENT) Seasonal Allergies Seasonal Allergies: Yes (KYLIE KNOXSafetyCertified STUDENT) Past Medical History Surgeries: Yes (PILONIDAL CYST; DX LAPAROSCOPY; HYST/BSO, dialysis shunt in right forearm ) Dialysis, Gallbladder, Hysterectomy, Oophorectomy Respiratory: Yes Sleep Apnea, COPD Currently Using CPAP: No (HAS CPAP, BUT DOES NOT WEAR IT) Cardiac: Yes (CHF; ELEVATED TRIGLYCERIDES; ATRIAL FLUTTER) Chronic Edema/Swelling, High Cholesterol, Hypertension Neurological: Yes Neuropathy 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 Disorders: No Female 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 Disorders: 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, 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 Sexually Transmitted Disease: No HIV/AIDS: No Genitourinary: Yes (DIALYSIS -W-) Renal Failure, Dialysis, UTI-Chronic Gastrointestinal: Yes Chronic Constipation, Chronic Diarrhea Musculoskeletal: Yes Arthritis, Chronic Back Pain Endocrine: Yes Diabetes, Insulin dep HEENT: No Loss of Vision: Bilateral Hearing Impairment: Denies Cancer: Yes Skin Psychosocial: Yes Anxiety, Depression Integumentary: Yes (skin lesion) Blood Disorders: No Adverse Reaction/Blood Tranf: No (N/A) (KYLIE KNOX,KARLIE STUDENT) Family Medical History Cardiovascular disease G8 SISTER Diabetes mellitus G8 SISTER FH: lung cancer G8 SISTER Physical Exam Vital Signs Vital Signs - First Documented 01/13/20 16:16 Pulse 83 Resp 18 B/P (MAP) 135/61 (85) Pulse Ox 94 O2 Delivery Room Air (STEPHANE ROSE MD) Vital Signs Capillary Refill : Less Than 3 Seconds (KYLIE KNOX,SafetyCertified STUDENT) Height, Weight, BMI Height: 5'3.00" Weight: 264lbs. 1.0oz. 119.623455vj; 42.00 BMI Method:Stated (KYLIE KNOX,SafetyCertified STUDENT) General Appearance: No Apparent Distress, WD/WN, Obese HEENT: PERRL/EOMI, Normal ENT Inspection Neck: Normal Inspection Respiratory: Lungs Clear, Normal Breath Sounds, No Accessory Muscle Use Cardiovascular: Regular Rate, Rhythm, No Edema, No Murmur Extremity: Normal Inspection, No Pedal Edema Neurologic/Psychiatric: Alert, Oriented x3, No Motor/Sensory Deficits, Normal Mood/Affect Skin: Normal Color, Warm/Dry (STEPHANE ROSE MD) Procedures/Interventions Patient Education: Explained Benefits, Explained Risks, Pt. Ack. Understanding Patient History: Sleep Apnea Breath Sounds per Auscultation: Clear Heart Sounds per Auscultation: Regular Airway Exam: Mouth opens >2 fingers, Neck Full Range of Motion, Visulation of Uvula Sedation Adminstration Time: 1733 (KYLIE KNOX,MED STUDENT) Progress/Results/Core Measures Results/Orders My Orders Orders - STEPHANE ROSE MD Ekg Tracing (01/13/20 16:27) Continuous Ekg Monitoring (01/13/20 16:27) (STEPHANE ROSE MD) Vital Signs/I&O 01/13/20 01/13/20 16:16 16:48 Pulse 83 83 Resp 18 18 B/P (MAP) 135/61 (85) 119/56 (85) Pulse Ox 94 94 O2 Delivery Room Air (STEPHANE ROSE MD) Blood Pressure Mean: 85 Progress Progress Note : Progress Note Patient was found to be in sinus rhythm on the monitor and by EKG. She was feeling much better. Duration of atrial flutter by her estimation was around 40 minutes. She is anticoagulated. She takes Cardizem and metoprolol. Outpatient follow-up was recommended. No further workup was needed in the emergency room. (STEPHANE ROSE MD) Initial ECG Impression Date: Jan 13, 2020 Initial ECG Impression Time: 16:26 Initial ECG Rate: 76 Initial ECG Rhythm: Normal Sinus Initial ECG Intervals: Normal Initial ECG Impression: Normal Comment Normal sinus rhythm with no ST elevation or depression. No abnormal intervals or axis deviation. (STEPHANE ROSE MD) Departure Impression Primary Impression: Paroxysmal atrial flutter Disposition: 01 HOME, SELF-CARE Condition: Improved Departure-Patient Inst. Decision time for Depature: 16:40 (STEPHANE ROSE MD) Referrals: BIMAL VITAL MD (PCP/Family) Primary Care Physician Patient Instructions: Atrial Flutter Add. Discharge Instructions: Return to care if you have persistent symptoms of atrial flutter. Otherwise continue your medications as previously prescribed and follow-up with your final finisher forging dies and primary care provider as previously directed. All discharge instructions reviewed with patient and/or family. Voiced understanding. Copy Copies To 1: Rex RIVERA MD Copies To 2: BIMAL VITAL MD [facility],MED STUDENT Jan 13, 2020 16:38 STEPHANE ROSE MD Jan 13, 2020 16:41
[2020-01-13 16:48] VITALS: BP 119/56
--- OUTSIDE RECORDS SUMMARY | 2020-01-13 18:14 | XMS REPORT | Continuity of Care Document ---
Author Organization Unknown Address Unknown Phone Unavailable Allergies Active Description Code Type Severity Reaction Onset Reported/Identified Relationship to Patient Clinical Status Yes sulfa drugs NKMA N/A N/A 09/14/2017 Yes Sulfa (Sulfonamide Antibiotics) [id number] Drug Allergy Mild HIVES 8 Medications [...] puffs 09/14/2017 Inhalation 2 puffs, Inhalation, QID, UT N: as needed for wheezing, 0 Refill(s) [...] Ot I25. 10 ATHSCL HEART DISEASE OF [place] CORONARY 01/18/2018 KIRT ANN MD Ot I50. 9 HEART FAILURE, UNSPECIFIED 01/18/2018 KIRT ANN MD Ot K57. 30 DVRTCLOS OF LG INT W/O PERFORATION OR AB 01/18/2018 KIRT ANN MD Ot Z12. 11 ENCOUNTER FOR SCREENING FOR MALIGNANT NE 01/18/2018 KIRT ANN MD Ot Z68. 41 BODY MASS INDEX (BMI) 40.0-44.9, ADULT 01/18/2018 KIRT ANN MD Ot Z79. 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 01 MORBID (SEVERE) OBESITY DUE TO EXCESS CA 01/22/2018 KIRT ANN MD Ot I11. 0 HYPERTENSIVE HEART DISEASE WITH HEART FA 01/22/2018 KIRT ANN MD, Ot I25. 10 ATHSCL HEART DISEASE OF [place] CORONARY 01/22/2018 KIRT ANN MD Ot I50. 9 HEART FAILURE, UNSPECIFIED 01/22/2018 KIRT ANN MD, Ot K57. 30 DVRTCLOS OF LG INT W/O PERFORATION OR AB 01/22/2018 IKRT ANN MD Ot Z12. 11 ENCOUNTER FOR SCREENING FOR MALIGNANT NE 01/22/2018 KIRT ANN MD Ot Z68. 41 BODY MASS INDEX (BMI) 40.0-44.9, ADULT 01/22/2018 KIRT ANN MD Ot Z79. 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 01 MORBID (SEVERE) OBESITY DUE TO EXCESS CA 01/23/2018 KIRT ANN MD Ot I11. 0 HYPERTENSIVE HEART DISEASE WITH HEART FA 01/23/2018 KIRT ANN MD, Ot I25. 10 ATHSCL HEART DISEASE OF [place] CORONARY 01/23/2018 KIRT ANN MD, Ot I50. 9 HEART FAILURE, UNSPECIFIED 01/23/2018 KIRT ANN MD, Ot K57. 30 DVRTCLOS OF LG INT W/O PERFORATION OR AB 01/23/2018 KIRT ANN MD Ot Z12. 11 ENCOUNTER FOR SCREENING FOR MALIGNANT NE 01/23/2018 KIRT ANN MD Ot Z68. 41 BODY MASS INDEX (BMI) 40.0-44.9, ADULT 01/23/2018 KIRT ANN MD Ot Z79. 84 RESIDENTIAL (CURRENT) USE OF ORAL HYPOGLYC 01/23/2018 KIRT ANN MD Ot Z79.899 OTHER POLICE CAPTAIN (CURRENT) DRUG THERAPY 03/05/2018 Ot M47.26 OTH [...] 04/26/2018 VILLAR DOSAVANNAH D Ot Z79. 4 POLICE CAPTAIN (CURRENT) USE OF INSULIN 04/26/2018 VILLAR DOSAVANNAH D Ot Z79.899 OTHER RESIDENTIAL (CURRENT) DRUG THERAPY 04/30/2018 VILLAR DOSAVANNAH D [...] 04/30/2018 VILLAR DOSAVANNAH D Ot Z79. 4 POLICE CAPTAIN (CURRENT) USE OF INSULIN 04/30/2018 VILLAR DO, SAVANNAH D Ot Z79.899 OTHER POLICE CAPTAIN (CURRENT) DRUG THERAPY 04/30/2018 VILLAR DO, SAVANNAH [...] VILLAR DO, SAVANNAH D Ot Z79. 4 RESIDENTIAL (CURRENT) USE OF INSULIN 04/30/2018 VILLAR DO, SAVANNAH D Ot Z79.899 OTHER POLICE CAPTAIN (CURRENT) DRUG THERAPY 05/09/2018 VILLAR DO, SAVANNAH [...] VILLAR DO, SAVANNAH D Ot Z79. 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 07/10/2018 ISABELLA MEJIA APRN Ot E78.5 HYPERLIPIDEMIA, UNSPECIFIED 07/10/2018 ISABELLA MEJIA APRN Ot I12.9 HYPERTENSIVE CHRONIC KIDNEY DISEASE W ST 07/10/2018 ISABELLA MEJIA APRN Ot I50.9 HEART FAILURE, UNSPECIFIED 07/10/2018 ISABELLA MEJIA APRN Ot M10.9 GOUT, UNSPECIFIED 07/10/2018 ISABELLA MEJIA APRN Ot N18.4 CHRONIC KIDNEY DISEASE, STAGE 4 (SEVERE) 07/10/2018 ISABELLA MEJIA ABSENCE MANAGEMENT CONSULTANT Ot N39.0 URINARY TRACT INFECTION, SITE NOT SPECIF 07/10/2018 ISABELLA MEJIA APRN Ot Z87.891 PERSONAL HISTORY OF NICOTINE DEPENDENCE 08/27/2018 SHERLYN HARRIS Ot E11.40 TYPE 2 DIABETES MELLITUS WITH DIABETIC N 08/27/2018 SHERLYN HARRIS Ot E78.00 PURE HYPERCHOLESTEROLEMIA, UNSPECIFIED 08/27/2018 SHERYLN HARRIS Ot F32.9 MAJOR DEPRESSIVE DISORDER, SINGLE [...] LUMP, HEAD 08/27/2018 SHERLYN HARRIS Ot Z79.4 RESIDENTIAL (CURRENT) USE OF INSULIN 08/27/2018 SHERLYN HARRIS [...] OTHER SPECIFIED POSTPROCEDURAL STATES 08/27/2018 ISABELLA MEJIA ABSENCE MANAGEMENT CONSULTANT Ot E11.21 TYPE 2 DIABETES MELLITUS WITH DIABETIC N 08/27/2018 ISABELLA MEJIA ABSENCE MANAGEMENT CONSULTANT Ot E11.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 08/27/2018 ISABELLA MEJIA APRN Ot E78.5 HYPERLIPIDEMIA, [...] LOCALIZED SWELLING, MASS AND LUMP, HEAD 08/29/2018 SHELRYN HARRIS Ot Z79.4 RESIDENTIAL (CURRENT) USE OF INSULIN 08/29/2018 SHERLYN HARRIS [...] E11.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 03/06/2019 ISABELLA MEJIA APRN Ot E78.5 HYPERLIPIDEMIA, [...] 03/07/2019 CLAUDIO FARAH MD, Ot Z79 .4 RESIDENTIAL (CURRENT) USE OF INSULIN 03/07/2019 CLAUDIO FARAH MD, Ot Z85.828 PERSONAL HISTORY OF OTHER MALIGNANT NEOP 03/07/2019 CLAUDIO FARAH MD, Ot Z91.19 PATIENT'S NONCOMPLIANCE W OT MEDICAL TR 03/17/2019 ISABELLA MEJIA APRN Ot E11.21 TYPE 2 DIABETES MELLITUS WITH DIABETIC N 03/17/2019 ISABELLA MEJIA APRN Ot E11.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.] E11.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 04/10/2019 JOHANNA CROWDER FACC, LYDIA FACP CCDS [...] E11.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 05/09/2019 JOHANNA CROWDER FACC, ALI FACP CCDS Ot I13.0 HYP HRT CHR KDNY DIS W HRT FAIL AND ST 05/09/2019 JOHANNA CROWDER FACC, ALI FACP CCDS Ot I50.31 ACUTE DIASTOLIC (CONGESTIVE) HEART FAILU 05/09/2019 JOHANNA CROWDER FACC, ALI FACP CCDS Ot N18.4 CHRONIC KIDNEY DISEASE, STAGE 4 (SEVERE) 08/05/2019 ISABELLA MEJIA APRN Ot G47.33 OBSTRUCTIVE SLEEP APNEA (ADULT) (PEDIATR 08/06/2019 ISABELLA MEJIA ABSENCE MANAGEMENT CONSULTANT Ot G47.33 OBSTRUCTIVE SLEEP APNEA (ADULT) (PEDIATR 08/06/2019 ISABELLA MEJIA APRN Ot G47.33 OBSTRUCTIVE SLEEP APNEA (ADULT) (PEDIATR 08/06/2019 ISABELLA MEJIA APRN Ot G47.33 OBSTRUCTIVE SLEEP APNEA (ADULT) (PEDIATR 08/07/2019 ISABELLA MEJIA APRN Ot G47.33 OBSTRUCTIVE SLEEP APNEA (ADULT) (PEDIATR 08/07/2019 DOUTHITT, ISABELLA B ABSENCE MANAGEMENT CONSULTANT Ot I10 ESSENTIAL (PRIMARY) HYPERTENSION 08/08/2019 ISABELLA MEJIA ABSENCE MANAGEMENT CONSULTANT Ot G47.33 OBSTRUCTIVE SLEEP APNEA (ADULT) (PEDIATR 08/08/2019 ISABELLA MEJIA ABSENCE MANAGEMENT CONSULTANT Ot I10 ESSENTIAL (PRIMARY) HYPERTENSION 08/15/2019 YAZMIN, DAYNA R ABSENCE MANAGEMENT CONSULTANT Ot G47.33 OBSTRUCTIVE SLEEP APNEA (ADULT) (PEDIATR 08/21/2019 YAZMIN, DAYNA R ABSENCE MANAGEMENT CONSULTANT Ot G47.33 OBSTRUCTIVE SLEEP APNEA (ADULT) (PEDIATR 08/21/2019 YAZMIN, DAYNA R ABSENCE MANAGEMENT CONSULTANT Ot G47.33 OBSTRUCTIVE SLEEP APNEA (ADULT) (PEDIATR 08/21/2019 YAZMIN, DAYNA R ABSENCE MANAGEMENT CONSULTANT Ot G47.33 OBSTRUCTIVE SLEEP APNEA (ADULT) (PEDIATR 08/21/2019 YAZMIN, DAYNA R ABSENCE MANAGEMENT CONSULTANT Ot G47.33 OBSTRUCTIVE SLEEP APNEA (ADULT) (PEDIATR 08/21/2019 YAZMIN, DAYNA R ABSENCE MANAGEMENT CONSULTANT Ot G47.33 OBSTRUCTIVE SLEEP APNEA (ADULT) (PEDIATR 08/22/2019 YAZMIN, DAYNA R ABSENCE MANAGEMENT CONSULTANT Ot G47.33 OBSTRUCTIVE SLEEP APNEA (ADULT) (PEDIATR 08/22/2019 YAZMIN, DAYNA R ABSENCE MANAGEMENT CONSULTANT Ot G47.33 OBSTRUCTIVE SLEEP APNEA (ADULT) (PEDIATR 08/22/2019 YAZMIN, DAYNA R ABSENCE MANAGEMENT CONSULTANT Ot G47.33 OBSTRUCTIVE SLEEP APNEA (ADULT) (PEDIATR 08/26/2019 YAZMIN, DAYNA R ABSENCE MANAGEMENT CONSULTANT Ot G47.33 OBSTRUCTIVE SLEEP APNEA (ADULT) (PEDIATR 08/26/2019 SAULO CROWDER, KEN Sood Ot Z12.31 ENCNTR SCREEN MAMMOGRAM FOR MALIGNANT NE 08/26/2019 DAYNA ARCE R ABSENCE MANAGEMENT CONSULTANT Ot G47.33 OBSTRUCTIVE SLEEP APNEA (ADULT) (PEDIATR 08/26/2019 SAULO CROWDER, KEN Sood Ot Z12.31 ENCNTR SCREEN MAMMOGRAM FOR MALIGNANT NE 08/27/2019 DAYNA ARCE R ABSENCE MANAGEMENT CONSULTANT Ot G47.33 OBSTRUCTIVE SLEEP APNEA (ADULT) (PEDIATR 08/27/2019 DAYNA ARCE R ABSENCE MANAGEMENT CONSULTANT Ot G47.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 08/27/2019 SAULO CROWDER, KEN Sood Ot Z12.31 ENCNTR SCREEN MAMMOGRAM FOR MALIGNANT NE 09/02/2019 KEN VERNON MD Ot Z12.31 ENCNTR SCREEN MAMMOGRAM FOR MALIGNANT NE 09/03/2019 DAYNA ARCE ABSENCE MANAGEMENT CONSULTANT Ot G47.33 OBSTRUCTIVE SLEEP APNEA (ADULT) (PEDIATR 09/03/2019 DAYNA ARCE ABSENCE MANAGEMENT CONSULTANT Ot G47.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 09/16/2019 SAULO CROWDER, KEN Sood Ot Z12.31 ENCNTR SCREEN MAMMOGRAM FOR MALIGNANT NE 09/16/2019 SAULO CROWDER, KEN Sood Ot Z12.31 ENCNTR SCREEN MAMMOGRAM FOR MALIGNANT NE 09/19/2019 SAULO CROWDER, KEN Sood Ot Z12.31 ENCNTR SCREEN MAMMOGRAM FOR MALIGNANT NE 12/30/2019 TOMMY DO BENTON Henry Ot E11.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 12/30/2019 BERNIE DOARIADNAA Henry Ot E11.40 TYPE 2 DIABETES MELLITUS WITH DIABETIC N 12/30/2019 TOMMY DO, BENTON Figueroa Ot E78.00 PURE HYPERCHOLESTEROLEMIA, UNSPECIFIED 12/30/2019 BERNIE DO, BENTON K Ot F32.9 MAJOR DEPRESSIVE DISORDER, SINGLE EPISOD 12/30/2019 BERNIE DOARIADNAA Henry Ot F41.9 ANXIETY DISORDER, UNSPECIFIED 12/30/2019 BERNIE DO, BENTON K Ot I13.2 HYP HRT CHR KDNY DIS W HRT FAIL AND W 12/30/2019 TOMMY DO, BENTON K Ot I48.92 UNSPECIFIED ATRIAL FLUTTER 12/30/2019 BERNIE DO BENT[place] K Ot N18.6 END STAGE RENAL DISEASE 12/30/2019 BERNIE DO BENT[place] K Ot Z79.4 RESIDENTIAL (CURRENT) USE OF INSULIN 12/30/2019 [facility] B[place] K Ot Z79.82 POLICE CAPTAIN (CURRENT) USE OF ASPIRIN 12/30/2019 BERNIE DO BENT[place] K Ot Z80.1 FAMILY HISTORY OF MALIG NEOPLASM OF [place] 12/30/2019 BERNIE DOARIADNAA K Ot Z82.49 FAMILY HX OF I[place]HE[place] HEART DIS AND OTH DI 12/30/2019 TOMMY DOARIADNAA Henry Ot Z85.828 PERSONAL HISTORY OF OTHER MALIGNANT NEOP 12/30/2019 BERNIE DOARIADNAA K Ot Z87.891 PERSONAL HISTORY OF NICOTINE DEPENDENCE 12/30/2019 BERNIE DOARIADNAA Henry Ot Z88.2 ALLERGY STATUS TO SULFONAMIDES STATUS 12/30/2019 BERNIE DOARIADNAA Henry Ot Z98.890 OTHER SPECIFIED POSTPROCEDURAL STATES 12/30/2019 TOMMY DO, BENTON K Ot Z99.2 DEPENDENCE ON RENAL DIALYSIS 12/31/2019 ALY JORDAN MD, Ot E11.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 12/31/2019 ALY JORDAN MD, Ot E11.40 TYPE [...] DISEASE 12/31/2019 ALY JORDAN MD, Ot Z79.4 POLICE CAPTAIN (CURRENT) USE OF INSULIN 12/31/2019 ALY JORDAN MD, Ot Z79.82 POLICE CAPTAIN (CURRENT) USE OF ASPIRIN 12/31/2019 ALY JORDAN [...] E11.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 01/02/2020 TOMMY DO, BENTON K Ot E11.40 TYPE 2 DIABETES MELLITUS WITH DIABETIC N 01/02/2020 TOMMY DO, BENTON K Ot E78.00 PURE HYPERCHOLESTEROLEMIA, UNSPECIFIED 01/02/2020 TOMMY DO, BENTON K Ot F32.9 MAJOR DEPRESSIVE DISORDER, SINGLE EPISOD 01/02/2020 TOMMY DO, BENTON K Ot F41.9 ANXIETY DISORDER, UNSPECIFIED 01/02/2020 BERNIE DO, BENTON K Ot I13.2 HYP HRT CHR KDNY DIS W HRT FAIL AND W 01/02/2020 TOMMY DO, BENTON K Ot I48.92 UNSPECIFIED ATRIAL FLUTTER 01/02/2020 BERNIE DO BENTON K Ot N18.6 END STAGE RENAL DISEASE 01/02/2020 BERNIE DO, BENTON K Ot Z79.4 POLICE CAPTAIN (CURRENT) USE OF INSULIN 01/02/2020 BERNIE DO, BENTON K Ot Z79.82 RESIDENTIAL (CURRENT) USE OF ASPIRIN 01/02/2020 [facility], [place] K Ot Z80.1 FAMILY HISTORY OF MALIG NEOPLASM OF [place] 01/02/2020 [facility], B[place] K Ot Z82.49 FAMILY HX OF ISCHEM HEART DIS AND OTH DI 01/02/2020 BERNIE DO BENTON K Ot Z85.828 PERSONAL HISTORY OF OTHER MALIGNANT NEOP 01/02/2020 BERNIE DO, BENTON K Ot Z87.891 PERSONAL HISTORY OF NICOTINE DEPENDENCE 01/02/2020 [facility], [place] K Ot Z88.2 ALLERGY STATUS TO SULFONAMIDES STATUS 01/02/2020 [facility] B[place] K Ot Z98.890 OTHER SPECIFIED POSTPROCEDURAL STATES 01/02/2020 TOMMY DO, BENTON K Ot Z99.2 DEPENDENCE ON RENAL DIALYSIS Procedures Code Description [place] [id number] [facility], per day, for the evaluation and management of a patient, which requires JASEN Jerez MD 09/19/2017 [id number] [facility], per day, for the evaluation and management of a patient, which requires at YECENIA CHURCH MD 09/19/2017 [id number] Offi ce or other outpatient visit for the evaluation and management of an established patient, which TIMBO SMITH I 10/18/2017 17577 Offi ce or other outpatient visit for the evaluation and management of an established patient, which TIMBO SMITH I 03/29/2018 40728 [facility], per day, for the evaluation and management of a patient, which requires these JASEN KHAN MD 03/29/2018 19704 [facility], per day, for the evaluation and [...] 5.0-8.0 Protein Pos 2+ NA Negative Specific Gilman 1.015 NA 1.003-1.030 UA Collection type Clean [...] limit <=0.05 miu/l (units/volume) 5.35 u[iU]/mL 0.35-4.94 Complete blood count (CBC) with automate d white blood cell (WBC) differential - 01/10/20 08:25 Blood leukocytes automated count (number/volume) 11.3 10*3/uL 4.3-11.0 Blood erythrocytes automated count (number/volume) 4.09 10*6/uL 4.35-5.85 Venous blood hemoglobin measurement (mass/volume) 13.0 g/dL 11.5-16.0 Blood hematocrit (volume fraction) 42 % 35-52 Automated erythrocyte mean corpuscular volume 102 [foz_us] 80-99 Automated erythrocyte mean corpuscular h emoglobin (mass per erythrocyte) 32 pg 25-34 Automated erythrocyte mean corpuscular h emoglobin concentration measurement (mass/volume) 31 g/dL 32-36 Automated erythrocyte distribution width ratio 17. 7 % 10.0- 14.5 Automated blood platelet count (count/volume) 248 10*3/uL 130-400 Automated blood platelet mean volume measurement 11.1 [foz_us] 7.4-10.4 Automated blood neutrophils/100 leukocytes 69 % 42-75 Automated blood lymphocytes/100 leukocytes 22 % 12-44 Blood monocytes/100 leukocytes 8 % 0-12 Automated blood eosinophils/100 leukocytes 1 % 0-10 Automated blood basophils/100 leukocytes 1 % 0-10 Blood neutrophils automated count (number/volume) 7.7 10*3 1.8-7.8 Blood lymphocytes automated count (number/volume) 2.5 10*3 1.0-4.0 Blood monocytes automated count (number/volume) 0. 9 10*3 0.0-1.0 Automated eosinophil count 0.2 10*3/uL 0 .0-0.3 Automated blood basophil count (count/volume) 0.1 10*3/uL 0.0-0.1 Whole blood basic metabolic panel - 12/15 02/01 08:25 Serum or plasma sodium measurement (moles/volume) 141 mmol/L 135-145 Serum or plasma potassium measurement (moles/volume) 4.2 mmol/L 3.6-5.0 Serum or plasma chloride measurement (moles/volume) 99 mmol/L 98-107 Carbon dioxide 22 mmol/L 21-32 Serum or plasma anion gap determination (moles/volume) 20 mmol/L 5-14 Serum or plasma urea nitrogen measurement (mass/volume ) 56 mg/dL 7-18 Serum or plasma creatinine measurement (mass/volume) 6.01 mg/dL 0.60-1.30 Serum or plasma urea nitrogen/creatinine mass ratio 9 NRG Serum or plasma creatinine measurement w ith calculation of estimated glomerular filtration rate 7 NRG Serum or plasma glucose measurement (mass/volume) 234 mg/dL 70-105 Serum or plasma calcium measurement (mass/volume) 9.0 mg/dL 8.5-10.1 Magnesium - 01/10/20 08:25 Magnesium 2.5 mg/dL 1.6-2.4 Radiology Report from [id number] on 09/14 10:09:00 Reason For ExamAbdominal pain, [...] Nohydronephrosis. There is no ascites.Dictated on worksta tion:[id number] Line PRELIMINARY DICTATED BY: ALBIN GUTIERREZ MDDICTATED DT/TM: 09/14/2017 9:54 Radiology Report from [id number] on 09/14 10:09:00 Reason For ExamSyncopeREPORTIndication: Syncope.Procedure: [...] significantstenosis hemodynamically. Both vertebrals are patent.Dictated on workstation:[id number] Line PRELIMINARY DICTATED BY: ALBIN GUTIERREZ MDDICTATED DT/TM: 09/14/2017 9:49 Radiology Report from [id number] on 09/14 12:41:00 Reason For ExamCoughREPORTINDICATION: Co ugh.COMPARISON: None available.TECHNIQUE: Frontal and lateral radiographs of the chest dated September 14, 2017.FINDINGS: The cardiac silhouette is mildly enlarged. No significant pulmonaryvascular congestion. The lungs are clear. No pleural effusion. No pneumothorax.Mild scattered osseous degenerative changes without acute osseous abnormality.IMPRESSION: Cardiomegaly without overt congestive heart failure or additionalsuperimposed acute cardiopulmonary abnormality.Dictated on workstation:[id number] Line PRELIMINARY DICTATED BY: MANSI LARSON MDDICTATED DT/TM: 09/14/2017 12:38 Encounters ACCT No. Visit Date/Time Discharge Status Pt. Type Provider Facility Loc./Unit Complaint [id number] 09/14/2017 04:48:00 10:59:00 DIS Inpatient Rodgers Chady [facility] [place] [facility] F5SE Pancreatitis, Acute Renal Failure [id number] 09/15/2017 05:19:03 Document Registration [id number] 12/18/2017 13:34:06 23:59:59 CLS Outpatient TIMBO SMITH I [id number] 01/10/2020 11:10:00 17:05:00 DIS Inpatient KIRT ANN MD Via [facility] ICU A-FLUTTER W/ RVR [id number] 12/30/2019 16:13:00 19:17:00 DIS Emergency TOMMY , BENTON Figueroa Vi a [facility] ER ATRIAL FLUTTER [id number] 12/27/2019 15:07:00 18:58:00 DIS Outpatient ALY JORDAN MD Via [facility] ER HIGH PULSE - 14 5 [id number] 09/01/2019 10:19:00 23:59:59 CLS Outpatient KEN VERNON MD [facility] RAD SCREENING [id number] 08/26/2019 20:56:00 06:25:00 DIS Outpatient DAYNA ARCE APRN Via [facility] SLEEP OBSTRUCTIVE SLEEP APNE A [id number] 08/06/2019 20:39:00 07:29:00 DIS Outpatient ISABELLA MEJIA APRN Via [facility] SLEEP KARO G47.33 [id number] 04/10/2019 13:22:00 019 12:15:00 DIS Outpatient BARNEY CROWDER, LINH Via [facility] SDC IRON DEFICIENCY ANEMIA [id number] 04/08/2019 07:55:00 23:59:59 CLS Outpatient JOHANNA CROWDER FACC, LYDIA BRICEÑO CC DS [facility] CARD ACUTE DIAST OLIC CHF [id number] 03/06/2019 21:25:00 15:24:00 DIS Inpatient GAGAN CROWDER, CLAUDIO Coyne Via [facility] ICU CHF,UTI,CHRONIC RENAL FAILURE,HYPOMAGNESEMIA,HYPOT [id number] 08/27/2018 10:51:00 14:23:00 DIS Emergency KIMBERLY SHERLYN [facility] ER POSSIBLE NECK ABCESS [id number] 06/25/2018 08:40:00 23:59:59 CLS Outpatient ISABELLA MEJIA APRN Via [facility] RAD CKD STAGE 4 [id number] 04/26/2018 09:26:00 13:25:00 DIS Outpatient SAVANNAH VILLAR DO Via [facility] SDC SKIN LESION NOSE [id number] 04/24/2018 11:40:00 12:16:00 DIS Outpatient SAVANNAH VILLAR DO [facility] PREOP SKIN LESION NOSE [id number] 01/18/2018 07:27:00 09:58:00 DIS Outpatient SETH CROWDER, KIRT [place] [facility] ENDO SCREENING [id number] 01/14/2018 09:30:00 018 10:24:00 DIS Outpatient SETH CROWDER, KIRT [place] [facility] PREOP COLONOSCOPY [id number] 04/26/2018 09:26:00 Document Registration [id number] 02/22/2018 10:46:00 Document Registration
[2020-01-14] MEDS ORDERED: SEVE800T7 (03:28)
[2020-01-14] MEDS ORDERED: APIX5TAB (03:28)
[2020-01-14] MEDS ORDERED: POTA10TA36 (03:28)
[2020-01-14] MEDS ORDERED: DULO60CA59 (03:28)
[2020-01-14] MEDS ORDERED: DILT180T PO ×2 (05:29→05:31)
== END 2020-01-13 16:48 | disposition home or self-care (01) ==
LOC: EDUNIT# 16:06 → ER 16:09
DX: I48.92 Unspecified atrial flutter (principal); I13.2 Hypertensive heart and chronic kidney disease with heart failure and with stage 5 chronic kidney disease, or end stage renal disease; I50.9 Heart failure, unspecified; N18.6 End stage renal disease; E11.22 Type 2 diabetes mellitus with diabetic chronic kidney disease; F41.9 Anxiety disorder, unspecified; F32.9 Major depressive disorder, single episode, unspecified; G47.30 Sleep apnea, unspecified; J44.9 Chronic obstructive pulmonary disease, unspecified; E78.00 Pure hypercholesterolemia, unspecified; K59.09 Other constipation; K52.9 Noninfective gastroenteritis and colitis, unspecified; Z87.891 Personal history of nicotine dependence; Z85.828 Personal history of other malignant neoplasm of skin; Z79.82 Long term (current) use of aspirin; Z88.2 Allergy status to sulfonamides; Z99.2 Dependence on renal dialysis; Z79.4 Long term (current) use of insulin; Z79.890 Hormone replacement therapy; Z79.899 Other long term (current) drug therapy
CPT/HCPCS: 93005

== ENCOUNTER 2020-01-14 03:12 | Emergency (ER) | payer MEDICARE, MEDICAID ==
[~2020-01-14] VITALS: Ht 158 cm; Wt 106.0 kg
--- OUTSIDE RECORDS SUMMARY | 2020-01-14 03:19 | XMS REPORT | Continuity of Care Document ---
Author Organization Unknown Address Unknown Phone Unavailable Allergies Active Description Code Type Severity Reaction Onset Reported/Identified Relationship to Patient Clinical Status Yes sulfa drugs NKMA N/A N/A 09/14/2017 Yes Sulfa (Sulfonamide Antibiotics) [id number] Drug Allergy Mild HIVES 8 Medications [...] puffs 09/14/2017 Inhalation 2 puffs, Inhalation, QID, NE N: as needed for wheezing, 0 Refill(s) [...] with diabetic chronic kidney disease BILL CROWDER, JASNE Greene 09/19/2017 LUISPERCY DALEYD I E66.8 Other obesity BILL CROWDER, JASEN Greene 09/19/2017 PERCY SMITHD I I12.9 Hypertensive chronic kidney disease with stage 1 through stage 4 chronic kidney disease, or unspecified chronic kidney disease BILL CROWDER, JAESN Greene 09/19/2017 LUISPERCY DALEYD I N17.8 Other [...] Ot I25. 10 ATHSCL HEART DISEASE OF [place] CORONARY 01/18/2018 KIRT ANN MD Ot I50. 9 HEART FAILURE, UNSPECIFIED 01/18/2018 KIRT ANN MD Ot K57. 30 DVRTCLOS OF LG INT W/O PERFORATION OR AB 01/18/2018 KIRT ANN MD Ot Z12. 11 ENCOUNTER FOR SCREENING FOR MALIGNANT NE 01/18/2018 KIRT ANN MD Ot Z68. 41 BODY MASS INDEX (BMI) 40.0-44.9, ADULT 01/18/2018 KIRT ANN MD Ot Z79. 84 USP (CURRENT) USE OF ORAL HYPOGLYC 01/18/2018 KIRT ANN MD Ot Z79.899 OTHER USP (CURRENT) DRUG THERAPY 01/22/2018 KIRT ANN MD Ot E11. 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 01 MORBID (SEVERE) OBESITY DUE TO EXCESS CA 01/22/2018 KIRT ANN MD Ot I11. 0 HYPERTENSIVE HEART DISEASE WITH HEART FA 01/22/2018 KIRT ANN MD, Ot I25. 10 ATHSCL HEART DISEASE OF [place] CORONARY 01/22/2018 KIRT ANN MD Ot I50. 9 HEART FAILURE, UNSPECIFIED 01/22/2018 KIRT ANN MD, Ot K57. 30 DVRTCLOS OF LG INT W/O PERFORATION OR AB 01/22/2018 KIRT ANN MD Ot Z12. 11 ENCOUNTER FOR SCREENING FOR MALIGNANT NE 01/22/2018 KIRT ANN MD Ot Z68. 41 BODY MASS INDEX (BMI) 40.0-44.9, ADULT 01/22/2018 KIRT ANN MD Ot Z79. 84 USP (CURRENT) USE OF ORAL HYPOGLYC 01/22/2018 KIRT ANN MD, Ot Z79.899 OTHER USP (CURRENT) DRUG THERAPY 01/23/2018 KIRT ANN MD Ot E11. 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 01 MORBID (SEVERE) OBESITY DUE TO EXCESS CA 01/23/2018 KIRT ANN MD Ot I11. 0 HYPERTENSIVE HEART DISEASE WITH HEART FA 01/23/2018 KIRT ANN MD, Ot I25. 10 ATHSCL HEART DISEASE OF [place] CORONARY 01/23/2018 KIRT ANN MD, Ot I50. 9 HEART FAILURE, UNSPECIFIED 01/23/2018 KIRT ANN MD, Ot K57. 30 DVRTCLOS OF LG INT W/O PERFORATION OR AB 01/23/2018 KIRT ANN MD Ot Z12. 11 ENCOUNTER FOR SCREENING FOR MALIGNANT NE 01/23/2018 KIRT ANN MD Ot Z68. 41 BODY MASS INDEX (BMI) 40.0-44.9, ADULT 01/23/2018 KIRT ANN MD Ot Z79. 84 USP (CURRENT) USE OF ORAL HYPOGLYC 01/23/2018 KIRT ANN MD Ot Z79.899 OTHER TUBER MACHINE OPERATOR HELPER (CURRENT) DRUG THERAPY 03/05/2018 Ot M47.26 OTH [...] 04/26/2018 VILLAR DOSAVANNAH D Ot Z79. 4 TUBER MACHINE OPERATOR HELPER (CURRENT) USE OF INSULIN 04/26/2018 VILLAR DOSAVANNAH D Ot Z79.899 OTHER USP (CURRENT) DRUG THERAPY 04/30/2018 VILLAR DOSAVANNAH D [...] 04/30/2018 VILLAR DOSAVANNAH D Ot Z79. 4 TUBER MACHINE OPERATOR HELPER (CURRENT) USE OF INSULIN 04/30/2018 VILLAR DO, SAVANNAH D Ot Z79.899 OTHER TUBER MACHINE OPERATOR HELPER (CURRENT) DRUG THERAPY 04/30/2018 VILLAR DO, SAVANNAH [...] VILLAR DO, SAVANNAH D Ot Z79. 4 USP (CURRENT) USE OF INSULIN 04/30/2018 VILLAR DO, SAVANNAH D Ot Z79.899 OTHER TUBER MACHINE OPERATOR HELPER (CURRENT) DRUG THERAPY 05/09/2018 VILLAR DO, SAVANNAH [...] VILLAR DO, SAVANNAH D Ot Z79. 4 USP (CURRENT) USE OF INSULIN 05/09/2018 VILLAR DO, SAVANNAH D Ot Z79.899 OTHER TUBER MACHINE OPERATOR HELPER (CURRENT) DRUG THERAPY 06/27/2018 ISABELLA MEJIA APRN Ot E11.21 TYPE 2 DIABETES MELLITUS WITH DIABETIC N 06/27/2018 ISABELLA MEJIA APRN Ot E11.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 W DIABETIC MANOMETER TECHNICIAN 06/27/2018 ISABELLA MEJIA APRN Ot E78.5 [...] HISTORY OF NICOTINE DEPENDENCE 07/10/2018 ISABELLA MEJIA DEPUTY GRAND JURY Ot E11.21 TYPE 2 DIABETES MELLITUS WITH DIABETIC N 07/10/2018 ISABELLA MEJIA APRN Ot E11.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 W DIABETIC MANOMETER TECHNICIAN 07/10/2018 ISABELLA MEJIA APRN Ot E78.5 HYPERLIPIDEMIA, UNSPECIFIED 07/10/2018 ISABELLA MEJIA APRN Ot I12.9 HYPERTENSIVE CHRONIC KIDNEY DISEASE W ST 07/10/2018 ISABELLA MEJIA APRN Ot I50.9 HEART FAILURE, UNSPECIFIED 07/10/2018 ISABELLA MEJIA APRN Ot M10.9 GOUT, UNSPECIFIED 07/10/2018 ISABELLA MEJIA APRN Ot N18.4 CHRONIC KIDNEY DISEASE, STAGE 4 (SEVERE) 07/10/2018 ISABELLA MEJIA DEPUTY GRAND JURY Ot N39.0 URINARY TRACT INFECTION, SITE NOT [...] LUMP, HEAD 08/27/2018 SHERLYN HARRIS Ot Z79.4 USP (CURRENT) USE OF INSULIN 08/27/2018 SHERLYN HARRIS [...] OTHER SPECIFIED POSTPROCEDURAL STATES 08/27/2018 ISABELLA MEJIA DEPUTY GRAND JURY Ot E11.21 TYPE 2 DIABETES MELLITUS WITH DIABETIC N 08/27/2018 ISABELLA MEJIA DEPUTY GRAND JURY Ot E11.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 W DIABETIC MANOMETER TECHNICIAN 08/27/2018 ISABELLA MEJIA APRN Ot E78.5 [...] LUMP, HEAD 08/29/2018 SHERLYN HARRIS Ot Z79.4 USP (CURRENT) USE OF INSULIN 08/29/2018 SHERLYN HARRIS [...] E11.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 W DIABETIC MANOMETER TECHNICIAN 03/06/2019 ISABELLA MEJIA APRN Ot E78.5 [...] 03/07/2019 CLAUDIO FARAH MD, Ot Z79 .4 USP (CURRENT) USE OF INSULIN 03/07/2019 CLAUDIO FARAH MD, Ot Z85.828 PERSONAL HISTORY OF OTHER MALIGNANT NEOP 03/07/2019 CLAUDIO FARAH MD, Ot Z91.19 PATIENT'S NONCOMPLIANCE W OT MEDICAL TR 03/17/2019 ISABELLA MEJIA APRN Ot E11.21 TYPE 2 DIABETES MELLITUS WITH DIABETIC N 03/17/2019 ISABELLA MEJIA APRN Ot E11.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 W DIABETIC MANOMETER TECHNICIAN 03/17/2019 ISABELLA MEJIA APRN Ot E78.5 [...] E11.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 W DIABETIC MANOMETER TECHNICIAN 03/17/2019 ISABELLA MEJIA APRN Ot E78.5 [...] E11.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 W DIABETIC MANOMETER TECHNICIAN 04/08/2019 ISABELLA MEJIA APRN Ot E78.5 [...] E11.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 W DIABETIC MANOMETER TECHNICIAN 04/08/2019 ISABELLA MEJIA APRN Ot E78.5 [...] E11.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 W DIABETIC MANOMETER TECHNICIAN 04/10/2019 JOHANNA CROWDER FACC, LYDIA FACP [...] E11.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 W DIABETIC MANOMETER TECHNICIAN 05/09/2019 JOHANNA CROWDER FACC, ALI FACP CCDS Ot I13.0 HYP HRT CHR KDNY DIS W HRT FAIL AND ST 05/09/2019 JOHANNA CROWDER FACC, ALI FACP CCDS Ot I50.31 ACUTE DIASTOLIC (CONGESTIVE) HEART FAILU 05/09/2019 JOHANNA CROWDER FACC, ALI FACP CCDS Ot N18.4 CHRONIC KIDNEY DISEASE, STAGE 4 (SEVERE) 08/05/2019 ISABELLA MEJIA APRN Ot G47.33 OBSTRUCTIVE SLEEP APNEA (ADULT) (PEDIATR 08/06/2019 ISABELLA MEJIA DEPUTY GRAND JURY Ot G47.33 OBSTRUCTIVE SLEEP APNEA (ADULT) (PEDIATR 08/06/2019 ISABELLA MEJIA APRN Ot G47.33 OBSTRUCTIVE SLEEP APNEA (ADULT) (PEDIATR 08/06/2019 ISABELLA MEJIA APRN Ot G47.33 OBSTRUCTIVE SLEEP APNEA (ADULT) (PEDIATR 08/07/2019 ISABELLA MEJIA APRN Ot G47.33 OBSTRUCTIVE SLEEP APNEA (ADULT) (PEDIATR 08/07/2019 DOUTHITT, ISABELLA B DEPUTY GRAND JURY Ot I10 ESSENTIAL (PRIMARY) HYPERTENSION 08/08/2019 ISABELLA MEJIA DEPUTY GRAND JURY Ot G47.33 OBSTRUCTIVE SLEEP APNEA (ADULT) (PEDIATR 08/08/2019 ISABELLA MEJIA DEPUTY GRAND JURY Ot I10 ESSENTIAL (PRIMARY) HYPERTENSION 08/15/2019 YAZMIN, DAYNA R DEPUTY GRAND JURY Ot G47.33 OBSTRUCTIVE SLEEP APNEA (ADULT) (PEDIATR 08/21/2019 YAZMIN, DAYNA R DEPUTY GRAND JURY Ot G47.33 OBSTRUCTIVE SLEEP APNEA (ADULT) (PEDIATR 08/21/2019 YAZMIN, DAYNA R DEPUTY GRAND JURY Ot G47.33 OBSTRUCTIVE SLEEP APNEA (ADULT) (PEDIATR 08/21/2019 YAZMIN, DAYNA R DEPUTY GRAND JURY Ot G47.33 OBSTRUCTIVE SLEEP APNEA (ADULT) (PEDIATR 08/21/2019 YAZMIN, DAYNA R DEPUTY GRAND JURY Ot G47.33 OBSTRUCTIVE SLEEP APNEA (ADULT) (PEDIATR 08/21/2019 YAZMIN, DAYNA R DEPUTY GRAND JURY Ot G47.33 OBSTRUCTIVE SLEEP APNEA (ADULT) (PEDIATR 08/22/2019 YAZMIN, DAYNA R DEPUTY GRAND JURY Ot G47.33 OBSTRUCTIVE SLEEP APNEA (ADULT) (PEDIATR 08/22/2019 YAZMIN, DAYNA R DEPUTY GRAND JURY Ot G47.33 OBSTRUCTIVE SLEEP APNEA (ADULT) (PEDIATR 08/22/2019 YAZMIN, DAYNA R DEPUTY GRAND JURY Ot G47.33 OBSTRUCTIVE SLEEP APNEA (ADULT) (PEDIATR 08/26/2019 YAZMIN, DAYNA R DEPUTY GRAND JURY Ot G47.33 OBSTRUCTIVE SLEEP APNEA (ADULT) (PEDIATR 08/26/2019 SAULO CROWDER, KEN Sood Ot Z12.31 ENCNTR SCREEN MAMMOGRAM FOR MALIGNANT NE 08/26/2019 DAYNA ARCE R DEPUTY GRAND JURY Ot G47.33 OBSTRUCTIVE SLEEP APNEA (ADULT) (PEDIATR 08/26/2019 SAULO CROWDER, KEN Sood Ot Z12.31 ENCNTR SCREEN MAMMOGRAM FOR MALIGNANT NE 08/27/2019 DAYNA ARCE R DEPUTY GRAND JURY Ot G47.33 OBSTRUCTIVE SLEEP APNEA (ADULT) (PEDIATR 08/27/2019 DAYNA ARCE R DEPUTY GRAND JURY Ot G47.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 08/27/2019 SAULO CROWDER, KEN Sood Ot Z12.31 ENCNTR SCREEN MAMMOGRAM FOR MALIGNANT NE 09/02/2019 KEN VERNON MD Ot Z12.31 ENCNTR SCREEN MAMMOGRAM FOR MALIGNANT NE 09/03/2019 DAYNA ARCE DEPUTY GRAND JURY Ot G47.33 OBSTRUCTIVE SLEEP APNEA (ADULT) (PEDIATR 09/03/2019 DAYNA ARCE DEPUTY GRAND JURY Ot G47.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 09/16/2019 SAULO CROWDER, KEN Sood Ot Z12.31 ENCNTR SCREEN MAMMOGRAM FOR MALIGNANT NE 09/16/2019 SAULO CROWDER, KEN Sood Ot Z12.31 ENCNTR SCREEN MAMMOGRAM FOR MALIGNANT NE 09/19/2019 SAULO CROWDER, KEN Sood Ot Z12.31 ENCNTR SCREEN MAMMOGRAM FOR MALIGNANT NE 12/30/2019 TOMMY DO BENTON Henry Ot E11.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 W DIABETIC MANOMETER TECHNICIAN 12/30/2019 CHATTANOOGA DOARIADNAA Henyr Ot E11.40 TYPE 2 DIABETES MELLITUS WITH DIABETIC N 12/30/2019 TOMMY DO, BENTON Figueroa Ot E78.00 PURE HYPERCHOLESTEROLEMIA, UNSPECIFIED 12/30/2019 CHATTANOOGA DO, BENTON K Ot F32.9 MAJOR DEPRESSIVE DISORDER, SINGLE EPISOD 12/30/2019 CHATTANOOGA DOARIADNAA Henry Ot F41.9 ANXIETY DISORDER, UNSPECIFIED 12/30/2019 CHATTANOOGA DO, BENTON K Ot I13.2 HYP HRT CHR KDNY DIS W HRT FAIL AND W 12/30/2019 TOMMY DO, BENTON K Ot I48.92 UNSPECIFIED ATRIAL FLUTTER 12/30/2019 CHATTANOOGA DO BENTON K Ot N18.6 END STAGE RENAL DISEASE 12/30/2019 CHATTANOOGA DO BENTON K Ot Z79.4 USP (CURRENT) USE OF INSULIN 12/30/2019 [facility] B[place] K Ot Z79.82 TUBER MACHINE OPERATOR HELPER (CURRENT) USE OF ASPIRIN 12/30/2019 CHATTANOOGA DO BENTON K Ot Z80.1 FAMILY HISTORY OF MALIG NEOPLASM OF [place] 12/30/2019 CHATTANOOGA DOARIADNAA K Ot Z82.49 FAMILY HX OF ISCHEM HEART DIS AND OTH DI 12/30/2019 TOMMY DOARIADNAA Henry Ot Z85.828 PERSONAL HISTORY OF OTHER MALIGNANT NEOP 12/30/2019 CHATTANOOGA DOARIADNAA K Ot Z87.891 PERSONAL HISTORY OF NICOTINE DEPENDENCE 12/30/2019 CHATTANOOGA DOARIADNAA Henry Ot Z88.2 ALLERGY STATUS TO SULFONAMIDES STATUS 12/30/2019 CHATTANOOGA DOARIADNAA Henry Ot Z98.890 OTHER SPECIFIED POSTPROCEDURAL STATES 12/30/2019 TOMMY DO, BENTON K Ot Z99.2 DEPENDENCE ON RENAL DIALYSIS 12/31/2019 ALY JORDAN MD, Ot E11.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 W DIABETIC MANOMETER TECHNICIAN 12/31/2019 ALY JORDAN MD, Ot E11.40 [...] DISEASE 12/31/2019 ALY JORDAN MD, Ot Z79.4 TUBER MACHINE OPERATOR HELPER (CURRENT) USE OF INSULIN 12/31/2019 ALY JORDAN MD, Ot Z79.82 TUBER MACHINE OPERATOR HELPER (CURRENT) USE OF ASPIRIN 12/31/2019 ALY JORDAN [...] E11.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 W DIABETIC MANOMETER TECHNICIAN 01/02/2020 TOMMY DO, BENTON K Ot E11.40 TYPE 2 DIABETES MELLITUS WITH DIABETIC N 01/02/2020 TOMMY DO, BENTON K Ot E78.00 PURE HYPERCHOLESTEROLEMIA, UNSPECIFIED 01/02/2020 TOMMY DO, BENTON K Ot F32.9 MAJOR DEPRESSIVE DISORDER, SINGLE EPISOD 01/02/2020 TOMMY DO, BENTON K Ot F41.9 ANXIETY DISORDER, UNSPECIFIED 01/02/2020 CHATTANOOGA DO, BENTON K Ot I13.2 HYP HRT CHR KDNY DIS W HRT FAIL AND W 01/02/2020 TOMMY DO, BENTON K Ot I48.92 UNSPECIFIED ATRIAL FLUTTER 01/02/2020 CHATTANOOGA DO BENTON K Ot N18.6 END STAGE RENAL DISEASE 01/02/2020 CHATTANOOGA DO, BENTON K Ot Z79.4 TUBER MACHINE OPERATOR HELPER (CURRENT) USE OF INSULIN 01/02/2020 CHATTANOOGA DO, BENTON K Ot Z79.82 USP (CURRENT) USE OF ASPIRIN 01/02/2020 [facility], B[place] K Ot Z80.1 FAMILY HISTORY OF MALIG NEOPLASM OF TRAC 01/02/2020 [facility], B[place] K Ot Z82.49 FAMILY HX OF ISCHEM HEART DIS AND OTH DI 01/02/2020 CHATTANOOGA DO BENTON K Ot Z85.828 PERSONAL HISTORY OF OTHER MALIGNANT NEOP 01/02/2020 CHATTANOOGA DO, BENTON K Ot Z87.891 PERSONAL HISTORY OF NICOTINE DEPENDENCE 01/02/2020 [facility], B[place] K Ot Z88.2 ALLERGY STATUS TO SULFONAMIDES STATUS 01/02/2020 [facility] B[place] K Ot Z98.890 OTHER SPECIFIED POSTPROCEDURAL STATES 01/02/2020 TOMMY DO, BENTON K Ot Z99.2 DEPENDENCE ON RENAL DIALYSIS Procedures Code Description [place] [id number] [facility], per day, for the evaluation and management of a patient, which requires JASEN Jerez MD 09/19/2017 [id number] [facility], per day, for the evaluation and management of a patient, which requires at YECENIA CHURCH MD 09/19/2017 [id number] Offi ce or other outpatient visit for the evaluation and management of an established patient, which TIMBO SMITH I 10/18/2017 [id number] Offi ce or other outpatient visit for the evaluation and management of an established patient, which TIMBO SMITH I 03/29/2018 [address] [facility], per day, for the evaluation and management of a patient, which requires these JASEN KHAN MD 03/29/2018 107[address] [facility], per day, for the evaluation and [...] 5.0-8.0 Protein Pos 2+ NA Negative Specific [place] 1.015 NA 1.003-1.030 UA Collection type Clean [...] Magnesium 2.5 mg/dL 1.6-2.4 Radiology Report from [id number] on 09/14 10:09:00 Reason For ExamAbdominal pain, [...] Nohydronephrosis. There is no ascites.Dictated on worksta tion:[id number] Line PRELIMINARY DICTATED BY: ALBIN GUTIERREZ MDDICTATED DT/TM: 09/14/2017 9:54 Radiology Report from [id number] on 09/14 10:09:00 Reason For ExamSyncopeREPORTIndication: Syncope.Procedure: [...] significantstenosis hemodynamically. Both vertebrals are patent.Dictated on workstation:[id number] Line PRELIMINARY DICTATED BY: ALBIN GUTIERREZ MDDICTATED DT/TM: 09/14/2017 9:49 Radiology Report from [id number] on 09/14 12:41:00 Reason For ExamCoughREPORTINDICATION: Co ugh.COMPARISON: None available.TECHNIQUE: Frontal and lateral radiographs of the chest dated September 14, 2017.FINDINGS: The cardiac silhouette is mildly enlarged. No significant pulmonaryvascular congestion. The lungs are clear. No pleural effusion. No pneumothorax.Mild scattered osseous degenerative changes without acute osseous abnormality.IMPRESSION: Cardiomegaly without overt congestive heart failure or additionalsuperimposed acute cardiopulmonary abnormality.Dictated on workstation:[id number] Line PRELIMINARY DICTATED BY: MANSI LARSON MDDICTATED DT/TM: 09/14/2017 12:38 Encounters ACCT No. Visit Date/Time Discharge Status Pt. Type Provider Facility Loc./Unit Complaint [id number] 09/14/2017 04:48:00 10:59:00 DIS Inpatient Rodgers Chady [facility] on [place] [facility] F5SE Pancreatitis, Acute Renal Failure [id number] 09/15/2017 05:19:03 Document Registration [id number] 12/18/2017 13:34:06 23:59:59 CLS Outpatient TIMBO SMITH I [id number] 01/10/2020 11:10:00 17:05:00 DIS Inpatient KIRT ANN MD Via [facility] ICU A-FLUTTER W/ RVR [id number] 12/30/2019 16:13:00 19:17:00 DIS Emergency TOMMY , BENTON Figueroa Vi a [facility] ER ATRIAL FLUTTER [id number] 12/27/2019 15:07:00 18:58:00 DIS Outpatient ALY JORDAN MD Via [facility] ER HIGH PULSE - 14 5 [id number] 09/01/2019 10:19:00 23:59:59 CLS Outpatient KEN VERNON MD [facility] RAD SCREENING [id number] 08/26/2019 20:56:00 06:25:00 DIS Outpatient DAYNA ARCE APRN [facility] SLEEP OBSTRUCTIVE SLEEP APNE A [id number] 08/06/2019 20:39:00 07:29:00 DIS Outpatient ISABELLA MEJIA APRN [facility] SLEEP KARO G47.33 [id number] 04/10/2019 13:22:00 019 12:15:00 DIS Outpatient BARNEY CROWDER, LINH [facility] SDC IRON DEFICIENCY ANEMIA [id number] 04/08/2019 07:55:00 23:59:59 CLS Outpatient JOHANNA CROWDER FACC, LYDIA BRICEÑO CC DS [facility] CARD ACUTE DIAST OLIC CHF [id number] 03/06/2019 21:25:00 15:24:00 DIS Inpatient GAGAN CROWDER, CLAUDIO Coyne Via [facility] ICU CHF,UTI,CHRONIC RENAL FAILURE,HYPOMAGNESEMIA,HYPOT [id number] 08/27/2018 10:51:00 14:23:00 DIS Emergency KIMBERLY SHERLYN [facility] ER POSSIBLE NECK ABCESS [id number] 06/25/2018 08:40:00 23:59:59 CLS Outpatient ISABELLA MEJIA APRN [facility] RAD CKD STAGE 4 [id number] 04/26/2018 09:26:00 13:25:00 DIS Outpatient SAVANNAH VILLAR DO [facility] SDC SKIN LESION NOSE [id number] 04/24/2018 11:40:00 12:16:00 DIS Outpatient SAVANNAH VILLAR DO [facility] PREOP SKIN LESION NOSE [id number] 01/18/2018 07:27:00 09:58:00 DIS Outpatient SETH CROWDER, KIRT [place] [facility] ENDO SCREENING [id number] 01/14/2018 09:30:00 018 10:24:00 DIS Outpatient SETH CROWDER, KIRT [place] [facility] PREOP COLONOSCOPY [id number] 04/26/2018 09:26:00 Document Registration [id number] 02/22/2018 10:46:00 Document Registration
[2020-01-14] MEDS ORDERED: POTA10TA36 (03:28)
[2020-01-14] MEDS ORDERED: SEVE800T7 PO (03:28)
[2020-01-14] MEDS ORDERED: DULO60CA59 (03:28)
[2020-01-14] MEDS ORDERED: APIX5TAB PO (03:28)
[2020-01-14 03:55] LABS: BASOPHILS # (AUTO) 0.1 10^3/uL (0.0-0.1); BASOPHILS % (AUTO) 1 % (0-10); EOSINOPHILS # (AUTO) 0.2 10^3/uL (0.0-0.3); EOSINOPHILS % (AUTO) 2 % (0-10); HEMATOCRIT 38 % (35-52); HEMOGLOBIN 11.8 G/DL (11.5-16.0); LYMPHOCYTES # (AUTO) 2.3 X 10^3 (1.0-4.0); LYMPHOCYTES % (AUTO) 27 % (12-44); MEAN CORPUSCULAR HEMOGLOBIN 32 PG (25-34); MEAN CORPUSCULAR HGB CONC 32 G/DL (32-36); MEAN CORPUSCULAR VOLUME 103 FL (80-99); MEAN PLATELET VOLUME 10.9 FL (7.4-10.4); MONOCYTES # (AUTO) 0.6 X 10^3 (0.0-1.0); MONOCYTES % (AUTO) 7 % (0-12); NEUTROPHILS # (AUTO) 5.4 X 10^3 (1.8-7.8); NEUTROPHILS % (AUTO) 63 % (42-75); PLATELET COUNT 160 10^3/uL (130-400); RED CELL DISTRIBUTION WIDTH 17.6 % (10.0-14.5); WHITE BLOOD COUNT 8.5 10^3/uL (4.3-11.0)
--- NOTE | 2020-01-14 03:55 | NUR ---
PT CONVERTED TO SINUS RHYTHM
[2020-01-14 04:02] LABS: ALBUMIN 3.7 GM/DL (3.2-4.5)
[2020-01-14 04:03] LABS: CHLORIDE 99 MMOL/L (98-107); POTASSIUM 3.2 MMOL/L (3.6-5.0); SODIUM 139 MMOL/L (135-145)
--- NOTE | 2020-01-14 04:03 | ED Cardiac General ---
History of Present Illness General Chief Complaint: Cardiac/General Problems Stated Complaint: A-FLUTTER Nursing Triage Note: c/o rapid heart rate since 229. hx aflutter Source: patient Exam Limitations: no limitations History of Present Illness Date Seen by Provider: Jan 14, 2020 Time Seen by Provider: 03:16 Initial Comments Here with report of rapid heart rate and fluttering/palpitations feeling in the chest. Denies shortness of breath. Denies upper respiratory symptoms, cough, breathing problems, sore throat, runny nose or abdominal pain. Is on dialysis with her dialysis schedule of Sunday, Sunday and Sunday. She is on Cardizem and Eliquis and takes those as directed. She does follow with Dr. Thapa and is scheduled for ablation on 01/22/20. Timing/Duration: 1 hour Severity: moderate Location: central Activities at Onset: none Prior CP/Workup: echocardiography NTG SL SENIOR PRINCIPAL: No ASA po SENIOR PRINCIPAL: No Associated Systoms: No Chest Pain, No Cough, No Fever/Chills, No Nausea/Vomiting, No Shortness of Air, No Weakness Allergies and Home Medications Allergies Coded Allergies: Sulfa (Sulfonamide Antibiotics) (Verified Allergy, Mild, HIVES, 01/14/18) Home Medications Amlodipine Besylate 5 Mg Tablet, 5 MG PO DAILY, (Reported) Aspirin 81 Mg Tab.chew, 81 MG PO DAILY Prescribed by: CLAUDIO FARAH on 03/07/19 1435 Diltiazem HCl 120 Mg Cap.er.24h, 120 MG PO DAILY Prescribed by: BENTON SANDERS on 12/30/19 1820 Escitalopram Oxalate 20 Mg Tablet, 40 MG PO DAILY, (Reported) TAKES 2 (20MG) TABLETS Gabapentin 300 Mg Capsule, 600 MG PO BID, (Reported) LAST FILLED #180 12-19-18 TAKES 2 (300MG) CAPSULES Insulin Aspart 300 Units/3 Ml Solution, 20 UNITS SQ AC, (Reported) LAST FILLED AUG 2018 Insulin Detemir 100 Unit/1 Ml Insuln.pen, 40 UNITS SC BID, (Reported) Levothyroxine Sodium 150 Mcg Tablet, 150 MCG PO DAILY@0630 Prescribed by: CLAUDIO FARAH on 03/07/19 1435 Lisinopril 10 Mg Tablet, 10 MG PO DAILY, (Reported) Metoprolol Succinate 100 Mg Tab.er.24h, 100 MG PO DAILY Prescribed by: CLAUDIO FARAH on 03/07/19 1435 Rosuvastatin Calcium 20 Mg Tablet, 20 MG PO HS, (Reported) Sitagliptin Phosphate 25 Mg Tablet, 25 MG PO DAILY, (Reported) LAST FILLED #90 11-15-18 Patient Home Medication List Home Medication List Reviewed: Yes Review of Systems Review of Systems Constitutional: see HPI; No chills, No fever EENTM: No Nose Congestion, No Throat Pain Respiratory: Denies Cough, Denies Shortness of Air Cardiovascular: Denies Chest Pain; Palpitations Gastrointestinal: Denies Abdominal Pain; Constipated; Denies Diarrhea, Denies Nausea, Denies Vomiting Genitourinary: No Symptoms Reported Musculoskeletal: no symptoms reported All Other Systems Reviewed Negative Unless Noted: Yes Past Ssophth-Ynhlmz-Msoudn Hx Past Med/Social Hx: Reviewed Nursing Past Med/Soc Hx Patient Social History Alcohol Use: Denies Use Recreational Drug Use: Yes Drug of Choice: THC Smoking Status: Former Smoker Type Used: Cigarettes Former Smoker, Quit: Jan 14, 1999 2nd Hand Smoke Exposure: No Recent Foreign Travel: No Contact w/Someone Who Travel: No Recent Infectious Disease Expo: No Recent Hopitalizations: Yes Physical Abuse: No Sexual Abuse: No Mistreated: No Fear: No Immunizations Up To Date Tetanus Booster (TDap): Less than 5yrs PED Vaccines UTD: Yes Seasonal Allergies Seasonal Allergies: Yes Past Medical History Surgeries: Yes (PILONIDAL CYST; DX LAPAROSCOPY; HYST/BSO, dialysis shunt in right forearm ) Dialysis, Gallbladder, Hysterectomy, Oophorectomy Respiratory: Yes Sleep Apnea, COPD Currently Using CPAP: No (HAS CPAP, BUT DOES NOT WEAR IT) Cardiac: Yes (CHF; ELEVATED TRIGLYCERIDES; ATRIAL FLUTTER) Chronic Edema/Swelling, High Cholesterol, Hypertension Neurological: Yes Neuropathy : No 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 Disorders: No Female 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 Disorders: 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 [employer]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, 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 Sexually Transmitted Disease: No HIV/AIDS: No Genitourinary: Yes (DIALYSIS -W-) Renal Failure, Dialysis, UTI-Chronic Gastrointestinal: Yes Chronic Constipation, Chronic Diarrhea Musculoskeletal: Yes Arthritis, Chronic Back Pain Endocrine: Yes Diabetes, Insulin dep HEENT: No Loss of Vision: Bilateral Hearing Impairment: Denies Cancer: Yes Skin Psychosocial: Yes Anxiety, Depression Integumentary: Yes (skin lesion) Blood Disorders: No Adverse Reaction/Blood Tranf: No (N/A) Family Medical History Reviewed Nursing Family Hx Cardiovascular disease G8 SISTER Diabetes mellitus G8 SISTER FH: lung cancer G8 SISTER Physical Exam Vital Signs Vital Signs - First Documented 01/14/20 03:20 Temp 36.8 Pulse 120 Resp 15 B/P (MAP) 125/89 (101) Pulse Ox 96 O2 Delivery Room Air Capillary Refill : Less Than 3 Seconds Height, Weight, BMI Height: 5'3.00" Weight: 264lbs. 1.0oz. 119.541351tf; 42.00 BMI Method:Stated General Appearance: No Apparent Distress, WD/WN, Obese HEENT: PERRL/EOMI, Pharynx Normal Neck: Non Tender, Supple Respiratory: Lungs Clear, Normal Breath Sounds Cardiovascular: No Murmur, Tachycardia Gastrointestinal: Non Tender, Soft Extremity: Normal Range of Motion, Non Tender Neurologic/Psychiatric: Alert, Oriented x3 Skin: Normal Color, Warm/Dry Procedures/Interventions Patient Education: Explained Benefits, Explained Risks, Pt. Ack. Understanding Patient History: Sleep Apnea Breath Sounds per Auscultation: Clear Heart Sounds per Auscultation: Regular Airway Exam: Mouth opens >2 fingers, Neck Full Range of Motion, Visulation of Uvula Sedation Adminstration Time: 1733 Progress/Results/Core Measures Results/Orders Lab Results Laboratory Tests Test 01/14/20 03:40 01/14/20 05:10 Range/Units White Blood Count 8.5 4.3-11.0 10^3/uL Red Blood Count 3.66 L 4.35-5.85 10^6/uL Hemoglobin 11.8 11.5-16.0 G/DL Hematocrit 38 35-52 % Mean Corpuscular Volume 103 H 80-99 FL Mean Corpuscular Hemoglobin 32 25-34 PG Mean Corpuscular Hemoglobin Concent 32 32-36 G/DL Red Cell Distribution Width 17.6 H 10.0-14.5 % Platelet Count 160 130-400 10^3/uL Mean Platelet Volume 10.9 H 7.4-10.4 FL Neutrophils (%) (Auto) 63 42-75 % Lymphocytes (%) (Auto) 27 12-44 % Monocytes (%) (Auto) 7 0-12 % Eosinophils (%) (Auto) 2 0-10 % Basophils (%) (Auto) 1 0-10 % Neutrophils # (Auto) 5.4 1.8-7.8 X 10^3 Lymphocytes # (Auto) 2.3 1.0-4.0 X 10^3 Monocytes # (Auto) 0.6 0.0-1.0 X 10^3 Eosinophils # (Auto) 0.2 0.0-0.3 10^3/uL Basophils # (Auto) 0.1 0.0-0.1 10^3/uL Sodium Level 139 135-145 MMOL/L Potassium Level 3.2 L 3.6-5.0 MMOL/L Chloride Level 99 98-107 MMOL/L Carbon Dioxide Level 21 21-32 MMOL/L Anion Gap 19 H 5-14 MMOL/L Blood Urea Nitrogen 58 H 7-18 MG/DL Creatinine 6.24 H 0.60-1.30 MG/DL Estimat Glomerular Filtration Rate 7 BUN/Creatinine Ratio 9 Glucose Level 206 H 70-105 MG/DL Calcium Level 8.1 L 8.5-10.1 MG/DL Corrected Calcium 8.3 L 8.5-10.1 MG/DL Total Bilirubin 0.4 0.1-1.0 MG/DL Aspartate Amino Transf (AST/SGOT) 11 5-34 U/L Alanine Aminotransferase (ALT/SGPT) 9 0-55 U/L Alkaline Phosphatase 75 40-136 U/L Troponin I < 0.028 <0.028 NG/ML Total Protein 6.9 6.4-8.2 GM/DL Albumin 3.7 3.2-4.5 GM/DL My Orders Orders - ALY JORDAN MD Cbc With Automated Diff (01/14/20 03:33) Comprehensive Metabolic Panel (01/14/20 03:33) Troponin I (01/14/20 03:33) Ed Iv/Invasive Line Start (01/14/20 03:33) Ekg Tracing (01/14/20 03:33) Diltiazem Injection (Cardizem Injection) (01/14/20 03:45) Coronavirus Sars-Cov-2 So 2018 (01/14/20 03:54) Ekg Tracing (01/14/20 04:49) Medications Given in ED Current Medications Medications Dose Ordered Sig/Darren Route Start Time Stop Time Status Last Admin Dose Admin Diltiazem HCl 20 mg ONCE ONCE IVP 01/14/20 03:45 01/14/20 03:46 DC 01/14/20 03:47 20 MG Vital Signs/I&O 01/14/20 03:20 Temp 36.8 Pulse 120 Resp 15 B/P (MAP) 125/89 (101) Pulse Ox 96 O2 Delivery Room Air Blood Pressure Mean: 101 Progress Progress Note : Progress Note Seen and evaluated. IV, labs and EKG ordered. I did discuss the case with Dr. Thapa at 0331. We will try Cardizem bolus 20 mg IV and if that fails then we will go to cardioversion given her history. She's had 3 or 4 previous cardioversions of the last few weeks and has had CHRIS. There is a high consideration for trying to get her into the [employer] tomorrow 01/15/24 ablation given the multiple cardioversions that she has required. She will need COVID testing and we are considering putting her in the hospital but have to work out with dialysis issue. As such we will go ahead and order COVID-19 screening and try to get this done stat. Monitor patient. 0510: Patient has converted and remains converted to sinus rhythm at a rate of about 60-65. I have rediscussed the case with Dr. Thapa. We will increase her Cardizem to 180mg dosing and he will continue the appointment for next . Patient has returned symptoms and she will come back. She is instructed to isolate due to the COVID 19 testing for preop that was done today. Patient verbalize understanding. Discharged home with return precautions. Patient verbalize understanding instructions and agreement with plan. Initial ECG Impression Date: Jan 14, 2020 Initial ECG Impression Time: : Initial ECG Rate: 130 Initial ECG Rhythm: A Fib/Flutter Initial ECG Impression: Atrial Fibrillation w/RVR (atrial flutter) Comment Atrial flutter with rate of 130 and normal axis. No evidence of ST elevation VT. Change from previous of 01/10/20 which was sinus rhythm. Interpreted by me. Departure Impression Primary Impression: Atrial flutter with rapid ventricular response Disposition: HOME, SELF-CARE Condition: Improved Departure-Patient Inst. Decision time for Depature: 05:27 Referrals: Rex THAPA MD, JULIE A MD (PCP/Family) Primary Care Physician Patient Instructions: Atrial Flutter (DC) Add. Discharge Instructions: All discharge instructions reviewed with patient and/or family. Voiced understanding. You need to self isolated at home as you have been tested for COVID-19 in preparation for your procedure. Isolated until procedure is complete so you do not need to be retested. You should take The medicine at the pharmacy with a prescription for the Cardizem. Start taking that as directed. You. The other. You may discuss with her pharmacist regarding your dosing as you may be able to use your other medication. Call Dr. Thapa's office for further information as needed. Return for worse pain, palpitations, fast heart rate, breathing problems or other concerns as needed. Scripts Diltiazem HCl (Cardizem LA) 180 Mg Tab.er.24h 180 MG PO DAILY for 30 Days, #3 TAB 0 Refills Prov: ALY JORDAN MD 01/14/20 Copy Copies To 1: Rex THAPA MD, TIMOTHY D MD Jan 14, 2020 04:02
[2020-01-14 04:04] LABS: CALCIUM 8.1 MG/DL (8.5-10.1)
[2020-01-14 04:05] LABS: GLUCOSE 206 MG/DL (70-105); TOTAL PROTEIN 6.9 GM/DL (6.4-8.2)
[2020-01-14 04:06] LABS: CARBON DIOXIDE 21 MMOL/L (21-32)
[2020-01-14 04:07] LABS: BILIRUBIN,TOTAL 0.4 MG/DL (0.1-1.0)
[2020-01-14 04:08] LABS: ALKALINE PHOSPHATASE 75 U/L (40-136)
[2020-01-14 04:09] LABS: CREATININE SERUM 6.24 MG/DL (0.60-1.30); GFR ESTIMATED 7
[2020-01-14 04:10] LABS: BUN/CREATININE RATIO 9
[2020-01-14 04:12] LABS: ALANINE AMINOTRANSFERASE 9 U/L (0-55)
--- NOTE | 2020-01-14 05:10 | NUR ---
COVID SWAB OBTAINED
[2020-01-14] MEDS ORDERED: DILT180T PO ×2 (05:29→05:31)
[2020-01-14 05:39] VITALS: BP 131/70
[2020-01-22] MEDS ORDERED: DILT120C53 PO (07:47)
[2020-01-22] MEDS ORDERED: MTP100TCR PO (14:28)
== END 2020-01-14 05:40 | disposition home or self-care (01) ==
LOC: EDUNIT# 03:12 → ER 03:15
DX: I48.92 Unspecified atrial flutter (principal); N18.6 End stage renal disease; Z99.2 Dependence on renal dialysis; I13.2 Hypertensive heart and chronic kidney disease with heart failure and with stage 5 chronic kidney disease, or end stage renal disease; E11.22 Type 2 diabetes mellitus with diabetic chronic kidney disease; I50.9 Heart failure, unspecified; Z79.4 Long term (current) use of insulin; E11.40 Type 2 diabetes mellitus with diabetic neuropathy, unspecified; J44.9 Chronic obstructive pulmonary disease, unspecified; E78.00 Pure hypercholesterolemia, unspecified; G47.30 Sleep apnea, unspecified; Z87.891 Personal history of nicotine dependence; Z20.828 Contact with and (suspected) exposure to other viral communicable diseases
CPT/HCPCS: 80053; 84484; 85025; 93005; 96374; 99284; U0002; 36415; 87635

== ENCOUNTER 2020-01-16 09:25 | Emergency (ER) | payer MEDICARE, MEDICAID ==
[~2020-01-16] VITALS: Ht 157.5 cm; Wt 105.0 kg
[~2020-01-16 09:25] MED LIST changes: +APIX5TAB PO; +DILT180T PO; +DULO60CA59; +POTA10TA36; +SEVE800T7 PO
--- NOTE | 2020-01-16 10:24 | ED Cardiac General ---
History of Present Illness General Chief Complaint: Cardiac/General Problems Stated Complaint: A FLUTTER Nursing Triage Note: PT AMB RM 2 WITH COMPLAINT OF A FLUTTER. STATES AT 0830 WHILE AT DIALYSIS HER PULSE INCREASED TO 130s. PT STATES AT THAT TIME SHE COULD FEEL THE AFLUTTER START. ON ARRIVAL TO ER, PT IS IN SINUS RHYTHM WITH HR IN 70s. STATES SHE FEELS A HEAVINESS IN HER HEART. Source: patient Exam Limitations: no limitations History of Present Illness Date Seen by Provider: Jan 16, 2020 Time Seen by Provider: 10:04 Initial Comments Patient resents to ER by private conveyance from the dialysis center where she was doing her Sunday dialysis. She started having some palpitations and flutters in her chest and was in atrial fibrillation around 130 bpm. This is been going on for 2 weeks. 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 Bimal Vital for primary care. She has an appointment on , 6 days from now to have an ablation with Dr. Thapa, left her physiology laborer pole crew. She is on blood thinners and Cardizem as well as Lasix. She's not having any shortness of breath chest pain and swelling. By the time she arrived nursing reports she was in sinus rhythm in the 60s and 70s. She had the same situation a few days ago and came to the ER and was told to increase her Cardizem from 120s to 180. She is still waiting on a prior authorization from the pharmacy and is still taking the 120 daily however she has not taken any of her medicines this morning. She typically takes in a 9:00 in the morning when she gets home. She also takes metoprolol. Allergies and Home Medications Allergies Coded Allergies: Sulfa (Sulfonamide Antibiotics) (Verified Allergy, Mild, HIVES, 01/14/18) Home Medications Amlodipine Besylate 5 Mg Tablet, 5 MG PO DAILY, (Reported) Aspirin 81 Mg Tab.chew, 81 MG PO DAILY Prescribed by: CLAUDIO FARAH on 03/07/19 1435 Diltiazem HCl 120 Mg Cap.er.24h, 120 MG PO DAILY Prescribed by: BENTON SANDERS on 12/30/19 1820 Diltiazem HCl 180 Mg Tab.er.24h, 180 MG PO DAILY Prescribed by: ALY JORDAN on 01/14/20 0531 Escitalopram Oxalate 20 Mg Tablet, 40 MG PO DAILY, (Reported) TAKES 2 (20MG) TABLETS Gabapentin 300 Mg Capsule, 600 MG PO BID, (Reported) LAST FILLED #180 12-19-18 TAKES 2 (300MG) CAPSULES Insulin Aspart 300 Units/3 Ml Solution, 20 UNITS SQ AC, (Reported) LAST FILLED AUG 2018 Insulin Detemir 100 Unit/1 Ml Insuln.pen, 40 UNITS SC BID, (Reported) Levothyroxine Sodium 150 Mcg Tablet, 150 MCG PO DAILY@0630 Prescribed by: CLAUDIO FARAH on 03/07/19 1435 Lisinopril 10 Mg Tablet, 10 MG PO DAILY, (Reported) Metoprolol Succinate 100 Mg Tab.er.24h, 100 MG PO DAILY Prescribed by: CLAUDIO FARAH on 03/07/19 1435 Rosuvastatin Calcium 20 Mg Tablet, 20 MG PO HS, (Reported) Sitagliptin Phosphate 25 Mg Tablet, 25 MG PO DAILY, (Reported) LAST FILLED #90 11-15-18 Patient Home Medication List Home Medication List Reviewed: Yes Review of Systems Review of Systems Constitutional: No chills, No diaphoresis EENTM: No Blurred Vision, No Double Vision, No Eye Pain Respiratory: Denies Cough, Denies Shortness of Air Cardiovascular: Denies Chest Pain, Denies Edema Gastrointestinal: Denies Abdominal Pain, Denies Constipated, Denies Diarrhea Genitourinary: Denies Burning, Denies Discharge Musculoskeletal: No back pain, No joint pain Skin: No pruritus, No rash All Other Systems Reviewed Negative Unless Noted: Yes Past Yyzpayn-Hekvag-Vizibz Hx Patient Social History Alcohol Use: Denies Use Recreational Drug Use: Yes Drug of Choice: THC Smoking Status: Former Smoker Type Used: Cigarettes Former Smoker, Quit: Jan 14, 1999 2nd Hand Smoke Exposure: No Recent Foreign Travel: No Contact w/Someone Who Travel: No Recent Infectious Disease Expo: No Recent Hopitalizations: Yes Immunizations Up To Date Tetanus Booster (TDap): Less than 5yrs PED Vaccines UTD: Yes Seasonal Allergies Seasonal Allergies: Yes Past Medical History Surgeries: Yes (PILONIDAL CYST; DX LAPAROSCOPY; HYST/BSO, dialysis shunt in right forearm ) Dialysis, Gallbladder, Hysterectomy, Oophorectomy Respiratory: Yes Sleep Apnea, COPD Currently Using CPAP: No (HAS CPAP, BUT DOES NOT WEAR IT) Cardiac: Yes (CHF; ELEVATED TRIGLYCERIDES; ATRIAL FLUTTER) Chronic Edema/Swelling, High Cholesterol, Hypertension Neurological: Yes Neuropathy 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 Disorders: No Female 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 Disorders: 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 [employer] 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, 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 Sexually Transmitted Disease: No HIV/AIDS: No Genitourinary: Yes (DIALYSIS M-W-F) Renal Failure, Dialysis, UTI-Chronic Gastrointestinal: Yes Chronic Constipation, Chronic Diarrhea Musculoskeletal: Yes Arthritis, Chronic Back Pain Endocrine: Yes Diabetes, Insulin dep HEENT: No Loss of Vision: Bilateral Hearing Impairment: Denies Cancer: Yes Skin Psychosocial: Yes Anxiety, Depression Integumentary: Yes (skin lesion) Blood Disorders: No Adverse Reaction/Blood Tranf: No (N/A) Family Medical History Cardiovascular disease G8 SISTER Diabetes mellitus G8 SISTER FH: lung cancer G8 SISTER Physical Exam Vital Signs Vital Signs - First Documented 01/16/20 09:34 Temp 36.8 Pulse 76 Resp 20 B/P (MAP) 111/65 (80) Pulse Ox 95 O2 Delivery Room Air Capillary Refill : Less Than 3 Seconds Height, Weight, BMI Height: 5'3.00" Weight: 264lbs. 1.0oz. 119.542653ma; 42.00 BMI Method:Stated General Appearance: No Apparent Distress, WD/WN HEENT: PERRL/EOMI, Pharynx Normal, Moist Mucous Membranes Neck: Full Range of Motion, Normal Inspection Respiratory: Lungs Clear, Normal Breath Sounds, No Accessory Muscle Use, No Respiratory Distress Cardiovascular: Regular Rate, Rhythm, No Edema Gastrointestinal: Normal Bowel Sounds, No Organomegaly, Non Tender, Soft Extremity: Normal Capillary Refill, Normal Inspection, No Pedal Edema Neurologic/Psychiatric: Alert, Oriented x3 Skin: Normal Color, Warm/Dry Procedures/Interventions Patient Education: Explained Benefits, Explained Risks, Pt. Ack. Understanding Patient History: Sleep Apnea Breath Sounds per Auscultation: Clear Heart Sounds per Auscultation: Regular Airway Exam: Mouth opens >2 fingers, Neck Full Range of Motion, Visulation of Uvula Sedation Adminstration Time: 1733 Progress/Results/Core Measures Results/Orders Vital Signs/I&O 01/16/20 09:34 Temp 36.8 Pulse 76 Resp 20 B/P (MAP) 111/65 (80) Pulse Ox 95 O2 Delivery Room Air Blood Pressure Mean: 80 Progress Progress Note : Time: 10:22 Progress Note The patient declines any lab or x-ray. It's dubious what information we can gain from that since she just had dialysis. Patient's in no distress and has been in sinus rhythm. Plan to give 180 mg Cardizem and allow her to go home per her wishes. She has been given return precautions and instructed to follow up with her pharmacy today to her medication filled. Initial ECG Impression Date: Jan 16, 2020 Initial ECG Impression Time: 09:38 Initial ECG Rate: 74 Initial ECG Rhythm: Normal Sinus Initial ECG Intervals: Normal Initial ECG Impression: Normal Comment Normal sinus rhythm without clinically relevant ST T wave changes. Departure Impression Primary Impression: Paroxysmal atrial fibrillation Disposition: 01 HOME, SELF-CARE Condition: Stable Departure-Patient Inst. Decision time for Depature: 10:24 Referrals: BIMAL VITAL MD (PCP/Family) Primary Care Physician Patient Instructions: Atrial Fibrillation (DC) Add. Discharge Instructions: When you home and never to take the rest of your medicines but not the Cardizem today. Call your pharmacy and work on getting her medication filled as soon as possible. Return to the ER feeling chest pain, shortness of air or other worrisome symptoms. All discharge instructions reviewed with patient and/or family. Voiced understanding. MIRI AGARWAL Jan 16, 2020 10:24
--- OUTSIDE RECORDS SUMMARY | 2020-01-16 10:41 | XMS REPORT | Continuity of Care Document ---
Author Organization Unknown Address Unknown Phone Unavailable Allergies Active Description Code Type Severity Reaction Onset Reported/Identified Relationship to Patient Clinical Status Yes sulfa drugs NKMA N/A N/A 09/14/2017 Yes Sulfa (Sulfonamide Antibiotics) [id number] Drug Allergy Mild HIVES 8 Medications [...] puffs 09/14/2017 Inhalation 2 puffs, Inhalation, QID, [place] N: as needed for wheezing, 0 Refill(s) [...] Ot I25. 10 ATHSCL HEART DISEASE OF [place] CORONARY 01/18/2018 KIRT ANN MD Ot I50. 9 HEART FAILURE, UNSPECIFIED 01/18/2018 KIRT ANN MD Ot K57. 30 DVRTCLOS OF LG INT W/O PERFORATION OR AB 01/18/2018 KIRT ANN MD Ot Z12. 11 ENCOUNTER FOR SCREENING FOR MALIGNANT NE 01/18/2018 KIRT ANN MD Ot Z68. 41 BODY MASS INDEX (BMI) 40.0-44.9, ADULT 01/18/2018 KIRT ANN MD Ot Z79. 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 01 MORBID (SEVERE) OBESITY DUE TO EXCESS CA 01/22/2018 KIRT ANN MD Ot I11. 0 HYPERTENSIVE HEART DISEASE WITH HEART FA 01/22/2018 KIRT ANN MD, Ot I25. 10 ATHSCL HEART DISEASE OF [place] CORONARY 01/22/2018 KIRT ANN MD Ot I50. 9 HEART FAILURE, UNSPECIFIED 01/22/2018 KIRT ANN MD, Ot K57. 30 DVRTCLOS OF LG INT W/O PERFORATION OR AB 01/22/2018 KIRT ANN MD Ot Z12. 11 ENCOUNTER FOR SCREENING FOR MALIGNANT NE 01/22/2018 KIRT ANN MD Ot Z68. 41 BODY MASS INDEX (BMI) 40.0-44.9, ADULT 01/22/2018 KIRT ANN MD Ot Z79. 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 01 MORBID (SEVERE) OBESITY DUE TO EXCESS CA 01/23/2018 KIRT ANN MD Ot I11. 0 HYPERTENSIVE HEART DISEASE WITH HEART FA 01/23/2018 KIRT ANN MD, Ot I25. 10 ATHSCL HEART DISEASE OF [place] CORONARY 01/23/2018 KIRT ANN MD, Ot I50. 9 HEART FAILURE, UNSPECIFIED 01/23/2018 KIRT ANN MD, Ot K57. 30 DVRTCLOS OF LG INT W/O PERFORATION OR AB 01/23/2018 KIRT ANN MD Ot Z12. 11 ENCOUNTER FOR SCREENING FOR MALIGNANT NE 01/23/2018 KIRT ANN MD Ot Z68. 41 BODY MASS INDEX (BMI) 40.0-44.9, ADULT 01/23/2018 KIRT ANN MD Ot Z79. 84 DETENTION (CURRENT) USE OF ORAL HYPOGLYC 01/23/2018 KIRT ANN MD Ot Z79.899 OTHER LABORATORY PHLEBOTOMIST (CURRENT) DRUG THERAPY 03/05/2018 Ot M47.26 OTH [...] 04/26/2018 VILLAR DOSAVANNAH D Ot Z79. 4 LABORATORY PHLEBOTOMIST (CURRENT) USE OF INSULIN 04/26/2018 VILLAR DOSAVANNAH D Ot Z79.899 OTHER DETENTION (CURRENT) DRUG THERAPY 04/30/2018 VILLAR DOSAVANNAH D [...] 04/30/2018 VILLAR DOSAVANNAH D Ot Z79. 4 LABORATORY PHLEBOTOMIST (CURRENT) USE OF INSULIN 04/30/2018 VILLAR DO, SAVANNAH D Ot Z79.899 OTHER LABORATORY PHLEBOTOMIST (CURRENT) DRUG THERAPY 04/30/2018 VILLAR DO, SAVANNAH [...] VILLAR DO, SAVANNAH D Ot Z79. 4 DETENTION (CURRENT) USE OF INSULIN 04/30/2018 VILLAR DO, SAVANNAH D Ot Z79.899 OTHER LABORATORY PHLEBOTOMIST (CURRENT) DRUG THERAPY 05/09/2018 VILLAR DO, SAVANNAH [...] VILLAR DO, SAVANNAH D Ot Z79. 4 DETENTION (CURRENT) USE OF INSULIN 05/09/2018 VILLAR DO, SAVANNAH D Ot Z79.899 OTHER LABORATORY PHLEBOTOMIST (CURRENT) DRUG THERAPY 06/27/2018 ISABELLA MEJIA APRN Ot E11.21 TYPE 2 DIABETES MELLITUS WITH DIABETIC N 06/27/2018 ISABELLA MEJIA APRN Ot E11.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 W DIABETIC VAMP MARKER 06/27/2018 ISABELLA MEJIA APRN Ot E78.5 HYPERLIPIDEMIA, [...] HISTORY OF NICOTINE DEPENDENCE 07/10/2018 ISABELLA MEJIA SOLAR PROJECT COORDINATION SPECIALIST Ot E11.21 TYPE 2 DIABETES MELLITUS WITH DIABETIC N 07/10/2018 ISABELLA MEJIA APRN Ot E11.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 W DIABETIC VAMP MARKER 07/10/2018 ISABELLA MEJIA APRN Ot E78.5 HYPERLIPIDEMIA, UNSPECIFIED 07/10/2018 ISABELLA MEJIA APRN Ot I12.9 HYPERTENSIVE CHRONIC KIDNEY DISEASE W ST 07/10/2018 ISABELLA MEJIA APRN Ot I50.9 HEART FAILURE, UNSPECIFIED 07/10/2018 ISABELLA MEJIA APRN Ot M10.9 GOUT, UNSPECIFIED 07/10/2018 ISABELLA MEJIA APRN Ot N18.4 CHRONIC KIDNEY DISEASE, STAGE 4 (SEVERE) 07/10/2018 ISABELLA MEJIA SOLAR PROJECT COORDINATION SPECIALIST Ot N39.0 URINARY TRACT INFECTION, SITE NOT [...] LUMP, HEAD 08/27/2018 SHERLYN HARRIS Ot Z79.4 DETENTION (CURRENT) USE OF INSULIN 08/27/2018 SHERLYN HARRIS [...] OTHER SPECIFIED POSTPROCEDURAL STATES 08/27/2018 ISABELLA MEJIA SOLAR PROJECT COORDINATION SPECIALIST Ot E11.21 TYPE 2 DIABETES MELLITUS WITH DIABETIC N 08/27/2018 ISABELLA MEJIA SOLAR PROJECT COORDINATION SPECIALIST Ot E11.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 W DIABETIC VAMP MARKER 08/27/2018 ISABELLA MEJIA APRN Ot E78.5 HYPERLIPIDEMIA, [...] Ot I50.9 HEART FAILURE, UNSPECIFIED 08/29/2018 SHERLYN HARRSI Ot J44.9 CHRONIC OBSTRUCTIVE PULMONARY DISEASE, U 08/29/2018 SHERLYN HARRIS Ot L02.11 CUTANEOUS ABSCESS OF NECK 08/29/2018 SHERLYN HARRIS Ot 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 08/29/2018 SHERLYN HARRIS Ot R22.0 LOCALIZED SWELLING, MASS AND LUMP, HEAD 08/29/2018 SHERLYN HARRIS Ot Z79.4 DETENTION (CURRENT) USE OF INSULIN 08/29/2018 SHERLYN HARRIS [...] E11.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 W DIABETIC VAMP MARKER 03/06/2019 ISABELLA MEJIA APRN Ot E78.5 HYPERLIPIDEMIA, [...] 03/07/2019 CLAUDIO FARAH MD, Ot Z79 .4 DETENTION (CURRENT) USE OF INSULIN 03/07/2019 CLAUDIO FARAH MD, Ot Z85.828 PERSONAL HISTORY OF OTHER MALIGNANT NEOP 03/07/2019 CLAUDIO FARAH MD, Ot Z91.19 PATIENT'S NONCOMPLIANCE W OT MEDICAL TR 03/17/2019 ISABELLA MEJIA APRN Ot E11.21 TYPE 2 DIABETES MELLITUS WITH DIABETIC N 03/17/2019 ISABELLA MEJIA APRN Ot E11.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 W DIABETIC VAMP MARKER 03/17/2019 ISABELLA MEJIA APRN Ot E78.5 HYPERLIPIDEMIA, [...] E11.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 W DIABETIC VAMP MARKER 03/17/2019 ISABELLA MEJIA APRN Ot E78.5 HYPERLIPIDEMIA, [...] E11.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 W DIABETIC VAMP MARKER 04/08/2019 IASBELLA MEJIA APRN Ot E78.5 HYPERLIPIDEMIA, UNSPECIFIED 04/08/2019 [...] E11.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 W DIABETIC VAMP MARKER 04/08/2019 ISABELLA MEJIA APRN Ot E78.5 HYPERLIPIDEMIA, [...] E11.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 W DIABETIC VAMP MARKER 04/10/2019 JOHANNA CROWDER FACC, LYDIA FACP CCDS [...] E11.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 W DIABETIC VAMP MARKER 05/09/2019 JOHANNA CROWDER FACC, ALI FACP CCDS Ot I13.0 HYP HRT CHR [place] DIS W HRT FAIL AND ST 05/09/2019 JOHANNA CROWDER FACC, ALI FACP CCDS Ot I50.31 ACUTE DIASTOLIC (CONGESTIVE) HEART FAILU 05/09/2019 JOHANNA CROWDER FACC, ALI FACP CCDS Ot N18.4 CHRONIC KIDNEY DISEASE, STAGE 4 (SEVERE) 08/05/2019 ISABELLA MEJIA APRN Ot G47.33 OBSTRUCTIVE SLEEP APNEA (ADULT) (PEDIATR 08/06/2019 ISABELLA MEJIA SOLAR PROJECT COORDINATION SPECIALIST Ot G47.33 OBSTRUCTIVE SLEEP APNEA (ADULT) (PEDIATR 08/06/2019 ISABELLA MEJIA APRN Ot G47.33 OBSTRUCTIVE SLEEP APNEA (ADULT) (PEDIATR 08/06/2019 ISABELLA MEJIA APRN Ot G47.33 OBSTRUCTIVE SLEEP APNEA (ADULT) (PEDIATR 08/07/2019 ISABELLA MEJIA APRN Ot G47.33 OBSTRUCTIVE SLEEP APNEA (ADULT) (PEDIATR 08/07/2019 DOUTHITT, ISABELLA B SOLAR PROJECT COORDINATION SPECIALIST Ot I10 ESSENTIAL (PRIMARY) HYPERTENSION 08/08/2019 ISABELLA MEJIA SOLAR PROJECT COORDINATION SPECIALIST Ot G47.33 OBSTRUCTIVE SLEEP APNEA (ADULT) (PEDIATR 08/08/2019 ISABELLA MEJIA SOLAR PROJECT COORDINATION SPECIALIST Ot I10 ESSENTIAL (PRIMARY) HYPERTENSION 08/15/2019 YAZMIN, DAYNA R SOLAR PROJECT COORDINATION SPECIALIST Ot G47.33 OBSTRUCTIVE SLEEP APNEA (ADULT) (PEDIATR 08/21/2019 YAZMIN, DAYNA R SOLAR PROJECT COORDINATION SPECIALIST Ot G47.33 OBSTRUCTIVE SLEEP APNEA (ADULT) (PEDIATR 08/21/2019 YAZMIN, DAYNA R SOLAR PROJECT COORDINATION SPECIALIST Ot G47.33 OBSTRUCTIVE SLEEP APNEA (ADULT) (PEDIATR 08/21/2019 YAZMIN, DAYNA R SOLAR PROJECT COORDINATION SPECIALIST Ot G47.33 OBSTRUCTIVE SLEEP APNEA (ADULT) (PEDIATR 08/21/2019 YAZMIN, DAYNA R SOLAR PROJECT COORDINATION SPECIALIST Ot G47.33 OBSTRUCTIVE SLEEP APNEA (ADULT) (PEDIATR 08/21/2019 YAZMIN, DAYNA R SOLAR PROJECT COORDINATION SPECIALIST Ot G47.33 OBSTRUCTIVE SLEEP APNEA (ADULT) (PEDIATR 08/22/2019 YAZMIN, DAYNA R SOLAR PROJECT COORDINATION SPECIALIST Ot G47.33 OBSTRUCTIVE SLEEP APNEA (ADULT) (PEDIATR 08/22/2019 YAZMIN, DAYNA R SOLAR PROJECT COORDINATION SPECIALIST Ot G47.33 OBSTRUCTIVE SLEEP APNEA (ADULT) (PEDIATR 08/22/2019 YAZMIN, DAYNA R SOLAR PROJECT COORDINATION SPECIALIST Ot G47.33 OBSTRUCTIVE SLEEP APNEA (ADULT) (PEDIATR 08/26/2019 YAZMIN, DAYNA R SOLAR PROJECT COORDINATION SPECIALIST Ot G47.33 OBSTRUCTIVE SLEEP APNEA (ADULT) (PEDIATR 08/26/2019 SAULO CROWDER, KEN Sood Ot Z12.31 ENCNTR SCREEN MAMMOGRAM FOR MALIGNANT NE 08/26/2019 DAYNA ARCE R SOLAR PROJECT COORDINATION SPECIALIST Ot G47.33 OBSTRUCTIVE SLEEP APNEA (ADULT) (PEDIATR 08/26/2019 SAULO CROWDER, KEN Sood Ot Z12.31 ENCNTR SCREEN MAMMOGRAM FOR MALIGNANT NE 08/27/2019 DAYNA ARCE R SOLAR PROJECT COORDINATION SPECIALIST Ot G47.33 OBSTRUCTIVE SLEEP APNEA (ADULT) (PEDIATR 08/27/2019 DAYNA ARCE R SOLAR PROJECT COORDINATION SPECIALIST Ot G47.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 08/27/2019 SAULO CROWDER, KEN Sood Ot Z12.31 ENCNTR SCREEN MAMMOGRAM FOR MALIGNANT NE 09/02/2019 KEN VERNON MD Ot Z12.31 ENCNTR SCREEN MAMMOGRAM FOR MALIGNANT NE 09/03/2019 DYANA ARCE APRN Ot G47.33 OBSTRUCTIVE SLEEP APNEA (ADULT) (PEDIATR 09/03/2019 DAYNA ARCE APRN Ot G47.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 09/16/2019 KEN VERNON MD Ot Z12.31 ENCNTR SCREEN MAMMOGRAM FOR MALIGNANT NE 09/16/2019 KEN VERNON MD Ot Z12.31 ENCNTR SCREEN MAMMOGRAM FOR MALIGNANT NE 09/19/2019 KEN VERNON MD, Ot Z12.31 ENCNTR SCREEN MAMMOGRAM FOR MALIGNANT NE 12/27/2019 ALY JORDAN MD, Ot E11.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 W DIABETIC VAMP MARKER 12/27/2019 ALY JORDAN MD, Ot E11.40 TYPE 2 DIABETES MELLITUS WITH DIABETIC N 12/27/2019 ALY JORDAN MD, Ot E78.00 PURE HYPERCHOLESTEROLEMIA, UNSPECIFIED 12/27/2019 ALY JORDAN MD, Ot F32.9 MAJOR DEPRESSIVE DISORDER, SINGLE EPISOD 12/27/2019 ALY JORDAN MD, Ot F41.9 ANXIETY DISORDER, UNSPECIFIED 12/27/2019 ALY JORDAN MD, Ot I13.2 HYP HRT CHR [place] DIS W HRT FAIL AND W 12/27/2019 ALY JORDAN MD, Ot I48.92 UNSPECIFIED ATRIAL FLUTTER 12/27/2019 ALY JORDAN MD, Ot I50.9 HEART FAILURE, UNSPECIFIED 12/27/2019 ALY JORDAN MD, Ot N18.6 END STAGE RENAL DISEASE 12/27/2019 ALY JORDAN MD, Ot Z79.4 DETENTION (CURRENT) USE OF INSULIN 12/27/2019 ALY JORDAN MD, Ot Z79.82 DETENTION (CURRENT) USE OF ASPIRIN 12/27/2019 ALY JORDAN MD, Ot Z80.1 FAMILY HISTORY OF MALIG NEOPLASM OF [place] 12/27/2019 ALY JORDAN MD, Ot Z82.49 FAMILY HX OF [place] HEART DIS AND OTH DI 12/27/2019 ALY JORDAN MD, Ot Z85.828 PERSONAL HISTORY OF OTHER MALIGNANT NEOP 12/27/2019 ALY JORDAN MD, Ot Z88.2 ALLERGY STATUS TO SULFONAMIDES STATUS 12/27/2019 ALY JORDAN MD Ot Z99.2 DEPENDENCE ON RENAL DIALYSIS 12/30/2019 TOMMY DO, BENTON K Ot E11.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 W DIABETIC VAMP MARKER 12/30/2019 TOMMY DO, BENTON K Ot E11.40 TYPE 2 DIABETES MELLITUS WITH DIABETIC N 12/30/2019 TOMMY DO, BENTON K Ot E78.00 PURE HYPERCHOLESTEROLEMIA, UNSPECIFIED 12/30/2019 TOMMY DO, BENTON K Ot F32.9 MAJOR DEPRESSIVE DISORDER, SINGLE EPISOD 12/30/2019 TOMMY DO, BENTON K Ot F41.9 ANXIETY DISORDER, UNSPECIFIED 12/30/2019 TOMMY DO, BENTON K Ot I13.2 HYP HRT CHR [place] DIS W HRT FAIL AND W 12/30/2019 TOMMY DO, BENTON K Ot I48.92 UNSPECIFIED ATRIAL FLUTTER 12/30/2019 TOMMY DO, BENTON K Ot N18.6 END STAGE RENAL DISEASE 12/30/2019 TOMMY DO, BENTON K Ot Z79.4 LABORATORY PHLEBOTOMIST (CURRENT) USE OF INSULIN 12/30/2019 TOMMY DO, BENTON K Ot Z79.82 LABORATORY PHLEBOTOMIST (CURRENT) USE OF ASPIRIN 12/30/2019 TOMMY DO, BENTON K Ot Z80.1 FAMILY HISTORY OF MALIG NEOPLASM OF [place] 12/30/2019 TOMMY DO, BENTON K Ot Z82.49 FAMILY HX OF ISCHEM HEART DIS AND OTH DI 12/30/2019 TOMMY DO, BENTON K Ot Z85.828 PERSONAL HISTORY OF OTHER MALIGNANT NEOP 12/30/2019 TOMMY DO, BENTON K Ot Z87.891 PERSONAL HISTORY OF NICOTINE DEPENDENCE 12/30/2019 TOMMY DO, BENTON K Ot Z88.2 ALLERGY STATUS TO SULFONAMIDES STATUS 12/30/2019 TOMMY DO, BENTON K Ot Z98.890 OTHER SPECIFIED POSTPROCEDURAL STATES 12/30/2019 TOMMY DO, BENTON K Ot Z99.2 DEPENDENCE ON RENAL DIALYSIS 12/31/2019 ALY JORDAN MD Ot E11.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 W DIABETIC VAMP MARKER 12/31/2019 ALY JORDAN MD, Ot E11.40 TYPE 2 DIABETES MELLITUS WITH DIABETIC N 12/31/2019 ALY JORDAN MD, Ot E78.00 PURE HYPERCHOLESTEROLEMIA, UNSPECIFIED 12/31/2019 ALY JORDAN MD Ot F32.9 MAJOR DEPRESSIVE DISORDER, SINGLE EPISOD 12/31/2019 ALY JORDAN MD, Ot F41.9 ANXIETY DISORDER, UNSPECIFIED 12/31/2019 ALY JORDAN MD Ot I13.2 HYP HRT CHR [place] DIS W HRT FAIL AND W 12/31/2019 ALY JORDAN MD Ot I48.92 UNSPECIFIED ATRIAL FLUTTER 12/31/2019 ALY JORDAN MD, Ot I50.9 HEART FAILURE, UNSPECIFIED 12/31/2019 ALY JORDAN MD, Ot N18.6 END STAGE RENAL DISEASE 12/31/2019 ALY JORDAN MD, Ot Z79.4 DETENTION (CURRENT) USE OF INSULIN 12/31/2019 ALY JORDAN MD, Ot Z79.82 LABORATORY PHLEBOTOMIST (CURRENT) USE OF ASPIRIN 12/31/2019 ALY JORDAN [...] E11.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 W DIABETIC VAMP MARKER 01/02/2020 TOMMY DO, BENTON K Ot E11.40 TYPE 2 DIABETES MELLITUS WITH DIABETIC N 01/02/2020 TOMMY DO, BENTON K Ot E78.00 PURE HYPERCHOLESTEROLEMIA, UNSPECIFIED 01/02/2020 TOMMY DO, BENTON K Ot F32.9 MAJOR DEPRESSIVE DISORDER, SINGLE EPISOD 01/02/2020 TOMMY DO BENTON K Ot F41.9 ANXIETY DISORDER, UNSPECIFIED 01/02/2020 TOMMY DO BENTON K Ot I13.2 HYP HRT CHR [place] DIS W HRT FAIL AND W 01/02/2020 TOMMY DO, BENTON K Ot I48.92 UNSPECIFIED ATRIAL FLUTTER 01/02/2020 TOMMY DO, BENTON K Ot N18.6 END STAGE RENAL DISEASE 01/02/2020 TOMMY DO, BENTON K Ot Z79.4 DETENTION (CURRENT) USE OF INSULIN 01/02/2020 [facility], [place] K Ot Z79.82 LABORATORY PHLEBOTOMIST (CURRENT) USE OF ASPIRIN 01/02/2020 [facility], [place] K Ot Z80.1 FAMILY HISTORY OF MALIG NEOPLASM OF TR[place] 01/02/2020 [facility], [place] K Ot Z82.49 FAMILY HX OF ISCHEM HEART DIS AND OTH DI 01/02/2020 TOMMY DO, BENTON K Ot Z85.828 PERSONAL HISTORY OF OTHER MALIGNANT NEOP 01/02/2020 TOMMY DO, BENTON K Ot Z87.891 PERSONAL HISTORY OF NICOTINE DEPENDENCE 01/02/2020 [facility], [place] K Ot Z88.2 ALLERGY STATUS TO SULFONAMIDES STATUS 01/02/2020 [facility], [place] K Ot Z98.890 OTHER SPECIFIED POSTPROCEDURAL STATES 01/02/2020 TOMMY , BENTON K Ot Z99.2 DEPENDENCE ON RENAL DIALYSIS 01/10/2020 SETH CROWDER, KIRT [place] Ot E11. 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 W DIABETIC VAMP MARKER 01/10/2020 SETH CROWDER, KIRT [place] Ot E11. 40 TYPE 2 DIABETES MELLITUS WITH DIABETIC N 01/10/2020 SETH CROWDER, KIRT [place] Ot E78. 2 MIXED HYPERLIPIDEMIA 01/10/2020 SETH CROWDER, KIRT [place] Ot F32. 9 MAJOR DEPRESSIVE DISORDER, SINGLE EPISOD 01/10/2020 SETH CROWDER, KIRT [place] Ot F41. 9 ANXIETY DISORDER, UNSPECIFIED 01/10/2020 SETH CROWDER, KIRT [place] Ot G47. 30 SLEEP APNEA, UNSPECIFIED 01/10/2020 SETH CROWDER, KIRT [place] Ot G89. 29 OTHER CHRONIC PAIN 01/10/2020 SETH CROWDER, KIRT [place] Ot I13. 2 HYP HRT CHR [place] DIS W HRT FAIL AND W 01/10/2020 SETH CROWDER, KIRT [place] Ot I34. 0 NONRHEUMATIC MITRAL (VALVE) INSUFFICIENC 01/10/2020 SETH CROWDER, KIRT [place] Ot I48. 3 TYPICAL ATRIAL FLUTTER 01/10/2020 KIRT ANN MD Ot I48. 91 UNSPECIFIED ATRIAL FIBRILLATION 01/10/2020 KIRT ANN MD Ot I50. 9 HEART FAILURE, UNSPECIFIED 01/10/2020 KIRT ANN MD, Ot J44. 9 CHRONIC OBSTRUCTIVE PULMONARY DISEASE, U 01/10/2020 KIRT ANN MD, Ot K21. 9 GASTRO-ESOPHAGEAL REFLUX DISEASE WITHOUT 01/10/2020 KIRT ANN MD, Ot M19. 90 UNSPECIFIED OSTEOARTHRITIS, UNSPECIFIED 01/10/2020 KIRT ANN MD, Ot N18. 6 END STAGE RENAL DISEASE 01/10/2020 KIRT ANN MD Ot Z79. 01 LABORATORY PHLEBOTOMIST (CURRENT) USE OF ANTICOAGULANT 01/10/2020 KIRT ANN MD Ot Z79. 4 DETENTION (CURRENT) USE OF INSULIN 01/10/2020 KIRT ANN MD, Ot Z79. 82 DETENTION (CURRENT) USE OF ASPIRIN 01/10/2020 KIRT ANN MD, Ot Z79.899 OTHER DETENTION (CURRENT) DRUG THERAPY 01/10/2020 KIRT ANN MD, Ot Z80. 1 FAMILY HISTORY OF MALIG NEOPLASM OF TRAC 01/10/2020 KIRT ANN MD Ot Z85.828 PERSONAL HISTORY OF OTHER MALIGNANT NEOP 01/10/2020 KIRT ANN MD Ot Z87.891 PERSONAL HISTORY OF NICOTINE DEPENDENCE 01/10/2020 KIRT ANN MD Ot Z88. 2 ALLERGY STATUS TO SULFONAMIDES STATUS 01/10/2020 KIRT ANN MD Ot Z90.710 ACQUIRED ABSENCE OF BOTH CERVIX AND UTER 01/10/2020 KIRT ANN MD Ot Z99. 2 DEPENDENCE ON RENAL DIALYSIS 01/14/2020 KEN VERNON MD Ot Z12.31 ENCNTR SCREEN MAMMOGRAM FOR MALIGNANT NE 01/15/2020 KEN VERNON MD Ot Z12.31 ENCNTR SCREEN MAMMOGRAM FOR MALIGNANT NE Procedures Code Description [place] [id number] [facility], per day, for the evaluation and management of a patient, which requires JASEN Jerez MD 09/19/2017 [id number] [facility], per day, for the evaluation and management of a patient, which requires at YECENIA CHURCH MD 09/19/2017 [id number] Offi ce or other outpatient visit for the evaluation and management of an established patient, which TIMBO SMITH I 10/18/2017 [id number] Offi ce or other outpatient visit for the evaluation and management of an established patient, which TIMBO SMITH I 03/29/2018 [id number] [facility] care, per day, for the evaluation and management of a patient, which requires JASEN Jerez MD 03/29/2018 [id number] [facility] care, per day, for the evaluation and management of a patient, which requires YECENIA Benito MD 03/29/2018 Results Test Result Range Glucose [...] 5.0-8.0 Protein Pos 2+ NA Negative Specific [place] 1.015 NA 1.003-1.030 UA Collection type Clean [...] - 12/27/19 15:31 Bacterial blood culture NG NR Bacterial blood culture - 12/27/19 15:48 Bacterial blood culture NG NR Complete blood count (CBC) with automate d [...] - 01/10/20 08:25 Magnesium 2.5 mg/dL 1.6-2.4 Complete blood count (CBC) with automate d white blood cell (WBC) differential - 01/14/20 03:40 Blood leukocytes automated count (number/volume) 8.5 10*3/uL 4.3-11.0 Blood erythrocytes automated count (number/volume) 3.66 10*6/uL 4.35-5.85 Venous blood hemoglobin measurement (mass/volume) 11.8 g/dL 11.5-16.0 Blood hematocrit (volume fraction) 38 % 35-52 Automated erythrocyte mean corpuscular volume 103 [foz_us] 80-99 Automated erythrocyte mean corpuscular h emoglobin (mass per erythrocyte) 32 pg 25-34 Automated erythrocyte mean corpuscular h emoglobin concentration measurement (mass/volume) 32 g/dL 32-36 Automated erythrocyte distribution width ratio 17. 6 % 10.0- 14.5 Automated blood platelet count (count/volume) 160 10*3/uL 130-400 Automated blood platelet mean volume measurement 10.9 [foz_us] 7.4-10.4 Automated blood neutrophils/100 leukocytes 63 % 42-75 Automated blood lymphocytes/100 leukocytes 27 % 12-44 Blood monocytes/100 leukocytes 7 % 0-12 Automated blood eosinophils/100 leukocytes 2 % 0-10 Automated blood basophils/100 leukocytes 1 % 0-10 Blood neutrophils automated count (number/volume) 5.4 10*3 1.8-7.8 Blood lymphocytes automated count (number/volume) 2.3 10*3 1.0-4.0 Blood monocytes automated count (number/volume) 0. 6 10*3 0.0-1.0 Automated eosinophil count 0.2 10*3/uL 0 .0-0.3 Automated blood basophil count (count/volume) 0.1 10*3/uL 0.0-0.1 Comprehensive metabolic panel - 01/14/20 03:40 Serum or plasma sodium measurement (moles/volume) 139 mmol/L 135-145 Serum or plasma potassium measurement (moles/volume) 3.2 mmol/L 3.6-5.0 Serum or plasma chloride measurement (moles/volume) 99 mmol/L 98-107 Carbon dioxide 21 mmol/L 21-32 Serum or plasma anion gap determination (moles/volume) 19 mmol/L 5-14 Serum or plasma urea nitrogen measurement (mass/volume ) 58 mg/dL 7-18 Serum or plasma creatinine measurement (mass/volume) 6.24 mg/dL 0.60-1.30 Serum or plasma urea nitrogen/creatinine mass ratio 9 NRG Serum or plasma creatinine measurement w ith calculation of estimated glomerular filtration rate 7 NRG Serum or plasma glucose measurement (mass/volume) 206 mg/dL 70-105 Serum or plasma calcium measurement (mass/volume) 8.1 mg/dL 8.5-10.1 Serum or plasma total bilirubin measurement (mass/volu me) 0.4 mg/dL 0.1-1.0 Serum or plasma alkaline phosphatase apurva surement (enzymatic activity/volume) 75 U/L 40-136 Serum or plasma aspartate aminotransfera se measurement (enzymatic activity/volume) 11 U/L 5-34 Serum or plasma alanine aminotransferase measurement (enzymatic activity/volume) 9 U/L 0-55 Serum or plasma protein measurement (mass/volume) 6.9 g/dL 6.4-8.2 Serum or plasma albumin measurement (mass/volume) 3.7 g/dL 3.2-4.5 CALCIUM CORRECTED 8.3 mg/dL 8.5-10.1 Serum or plasma troponin i.cardiac measu rement (mass/volume) - 01/14/20 03:40 Serum or plasma troponin i.cardiac measurement (mass/v olume) < ng/mL <0.028 Coronavirus SARS-CoV-2 SO 2018 - 0 05:10 Coronavirus Ab [Units/volume] in Serum Negative Negative Radiology Report from [id number] on 09/14 10:09:00 Reason For ExamAbdominal pain, [...] Nohydronephrosis. There is no ascites.Dictated on worksta tion:[id number] Line PRELIMINARY DICTATED BY: ALBIN GUTIERREZ MDDICTATED DT/TM: 09/14/2017 9:54 Radiology Report from [id number] on 09/14 10:09:00 Reason For ExamSyncopeREPORTIndication: Syncope.Procedure: [...] significantstenosis hemodynamically. Both vertebrals are patent.Dictated on workstation:[id number] Line PRELIMINARY DICTATED BY: ALBIN GUTIERREZ MDDICTATED DT/TM: 09/14/2017 9:49 Radiology Report from [id number] on 09/14 12:41:00 Reason For ExamCoughREPORTINDICATION: Co ugh.COMPARISON: None available.TECHNIQUE: Frontal and lateral radiographs of the chest dated September 14, 2017.FINDINGS: The cardiac silhouette is mildly enlarged. No significant pulmonaryvascular congestion. The lungs are clear. No pleural effusion. No pneumothorax.Mild scattered osseous degenerative changes without acute osseous abnormality.IMPRESSION: Cardiomegaly without overt congestive heart failure or additionalsuperimposed acute cardiopulmonary abnormality.Dictated on workstation:[id number] Line PRELIMINARY DICTATED BY: MANSI LARSON MDDICTATED DT/TM: 09/14/2017 12:38 Encounters ACCT No. Visit Date/Time Discharge Status Pt. Type Provider Facility Loc./Unit Complaint [id number] 09/14/2017 04:48:00 10:59:00 DIS Inpatient VishalRuthie a [facility] [place] [facility] F5SE Pancreatitis, Acute Renal Failure [id number] 09/15/2017 05:19:03 Document Registration [id number] 12/18/2017 13:34:06 23:59:59 CLS Outpatient TIMBO SMITH I [id number] 01/14/2020 03:15:00 05:40:00 DIS Emergency ALY JORDAN MD [facility] ER A-FLUTTER [id number] 01/13/2020 16:09:00 16:48:00 DIS Emergency ROSE CROWDER, STEPHANE Andrade [facility] ER A FLUTTER [id number] 01/10/2020 11:10:00 17:05:00 DIS Inpatient SETH CROWDER, KIRT [place] [facility] ICU A-FLUTTER W/ RVR [id number] 12/30/2019 16:13:00 19:17:00 DIS Emergency TOMMY DOBENTON Vi a [facility] ER ATRIAL FLUTTER [id number] 12/27/2019 15:07:00 18:58:00 DIS Emergency ALY JORDAN MD [facility] ER HIGH PULSE - 14 5 [id number] 09/01/2019 10:19:00 23:59:59 CLS Outpatient KEN VERNON MD [facility] RAD SCREENING [id number] 08/26/2019 20:56:00 06:25:00 DIS Outpatient DAYNA ARCE APRN Via [facility] SLEEP OBSTRUCTIVE SLEEP APNE A [id number] 08/06/2019 20:39:00 07:29:00 DIS Outpatient ISABELLA MEJIA APRN [facility] SLEEP KARO G47.33 [id number] 04/10/2019 13:22:00 019 12:15:00 DIS Outpatient LINH CORLEY MD [facility] SDC IRON DEFICIENCY ANEMIA [id number] 04/08/2019 07:55:00 23:59:59 CLS Outpatient JOHANNA CROWDER FACC, LYDIA BRICEÑO CC DS [facility] CARD ACUTE DIAST OLIC CHF [id number] 03/06/2019 21:25:00 15:24:00 DIS Inpatient CLAUDIO FARAH MD [facility] ICU CHF,UTI,CHRONIC RENAL FAILURE,HYPOMAGNESEMIA,HYPOT [id number] 08/27/2018 10:51:00 019 14:23:00 DIS Emergency SHERLYN HARRIS [facility] ER POSSIBLE NECK ABCESS [id number] 06/25/2018 08:40:00 23:59:59 CLS Outpatient ISABELLA MEJIA APRN [facility] RAD CKD STAGE 4 [id number] 04/26/2018 09:26:00 13:25:00 DIS Outpatient SAVANNAH VILLAR DO [facility] SDC SKIN LESION NOSE [id number] 04/24/2018 11:40:00 12:16:00 DIS Outpatient SAVANNAH VILLAR DO [facility] PREOP SKIN LESION NOSE [id number] 01/18/2018 07:27:00 09:58:00 DIS Outpatient KIRT ANN MD Via [facility] ENDO SCREENING [id number] 01/14/2018 09:30:00 10:24:00 DIS Outpatient KIRT ANN MD Via [facility] PREOP COLONOSCOPY [id number] 01/22/2020 08:30:00 P ZOLTAN RIVERA MD, Rex DANIEL [facility] AFIB [id number] 04/26/2018 09:26:00 Document Registration [id number] 02/22/2018 10:46:00 Document Registration
[2020-01-16 10:42] VITALS: BP 105/65
[2020-01-22] MEDS ORDERED: DILT120C53 PO (07:47)
[2020-01-22] MEDS ORDERED: MTP100TCR PO (14:28)
== END 2020-01-16 10:42 | disposition home or self-care (01) ==
LOC: EDUNIT# 09:25 → ER 09:26
DX: I48.0 Paroxysmal atrial fibrillation (principal); I13.2 Hypertensive heart and chronic kidney disease with heart failure and with stage 5 chronic kidney disease, or end stage renal disease; N18.6 End stage renal disease; I50.9 Heart failure, unspecified; Z99.2 Dependence on renal dialysis; E11.22 Type 2 diabetes mellitus with diabetic chronic kidney disease; J44.9 Chronic obstructive pulmonary disease, unspecified; G47.30 Sleep apnea, unspecified; E78.00 Pure hypercholesterolemia, unspecified; E78.1 Pure hyperglyceridemia; K59.09 Other constipation; K52.9 Noninfective gastroenteritis and colitis, unspecified; M19.90 Unspecified osteoarthritis, unspecified site; M54.9 Dorsalgia, unspecified; Z85.828 Personal history of other malignant neoplasm of skin; F41.9 Anxiety disorder, unspecified; F32.9 Major depressive disorder, single episode, unspecified; Z79.4 Long term (current) use of insulin; Z79.899 Other long term (current) drug therapy; Z79.82 Long term (current) use of aspirin; Z87.891 Personal history of nicotine dependence; Z79.890 Hormone replacement therapy
CPT/HCPCS: 93005

== ENCOUNTER → 2020-01-19 | Outpatient (CLI) | payer MEDICARE, MEDICAID ==
[~2020-01-19] MED LIST changes: +APIX5TAB; -APIX5TAB PO; +SEVE800T7; -SEVE800T7 PO
== END ==
LOC: LABNPT 06:53
PROVIDERS: ATTEND Internal Medicine Interventional Cardiology
DX: Z01.812 Encounter for preprocedural laboratory examination (principal); Z53.8 Procedure and treatment not carried out for other reasons

== ENCOUNTER 2020-01-22 07:04 | Day surgery (SDC) | payer MEDICARE, OTHER, MEDICAID ==
[~2020-01-22] VITALS: Ht 157 cm; Wt 105.0 kg
[2020-01-22] VITALS (21 sets, daily range): BP systolic 104–157; BP diastolic 49–80
[~2020-01-22 07:04] MED LIST changes: -APIX5TAB; +APIX5TAB PO; -SEVE800T7; +SEVE800T7 PO
[2020-01-22] MEDS ORDERED: NS IV 1000 ML 1,000 ML IV SCH (07:05)
[2020-01-22] MEDS ORDERED: HEParin (CATH LAB) 2,000 ML IV ONE (07:05)
[2020-01-22] MEDS ORDERED: LIDOCAINE 1% INJ 20 ML 20 ML VIAL ONE (07:05)
[2020-01-22] MEDS ORDERED: NS IV 1000 ML 1,000 ML ONE ×2 (07:06→10:24)
--- OUTSIDE RECORDS SUMMARY | 2020-01-22 07:09 | XMS REPORT | Continuity of Care Document ---
Author Organization Unknown Address Unknown Phone Unavailable Allergies Active Description Code Type Severity Reaction Onset Reported/Identified Relationship to Patient Clinical Status Yes sulfa drugs NKMA N/A N/A 09/14/2017 Yes Sulfa (Sulfonamide Antibiotics) [id number] Drug Allergy Mild HIVES 8 Medications [...] puffs 09/14/2017 Inhalation 2 puffs, Inhalation, QID, MO N: as needed for wheezing, 0 Refill(s) [...] Ot I25. 10 ATHSCL HEART DISEASE OF [place] CORONARY 01/18/2018 KIRT ANN MD Ot I50. 9 HEART FAILURE, UNSPECIFIED 01/18/2018 KIRT ANN MD Ot K57. 30 DVRTCLOS OF LG INT W/O PERFORATION OR AB 01/18/2018 KIRT ANN MD Ot Z12. 11 ENCOUNTER FOR SCREENING FOR MALIGNANT NE 01/18/2018 KIRT ANN MD Ot Z68. 41 BODY MASS INDEX (BMI) 40.0-44.9, ADULT 01/18/2018 KIRT ANN MD Ot Z79. 84 MCFP (CURRENT) USE OF ORAL HYPOGLYC 01/18/2018 KIRT ANN MD Ot Z79.899 OTHER MCFP (CURRENT) DRUG THERAPY 01/22/2018 KIRT ANN MD Ot E11. 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 01 MORBID (SEVERE) OBESITY DUE TO EXCESS CA 01/22/2018 KIRT ANN MD Ot I11. 0 HYPERTENSIVE HEART DISEASE WITH HEART FA 01/22/2018 KIRT ANN MD, Ot I25. 10 ATHSCL HEART DISEASE OF [place] CORONARY 01/22/2018 KIRT ANN MD Ot I50. 9 HEART FAILURE, UNSPECIFIED 01/22/2018 KIRT ANN MD, Ot K57. 30 DVRTCLOS OF LG INT W/O PERFORATION OR AB 01/22/2018 KIRT ANN MD Ot Z12. 11 ENCOUNTER FOR SCREENING FOR MALIGNANT NE 01/22/2018 KIRT ANN MD Ot Z68. 41 BODY MASS INDEX (BMI) 40.0-44.9, ADULT 01/22/2018 KIRT ANN MD Ot Z79. 84 MCFP (CURRENT) USE OF ORAL HYPOGLYC 01/22/2018 KIRT ANN MD, Ot Z79.899 OTHER MCFP (CURRENT) DRUG THERAPY 01/23/2018 KIRT ANN MD Ot E11. 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 01 MORBID (SEVERE) OBESITY DUE TO EXCESS CA 01/23/2018 KIRT ANN MD Ot I11. 0 HYPERTENSIVE HEART DISEASE WITH HEART FA 01/23/2018 KIRT ANN MD, Ot I25. 10 ATHSCL HEART DISEASE OF [place] CORONARY 01/23/2018 KIRT ANN MD, Ot I50. 9 HEART FAILURE, UNSPECIFIED 01/23/2018 KIRT ANN MD, Ot K57. 30 DVRTCLOS OF LG INT W/O PERFORATION OR AB 01/23/2018 KIRT ANN MD Ot Z12. 11 ENCOUNTER FOR SCREENING FOR MALIGNANT NE 01/23/2018 KIRT ANN MD Ot Z68. 41 BODY MASS INDEX (BMI) 40.0-44.9, ADULT 01/23/2018 KIRT ANN MD Ot Z79. 84 MCFP (CURRENT) USE OF ORAL HYPOGLYC 01/23/2018 KIRT ANN MD Ot Z79.899 OTHER ELECTRIC MOTORMAN (CURRENT) DRUG THERAPY 03/05/2018 Ot M47.26 OTH [...] 04/26/2018 VILLAR DOSAVANNAH D Ot Z79. 4 ELECTRIC MOTORMAN (CURRENT) USE OF INSULIN 04/26/2018 VILLAR DOSAVANNAH D Ot Z79.899 OTHER MCFP (CURRENT) DRUG THERAPY 04/30/2018 VILLAR DOSAVANNAH D [...] 04/30/2018 VILLAR DOSAVANNAH D Ot Z79. 4 ELECTRIC MOTORMAN (CURRENT) USE OF INSULIN 04/30/2018 VILLAR DO, SAVANNAH D Ot Z79.899 OTHER ELECTRIC MOTORMAN (CURRENT) DRUG THERAPY 04/30/2018 VILLAR DO, SAVANNAH [...] VILLAR DO, SAVANNAH D Ot Z79. 4 MCFP (CURRENT) USE OF INSULIN 04/30/2018 VILLAR DO, SAVANNAH D Ot Z79.899 OTHER ELECTRIC MOTORMAN (CURRENT) DRUG THERAPY 05/09/2018 VILLAR DO, SAVANNAH [...] VILLAR DO, SAVANNAH D Ot Z79. 4 MCFP (CURRENT) USE OF INSULIN 05/09/2018 VILLAR DO, SAVANNAH D Ot Z79.899 OTHER ELECTRIC MOTORMAN (CURRENT) DRUG THERAPY 06/27/2018 ISABELLA MEJIA APRN Ot E11.21 TYPE 2 DIABETES MELLITUS WITH DIABETIC N 06/27/2018 ISABELLA MEJIA APRN Ot E11.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 W DIABETIC SOUND ENGINEER 06/27/2018 ISABELLA MEJIA APRN Ot E78.5 HYPERLIPIDEMIA, [...] HISTORY OF NICOTINE DEPENDENCE 07/10/2018 ISABELLA MEJIA TEACHER ADULT EDUCATION Ot E11.21 TYPE 2 DIABETES MELLITUS WITH DIABETIC N 07/10/2018 ISABELLA MEJIA APRN Ot E11.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 W DIABETIC SOUND ENGINEER 07/10/2018 ISABELLA MEJIA APRN Ot E78.5 HYPERLIPIDEMIA, UNSPECIFIED 07/10/2018 ISABELLA MEJIA APRN Ot I12.9 HYPERTENSIVE CHRONIC KIDNEY DISEASE W ST 07/10/2018 ISABELLA MEJIA APRN Ot I50.9 HEART FAILURE, UNSPECIFIED 07/10/2018 ISABELLA MEJIA APRN Ot M10.9 GOUT, UNSPECIFIED 07/10/2018 ISABELLA MEJIA APRN Ot N18.4 CHRONIC KIDNEY DISEASE, STAGE 4 (SEVERE) 07/10/2018 ISABELLA MEJIA TEACHER ADULT EDUCATION Ot N39.0 URINARY TRACT INFECTION, SITE NOT [...] LUMP, HEAD 08/27/2018 SHERLYN HARRIS Ot Z79.4 MCFP (CURRENT) USE OF INSULIN 08/27/2018 SHERLYN HARRIS [...] OTHER SPECIFIED POSTPROCEDURAL STATES 08/27/2018 ISABELLA MEJIA TEACHER ADULT EDUCATION Ot E11.21 TYPE 2 DIABETES MELLITUS WITH DIABETIC N 08/27/2018 ISABELLA MEJIA TEACHER ADULT EDUCATION Ot E11.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 W DIABETIC SOUND ENGINEER 08/27/2018 ISABELLA MEJIA APRN Ot E78.5 HYPERLIPIDEMIA, [...] LUMP, HEAD 08/29/2018 SHERLYN HARRIS Ot Z79.4 MCFP (CURRENT) USE OF INSULIN 08/29/2018 SHERLYN HARRIS [...] E11.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 W DIABETIC SOUND ENGINEER 03/06/2019 ISABELLA MJEIA APRN Ot E78.5 HYPERLIPIDEMIA, UNSPECIFIED 03/06/2019 ISABELLA [...] ANEMIA IN CHRONIC KIDNEY DISEASE 03/07/2019 CLAUDIO FARHA MD, Ot E03 .9 HYPOTHYROIDISM, UNSPECIFIED 03/07/2019 [...] 03/07/2019 CLAUDIO FARAH MD, Ot Z79 .4 MCFP (CURRENT) USE OF INSULIN 03/07/2019 CLAUDIO FARAH MD, Ot Z85.828 PERSONAL HISTORY OF OTHER MALIGNANT NEOP 03/07/2019 CLAUDIO FARAH MD, Ot Z91.19 PATIENT'S NONCOMPLIANCE W OT MEDICAL TR 03/17/2019 ISABELLA MEJIA APRN Ot E11.21 TYPE 2 DIABETES MELLITUS WITH DIABETIC N 03/17/2019 ISABELLA MEJIA APRN Ot E11.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 W DIABETIC SOUND ENGINEER 03/17/2019 ISABELLA MEJIA APRN Ot E78.5 HYPERLIPIDEMIA, [...] E11.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 W DIABETIC SOUND ENGINEER 03/17/2019 ISABELLA MEJIA APRN Ot E78.5 HYPERLIPIDEMIA, [...] E11.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 W DIABETIC SOUND ENGINEER 04/08/2019 ISABELLA MEIJA APRN Ot E78.5 HYPERLIPIDEMIA, UNSPECIFIED 04/08/2019 ISABELLA [...] E11.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 W DIABETIC SOUND ENGINEER 04/08/2019 ISABELLA MEJIA APRN Ot E78.5 HYPERLIPIDEMIA, [...] E11.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 W DIABETIC SOUND ENGINEER 04/10/2019 JOHANNA CROWDER FACC, LYDIA FACP CCDS [...] E11.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 W DIABETIC SOUND ENGINEER 05/09/2019 JOHANNA CROWDER FACC, ALI FACP CCDS Ot I13.0 HYP HRT CHR KDNY DIS W HRT FAIL AND ST 05/09/2019 JOHANNA CROWDER FACC, ALI FACP CCDS Ot I50.31 ACUTE DIASTOLIC (CONGESTIVE) HEART FAILU 05/09/2019 JOHANNA CROWDER FACC, ALI FACP CCDS Ot N18.4 CHRONIC KIDNEY DISEASE, STAGE 4 (SEVERE) 08/05/2019 ISABELLA MEJIA APRN Ot G47.33 OBSTRUCTIVE SLEEP APNEA (ADULT) (PEDIATR 08/06/2019 ISABELLA MEJIA TEACHER ADULT EDUCATION Ot G47.33 OBSTRUCTIVE SLEEP APNEA (ADULT) (PEDIATR 08/06/2019 ISABELLA MEJIA APRN Ot G47.33 OBSTRUCTIVE SLEEP APNEA (ADULT) (PEDIATR 08/06/2019 ISABELLA MEJIA APRN Ot G47.33 OBSTRUCTIVE SLEEP APNEA (ADULT) (PEDIATR 08/07/2019 ISABELLA MEJIA APRN Ot G47.33 OBSTRUCTIVE SLEEP APNEA (ADULT) (PEDIATR 08/07/2019 DOUTHITT, ISABELLA B TEACHER ADULT EDUCATION Ot I10 ESSENTIAL (PRIMARY) HYPERTENSION 08/08/2019 ISABELLA MEJIA TEACHER ADULT EDUCATION Ot G47.33 OBSTRUCTIVE SLEEP APNEA (ADULT) (PEDIATR 08/08/2019 ISABELLA MEJIA TEACHER ADULT EDUCATION Ot I10 ESSENTIAL (PRIMARY) HYPERTENSION 08/15/2019 YAZMIN, DAYNA R TEACHER ADULT EDUCATION Ot G47.33 OBSTRUCTIVE SLEEP APNEA (ADULT) (PEDIATR 08/21/2019 YAZMIN, DAYNA R TEACHER ADULT EDUCATION Ot G47.33 OBSTRUCTIVE SLEEP APNEA (ADULT) (PEDIATR 08/21/2019 YAZMIN, DAYNA R TEACHER ADULT EDUCATION Ot G47.33 OBSTRUCTIVE SLEEP APNEA (ADULT) (PEDIATR 08/21/2019 YAZMIN, DAYNA R TEACHER ADULT EDUCATION Ot G47.33 OBSTRUCTIVE SLEEP APNEA (ADULT) (PEDIATR 08/21/2019 YAZMIN, DAYNA R TEACHER ADULT EDUCATION Ot G47.33 OBSTRUCTIVE SLEEP APNEA (ADULT) (PEDIATR 08/21/2019 YAZMIN, DAYNA R TEACHER ADULT EDUCATION Ot G47.33 OBSTRUCTIVE SLEEP APNEA (ADULT) (PEDIATR 08/22/2019 YAZMIN, DAYNA R TEACHER ADULT EDUCATION Ot G47.33 OBSTRUCTIVE SLEEP APNEA (ADULT) (PEDIATR 08/22/2019 YAZMIN, DAYNA R TEACHER ADULT EDUCATION Ot G47.33 OBSTRUCTIVE SLEEP APNEA (ADULT) (PEDIATR 08/22/2019 YAZMIN, DAYNA R TEACHER ADULT EDUCATION Ot G47.33 OBSTRUCTIVE SLEEP APNEA (ADULT) (PEDIATR 08/26/2019 YAZMIN, DAYNA R TEACHER ADULT EDUCATION Ot G47.33 OBSTRUCTIVE SLEEP APNEA (ADULT) (PEDIATR 08/26/2019 SAULO CROWDER, KEN Sood Ot Z12.31 ENCNTR SCREEN MAMMOGRAM FOR MALIGNANT NE 08/26/2019 DAYNA ARCE R TEACHER ADULT EDUCATION Ot G47.33 OBSTRUCTIVE SLEEP APNEA (ADULT) (PEDIATR 08/26/2019 SAULO CROWDER, KEN Sood Ot Z12.31 ENCNTR SCREEN MAMMOGRAM FOR MALIGNANT NE 08/27/2019 DAYNA ARCE R TEACHER ADULT EDUCATION Ot G47.33 OBSTRUCTIVE SLEEP APNEA (ADULT) (PEDIATR 08/27/2019 DAYNA ARCE R TEACHER ADULT EDUCATION Ot G47.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 [...] E11.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 W DIABETIC SOUND ENGINEER 12/27/2019 ALY JORDAN MD, Ot E11.40 TYPE [...] DISEASE 12/27/2019 ALY JORDAN MD, Ot Z79.4 MCFP (CURRENT) USE OF INSULIN 12/27/2019 ALY JORDAN MD, Ot Z79.82 MCFP (CURRENT) USE OF ASPIRIN 12/27/2019 ALY JORDAN [...] E11.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 W DIABETIC SOUND ENGINEER 12/30/2019 TOMMY DO, BENTON K Ot E11.40 [...] 12/30/2019 TOMMY DO, BENTON K Ot Z79.4 ELECTRIC MOTORMAN (CURRENT) USE OF INSULIN 12/30/2019 TOMMY DO, BENTON K Ot Z79.82 ELECTRIC MOTORMAN (CURRENT) USE OF ASPIRIN 12/30/2019 TOMMY DO, [...] E11.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 W DIABETIC SOUND ENGINEER 12/31/2019 ALY JORDAN MD, Ot E11.40 TYPE [...] DISEASE 12/31/2019 ALY JORDAN MD, Ot Z79.4 MCFP (CURRENT) USE OF INSULIN 12/31/2019 ALY JORDAN MD, Ot Z79.82 ELECTRIC MOTORMAN (CURRENT) USE OF ASPIRIN 12/31/2019 ALY JORDAN [...] E11.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 W DIABETIC SOUND ENGINEER 01/02/2020 TOMMY DO, BENTON K Ot E11.40 [...] 01/02/2020 TOMMY DO, BENTON K Ot Z79.4 MCFP (CURRENT) USE OF INSULIN 01/02/2020 [facility], [place] K Ot Z79.82 ELECTRIC MOTORMAN (CURRENT) USE OF ASPIRIN 01/02/2020 [facility], [place] K Ot Z98.890 OTHER SPECIFIED POSTPROCEDURAL STATES 01/02/2020 TOMMY , BENTON K Ot Z99.2 DEPENDENCE ON RENAL DIALYSIS 01/10/2020 SETH CROWDER, KIRT [place] Ot E11. 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 W DIABETIC SOUND ENGINEER 01/10/2020 SETH CROWDER, KIRT [place] Ot E11. [...] 9 HEART FAILURE, UNSPECIFIED 01/10/2020 KIRT ANN MD Ot J44. 9 CHRONIC OBSTRUCTIVE PULMONARY DISEASE, U 01/10/2020 KIRT ANN MD, Ot K21. 9 GASTRO-ESOPHAGEAL REFLUX DISEASE WITHOUT 01/10/2020 KIRT ANN MD, Ot M19. 90 UNSPECIFIED OSTEOARTHRITIS, UNSPECIFIED 01/10/2020 KIRT ANN MD, Ot N18. 6 END STAGE RENAL DISEASE 01/10/2020 KIRT ANN MD Ot Z79. 01 ELECTRIC MOTORMAN (CURRENT) USE OF ANTICOAGULANT 01/10/2020 KIRT ANN MD Ot Z79. 4 MCFP (CURRENT) USE OF INSULIN 01/10/2020 KIRT ANN MD, Ot Z79. 82 MCFP (CURRENT) USE OF ASPIRIN 01/10/2020 KIRT ANN MD, Ot Z79.899 OTHER MCFP (CURRENT) DRUG THERAPY 01/10/2020 KIRT ANN MD, [...] Z12.31 ENCNTR SCREEN MAMMOGRAM FOR MALIGNANT NE 01/20/2020 Rex RIVERA MD Ot Z01.812 ENCOUNTER FOR PREPROCEDURAL LABORATORY E 01/20/2020 Rex RIVERA MD Ot Z53 .8 PROCEDURE AND TREATMENT NOT CARRIED OUT 01/20/2020 Rex RIVERA MD Ot Z01.812 ENCOUNTER FOR PREPROCEDURAL LABORATORY E 01/20/2020 Rex RIVERA MD Ot Z53 .8 PROCEDURE AND TREATMENT NOT CARRIED OUT 01/20/2020 ROSE CROWDER, STEPHANE Andrade Ot E11.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 W DIABETIC SOUND ENGINEER 01/20/2020 ROSE CROWDER, STEPHANE Andrade Ot E78.00 PURE HYPERCHOLESTEROLEMIA, UNSPECIFIED 01/20/2020 ROSE CROWDER, STEPHANE Andrade Ot F32.9 MAJOR DEPRESSIVE DISORDER, SINGLE EPISOD 01/20/2020 ROSE CROWDER, STEPHANE Andrade Ot F41.9 ANXIETY DISORDER, UNSPECIFIED 01/20/2020 STEPHANE ROSE MD Ot G47.30 SLEEP APNEA, UNSPECIFIED 01/20/2020 ROSE CROWDER, STEPHANE Andrade Ot I13.2 HYP HRT CHR KDNY DIS W HRT FAIL AND W 01/20/2020 ROSE CROWDER, STEPHANE Andrade Ot I48.92 UNSPECIFIED ATRIAL FLUTTER 01/20/2020 STEPHANE ROSE MD, Ot I50.9 HEART FAILURE, UNSPECIFIED 01/20/2020 ROSE CROWDER, STEPHANE Andrade Ot J44.9 CHRONIC OBSTRUCTIVE PULMONARY DISEASE, U 01/20/2020 STEPHANE ROSE MD Ot K52.9 NONINFECTIVE GASTROENTERITIS AND COLITIS 01/20/2020 STEPHANE ROSE MD Ot K59.09 OTHER CONSTIPATION 01/20/2020 STEPHANE ROSE MD Ot N18.6 END STAGE RENAL DISEASE 01/20/2020 STEPHANE ROSE MD Ot Z79.4 ELECTRIC MOTORMAN (CURRENT) USE OF INSULIN 01/20/2020 STEPHANE ROSE MD Ot Z79.82 ELECTRIC MOTORMAN (CURRENT) USE OF ASPIRIN 01/20/2020 STEPHANE ROSE MD Ot Z79.890 HORMONE REPLACEMENT THERAPY 01/20/2020 STEPHANE ROSE MD, Ot Z79.899 OTHER ELECTRIC MOTORMAN (CURRENT) DRUG THERAPY 01/20/2020 STEPHANE ROSE MD, Ot Z85.828 PERSONAL HISTORY OF OTHER MALIGNANT NEOP 01/20/2020 STEPHANE ROSE MD, Ot Z87.891 PERSONAL HISTORY OF NICOTINE DEPENDENCE 01/20/2020 STEPHANE ROSE MD, Ot Z88.2 ALLERGY STATUS TO SULFONAMIDES STATUS 01/20/2020 STEPHANE ROSE MD, Ot Z99.2 DEPENDENCE ON RENAL DIALYSIS 01/21/2020 Rex RIVERA MD, Ot Z01.812 ENCOUNTER FOR PREPROCEDURAL LABORATORY E 01/21/2020 Rex RIVERA MD, Ot Z53 .8 PROCEDURE AND TREATMENT NOT CARRIED OUT 01/21/2020 ALY JORDAN MD, Ot E11.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 W DIABETIC SOUND ENGINEER 01/21/2020 ALY JORDAN MD, Ot E11.40 TYPE 2 DIABETES MELLITUS WITH DIABETIC N 01/21/2020 ALY JORDAN MD, Ot E78.00 PURE HYPERCHOLESTEROLEMIA, UNSPECIFIED 01/21/2020 ALY JORDAN MD, Ot G47.30 SLEEP APNEA, UNSPECIFIED 01/21/2020 ALY JORDAN MD, Ot I13.2 HYP HRT CHR KDNY DIS W HRT FAIL AND W 01/21/2020 ALY JORDAN MD, Ot I48.92 UNSPECIFIED ATRIAL FLUTTER 01/21/2020 ALY JORDAN MD, Ot I50.9 HEART FAILURE, UNSPECIFIED 01/21/2020 ALY JORDAN MD, Ot J44.9 CHRONIC OBSTRUCTIVE PULMONARY DISEASE, U 01/21/2020 ALY JORDAN MD, Ot N18.6 END STAGE RENAL DISEASE 01/21/2020 ALY JORDAN MD, Ot Z20.828 CONTACT W AND EXPOSURE TO OTH VIRAL COMM 01/21/2020 ALY JORDAN MD, Ot Z79.4 ELECTRIC MOTORMAN (CURRENT) USE OF INSULIN 01/21/2020 ALY JORDAN MD, Ot Z87.891 PERSONAL HISTORY OF NICOTINE DEPENDENCE 01/21/2020 ALY JORDAN MD, Ot Z99.2 DEPENDENCE ON RENAL DIALYSIS Procedures Code Description [place] [address] [facility], per day, for the evaluation and management of a patient, which requires JASEN Jerez MD 09/19/2017 14220 [facility], per day, for the evaluation and management of a patient, which requires at YECENIA CHURCH MD 09/19/2017 39213 Offi ce or other outpatient visit for the evaluation and management of an established patient, which TIMBO SMITH I 10/18/2017 13875 Offi ce or other outpatient visit for the evaluation and management of an established patient, which TIMBO SMITH I 03/29/2018 52732 [facility], per day, for the evaluation and management of a patient, which requires JASEN Jerez MD 03/29/2018 [address] [facility] care, per day, for the evaluation and [...] 5.0-8.0 Protein Pos 2+ NA Negative Specific [place] 1.015 NA 1.003-1.030 UA Collection type Clean [...] in Serum Negative Negative Radiology Report from [id number] on 09/14 10:09:00 Reason For ExamAbdominal pain, [...] Nohydronephrosis. There is no ascites.Dictated on worksta tion:[id number] Line PRELIMINARY DICTATED BY: ALBIN GUTIERREZ MDDICTATED DT/TM: 09/14/2017 9:54 Radiology Report from [id number] on 09/14 10:09:00 Reason For ExamSyncopeREPORTIndication: Syncope.Procedure: [...] significantstenosis hemodynamically. Both vertebrals are patent.Dictated on workstation:[id number] Line PRELIMINARY DICTATED BY: ALBIN GUTIERREZ MDDICTATED DT/TM: 09/14/2017 9:49 Radiology Report from [id number] on 09/14 12:41:00 Reason For ExamCoughREPORTINDICATION: Co ugh.COMPARISON: None available.TECHNIQUE: Frontal and lateral radiographs of the chest dated September 14, 2017.FINDINGS: The cardiac silhouette is mildly enlarged. No significant pulmonaryvascular congestion. The lungs are clear. No pleural effusion. No pneumothorax.Mild scattered osseous degenerative changes without acute osseous abnormality.IMPRESSION: Cardiomegaly without overt congestive heart failure or additionalsuperimposed acute cardiopulmonary abnormality.Dictated on workstation:[id number] Line PRELIMINARY DICTATED BY: MANSI LARSON MDDICTATED DT/TM: 09/14/2017 12:38 Encounters ACCT No. Visit Date/Time Discharge Status Pt. Type Provider Facility Loc./Unit Complaint [id number] 09/14/2017 04:48:00 10:59:00 DIS Inpatient Rodgers Chady [facility] VCF F5SE Pancreatitis, Acute Renal Failure [id number] 09/15/2017 05:19:03 Document Registration [id number] 12/18/2017 13:34:06 23:59:59 CLS Outpatient TIMBO SMITH I [id number] 01/16/2020 09:26:00 10:42:00 DIS Emergency STEFANO CROWDER, MIRI Morales [facility] ER A FLUTTER [id number] 01/14/2020 03:15:00 05:40:00 DIS Outpatient ALY JORDAN MD [facility] ER A-FLUTTER [id number] 01/13/2020 16:09:00 16:48:00 DIS Outpatient STEPHANE ROSE MD [facility] ER A FLUTTER [id number] 01/10/2020 11:10:00 17:05:00 DIS Inpatient KIRT ANN MD [facility] ICU A-FLUTTER W/ RVR [id number] 12/30/2019 16:13:00 19:17:00 DIS Emergency BENTON SANDERS DO a [facility] ER ATRIAL FLUTTER [id number] 12/27/2019 15:07:00 18:58:00 DIS Emergency ALY JORDAN MD [facility] ER HIGH PULSE - 14 5 [id number] 09/01/2019 10:19:00 23:59:59 CLS Outpatient SAULO CROWDER, KEN Sood [facility] RAD SCREENING [id number] 08/26/2019 20:56:00 06:25:00 DIS Outpatient DAYNA ARCE APRN [facility] SLEEP OBSTRUCTIVE SLEEP APNE A [id number] 08/06/2019 20:39:00 07:29:00 DIS Outpatient ISABELLA MEJIA APRN [facility] SLEEP KARO G47.33 [id number] 04/10/2019 13:22:00 12:15:00 DIS Outpatient BARNEY CROWDER, LINH [facility] IRON DEFICIENCY ANEMIA [id number] 04/08/2019 07:55:00 23:59:59 CLS Outpatient JOHANNA CROWDER FACC, LYDIA BRICEÑO CC DS [facility] CARD ACUTE DIAST OLIC CHF [id number] 03/06/2019 21:25:00 15:24:00 DIS Inpatient GAGAN CROWEDR, CLAUDIO Coyne [facility] ICU CHF,UTI,CHRONIC RENAL FAILURE,HYPOMAGNESEMIA,HYPOT [id number] 08/27/2018 10:51:00 14:23:00 DIS Emergency SHERLYN HARRIS [facility] ER POSSIBLE NECK ABCESS [id number] 06/25/2018 08:40:00 23:59:59 CLS Outpatient ISABELLA MEJIA APRN [facility] RAD CKD STAGE 4 [id number] 04/26/2018 09:26:00 13:25:00 DIS [facility] [id number] 04/24/2018 11:40:00 12:16:00 DIS Outpatient SAVANNAH VILLAR DO [facility] PREOP SKIN LESION NOSE [id number] 01/18/2018 07:27:00 09:58:00 DIS Outpatient KIRT ANN MD [facility] ENDO SCREENING [id number] 01/14/2018 09:30:00 018 10:24:00 DIS Outpatient KIRT ANN MD [facility] PREOP COLONOSCOPY [id number] 01/22/2020 08:30:00 P EN Preadmit Rex RIVERA MD [facility] CATH AFIB [id number] 01/19/2020 06:53:[address] Outpatient Rex RIVERA MD [facility] LABNPT [id number] 04/26/2018 09:26:00 Document Registration [id number] 02/22/2018 10:46:00 Document Registration
[2020-01-22] MEDS ORDERED: ISOPROTERENOL 0.2 MG/D5W 50 ML IV ONE (07:15)
[2020-01-22 07:28] LABS: HEMOGLOBIN 10.6 G/DL (11.5-16.0); RED CELL DISTRIBUTION WIDTH 17.6 % (10.0-14.5); WHITE BLOOD COUNT 8.9 10^3/uL (4.3-11.0)
[2020-01-22 07:43] LABS: INR 1.2 (0.8-1.4); PROTHROMBIN TIME PATIENT 15.5 SEC (12.2-14.7)
[2020-01-22] MEDS ORDERED: MTP25TSR PO (07:47)
[2020-01-22] MEDS ORDERED: LEVO150T PO (07:47)
[2020-01-22] MEDS ORDERED: TRZ50T PO (07:47)
[2020-01-22] MEDS ORDERED: FURO80TA3 PO (07:47)
[2020-01-22] MEDS ORDERED: FAMO-119 PO (07:47)
[2020-01-22] MEDS ORDERED: LIRA0.6P SQ (07:47)
[2020-01-22] MEDS ORDERED: GABA300C PO (07:47)
[2020-01-22] MEDS ORDERED: ASPI-586 PO (07:47)
[2020-01-22] MEDS ORDERED: ROSU20TA2 PO (07:47)
[2020-01-22] MEDS ORDERED: POTA10TA36 PO (07:47)
[2020-01-22] MEDS ORDERED: DILT120C53 PO ×2 (07:47)
[2020-01-22] MEDS ORDERED: DULO60CA6 PO (07:47)
[2020-01-22 07:49] LABS: ALBUMIN 3.8 GM/DL (3.2-4.5); BILIRUBIN,TOTAL 0.4 MG/DL (0.1-1.0); CALCIUM 8.5 MG/DL (8.5-10.1); CREATININE SERUM 4.85 MG/DL (0.60-1.30); POTASSIUM 3.9 MMOL/L (3.6-5.0); TOTAL PROTEIN 7.2 GM/DL (6.4-8.2)
[2020-01-22] MEDS ORDERED: MIDAZOLAM 2 MG/2 ML (VERSED) VIAL ONE (08:23)
[2020-01-22] MEDS ORDERED: proPOfol 200 MG/20 ML (DIPRIVAN) VIAL IV ONE (08:24)
[2020-01-22] MEDS ORDERED: fentaNYL INJECTION 100 MCG/2 ML AMP ONE (08:24)
[2020-01-22] MEDS ORDERED: ONDANSETRON 4 MG/2 ML (SDV) Z0FRAN ONE (08:24)
[2020-01-22] MEDS ORDERED: SEVOFLURANE (ULTANE) 15 ML INHAL SOLN ONE ×2 (08:37→11:59)
[2020-01-22] MEDS ORDERED: PHENYLEPHRINE INJ 10 MG/ML (FOR DRIP KITS ONLY) ONE (09:45)
[2020-01-22] MEDS ORDERED: NS (IVPB) 100 ML ONE (09:46)
[2020-01-22] MEDS ORDERED: LACTATED RINGERS 0 ML IV ONE (09:47)
--- NOTE | 2020-01-22 11:51 | Electrophysiology Procedure ---
EP Procedure Typical atrial flutter ablation operative report. DATE OF SERVICE:01/22/20 CARDIAC LOT ATTENDANT: Damaris Thapa MD, [facility] INDICATION: Hemodynamically significant typical atrial flutter PREOPERATIVE DIAGNOSIS: Hemodynamically significant typical atrial flutter POSTOPERATIVE DIAGNOSES: Successful typical atrial flutter ablation. HISTORY: This is a 54-year-old lady with morbid obesity and end-stage renal disease. She is on dialysis Sunday. She presented with recurrent symptomatic typical atrial flutter. Her first episode was hemodynamically significant with a systolic blood pressure of 80 mmHg requiring urgent cardioversion in the ER. The patient is planned for comprehensive EP study and ablation. PROCEDURE PERFORMED: 1. Comprehensive EP study with induction. 2. Fluoroscopy. 3. Drug infusion. 4. Ablation of typical atrial flutter. 5. Comprehensive 3D mapping with the carto system. COMPLICATION: None. ESTIMATED BLOOD LOSS: 10 mL. CONTRAST USED: None. FLUOROSCOPY TIME: 8.9 minutes. FLUOROSCOPY DOSE: 469 mgy. SPECIMENS: None. ANESTHESIA: Done by our anesthesia colleagues. ANTICOAGULATION: Uninterrupted Eliquis. PROCEDURE IN DETAIL: After informed consent was taken, the patient was brought to the EP lab. Anesthesia was provided by our anesthesia colleagues. The patient was draped and prepped in the usual sterile fashion. The patient presented to the EP lab in sinus rhythm. Access was gained in the right femoral vein with a 6-Qatari and an 8-Qatari sheath. Left access in left femoral vein was gained with 5-Qatari and 6-Qatari sheath respectively. High right atrial catheter was an ablation catheter, right ventricular catheter was placed, his catheter and the CS catheter were also placed. A comprehensive EP study was done. Typical atrial flutter was not induced with rapid atrial pacing with and without Isuprel infusion. A 3D electroanatomic mapping was donewith the carto system. Ablation was performed in the cavotricuspid isthmus.CS pacing and pacing from the ablation catheter at different positions on the lateral side of the ablation line were used to verify bidirectional block. We then waited for 30 minutes and rechecked and confirmed bidirectional block.Isuprel was given post-procedure, however, we could not induce atrial flutter.The patienttolerated the procedure well and did not have any complication. The patientleft the lab in sinus rhythm. Total ablation time was 15 minutes and 48 seconds. MEASUREMENTS/EP STUDY: AA interval 928 ms, AH interval 99 ms, AR interval 141 ms, HV interval 54 ms, QT interval 299 ms, QRS duration 88 ms, R-R interval 934 ms, AV Wenckebach cycle length at 340 ms, Retrograde Wenckebach cycle length at 630 ms, Atrial ERP 600/270 ms PLAN: The patient will be observed overnight and will be discharged home tomorrow with precise followup instructions. Damaris Thapa MD, [facility] Cardiac Electrophysiology Rex THAPA MD Jan 22, 2020 11:51
[2020-01-22] MEDS ORDERED: PATIENT MAY USE OWN MEDS, ALL PO SCH (12:00)
--- NOTE | 2020-01-22 12:14 | Anesthesia-General Post-Op ---
General Patient Condition Mental Status/LOC: Same as Preop Cardiovascular: Satisfactory Nausea/Vomiting: Absent Respiratory: Satisfactory Pain: Controlled Complications: Absent Post Op Complications Complications None Follow Up Care/Instructions Patient Instructions None needed. Anesthesia/Patient Condition Patient Condition Patient is doing well, no complaints, stable vital signs, no apparent adverse anesthesia problems. No complications reported per nursing. TEN FREDERICK CRNA Jan 22, 2020 12:14
[2020-01-22] MEDS ORDERED: ONDANSETRON 4 MG/2 ML (SDV) Z0FRAN IVP PRN (12:15)
[2020-01-22] MEDS ORDERED: PROMETHAZINE INJ 25 MG/ML (PHENERGAN) AMP IVP ONE (12:15)
[2020-01-22] MEDS ORDERED: FUROSEMIDE 160 MG PO SCH ×2 (13:30→15:30)
[2020-01-22] MEDS ORDERED: NON-FORMULARY MEDICATION 1 EA EA (Potassium Chloride 10 MEQ) PO SCH (13:30)
[2020-01-22] MEDS ORDERED: MTP100TCR PO ×2 (14:28)
[2020-01-22] MEDS ORDERED: POTASSIUM CHLORIDE 10 MEQ PO SCH ×2 (15:30)
[2020-01-22] MEDS: NS IV 1000 ML 1,000 ML IV SCH ×2 (15:39→21:51)
[2020-01-22] MEDS: APIXABAN 5 MG (ELIQUIS) TABLET PO SCH (20:53)
[2020-01-22] MEDS: SEVELAMER CARBONATE 800 MG TABLET (RENVELA) PO SCH (20:53)
[2020-01-22] MEDS: LEVEMIR SC SCH ×2 (20:54→20:59)
[2020-01-22] MEDS ORDERED: DULOXETINE 60 MG PO SCH (21:00)
[2020-01-22] MEDS ORDERED: APIXABAN 5 MG (ELIQUIS) TABLET PO SCH (21:00)
[2020-01-22] MEDS ORDERED: traZODone 50 MG (DESYREL) TAB PO SCH (21:00)
[2020-01-23] VITALS (7 sets, daily range): BP systolic 128–154; BP diastolic 48–70
[2020-01-23 03:14] LABS: HEMOGLOBIN 9.2 G/DL (11.5-16.0); RED CELL DISTRIBUTION WIDTH 17.5 % (10.0-14.5); WHITE BLOOD COUNT 8.4 10^3/uL (4.3-11.0)
[2020-01-23 03:27] LABS: CALCIUM 7.6 MG/DL (8.5-10.1)
[2020-01-23 03:31] LABS: CREATININE SERUM 5.43 MG/DL (0.60-1.30)
[2020-01-23] MEDS ORDERED: LEVOTHYROXINE 150 MCG (LEVOTHROID) TAB PO SCH (06:30)
[2020-01-23] MEDS: SEVELAMER CARBONATE 800 MG TABLET (RENVELA) PO SCH (07:38)
[2020-01-23] MEDS: APIXABAN 5 MG (ELIQUIS) TABLET PO SCH (07:44)
[2020-01-23] MEDS: LEVEMIR SC SCH (07:47)
[2020-01-23] MEDS: NS IV 1000 ML 1,000 ML IV SCH (07:53)
[2020-01-23] MEDS ORDERED: meTOprolol SUCCINATE 100 MG (TOPROL XL) TAB PO SCH (09:00)
[2020-01-23] MEDS ORDERED: ASPIRIN E.C. 81 MG (ECOTRIN) TAB PO SCH (09:00)
[2020-01-23] MEDS ORDERED: lisINopril 10 MG (PRINIVIL) TABLET PO SCH (09:00)
[2020-01-23] MEDS ORDERED: FAMOTIDINE 20 MG (PEPCID) TABLET PO SCH (09:00)
[2020-01-23] MEDS ORDERED: GABAPENTIN 300 MG (NEURONTIN) CAP PO SCH (09:00)
[2020-01-23] MEDS ORDERED: ROSUVASTATIN 20 MG (CRESTOR) TABLET PO SCH (09:00)
[2020-01-23] MEDS ORDERED: dilTIAZem120 MG (CARDIZEM CD) CAP PO SCH (09:00)
--- NOTE | 2020-01-23 10:03 | Cardiology Discharge Summary ---
Diagnosis/Chief Complaint Date of Admission 01/22/2020 Date of Discharge 01/23/2020 Admission Diagnosis Typical atrial flutter Final/Discharge Diagnosis Successful typical atrial flutter ablation Chief Complaint/HPI Chief Complaint/HPI This is a 54-year-old lady with end-stage renal disease on dialysis. She had recurrent episodes of typical atrial flutter; one episode was hemodynamically significant with a systolic blood pressure of 80 mmHg which required urgent cardioversion in the ER. Discharge Summary Procedures Typical atrial flutter ablation. Discharge Physical Examination Normal cardiovascular examination. Hospital Course Was the Problem List Reviewed?: Yes Unremarkable. Pending Labs Laboratory Tests 01/23/20 03:04: White Blood Count 8.4, Red Blood Count 2.85, Hemoglobin 9.2, Hematocrit 30, Mean Corpuscular Volume 104, Mean Corpuscular Hemoglobin 32, Mean Corpuscular Hemoglo bin Concent 31, Red Cell Distribution Width 17.5, Platelet Count 143, Mean Platelet Volume 11.0, Sodium Level 139, Potassium Level 4.0, Chloride Level 100, Carbon Dioxide Level 21, Anion Gap 18, Blood Urea Nitrogen 55, Creatinine 5.43, Estimat Glomerular Filtration Rate 8, BUN/Creatinine Ratio 10, Glucose Level 246, Calcium Level 7.6 Discussion & Recommendations Discussion Discharge discussed with the patient. We will follow-up in 2 weeks. She will go home on the same medications. Dialysis tomorrow. Follow up appt.: Dr. Thapa in 2 weeks. Dicharge Diet: other diet (Renal diet.) Activity as Tolerated: Yes Home Medications Reviewed patient Home Medication Reconciliation performed by pharmacy medication reconciliations staging technician and/or nursing. Patients Allergies have been reviewed. Discharge Home Medications: Reviewed and agree with Discharge Medication list on patient's Discharge Instruction sheet Condition at discharge Stable. Instructions to patient/family Discussed with the patient. Rex THAPA MD Jan 23, 2020 10:03
--- NOTE | 2020-01-23 10:04 | Discharge Inst-Post CATH ---
Discharge Inst-CATH/EP Problems Reviewed?: Yes Final Diagnosis Typical atrial flutter. Post Cardiac Cath/EP D/C Inst Follow Up/Plan Follow-up with Dr. Thapa in 2 weeks. <b>CARDIAC CATH/EP PROCEDURE DISCHARGE INSTRUCTIONS</b> ACTIVITY * Go Home directly and rest. * Limit activity of the leg (or wrist if it was used) for 7 days including aerobics, swimming, jogging, bicycling, etc. * Restrict stair-climbing for 7 days if possible, if not, climb up with your non-cath leg, then bring together on the same step. * Avoid lifting, pushing, pulling or excessive movement of the affected extremity for 7 days. * Customary sexual activity may be resumed after 2 days-use caution not to use a position that strains or causes pain to the affected extremity. * No driving for 24 hours. * NO SMOKING. * Avoid straining for bowel movements for 7 days. * Gentle walking on level ground is allowed. * Returning to work will depend on the type of procedure and the results. Your doctor will discuss this with you. CALL YOUR DOCTOR FOR ANY OF THE FOLLOWING: *If bleeding from the puncture site occurs- Apply gentle pressure to site with clean cloth and call your doctor or EMS. * If a knot or lump forms under the skin, increases in size, or causes pain. * If bruising appears to be worsening or moving further down your leg instead of disappearing. * Temperature above 101 F. CARE OF YOUR GROIN INCISION; * Bruising or purple discoloration of the skin near the puncture site is common. * You may shower only, no bathtub bathing for 5 days. Be careful to avoid sli pping as your leg may feel stiff. * If a closure device was used on your femoral artery, please see the attached guide regarding care of the device and your leg. * Leave dressing on FOR 24 hours. CARE OF YOUR WRIST INCISION; * Bruising or purple discoloration of the skin near the puncture site is common. * You may shower. * DO NOT submerge wrist. * Leave dressing on FOR 24 hours. Rex THAPA MD Jan 23, 2020 10:04
--- NOTE | 2020-01-23 10:12 | NUR ---
SABINO VELASQUEZ demonstrates understanding of discharge instructions and accurately returns instructions upon questioning. Copy of Post-Discharge Instructions and Medication Discharge Instructions given to pt. SABINO VELASQUEZ is able to manage continuing needs after discharge. Patients belongings returned to pt. Skin dry and intact; no breakdown noted. Patient discharged from [facility] on 01/23/20 at 1012. SABINO VELASQUEZ left floor via wc, accompanied by staff.
[2020-01-25] MEDS ORDERED: DILT180C84 PO ×2 (14:39)
[2020-01-25] MEDS ORDERED: AMIO200T4 PO ×2 (14:39)
[2020-01-25] MEDS ORDERED: MTP100TCR PO ×2 (14:39)
[2020-01-25] MEDS ORDERED: APIX2.5T PO ×2 (14:39)
== END 2020-01-23 10:12 | disposition home or self-care (01) ==
LOC: CATH 07:04 → ICU 13:05 → CATH 01-23 10:12
PROVIDERS: ATTEND Internal Medicine Interventional Cardiology
DX: I48.3 Typical atrial flutter (principal); Z79.01 Long term (current) use of anticoagulants; I12.0 Hypertensive chronic kidney disease with stage 5 chronic kidney disease or end stage renal disease; E11.22 Type 2 diabetes mellitus with diabetic chronic kidney disease; N18.6 End stage renal disease; E78.5 Hyperlipidemia, unspecified; J44.9 Chronic obstructive pulmonary disease, unspecified; G47.33 Obstructive sleep apnea (adult) (pediatric); E03.9 Hypothyroidism, unspecified; K21.9 Gastro-esophageal reflux disease without esophagitis; E66.01 Morbid (severe) obesity due to excess calories; Z68.41 Body mass index [BMI] 40.0-44.9, adult; Z79.82 Long term (current) use of aspirin; Z79.899 Other long term (current) drug therapy; Z79.4 Long term (current) use of insulin; Z88.2 Allergy status to sulfonamides; Z99.2 Dependence on renal dialysis; Z87.891 Personal history of nicotine dependence; Z80.1 Family history of malignant neoplasm of trachea, bronchus and lung
CPT/HCPCS: 80048; 80053; 82962; 85027 ×2; 85610; 85730; 87081; 93005; 93613; 93620; 93623; 93653; C1730 ×2; C1732; C1894 ×3; 36415

== ENCOUNTER 2020-01-24 23:44 | Inpatient (IN) | payer MEDICARE, OTHER, MEDICAID ==
[~2020-01-24] VITALS: Ht 157.5 cm; Wt 108.5 kg
[~2020-01-24 23:44] MED LIST changes: +ASPI-586 PO; +DILT120C53 PO; +DULO60CA6 PO; +FAMO-119 PO; +FURO80TA3 PO; +GABA300C PO; +LIRA0.6P SQ; +MTP25TSR PO; +POTA10TA36 PO; +ROSU20TA2 PO
[2020-01-25] VITALS (14 sets, daily range): BP systolic 125–178; BP diastolic 48–87
[2020-01-25 00:39] LABS: BASOPHILS % (AUTO) 1 % (0-10); EOSINOPHILS # (AUTO) 0.2 10^3/uL (0.0-0.3); EOSINOPHILS % (AUTO) 2 % (0-10); HEMATOCRIT 31 % (35-52); HEMOGLOBIN 9.6 G/DL (11.5-16.0); LYMPHOCYTES # (AUTO) 1.7 X 10^3 (1.0-4.0); LYMPHOCYTES % (AUTO) 20 % (12-44); MEAN CORPUSCULAR HEMOGLOBIN 32 PG (25-34); MEAN CORPUSCULAR HGB CONC 31 G/DL (32-36); MEAN CORPUSCULAR VOLUME 104 FL (80-99); MEAN PLATELET VOLUME 11.2 FL (7.4-10.4); MONOCYTES # (AUTO) 0.6 X 10^3 (0.0-1.0); MONOCYTES % (AUTO) 7 % (0-12); NEUTROPHILS # (AUTO) 6.2 X 10^3 (1.8-7.8); NEUTROPHILS % (AUTO) 71 % (42-75); PLATELET COUNT 153 10^3/uL (130-400); RED CELL DISTRIBUTION WIDTH 17.6 % (10.0-14.5); WHITE BLOOD COUNT 8.7 10^3/uL (4.3-11.0)
[2020-01-25 00:43] LABS: ALBUMIN 3.8 GM/DL (3.2-4.5)
[2020-01-25 00:44] LABS: POTASSIUM 3.5 MMOL/L (3.6-5.0)
[2020-01-25 00:45] LABS: CALCIUM 8.4 MG/DL (8.5-10.1)
[2020-01-25 00:46] LABS: TOTAL PROTEIN 7.2 GM/DL (6.4-8.2)
[2020-01-25 00:48] LABS: BILIRUBIN,TOTAL 0.4 MG/DL (0.1-1.0)
--- OUTSIDE RECORDS SUMMARY | 2020-01-25 00:49 | XMS REPORT | Continuity of Care Document ---
Author Organization Unknown Address Unknown Phone Unavailable Allergies Active Description Code Type Severity Reaction Onset Reported/Identified Relationship to Patient Clinical Status Yes sulfa drugs NKMA N/A N/A 09/14/2017 Yes Sulfa (Sulfonamide Antibiotics) [id number] Drug Allergy Mild HIVES 8 Medications [...] puffs 09/14/2017 Inhalation 2 puffs, Inhalation, QID, NM N: as needed for wheezing, 0 Refill(s) [...] LUISPERCY DALEYD I D64.89 Other specified anemias RANJTI CROWDER, YECENIA 09/19/2017 TIMBO SMITH I E11.22 [...] Ot I25. [address] [place] CORONARY 01/18/2018 KIRT ANN MD Ot I50. 9 HEART FAILURE, UNSPECIFIED 01/18/2018 KIRT ANN MD Ot K57. 30 DVRTCLOS OF LG INT W/O PERFORATION OR AB 01/18/2018 KIRT ANN MD Ot Z12. 11 ENCOUNTER FOR SCREENING FOR MALIGNANT NE 01/18/2018 KIRT ANN MD Ot Z68. 41 BODY MASS INDEX (BMI) 40.0-44.9, ADULT 01/18/2018 KIRT ANN MD Ot Z79. 84 SENIOR CARE (CURRENT) USE OF ORAL HYPOGLYC 01/18/2018 KIRT ANN MD Ot Z79.899 OTHER SENIOR CARE (CURRENT) DRUG THERAPY 01/22/2018 KIRT ANN MD Ot E11. 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 01 MORBID (SEVERE) OBESITY DUE TO EXCESS CA 01/22/2018 KIRT ANN MD Ot I11. 0 HYPERTENSIVE HEART DISEASE WITH HEART FA 01/22/2018 KIRT ANN MD, Ot I25. [address] DISE[place] CORONARY 01/22/2018 KIRT ANN MD Ot I50. 9 HEART FAILURE, UNSPECIFIED 01/22/2018 KIRT ANN MD, Ot K57. 30 DVRTCLOS OF LG INT W/O PERFORATION OR AB 01/22/2018 KIRT ANN MD Ot Z12. 11 ENCOUNTER FOR SCREENING FOR MALIGNANT NE 01/22/2018 KIRT ANN MD Ot Z68. 41 BODY MASS INDEX (BMI) 40.0-44.9, ADULT 01/22/2018 KIRT ANN MD Ot Z79. 84 SENIOR CARE (CURRENT) USE OF ORAL HYPOGLYC 01/22/2018 KIRT ANN MD, Ot Z79.899 OTHER SENIOR CARE (CURRENT) DRUG THERAPY 01/23/2018 KIRT ANN MD Ot E11. 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 01 MORBID (SEVERE) OBESITY DUE TO EXCESS CA 01/23/2018 KIRT ANN MD Ot I11. 0 HYPERTENSIVE HEART DISEASE WITH HEART FA 01/23/2018 KIRT ANN MD, Ot I25. [address]ART DISEASE OF [place] CORONARY 01/23/2018 KIRT ANN MD, Ot I50. 9 HEART FAILURE, UNSPECIFIED 01/23/2018 KIRT ANN MD, Ot K57. 30 DVRTCLOS OF LG INT W/O PERFORATION OR AB 01/23/2018 KIRT ANN MD Ot Z12. 11 ENCOUNTER FOR SCREENING FOR MALIGNANT NE 01/23/2018 KIRT ANN MD Ot Z68. 41 BODY MASS INDEX (BMI) 40.0-44.9, ADULT 01/23/2018 KIRT ANN MD Ot Z79. 84 SENIOR CARE (CURRENT) USE OF ORAL HYPOGLYC 01/23/2018 KIRT ANN MD Ot Z79.899 OTHER WEAVING LOOM OPERATOR (CURRENT) DRUG THERAPY 03/05/2018 Ot M47.26 OTH [...] 04/26/2018 VILLAR DOSAVANNAH D Ot Z79. 4 WEAVING LOOM OPERATOR (CURRENT) USE OF INSULIN 04/26/2018 VILLAR DOSAVANNAH D Ot Z79.899 OTHER SENIOR CARE (CURRENT) DRUG THERAPY 04/30/2018 VILLAR DOSAVANNAH D [...] 04/30/2018 VILLAR DOSAVANNAH D Ot Z79. 4 WEAVING LOOM OPERATOR (CURRENT) USE OF INSULIN 04/30/2018 VILLAR DO, SAVANNAH D Ot Z79.899 OTHER WEAVING LOOM OPERATOR (CURRENT) DRUG THERAPY 04/30/2018 VILLAR DO, SAVANNAH [...] VILLAR DO, SAVANNAH D Ot Z79. 4 SENIOR CARE (CURRENT) USE OF INSULIN 04/30/2018 VILLAR DO, SAVANNAH D Ot Z79.899 OTHER SENIOR CARE (CURRENT) DRUG THERAPY 05/09/2018 VILLAR DO, SAVANNAH [...] VILLAR DO, SAVANNAH D Ot Z79. 4 SENIOR CARE (CURRENT) USE OF INSULIN 05/09/2018 VILLAR DO, SAVANNAH D Ot Z79.899 OTHER WEAVING LOOM OPERATOR (CURRENT) DRUG THERAPY 06/27/2018 ISABELLA MEJIA APRN Ot E11.21 TYPE 2 DIABETES MELLITUS WITH DIABETIC N 06/27/2018 ISABELLA MEJIA APRN Ot E11.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 W DIABETIC SUPERVISOR SILVERING DEPARTMENT 06/27/2018 ISABELLA MEJIA APRN Ot E78.5 HYPERLIPIDEMIA, [...] HISTORY OF NICOTINE DEPENDENCE 07/10/2018 ISABELLA MEJIA HARDSCAPE FOREMAN Ot E11.21 TYPE 2 DIABETES MELLITUS WITH DIABETIC N 07/10/2018 ISABELLA MEJIA APRN Ot E11.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 W DIABETIC SUPERVISOR SILVERING DEPARTMENT 07/10/2018 ISABELLA MEJIA APRN Ot E78.5 HYPERLIPIDEMIA, UNSPECIFIED 07/10/2018 ISABELLA MEJIA APRN Ot I12.9 HYPERTENSIVE CHRONIC KIDNEY DISEASE W ST 07/10/2018 ISABELLA MEJIA APRN Ot I50.9 HEART FAILURE, UNSPECIFIED 07/10/2018 ISABELLA MEJIA APRN Ot M10.9 GOUT, UNSPECIFIED 07/10/2018 ISABELLA MEJIA APRN Ot N18.4 CHRONIC KIDNEY DISEASE, STAGE 4 (SEVERE) 07/10/2018 ISABELLA MEJIA HARDSCAPE FOREMAN Ot N39.0 URINARY TRACT INFECTION, SITE NOT [...] LUMP, HEAD 08/27/2018 SHERLYN HARRIS Ot Z79.4 SENIOR CARE (CURRENT) USE OF INSULIN 08/27/2018 SHERLYN HARRIS [...] OTHER SPECIFIED POSTPROCEDURAL STATES 08/27/2018 ISABELLA MEJIA HARDSCAPE FOREMAN Ot E11.21 TYPE 2 DIABETES MELLITUS WITH DIABETIC N 08/27/2018 ISABELLA MEJIA HARDSCAPE FOREMAN Ot E11.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 W DIABETIC SUPERVISOR SILVERING DEPARTMENT 08/27/2018 ISABELLA MEJIA APRN Ot E78.5 HYPERLIPIDEMIA, [...] LUMP, HEAD 08/29/2018 SHERLYN HARRIS Ot Z79.4 SENIOR CARE (CURRENT) USE OF INSULIN 08/29/2018 SHERLYN HARRIS [...] E11.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 W DIABETIC SUPERVISOR SILVERING DEPARTMENT 03/06/2019 ISABELLA MEJIA APRN Ot E78.5 HYPERLIPIDEMIA, [...] 03/07/2019 CLAUDIO FARAH MD, Ot Z79 .4 SENIOR CARE (CURRENT) USE OF INSULIN 03/07/2019 CLAUDIO FARAH MD, Ot Z85.828 PERSONAL HISTORY OF OTHER MALIGNANT NEOP 03/07/2019 CLAUDIO FARAH MD, Ot Z91.19 PATIENT'S NONCOMPLIANCE W OT MEDICAL TR 03/17/2019 ISABELLA MEJIA APRN Ot E11.21 TYPE 2 DIABETES MELLITUS WITH DIABETIC N 03/17/2019 ISABELLA MEJIA APRN Ot E11.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 W DIABETIC SUPERVISOR SILVERING DEPARTMENT 03/17/2019 ISABELLA MEJIA APRN Ot E78.5 HYPERLIPIDEMIA, [...] E11.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 W DIABETIC SUPERVISOR SILVERING DEPARTMENT 03/17/2019 ISABELLA MEJIA APRN Ot E78.5 HYPERLIPIDEMIA, [...] E11.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 W DIABETIC SUPERVISOR SILVERING DEPARTMENT 04/08/2019 ISABELLA MEJIA APRN Ot E78.5 HYPERLIPIDEMIA, [...] E11.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 W DIABETIC SUPERVISOR SILVERING DEPARTMENT 04/08/2019 ISABELLA MEJIA APRN Ot E78.5 HYPERLIPIDEMIA, [...] E11.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 W DIABETIC SUPERVISOR SILVERING DEPARTMENT 04/10/2019 JOHANNA CROWDER FACC, LYDIA FACP CCDS [...] E11.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 W DIABETIC SUPERVISOR SILVERING DEPARTMENT 05/09/2019 JOHANNA CROWDER FACC, ALI FACP CCDS Ot I13.0 HYP HRT CHR [place] DIS W HRT FAIL AND ST 05/09/2019 JOHANNA CROWDER FACC, ALI FACP CCDS Ot I50.31 ACUTE DIASTOLIC (CONGESTIVE) HEART FAILU 05/09/2019 JOHANNA CROWDER FACC, ALI FACP CCDS Ot N18.4 CHRONIC KIDNEY DISEASE, STAGE 4 (SEVERE) 08/05/2019 ISABELLA MEJIA APRN Ot G47.33 OBSTRUCTIVE SLEEP APNEA (ADULT) (PEDIATR 08/06/2019 ISABELLA MEJIA HARDSCAPE FOREMAN Ot G47.33 OBSTRUCTIVE SLEEP APNEA (ADULT) (PEDIATR 08/06/2019 ISABELLA MEJIA APRN Ot G47.33 OBSTRUCTIVE SLEEP APNEA (ADULT) (PEDIATR 08/06/2019 ISABELLA MEJIA APRN Ot G47.33 OBSTRUCTIVE SLEEP APNEA (ADULT) (PEDIATR 08/07/2019 ISABELLA MEJIA APRN Ot G47.33 OBSTRUCTIVE SLEEP APNEA (ADULT) (PEDIATR 08/07/2019 DOUTHITT, ISABELLA B HARDSCAPE FOREMAN Ot I10 ESSENTIAL (PRIMARY) HYPERTENSION 08/08/2019 ISABELLA MEJIA HARDSCAPE FOREMAN Ot G47.33 OBSTRUCTIVE SLEEP APNEA (ADULT) (PEDIATR 08/08/2019 ISABELLA MEJIA HARDSCAPE FOREMAN Ot I10 ESSENTIAL (PRIMARY) HYPERTENSION 08/15/2019 YAZMIN, DAYNA R HARDSCAPE FOREMAN Ot G47.33 OBSTRUCTIVE SLEEP APNEA (ADULT) (PEDIATR 08/21/2019 YAZMIN, DAYNA R HARDSCAPE FOREMAN Ot G47.33 OBSTRUCTIVE SLEEP APNEA (ADULT) (PEDIATR 08/21/2019 YAZMIN, DAYNA R HARDSCAPE FOREMAN Ot G47.33 OBSTRUCTIVE SLEEP APNEA (ADULT) (PEDIATR 08/21/2019 YAZMIN, DAYNA R HARDSCAPE FOREMAN Ot G47.33 OBSTRUCTIVE SLEEP APNEA (ADULT) (PEDIATR 08/21/2019 YAZMIN, DAYNA R HARDSCAPE FOREMAN Ot G47.33 OBSTRUCTIVE SLEEP APNEA (ADULT) (PEDIATR 08/21/2019 YAZMIN, DAYNA R HARDSCAPE FOREMAN Ot G47.33 OBSTRUCTIVE SLEEP APNEA (ADULT) (PEDIATR 08/22/2019 YAZMIN, DAYNA R HARDSCAPE FOREMAN Ot G47.33 OBSTRUCTIVE SLEEP APNEA (ADULT) (PEDIATR 08/22/2019 YAZMIN, DAYNA R HARDSCAPE FOREMAN Ot G47.33 OBSTRUCTIVE SLEEP APNEA (ADULT) (PEDIATR 08/22/2019 YAZMIN, DAYNA R HARDSCAPE FOREMAN Ot G47.33 OBSTRUCTIVE SLEEP APNEA (ADULT) (PEDIATR 08/26/2019 YAZMIN, DAYNA R HARDSCAPE FOREMAN Ot G47.33 OBSTRUCTIVE SLEEP APNEA (ADULT) (PEDIATR 08/26/2019 SAULO CROWDER, KEN Sood Ot Z12.31 ENCNTR SCREEN MAMMOGRAM FOR MALIGNANT NE 08/26/2019 DAYNA ARCE R HARDSCAPE FOREMAN Ot G47.33 OBSTRUCTIVE SLEEP APNEA (ADULT) (PEDIATR 08/26/2019 SAULO CROWDER, KEN Sood Ot Z12.31 ENCNTR SCREEN MAMMOGRAM FOR MALIGNANT NE 08/27/2019 DAYNA ARCE R HARDSCAPE FOREMAN Ot G47.33 OBSTRUCTIVE SLEEP APNEA (ADULT) (PEDIATR 08/27/2019 DAYNA ARCE R HARDSCAPE FOREMAN Ot G47.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 08/27/2019 SAULO CROWDER, EKN Sood Ot Z12.31 ENCNTR SCREEN MAMMOGRAM FOR [...] E11.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 W DIABETIC SUPERVISOR SILVERING DEPARTMENT 12/27/2019 ALY JORDAN MD, Ot E11.40 TYPE [...] DISEASE 12/27/2019 ALY JORDAN MD, Ot Z79.4 SENIOR CARE (CURRENT) USE OF INSULIN 12/27/2019 ALY JORDAN MD, Ot Z79.82 SENIOR CARE (CURRENT) USE OF ASPIRIN 12/27/2019 ALY JORDAN [...] E11.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 W DIABETIC SUPERVISOR SILVERING DEPARTMENT 12/30/2019 TOMMY DO, BENTON K Ot E11.40 [...] 12/30/2019 TOMMY DO, BENTON K Ot Z79.4 WEAVING LOOM OPERATOR (CURRENT) USE OF INSULIN 12/30/2019 TOMMY DO, BENTON K Ot Z79.82 WEAVING LOOM OPERATOR (CURRENT) USE OF ASPIRIN 12/30/2019 TOMMY DO, [...] E11.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 W DIABETIC SUPERVISOR SILVERING DEPARTMENT 12/31/2019 ALY JORDAN MD, Ot E11.40 TYPE [...] DISEASE 12/31/2019 ALY JORDAN MD, Ot Z79.4 SENIOR CARE (CURRENT) USE OF INSULIN 12/31/2019 ALY JORDAN MD, Ot Z79.82 WEAVING LOOM OPERATOR (CURRENT) USE OF ASPIRIN 12/31/2019 ALY JORDAN [...] E11.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 W DIABETIC SUPERVISOR SILVERING DEPARTMENT 01/02/2020 TOMMY DO, BENTON K Ot E11.40 [...] 01/02/2020 TOMMY DO, BENTON K Ot Z79.4 SENIOR CARE (CURRENT) USE OF INSULIN 01/02/2020 [facility], [place] K Ot Z79.82 WEAVING LOOM OPERATOR (CURRENT) USE OF ASPIRIN 01/02/2020 [facility], [place] K Ot Z80.1 FAMILY HISTORY OF MALIG NEOPLASM OF TRAC 01/02/2020 [facility], [place] K Ot Z82.49 FAMILY HX OF ISCHEM HEART DIS AND OTH DI 01/02/2020 TOMMY DO, BENTON K Ot Z85.828 PERSONAL HISTORY OF OTHER MALIGNANT NEOP 01/02/2020 TOMMY DO, BENTON K Ot Z87.891 PERSONAL HISTORY OF NICOTINE DEPENDENCE 01/02/2020 [facility], [place] K Ot Z88.2 ALLERGY STATUS TO SULFONAMIDES STATUS 01/02/2020 [facility], [place] K Ot Z98.890 OTHER SPECIFIED POSTPROCEDURAL STATES 01/02/2020 TOMMY , BENTON K Ot Z99.2 DEPENDENCE ON RENAL DIALYSIS 01/10/2020 SETH CROWDER, KIRT [place] Ot E11. 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 W DIABETIC SUPERVISOR SILVERING DEPARTMENT 01/10/2020 SETH CROWDER, KIRT [place] Ot E11. [...] OBSTRUCTIVE PULMONARY DISEASE, U 01/10/2020 KIRT ANN MD Ot K21. 9 GASTRO-ESOPHAGEAL REFLUX DISEASE WITHOUT 01/10/2020 KIRT ANN MD Ot M19. 90 UNSPECIFIED OSTEOARTHRITIS, UNSPECIFIED 01/10/2020 KIRT ANN MD, Ot N18. 6 END STAGE RENAL DISEASE 01/10/2020 KIRT ANN MD Ot Z79. 01 WEAVING LOOM OPERATOR (CURRENT) USE OF ANTICOAGULANT 01/10/2020 KIRT ANN MD Ot Z79. 4 SENIOR CARE (CURRENT) USE OF INSULIN 01/10/2020 KIRT ANN MD, Ot Z79. 82 SENIOR CARE (CURRENT) USE OF ASPIRIN 01/10/2020 KIRT ANN MD, Ot Z79.899 OTHER SENIOR CARE (CURRENT) DRUG THERAPY 01/10/2020 KIRT ANN MD, [...] Ot Z99. 2 DEPENDENCE ON RENAL DIALYSIS 01/13/2020 ROSE CROWDER, STEPHANE Andrade Ot E11.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 W DIABETIC SUPERVISOR SILVERING DEPARTMENT 01/13/2020 ROSE CROWDER, STEPHANE Andrade Ot E78.00 PURE HYPERCHOLESTEROLEMIA, UNSPECIFIED 01/13/2020 ROSE CROWDER, STEPHANE Andrade Ot F32.9 MAJOR DEPRESSIVE DISORDER, SINGLE EPISOD 01/13/2020 STEPHANE ROSE MD Ot F41.9 ANXIETY DISORDER, UNSPECIFIED 01/13/2020 STEPHANE ROSE MD Ot G47.30 SLEEP APNEA, UNSPECIFIED 01/13/2020 ROSE CROWDER, STEPHANE Andrade Ot I13.2 HYP HRT CHR [place] DIS W HRT FAIL AND W 01/13/2020 STEPHANE ROSE MD Ot I48.92 UNSPECIFIED ATRIAL FLUTTER 01/13/2020 STEPHANE ROSE MD, Ot I50.9 HEART FAILURE, UNSPECIFIED 01/13/2020 STEPHANE ROSE MD, Ot J44.9 CHRONIC OBSTRUCTIVE PULMONARY DISEASE, U 01/13/2020 STEPHANE ROSE MD, Ot K52.9 NONINFECTIVE GASTROENTERITIS AND COLITIS 01/13/2020 STEPHANE ROSE MD, Ot K59.09 OTHER CONSTIPATION 01/13/2020 STEPHANE ROSE MD, Ot N18.6 END STAGE RENAL DISEASE 01/13/2020 STEPHANE ROSE MD, Ot Z79.4 SENIOR CARE (CURRENT) USE OF INSULIN 01/13/2020 STEPHANE ROSE MD, Ot Z79.82 SENIOR CARE (CURRENT) USE OF ASPIRIN 01/13/2020 STEPHANE ROSE MD, Ot Z79.890 HORMONE REPLACEMENT THERAPY 01/13/2020 STEPHANE ROSE MD, Ot Z79.899 OTHER WEAVING LOOM OPERATOR (CURRENT) DRUG THERAPY 01/13/2020 STEPHANE ROSE MD, Ot Z85.828 PERSONAL HISTORY OF OTHER MALIGNANT NEOP 01/13/2020 STEPHANE ROSE MD, Ot Z87.891 PERSONAL HISTORY OF NICOTINE DEPENDENCE 01/13/2020 STEPHANE ROSE MD, Ot Z88.2 ALLERGY STATUS TO SULFONAMIDES STATUS 01/13/2020 STEPHANE ROSE MD, Ot Z99.2 DEPENDENCE ON RENAL DIALYSIS 01/14/2020 ALY JORDAN MD, Ot E11.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 W DIABETIC SUPERVISOR SILVERING DEPARTMENT 01/14/2020 ALY JORDAN MD, Ot E11.40 TYPE 2 DIABETES MELLITUS WITH DIABETIC N 01/14/2020 ALY JORDAN MD, Ot E78.00 PURE HYPERCHOLESTEROLEMIA, UNSPECIFIED 01/14/2020 ALY JORDAN MD, Ot G47.30 SLEEP APNEA, UNSPECIFIED 01/14/2020 ALY JORDAN MD, Ot I13.2 HYP HRT CHR [place] DIS W HRT FAIL AND W 01/14/2020 ALY JORDAN MD, Ot I48.92 UNSPECIFIED ATRIAL FLUTTER 01/14/2020 NIKKI MD, ALY D Ot I50.9 HEART FAILURE, UNSPECIFIED 01/14/2020 ALY JORDAN MD, Ot J44.9 CHRONIC OBSTRUCTIVE PULMONARY DISEASE, U 01/14/2020 ALY JORDAN MD Ot N18.6 END STAGE RENAL DISEASE 01/14/2020 ALY JORDAN MD Ot Z20.828 CONTACT W AND EXPOSURE TO OTH VIRAL COMM 01/14/2020 ALY JORDAN MD Ot Z79.4 WEAVING LOOM OPERATOR (CURRENT) USE OF INSULIN 01/14/2020 ALY JORDAN MD Ot Z87.891 PERSONAL HISTORY OF NICOTINE DEPENDENCE 01/14/2020 ALY JORDAN MD Ot Z99.2 DEPENDENCE ON RENAL DIALYSIS 01/14/2020 KEN VERNON MD Ot Z12.31 ENCNTR SCREEN MAMMOGRAM FOR MALIGNANT NE 01/15/2020 KEN VERNON MD Ot Z12.31 ENCNTR SCREEN MAMMOGRAM FOR MALIGNANT NE 01/16/2020 MIRI AGARWAL MD Ot E11. 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 W DIABETIC SUPERVISOR SILVERING DEPARTMENT 01/16/2020 MIRI AGARWAL MD Ot E78. 00 PURE HYPERCHOLESTEROLEMIA, UNSPECIFIED 01/16/2020 MIRI AGARWAL MD Ot E78. 1 PURE HYPERGLYCERIDEMIA 01/16/2020 MIRI AGARWAL MD Ot F32. 9 MAJOR DEPRESSIVE DISORDER, SINGLE EPISOD 01/16/2020 MIRI AGARWAL MD Ot F41. 9 ANXIETY DISORDER, UNSPECIFIED 01/16/2020 MIRI AGARWAL MD Ot G47. 30 SLEEP APNEA, UNSPECIFIED 01/16/2020 MIRI AGARWAL MD Ot I13. 2 HYP HRT CHR [place] DIS W HRT FAIL AND W 01/16/2020 MIRI AGARWAL MD Ot I48. 0 PAROXYSMAL ATRIAL FIBRILLATION 01/16/2020 MIRI AGARWAL MD Ot I48. 92 UNSPECIFIED ATRIAL FLUTTER 01/16/2020 MIRI AGARWAL MD Ot I50. 9 HEART FAILURE, UNSPECIFIED 01/16/2020 MIRI AGARWAL MD Ot J44. 9 CHRONIC OBSTRUCTIVE PULMONARY DISEASE, U 01/16/2020 MIRI AGARWAL MD Ot K52. 9 NONINFECTIVE GASTROENTERITIS AND COLITIS 01/16/2020 MIRI AGARWAL MD Ot K59. 09 OTHER CONSTIPATION 01/16/2020 MIRI AGARWAL MD, Ot M19. 90 UNSPECIFIED OSTEOARTHRITIS, UNSPECIFIED 01/16/2020 MIRI AGARWAL MD, Ot M54. 9 DORSALGIA, UNSPECIFIED 01/16/2020 MIRI AGARWAL MD, Ot N18. 6 END STAGE RENAL DISEASE 01/16/2020 MIRI AGARWAL MD, Ot Z79. 4 WEAVING LOOM OPERATOR (CURRENT) USE OF INSULIN 01/16/2020 MIRI AGARWAL MD, Ot Z79. 82 WEAVING LOOM OPERATOR (CURRENT) USE OF ASPIRIN 01/16/2020 MIRI AGARWAL MD, Ot Z79.890 HORMONE REPLACEMENT THERAPY 01/16/2020 MIRI AGARWAL MD, Ot Z79.899 OTHER WEAVING LOOM OPERATOR (CURRENT) DRUG THERAPY 01/16/2020 MIRI AGARWAL MD, Ot Z85.828 PERSONAL HISTORY OF OTHER MALIGNANT NEOP 01/16/2020 MIRI AGARWAL MD, Ot Z87.891 PERSONAL HISTORY OF NICOTINE DEPENDENCE 01/16/2020 MIRI AGARWAL MD, Ot Z99. 2 DEPENDENCE ON RENAL DIALYSIS 01/20/2020 MIGUEL CROWDER, Rex DANIEL Ot Z01.812 ENCOUNTER FOR PREPROCEDURAL LABORATORY E 01/20/2020 Rex RIVERA MD Ot Z53 .8 PROCEDURE AND TREATMENT NOT CARRIED OUT 01/20/2020 Rex RIVERA MD Ot Z01.812 ENCOUNTER FOR PREPROCEDURAL LABORATORY E 01/20/2020 Rex RIVERA MD, Ot Z53 .8 PROCEDURE AND TREATMENT NOT CARRIED OUT 01/20/2020 STEPHANE ROSE MD Ot E11.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 W DIABETIC SUPERVISOR SILVERING DEPARTMENT 01/20/2020 STEPHANE ROSE MD, Ot E78.00 PURE HYPERCHOLESTEROLEMIA, UNSPECIFIED 01/20/2020 STEPHANE ROSE MD, Ot F32.9 MAJOR DEPRESSIVE DISORDER, SINGLE EPISOD 01/20/2020 STEPHANE ROSE MD, Ot F41.9 ANXIETY DISORDER, UNSPECIFIED 01/20/2020 STEPHANE ROSE MD, Ot G47.30 SLEEP APNEA, UNSPECIFIED 01/20/2020 STEPHANE ROSE MD, Ot I13.2 HYP HRT CHR [place] DIS W HRT FAIL AND W 01/20/2020 ROSE CROWDER, STEPHANE Andrade Ot I48.92 UNSPECIFIED ATRIAL FLUTTER 01/20/2020 STEPHANE ROSE MD, Ot I50.9 HEART FAILURE, UNSPECIFIED 01/20/2020 STEPHANE ROSE MD, Ot J44.9 CHRONIC OBSTRUCTIVE PULMONARY DISEASE, U 01/20/2020 STEPHANE ROSE MD Ot K52.9 NONINFECTIVE GASTROENTERITIS AND COLITIS 01/20/2020 STEPHANE ROSE MD Ot K59.09 OTHER CONSTIPATION 01/20/2020 STEPHANE ROSE MD, Ot N18.6 END STAGE RENAL DISEASE 01/20/2020 STEPHANE ROSE MD, Ot Z79.4 SENIOR CARE (CURRENT) USE OF INSULIN 01/20/2020 STEPHANE ROSE MD, Ot Z79.82 SENIOR CARE (CURRENT) USE OF ASPIRIN 01/20/2020 STEPHANE ROSE MD, Ot Z79.890 HORMONE REPLACEMENT THERAPY 01/20/2020 STEPHANE ROSE MD, Ot Z79.899 OTHER SENIOR CARE (CURRENT) DRUG THERAPY 01/20/2020 STEPHANE ROSE MD, Ot Z85.828 PERSONAL HISTORY OF OTHER MALIGNANT NEOP 01/20/2020 STEPHANE ROSE MD, Ot Z87.891 PERSONAL HISTORY OF NICOTINE DEPENDENCE 01/20/2020 STEPHANE ROSE MD, Ot Z88.2 ALLERGY STATUS TO SULFONAMIDES STATUS 01/20/2020 STEPHANE ROSE MD, Ot Z99.2 DEPENDENCE ON RENAL DIALYSIS 01/21/2020 Rex RIVERA MD Ot Z01.812 ENCOUNTER FOR PREPROCEDURAL LABORATORY E 01/21/2020 Rex RIVERA MD Ot Z53 .8 PROCEDURE AND TREATMENT NOT CARRIED OUT 01/21/2020 ALY JORDAN MD Ot E11.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 W DIABETIC SUPERVISOR SILVERING DEPARTMENT 01/21/2020 ALY JORDAN MD, Ot E11.40 TYPE [...] COMM 01/21/2020 ALY JORDAN MD, Ot Z79.4 WEAVING LOOM OPERATOR (CURRENT) USE OF INSULIN 01/21/2020 ALY JORDAN MD Ot Z87.891 PERSONAL HISTORY OF NICOTINE DEPENDENCE 01/21/2020 ALY JORDAN MD Ot Z99.2 DEPENDENCE ON RENAL DIALYSIS 01/22/2020 KEN VERNON MD Ot Z12.31 ENCNTR SCREEN MAMMOGRAM FOR MALIGNANT NE 01/22/2020 Rex RIVERA MD Ot Z01.812 ENCOUNTER FOR PREPROCEDURAL LABORATORY E 01/22/2020 Rex RIVERA MD Ot Z53 .8 PROCEDURE AND TREATMENT NOT CARRIED OUT Procedures Code Description [place] [id number] [facility], per day, for the evaluation and management of a patient, which requires these JASEN KHAN MD 09/19/[address] [facility], per day, for the evaluation and management of a patient, which requires at YECENIA CHURCH MD 09/19/2017 [id number] Offi ce or other outpatient visit for the evaluation and management of an established patient, which TIMBO SMITH I 10/18/2017 26114 Offi ce or other outpatient visit for the evaluation and management of an established patient, which TIMBO SMITH I 03/29/2018 522[address] [facility], per day, for the evaluation and management of a patient, which requires these JASEN KHAN MD 03/29/[address] [facility], per day, for the evaluation and [...] 5.0-8.0 Protein Pos 2+ NA Negative Specific [place] 1.015 NA 1.003-1.030 UA Collection type Clean [...] CORRECTED 9.1 mg/dL 8.5-10.1 Magnesium - 03/06/19 Magnesium 1.4 mg/dL 1.6-2.4 Serum or plasma creatine kinase measurem ent (enzymatic activity/volume) - 03/06/19 Serum or plasma creatine kinase measurem ent (enzymatic activity/volume) 65 U/L 29-168 PT panel in platelet poor plasma by coag ulation assay - 03/06/19 Prothrombin time (PT) in platelet poor plasma by coagu lation assay 14.3 s 12.2-14.7 INR in platelet poor plasma or blood by coagulation as say 1.1 0.8-1.4 Activated partial thromboplastin time (a PTT) in platelet poor plasma bycoagulation assay - 03/06/19 Activated partial thromboplastin time (a PTT) in platelet poor plasma bycoagulation assay 33 s 24-35 Serum or plasma creatine kinase MB measu rement (enzymatic activity/volume) - 03/06/19 Serum or plasma creatine kinase MB measu rement (enzymatic activity/volume) 1.1 ng/mL <6.6 Serum or plasma troponin i.cardiac measu rement (mass/volume) - 03/06/19 Serum or plasma troponin i.cardiac measurement (mass/v olume) < ng/mL <0.028 Myoglobin, serum - 03/06/19 Myoglobin, serum 70.8 ng/mL 10.0-92.0 Serum or plasma thyroxine (T4) free wolf urement (mass/volume) - 03/06/19 Serum or plasma thyroxine (T4) free measurement (mass/ volume) 0.49 ng/dL 0.70-1.48 Serum or plasma lithium measurement (mol es/volume) - 03/06/19 BNP PT 233.7 pg/mL <100.0 Serum or plasma thyrotropin measurement by detection limit <=0.05 miu/l (units/volume) - 03/06/19 Serum or plasma thyrotropin measurement by detection [...] olume) < ng/mL <0.028 Coronavirus SARS-CoV-2 SO 2019 - 0 05:10 Coronavirus Ab [Units/volume] in Serum Negative Negative Automated blood complete blood count (he mogram) panel - 01/22/20 07:22 Blood leukocytes automated count (number/volume) 8.9 10*3/uL 4.3-11.0 Blood erythrocytes automated count (number/volume) 3.30 10*6/uL 4.35-5.85 Venous blood hemoglobin measurement (mass/volume) 10.6 g/dL 11.5-16.0 Blood hematocrit (volume fraction) 33 % 35-52 Automated erythrocyte mean corpuscular volume 101 [foz_us] 80-99 Automated erythrocyte mean corpuscular h emoglobin (mass per erythrocyte) 32 pg 25-34 Automated erythrocyte mean corpuscular h emoglobin concentration measurement (mass/volume) 32 g/dL 32-36 Automated erythrocyte distribution width ratio 17. 6 % 10.0- 14.5 Automated blood platelet count (count/volume) 166 10*3/uL 130-400 Automated blood platelet mean volume measurement 11.0 [foz_us] 7.4-10.4 PT panel in platelet poor plasma by coag ulation assay - 01/22/20 07:22 Prothrombin time (PT) in platelet poor plasma by coagu lation assay 15.5 s 12.2-14.7 INR in platelet poor plasma or blood by coagulation as say 1.2 0.8-1.4 Activated partial thromboplastin time (a PTT) in platelet poor plasma bycoagulation assay - 01/22/20 07:22 Activated partial thromboplastin time (a PTT) in platelet poor plasma bycoagulation assay 35 s 24-35 Comprehensive metabolic panel - 01/22/20 07:22 Serum or plasma sodium measurement (moles/volume) 138 mmol/L 135-145 Serum or plasma potassium measurement (moles/volume) 3.9 mmol/L 3.6-5.0 Serum or plasma chloride measurement (moles/volume) 97 mmol/L 98-107 Carbon dioxide 23 mmol/L 21-32 Serum or plasma anion gap determination (moles/volume) 18 mmol/L 5-14 Serum or plasma urea nitrogen measurement (mass/volume ) 45 mg/dL 7-18 Serum or plasma creatinine measurement (mass/volume) 4.85 mg/dL 0.60-1.30 Serum or plasma urea nitrogen/creatinine mass ratio 9 NRG Serum or plasma creatinine measurement w ith calculation of estimated glomerular filtration rate 9 NRG Serum or plasma glucose measurement (mass/volume) 274 mg/dL 70-105 Serum or plasma calcium measurement (mass/volume) 8.5 mg/dL 8.5-10.1 Serum or plasma total bilirubin measurement (mass/volu me) 0.4 mg/dL 0.1-1.0 Serum or plasma alkaline phosphatase apurva surement (enzymatic activity/volume) 77 U/L 40-136 Serum or plasma aspartate aminotransfera se measurement (enzymatic activity/volume) 12 U/L 5-34 Serum or plasma alanine aminotransferase measurement (enzymatic activity/volume) 14 U/L 0-55 Serum or plasma protein measurement (mass/volume) 7.2 g/dL 6.4-8.2 Serum or plasma albumin measurement (mass/volume) 3.8 g/dL 3.2-4.5 CALCIUM CORRECTED 8.7 mg/dL 8.5-10.1 Methicillin resistant Staphylococcus aur eus (MRSA) screening culture - 01/22/20 07:22 Methicillin resistant Staphylococcus aureus (MRSA) scr eening culture NEG NRG Capillary blood glucose measurement by g lucometer (mass/volume) - 01/22/20 20:18 Capillary blood glucose measurement by glucometer (mas s/volume) 359 mg/dL 70-110 Automated blood complete blood count (he mogram) panel - 01/23/20 03:04 Blood leukocytes automated count (number/volume) 8.4 10*3/uL 4.3-11.0 Blood erythrocytes automated count (number/volume) 2.85 10*6/uL 4.35-5.85 Venous blood hemoglobin measurement (mass/volume) 9.2 g/dL 11.5-16.0 Blood hematocrit (volume fraction) 30 % 35-52 Automated erythrocyte mean corpuscular volume 104 [foz_us] 80-99 Automated erythrocyte mean corpuscular h emoglobin (mass per erythrocyte) 32 pg 25-34 Automated erythrocyte mean corpuscular h emoglobin concentration measurement (mass/volume) 31 g/dL 32-36 Automated erythrocyte distribution width ratio 17. 5 % 10.0- 14.5 Automated blood platelet count (count/volume) 143 10*3/uL 130-400 Automated blood platelet mean volume measurement 11.0 [foz_us] 7.4-10.4 Whole blood basic metabolic panel - 01/13 03:04 Serum or plasma sodium measurement (moles/volume) 139 mmol/L 135-145 Serum or plasma potassium measurement (moles/volume) 4.0 mmol/L 3.6-5.0 Serum or plasma chloride measurement (moles/volume) 100 mmol/L 98-107 Carbon dioxide 21 mmol/L 21-32 Serum or plasma anion gap determination (moles/volume) 18 mmol/L 5-14 Serum or plasma urea nitrogen measurement (mass/volume ) 55 mg/dL 7-18 Serum or plasma creatinine measurement (mass/volume) 5.43 mg/dL 0.60-1.30 Serum or plasma urea nitrogen/creatinine mass ratio 10 NRG Serum or plasma creatinine measurement w ith calculation of estimated glomerular filtration rate 8 NRG Serum or plasma glucose measurement (mass/volume) 246 mg/dL 70-105 Serum or plasma calcium measurement (mass/volume) 7.6 mg/dL 8.5-10.1 Complete blood count (CBC) with automate d white blood cell (WBC) differential - 01/25/20 00:05 Blood leukocytes automated count (number/volume) 8.7 10*3/uL 4.3-11.0 Blood erythrocytes automated count (number/volume) 2.97 10*6/uL 4.35-5.85 Venous blood hemoglobin measurement (mass/volume) 9.6 g/dL 11.5-16.0 Blood hematocrit (volume fraction) 31 % 35-52 Automated erythrocyte mean corpuscular volume 104 [foz_us] 80-99 Automated erythrocyte mean corpuscular h emoglobin (mass per erythrocyte) 32 pg 25-34 Automated erythrocyte mean corpuscular h emoglobin concentration measurement (mass/volume) 31 g/dL 32-36 Automated erythrocyte distribution width ratio 17. 6 % 10.0- 14.5 Automated blood platelet count (count/volume) 153 10*3/uL 130-400 Automated blood platelet mean volume measurement 11.2 [foz_us] 7.4-10.4 Automated blood neutrophils/100 leukocytes 71 % 42-75 Automated blood lymphocytes/100 leukocytes 20 [...] 0.0 10*3/uL 0.0-0.1 Comprehensive metabolic panel - 01/25/20 00:05 Serum or plasma sodium measurement (moles/volume) 138 mmol/L 135-145 Serum or plasma potassium measurement (moles/volume) 3.5 mmol/L 3.6-5.0 Serum or plasma chloride measurement (moles/volume) 98 mmol/L 98-107 Serum or plasma albumin measurement (mass/volume) 3.8 g/dL 3.2-4.5 Radiology Report from [id number] on 09/14 10:09:00 Reason For ExamAbdominal pain, [...] Nohydronephrosis. There is no ascites.Dictated on worksta tion:[id number] Line PRELIMINARY DICTATED BY: ALBIN GUTIERREZ MDDICTATED DT/TM: 09/14/2017 9:54 Radiology Report from [id number] on 09/14 10:09:00 Reason For ExamSyncopeREPORTIndication: Syncope.Procedure: [...] significantstenosis hemodynamically. Both vertebrals are patent.Dictated on workstation:[id number] Line PRELIMINARY DICTATED BY: ALBIN GUTIERREZ MDDICTATED DT/TM: 09/14/2017 9:49 Radiology Report from [id number] on 09/14 12:41:00 Reason For ExamCoughREPORTINDICATION: Co ugh.COMPARISON: None available.TECHNIQUE: Frontal and lateral radiographs of the chest dated September 14, 2017.FINDINGS: The cardiac silhouette is mildly enlarged. No significant pulmonaryvascular congestion. The lungs are clear. No pleural effusion. No pneumothorax.Mild scattered osseous degenerative changes without acute osseous abnormality.IMPRESSION: Cardiomegaly without overt congestive heart failure or additionalsuperimposed acute cardiopulmonary abnormality.Dictated on workstation:[id number] Line PRELIMINARY DICTATED BY: MANSI LARSON MDDICTATED DT/TM: 09/14/2017 12:38 Encounters ACCT No. Visit Date/Time Discharge Status Pt. Type Provider Facility Loc./Unit Complaint [id number] 09/14/2017 04:48:00 018 10:59:00 DIS Inpatient Rodgers Chady [facility] [place] VCF F5SE Pancreatitis, Acute Renal Failure [id number] 09/15/2017 05:19:03 Document Registration [id number] 12/18/2017 13:34:06 018 23:59:59 [facility] Outpatient TIMBO SMITH I [id number] 01/22/2020 07:04:00 020 10:12:00 DIS Outpatient Rex RIVERA MD [facility] CATH AFIB [id number] 01/19/2020 06:53:00 020 23:59:59 CLS Outpatient Rex RIVERA MD [facility] LABNPT [id number] 01/16/2020 09:26:00 020 10:42:00 DIS Emergency MIRI AGARWAL MD [facility] ER A FLUTTER [id number] 01/14/2020 03:15:00 020 05:40:00 DIS Emergency ALY JORDAN MD [facility] ER A-FLUTTER [id number] 01/13/2020 16:09:00 16:48:00 DIS Emergency ROSE CROWDER, STEPHANE Andrade [facility] ER A FLUTTER [id number] 01/10/2020 11:10:00 17:05:00 DIS Inpatient SETH CROWDER, KIRT [place] [facility] ICU A-FLUTTER W/ RVR [id number] 12/30/2019 16:13:00 19:17:00 DIS Emergency TOMMY DO, BENTON K [facility] ER ATRIAL FLUTTER [id number] 12/27/2019 15:07:00 18:58:00 DIS Emergency NIKKI CROWDER, ALY [place] [facility] ER HIGH PULSE - 14 5 [id number] 09/01/2019 10:19:00 23:59:59 CLS Outpatient SAULO CROWDER, KEN Sood [facility] RAD SCREENING [id number] 08/26/2019 20:56:00 06:25:00 DIS Outpatient DAYNA ARCE APRN [facility] SLEEP OBSTRUCTIVE SLEEP APNE A [id number] 08/06/2019 20:39:00 07:29:00 DIS Outpatient ISABELLA MEJIA APRN [facility] SLEEP KARO G47.33 [id number] 04/10/2019 13:22:00 12:15:00 DIS Outpatient LINH CORLEY MD [facility] SDC IRON DEFICIENCY ANEMIA [id number] 04/08/2019 07:55:00 23:59:59 CLS Outpatient JOHANNA CROWDER FACC, LYDIA BRICEÑO CC DS [facility] CARD ACUTE DIAST OLIC CHF [id number] 03/06/2019 21:25:00 15:24:00 DIS Inpatient GAGAN CROWDER, CLAUDIO Coyne [facility] ICU CHF,UTI,CHRONIC RENAL FAILURE,HYPOMAGNESEMIA,HYPOT [id number] 08/27/2018 10:51:00 019 14:23:00 DIS Emergency SHERLYN HARRIS [facility] ER POSSIBLE NECK ABCESS [id number] 06/25/2018 08:40:00 23:59:59 CLS Outpatient ISABELLA MEJIA APRN [facility] RAD CKD STAGE 4 [id number] 04/26/2018 09:26:00 13:25:00 DIS Outpatient SAVANNAH VILLAR DO [facility] SDC SKIN LESION NOSE [id number] 04/24/2018 11:40:00 12:16:00 DIS Outpatient SAVANNAH VILLAR DO [facility] PREOP SKIN LESION NOSE [id number] 01/18/2018 07:27:00 09:58:00 DIS Outpatient KIRT ANN MD [facility] ENDO SCREENING [id number] 01/14/2018 09:30:00 10:24:00 DIS Outpatient KIRT ANN MD [facility] PREOP COLONOSCOPY [id number] 01/25/2020 00:40:00 Document Registration [id number] 04/26/2018 09:26:00 Document Registration [id number] 02/22/2018 10:46:00 Document Registration
[2020-01-25 00:50] LABS: CREATININE SERUM 4.13 MG/DL (0.60-1.30)
[2020-01-25 00:52] LABS: MAGNESIUM 2.1 MG/DL (1.6-2.4)
[2020-01-25] MEDS: dilTIAZem DRIP PRE-MIX 125 ML IV SCH ×2 (01:11→08:47)
--- NOTE | 2020-01-25 01:30 | NUR ---
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 HAS HX OF EX-SMOKER AND COPD.
--- NOTE | 2020-01-25 02:47 | ED Cardiac General ---
History of Present Illness General Chief Complaint: Cardiac/General Problems Stated Complaint: AFLUTTER Nursing Triage Note: TO ED VIA POV AND AMBULATORY TO ROOM 5 WITH C/O FEELING LIKE SHE IS IN A FLUTTER. 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 ABLATION LAST SUNDAY. TAKES CARDIZEM AND ELIQUIS WITH NO MISSED DOSES. DENIES CP. TRIED COUGHING AND MIMICKING BLOWING THROUGH STRAW WITH NOT RELIEF OF SYMPTOMS. Source: patient, old records Exam Limitations: no limitations History of Present Illness Date Seen by Provider: Jan 25, 2020 Time Seen by Provider: 00:30 Initial Comments This 54-year-old woman presents to the emergency room complaining of tachycardia. She has a history of atrial flutter refractory to medical treatment. She had an ablation last . She continues on Eliquis and her antiarrhythmic medications. She reports excellent compliance. Symptoms started about 1.5 hours prior to arrival. Allergies and Home Medications Allergies Coded Allergies: Sulfa (Sulfonamide Antibiotics) (Verified Allergy, Mild, HIVES, 01/14/18) Home Medications Apixaban 5 Mg Tablet, 5 MG PO BID, (Reported) Aspirin 81 Mg Tablet.dr, 81 MG PO DAILY, (Reported) Diltiazem HCl 120 Mg Cap.er.24h, 120 MG PO DAILY, (Reported) Duloxetine HCl 60 Mg Capsule.dr, 60 MG PO HS, (Reported) Famotidine 20 Mg Tablet, 20 MG PO DAILY, (Reported) Furosemide 80 Mg Tablet, 160 MG PO TUTHURSATSUN, (Reported) TAKES 2 (80 MG) TABLETS DAILY ON NON DIALYSIS DAYS Gabapentin 300 Mg Capsule, 300 MG PO DAILY, (Reported) Insulin Aspart 300 Units/3 Ml Solution, 15 UNITS SQ AC, (Reported) 15 UNITS BEFORE MEALS AND SLIDING SCALE Insulin Detemir 100 Unit/1 Ml Insuln.pen, 30 UNITS SC BID, (Reported) Levothyroxine Sodium 150 Mcg Tablet, 150 MCG PO HS, (Reported) Liraglutide 0.6 Mg/0.1 Ml Pen.injctr, 1.2 MG SQ DAILY, (Reported) Lisinopril 10 Mg Tablet, 10 MG PO DAILY, (Reported) Metoprolol Succinate 100 Mg Tab.er.24h, 25 MG PO DAILY, (Reported) TAKES 1/4 OF A 100MG TAB DAILY Potassium Chloride 10 Meq Tab.er.prt, 10 MEQ PO TUETHURSATSUN, (Reported) ONLY TAKES ON NON DIALYSIS DAYS Rosuvastatin Calcium 20 Mg Tablet, 20 MG PO DAILY, (Reported) Sevelamer Carbonate 800 Mg Tablet, 1,600 MG PO TID, (Reported) TAKES 2 (800 MG) TABLETS WITH EACH MEAL Trazodone HCl 50 Mg Tablet, 50 MG PO HS, (Reported) Patient Home Medication List Home Medication List Reviewed: Yes Review of Systems Review of Systems Constitutional: no symptoms reported EENTM: No Symptoms Reported Respiratory: No Symptoms Reported Cardiovascular: See HPI Gastrointestinal: No Symptoms Reported Genitourinary: No Symptoms Reported Musculoskeletal: no symptoms reported Skin: no symptoms reported Psychiatric/Neurological: No Symptoms Reported Endocrine: No Symptoms Reported Hematologic/Lymphatic: No Symptoms Reported Past Natdfpv-Cggwcr-Pqcrlo Hx Past Med/Social Hx: Reviewed Nursing Past Med/Soc Hx Patient Social History Alcohol Use: Denies Use Recreational Drug Use: Yes Drug of Choice: THC Type Used: Cigarettes Former Smoker, Quit: Jan 14, 1999 2nd Hand Smoke Exposure: No Recent Foreign Travel: No Contact w/Someone Who Travel: No Recent Infectious Disease Expo: No Recent Hopitalizations: Yes (ABLATION) Physical Abuse: No Sexual Abuse: No Mistreated: No Fear: No Immunizations Up To Date Tetanus Booster (TDap): Less than 5yrs PED Vaccines UTD: Yes Date of Pneumonia Vaccine: Jun 12, 2019 Date of Influenza Vaccine: Jun 11, 2019 Seasonal Allergies Seasonal Allergies: Yes Past Medical History Surgeries: Yes (PILONIDAL CYST; DX LAPAROSCOPY; HYST/BSO, dialysis shunt in right forearm) Cardiac (cardiac ablation), Dialysis, Gallbladder, Hysterectomy, Oophorectomy Respiratory: Yes Sleep Apnea, COPD Currently Using CPAP: Yes Cardiac: Yes (CHF; ELEVATED TRIGLYCERIDES; A FLUTTER, ABLATION) Chronic Edema/Swelling, High Cholesterol, Hypertension Neurological: Yes Neuropathy 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 Disorders: No Female 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 Disorders: 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, 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 Sexually Transmitted Disease: No HIV/AIDS: No Genitourinary: Yes (DIALYSIS M-W-F) Renal Failure, Dialysis, UTI-Chronic Gastrointestinal: Yes Chronic Constipation, Chronic Diarrhea Musculoskeletal: Yes Arthritis, Chronic Back Pain Endocrine: Yes Diabetes, Insulin dep HEENT: No Loss of Vision: Bilateral Hearing Impairment: Denies Cancer: Yes Skin Psychosocial: Yes Anxiety, Depression Integumentary: Yes (skin lesion) Blood Disorders: No Adverse Reaction/Blood Tranf: No (N/A) Family Medical History Cardiovascular disease G8 SISTER Diabetes mellitus G8 SISTER FH: lung cancer G8 SISTER Physical Exam Vital Signs Vital Signs - First Documented 01/24/20 01/25/20 23:53 01:30 Pulse 147 Resp 20 B/P (MAP) 128/73 (91) O2 Delivery Room Air O2 Flow Rate 2.00 Capillary Refill : Less Than 3 Seconds Height, Weight, BMI Height: 5'3.00" Weight: 264lbs. 1.0oz. 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 Ack. Understanding Patient History: Sleep Apnea Breath Sounds per Auscultation: Clear Heart Sounds per Auscultation: Regular Airway Exam: Mouth opens >2 fingers, Neck Full Range of Motion, Visulation of Uvula Sedation Adminstration Time: 1733 Progress/Results/Core Measures Results/Orders Lab Results Laboratory Tests Test 01/25/20 00:05 Range/Units White Blood Count 8.7 4.3-11.0 10^3/uL Red Blood Count 2.97 L 4.35-5.85 10^6/uL Hemoglobin 9.6 L 11.5-16.0 G/DL Hematocrit 31 L 35-52 % Mean Corpuscular Volume 104 H 80-99 FL Mean Corpuscular Hemoglobin 32 25-34 PG Mean Corpuscular Hemoglobin Concent 31 L 32-36 G/DL Red Cell Distribution Width 17.6 H 10.0-14.5 % Platelet Count 153 130-400 10^3/uL Mean Platelet Volume 11.2 H 7.4-10.4 FL Neutrophils (%) (Auto) 71 42-75 % Lymphocytes (%) (Auto) 20 12-44 % Monocytes (%) (Auto) 7 0-12 % Eosinophils (%) (Auto) 2 0-10 % Basophils (%) (Auto) 1 0-10 % Neutrophils # (Auto) 6.2 1.8-7.8 X 10^3 Lymphocytes # (Auto) 1.7 1.0-4.0 X 10^3 Monocytes # (Auto) 0.6 0.0-1.0 X 10^3 Eosinophils # (Auto) 0.2 0.0-0.3 10^3/uL Basophils # (Auto) 0.0 0.0-0.1 10^3/uL Sodium Level 138 135-145 MMOL/L Potassium Level 3.5 L 3.6-5.0 MMOL/L Chloride Level 98 98-107 MMOL/L Carbon Dioxide Level 23 21-32 MMOL/L Anion Gap 17 H 5-14 MMOL/L Blood Urea Nitrogen 40 H 7-18 MG/DL Creatinine 4.13 #H 0.60-1.30 MG/DL Estimat Glomerular Filtration Rate 11 BUN/Creatinine Ratio 10 Glucose Level 298 H 70-105 MG/DL Calcium Level 8.4 L 8.5-10.1 MG/DL Corrected Calcium 8.6 8.5-10.1 MG/DL Magnesium Level 2.1 1.6-2.4 MG/DL Total Bilirubin 0.4 0.1-1.0 MG/DL Aspartate Amino Transf (AST/SGOT) 10 5-34 U/L Alanine Aminotransferase (ALT/SGPT) 11 0-55 U/L Alkaline Phosphatase 86 40-136 U/L Total Protein 7.2 6.4-8.2 GM/DL Albumin 3.8 3.2-4.5 GM/DL My Orders Orders - STEPHANE ROSE MD Cbc With Automated Diff (01/25/20 00:33) Comprehensive Metabolic Panel (01/25/20 00:33) Magnesium (01/25/20 00:33) Ed Iv/Invasive Line Start (01/25/20 00:34) Ekg Tracing (01/25/20 00:34) Monitor-Rhythm Ecg Trace Only (01/25/20 00:34) Diltiazem Injection (Cardizem Injection) (01/25/20 00:45) Diltiazem Drip Pre-Mix (Cardizem Drip Pr (01/25/20 00:45) O2 (01/25/20 01:30) Medications Given in ED Current Medications Medications Dose Ordered Sig/Darren Route Start Time Stop Time Status Last Admin Dose Admin Diltiazem HCl 10 mg ONCE ONCE IVP 01/25/20 00:45 01/25/20 00:46 DC 01/25/20 01:11 10 MG Vital Signs/I&O 01/24/20 01/25/20 23:53 01:30 Pulse 147 Resp 20 B/P (MAP) 128/73 (91) O2 Delivery Room Air Nasal Cannula O2 Flow Rate 2.00 Blood Pressure Mean: 91 Progress Progress Note : Progress Note Case was discussed with Dr. Thapa. Cardizem bolus and drip were initiated. Patient did not convert to sinus rhythm. After titrating up her rate eventually did slow down but she remained in flutter. Patient was admitted for observation and further evaluation by cardiology. Initial ECG Impression Date: Jan 24, 2020 Initial ECG Impression Time: 23:53 Initial ECG Rate: 121 Initial ECG Rhythm: Normal Sinus Initial ECG Intervals: Normal Initial ECG Impression: Normal Comment Atrial flutter with 2:[address] elevation or depression. Departure Communication (Admissions) Time/Spoke to Admitting Phy: 02:42 Dr. Chacon Time/Spoke to Consulting Phy: 00:26 Dr. Thapa Impression Primary Impression: Atrial flutter with rapid ventricular response Disposition: ADMITTED INPATIENT Condition: Improved Admissions Decision to Admit Reason: Admit from ER (General) Decision to Admit/Date: Jan 25, 2020 Time/Decision to Admit Time: 00:26 Departure-Patient Inst. Referrals: BIMAL VITAL MD (PCP/Family) Primary Care Physician STEPHANE ROSE MD Jan 25, 2020 02:47
--- OUTSIDE RECORDS SUMMARY | 2020-01-25 03:07 | XMS REPORT | Continuity of Care Document ---
Author Organization Unknown Address Unknown Phone Unavailable Allergies Active Description Code Type Severity Reaction Onset Reported/Identified Relationship to Patient Clinical Status Yes sulfa drugs NKMA N/A N/A 09/14/2017 Yes Sulfa (Sulfonamide Antibiotics) [id number] Drug Allergy Mild HIVES 8 Medications [...] Ot I25. 10 ATHSCL HEART DISEASE OF [place] CORONARY 01/18/2018 KIRT ANN MD Ot I50. [...] Ot I25. 10 ATHSCL HEART DISEASE OF [place] CORONARY 01/22/2018 KIRT ANN MD Ot I50. [...] Ot I25. 10 ATHSCL HEART DISEASE OF [place] CORONARY 01/23/2018 KIRT ANN MD, Ot I50. [...] 01/23/2018 KIRT ANN MD Ot Z79.899 OTHER GEOPHYSICAL PROSPECTING SURVEYOR (CURRENT) DRUG THERAPY 03/05/2018 Ot M47.26 OTH [...] 04/26/2018 VILLAR DOSAVANNAH D Ot Z79. 4 GEOPHYSICAL PROSPECTING SURVEYOR (CURRENT) USE OF INSULIN 04/26/2018 VILLAR DOSAVANNAH [...] 04/30/2018 VILLAR DOSAVANNAH D Ot Z79. 4 GEOPHYSICAL PROSPECTING SURVEYOR (CURRENT) USE OF INSULIN 04/30/2018 VILLAR DO, SAVANNAH D Ot Z79.899 OTHER GEOPHYSICAL PROSPECTING SURVEYOR (CURRENT) DRUG THERAPY 04/30/2018 VILLAR DO, SAVANNAH [...] VILLAR DO, SAVANNAH D Ot Z79.899 OTHER GEOPHYSICAL PROSPECTING SURVEYOR (CURRENT) DRUG THERAPY 05/09/2018 VILLAR DO, SAVANNAH [...] VILLAR DO, SAVANNAH D Ot Z79.899 OTHER GEOPHYSICAL PROSPECTING SURVEYOR (CURRENT) DRUG THERAPY 06/27/2018 ISABELLA MEJIA APRN Ot E11.21 TYPE 2 DIABETES MELLITUS WITH DIABETIC N 06/27/2018 ISABELLA MEJIA APRN Ot E11.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 W DIABETIC OCEAN TRANSPORTATION INTERMEDIARY 06/27/2018 ISABELLA MEJIA APRN Ot E78.5 HYPERLIPIDEMIA, [...] HISTORY OF NICOTINE DEPENDENCE 07/10/2018 ISABELLA MEJIA DEAF/HARD OF HEARING SPECIALIST Ot E11.21 TYPE 2 DIABETES MELLITUS WITH DIABETIC N 07/10/2018 ISABELLA MEJIA APRN Ot E11.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 W DIABETIC OCEAN TRANSPORTATION INTERMEDIARY 07/10/2018 ISABELLA MEJIA APRN Ot E78.5 HYPERLIPIDEMIA, UNSPECIFIED 07/10/2018 ISABELLA MEJIA APRN Ot I12.9 HYPERTENSIVE CHRONIC KIDNEY DISEASE W ST 07/10/2018 ISABELLA MEJIA APRN Ot I50.9 HEART FAILURE, UNSPECIFIED 07/10/2018 ISABELLA MEJIA APRN Ot M10.9 GOUT, UNSPECIFIED 07/10/2018 ISABELLA MEJIA APRN Ot N18.4 CHRONIC KIDNEY DISEASE, STAGE 4 (SEVERE) 07/10/2018 ISABELLA MEJIA DEAF/HARD OF HEARING SPECIALIST Ot N39.0 URINARY TRACT INFECTION, SITE [...] OTHER SPECIFIED POSTPROCEDURAL STATES 08/27/2018 ISABELLA MEJIA DEAF/HARD OF HEARING SPECIALIST Ot E11.21 TYPE 2 DIABETES MELLITUS WITH DIABETIC N 08/27/2018 ISABELLA MEJIA DEAF/HARD OF HEARING SPECIALIST Ot E11.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 W DIABETIC OCEAN TRANSPORTATION INTERMEDIARY 08/27/2018 ISABELLA MEJIA APRN Ot E78.5 HYPERLIPIDEMIA, [...] E11.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 W DIABETIC OCEAN TRANSPORTATION INTERMEDIARY 03/06/2019 ISABELLA MEJIA APRN Ot E78.5 HYPERLIPIDEMIA, UNSPECIFIED 03/06/2019 ISABELLA MEJIA APRN Ot I12.9 HYPERTENSIVE CHRONIC KIDNEY DISEASE W ST 03/06/2019 ISABLELA MEJIA APRN Ot I50.9 HEART FAILURE, UNSPECIFIED [...] E11.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 W DIABETIC OCEAN TRANSPORTATION INTERMEDIARY 03/17/2019 ISABELLA MEJIA APRN Ot E78.5 HYPERLIPIDEMIA, [...] E11.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 W DIABETIC OCEAN TRANSPORTATION INTERMEDIARY 03/17/2019 ISABELLA MEJIA APRN Ot E78.5 HYPERLIPIDEMIA, [...] E11.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 W DIABETIC OCEAN TRANSPORTATION INTERMEDIARY 04/08/2019 ISABELLA MEJIA APRN Ot E78.5 HYPERLIPIDEMIA, [...] E11.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 W DIABETIC OCEAN TRANSPORTATION INTERMEDIARY 04/08/2019 ISABELLA MEJIA APRN Ot E78.5 HYPERLIPIDEMIA, [...] E11.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 W DIABETIC OCEAN TRANSPORTATION INTERMEDIARY 04/10/2019 JOHANNA CROWDER FACC, LYDIA FACP CCDS [...] E11.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 W DIABETIC OCEAN TRANSPORTATION INTERMEDIARY 05/09/2019 JOHANNA CROWDER FACC, ALI FACP CCDS Ot I13.0 HYP HRT CHR KDNY DIS W HRT FAIL AND ST 05/09/2019 JOHANNA CROWDER FACC, ALI FACP CCDS Ot I50.31 ACUTE DIASTOLIC (CONGESTIVE) HEART FAILU 05/09/2019 JOHANNA CROWDER FACC, ALI FACP CCDS Ot N18.4 CHRONIC KIDNEY DISEASE, STAGE 4 (SEVERE) 08/05/2019 ISABELLA MEJIA APRN Ot G47.33 OBSTRUCTIVE SLEEP APNEA (ADULT) (PEDIATR 08/06/2019 ISABELLA MEJIA DEAF/HARD OF HEARING SPECIALIST Ot G47.33 OBSTRUCTIVE SLEEP APNEA (ADULT) (PEDIATR 08/06/2019 ISABELLA MEJIA APRN Ot G47.33 OBSTRUCTIVE SLEEP APNEA (ADULT) (PEDIATR 08/06/2019 ISABELLA MEJIA APRN Ot G47.33 OBSTRUCTIVE SLEEP APNEA (ADULT) (PEDIATR 08/07/2019 ISABELLA MEJIA APRN Ot G47.33 OBSTRUCTIVE SLEEP APNEA (ADULT) (PEDIATR 08/07/2019 DOUTHITT, ISABELLA B DEAF/HARD OF HEARING SPECIALIST Ot I10 ESSENTIAL (PRIMARY) HYPERTENSION 08/08/2019 ISABELLA MEJIA DEAF/HARD OF HEARING SPECIALIST Ot G47.33 OBSTRUCTIVE SLEEP APNEA (ADULT) (PEDIATR 08/08/2019 ISABELLA MEJIA DEAF/HARD OF HEARING SPECIALIST Ot I10 ESSENTIAL (PRIMARY) HYPERTENSION 08/15/2019 YAZMIN, DAYNA R DEAF/HARD OF HEARING SPECIALIST Ot G47.33 OBSTRUCTIVE SLEEP APNEA (ADULT) (PEDIATR 08/21/2019 YAZMIN, DAYNA R DEAF/HARD OF HEARING SPECIALIST Ot G47.33 OBSTRUCTIVE SLEEP APNEA (ADULT) (PEDIATR 08/21/2019 YAZMIN, DAYNA R DEAF/HARD OF HEARING SPECIALIST Ot G47.33 OBSTRUCTIVE SLEEP APNEA (ADULT) (PEDIATR 08/21/2019 YAZMIN, DAYNA R DEAF/HARD OF HEARING SPECIALIST Ot G47.33 OBSTRUCTIVE SLEEP APNEA (ADULT) (PEDIATR 08/21/2019 YAZMIN, DAYNA R DEAF/HARD OF HEARING SPECIALIST Ot G47.33 OBSTRUCTIVE SLEEP APNEA (ADULT) (PEDIATR 08/21/2019 YAZMIN, DAYNA R DEAF/HARD OF HEARING SPECIALIST Ot G47.33 OBSTRUCTIVE SLEEP APNEA (ADULT) (PEDIATR 08/22/2019 YAZMIN, DAYNA R DEAF/HARD OF HEARING SPECIALIST Ot G47.33 OBSTRUCTIVE SLEEP APNEA (ADULT) (PEDIATR 08/22/2019 YAZMIN, DAYNA R DEAF/HARD OF HEARING SPECIALIST Ot G47.33 OBSTRUCTIVE SLEEP APNEA (ADULT) (PEDIATR 08/22/2019 YAZMIN, DAYNA R DEAF/HARD OF HEARING SPECIALIST Ot G47.33 OBSTRUCTIVE SLEEP APNEA (ADULT) (PEDIATR 08/26/2019 YAZMIN, DAYNA R DEAF/HARD OF HEARING SPECIALIST Ot G47.33 OBSTRUCTIVE SLEEP APNEA (ADULT) (PEDIATR 08/26/2019 SAULO CROWDER, KEN Sood Ot Z12.31 ENCNTR SCREEN MAMMOGRAM FOR MALIGNANT NE 08/26/2019 DAYNA ARCE R DEAF/HARD OF HEARING SPECIALIST Ot G47.33 OBSTRUCTIVE SLEEP APNEA (ADULT) (PEDIATR 08/26/2019 SAULO CROWDER, KEN Sood Ot Z12.31 ENCNTR SCREEN MAMMOGRAM FOR MALIGNANT NE 08/27/2019 DAYNA ARCE R DEAF/HARD OF HEARING SPECIALIST Ot G47.33 OBSTRUCTIVE SLEEP APNEA (ADULT) (PEDIATR 08/27/2019 DAYNA ARCE R DEAF/HARD OF HEARING SPECIALIST Ot G47.36 SLEEP RELATED HYPOVENTILATION IN [...] E11.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 W DIABETIC OCEAN TRANSPORTATION INTERMEDIARY 12/27/2019 ALY JORDAN MD, Ot E11.40 TYPE [...] DISEASE 12/27/2019 ALY JORDAN MD, Ot Z79.4 CARE HOME (CURRENT) USE OF INSULIN 12/27/2019 ALY JORDAN MD, Ot Z79.82 CARE HOME (CURRENT) USE OF ASPIRIN 12/27/2019 ALY JORDAN [...] E11.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 W DIABETIC OCEAN TRANSPORTATION INTERMEDIARY 12/30/2019 TOMMY DO, BENTON K Ot E11.40 [...] 12/30/2019 TOMMY DO, BENTON K Ot Z79.4 GEOPHYSICAL PROSPECTING SURVEYOR (CURRENT) USE OF INSULIN 12/30/2019 TOMMY DO, BENTON K Ot Z79.82 GEOPHYSICAL PROSPECTING SURVEYOR (CURRENT) USE OF ASPIRIN 12/30/2019 TOMMY DO, [...] E11.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 W DIABETIC OCEAN TRANSPORTATION INTERMEDIARY 12/31/2019 ALY JORDAN MD, Ot E11.40 TYPE [...] DISEASE 12/31/2019 ALY JORDAN MD, Ot Z79.4 CARE HOME (CURRENT) USE OF INSULIN 12/31/2019 ALY JORDAN MD, Ot Z79.82 GEOPHYSICAL PROSPECTING SURVEYOR (CURRENT) USE OF ASPIRIN 12/31/2019 ALY JORDAN [...] E11.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 W DIABETIC OCEAN TRANSPORTATION INTERMEDIARY 01/02/2020 TOMMY DO, BENTON K Ot E11.40 [...] HRT FAIL AND W 01/02/2020 TOMMY DO, EBNTON K Ot I48.92 UNSPECIFIED ATRIAL FLUTTER 01/02/2020 TOMMY DO, BENTON K Ot N18.6 END STAGE RENAL DISEASE 01/02/2020 TOMMY DO, BENTON K Ot Z79.4 CARE HOME (CURRENT) USE OF INSULIN 01/02/2020 [place], BENTON K Ot Z79.82 GEOPHYSICAL PROSPECTING SURVEYOR (CURRENT) USE OF ASPIRIN 01/02/2020 [employer] [employer], [place]ENTON K Ot Z80.1 FAMILY HISTORY OF MALIG NEOPLASM OF TRAC 01/02/2020 [place] [employer], BENTON K Ot Z82.49 FAMILY HX OF ISCHEM HEART DIS AND OTH DI 01/02/2020 TOMMY DO, BENTON K Ot Z85.828 PERSONAL HISTORY OF OTHER MALIGNANT NEOP 01/02/2020 TOMMY DO, BENTON K Ot Z87.891 PERSONAL HISTORY OF NICOTINE DEPENDENCE 01/02/2020 [place] [employer], BENTON K Ot Z88.2 ALLERGY STATUS TO SULFONAMIDES STATUS 01/02/2020 [place] [employer], [place] K Ot Z98.890 OTHER SPECIFIED POSTPROCEDURAL STATES 01/02/2020 TOMMY , BENTON K Ot Z99.2 DEPENDENCE ON RENAL DIALYSIS 01/10/2020 SETH CROWDER, KIRT [place] Ot E11. 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 W DIABETIC OCEAN TRANSPORTATION INTERMEDIARY 01/10/2020 SETH CROWDER, KIRT [place] Ot E11. [...] 01/10/2020 KIRT ANN MD Ot Z79. 01 GEOPHYSICAL PROSPECTING SURVEYOR (CURRENT) USE OF ANTICOAGULANT 01/10/2020 KIRT ANN MD Ot Z79. 4 CARE HOME (CURRENT) USE OF INSULIN 01/10/2020 KIRT ANN MD, Ot Z79. 82 CARE HOME (CURRENT) USE OF ASPIRIN 01/10/2020 KIRT ANN MD, Ot Z79.899 OTHER CARE HOME (CURRENT) DRUG THERAPY 01/10/2020 KIRT ANN MD, [...] E11.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 W DIABETIC OCEAN TRANSPORTATION INTERMEDIARY 01/13/2020 ROSE CROWDER, STEPHANE Andrade Ot E78.00 [...] DISEASE 01/13/2020 STEPHANE ROSE MD, Ot Z79.4 CARE HOME (CURRENT) USE OF INSULIN 01/13/2020 STEPHANE ROSE MD, Ot Z79.82 CARE HOME (CURRENT) USE OF ASPIRIN 01/13/2020 STEPHANE ROSE MD, Ot Z79.890 HORMONE REPLACEMENT THERAPY 01/13/2020 STEPHANE ROSE MD, Ot Z79.899 OTHER GEOPHYSICAL PROSPECTING SURVEYOR (CURRENT) DRUG THERAPY 01/13/2020 STEPHANE ROSE MD, Ot Z85.828 PERSONAL HISTORY OF OTHER MALIGNANT NEOP 01/13/2020 STEPHANE ROSE MD, Ot Z87.891 PERSONAL HISTORY OF NICOTINE DEPENDENCE 01/13/2020 STEPHANE ROSE MD, Ot Z88.2 ALLERGY STATUS TO SULFONAMIDES STATUS 01/13/2020 STEPHANE ROSE MD, Ot Z99.2 DEPENDENCE ON RENAL DIALYSIS 01/14/2020 ALY JORDAN MD, Ot E11.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 W DIABETIC OCEAN TRANSPORTATION INTERMEDIARY 01/14/2020 ALY JORDAN MD, Ot E11.40 TYPE [...] COMM 01/14/2020 ALY JORDAN MD Ot Z79.4 GEOPHYSICAL PROSPECTING SURVEYOR (CURRENT) USE OF INSULIN 01/14/2020 ALY JORDAN MD Ot Z87.891 PERSONAL HISTORY OF NICOTINE DEPENDENCE 01/14/2020 ALY JORDAN MD Ot Z99.2 DEPENDENCE ON RENAL DIALYSIS 01/14/2020 KEN VERNON MD Ot Z12.31 ENCNTR SCREEN MAMMOGRAM FOR MALIGNANT NE 01/15/2020 KEN VERNON MD Ot Z12.31 ENCNTR SCREEN MAMMOGRAM FOR MALIGNANT NE 01/16/2020 MIRI AGARWAL MD Ot E11. 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 W DIABETIC OCEAN TRANSPORTATION INTERMEDIARY 01/16/2020 MIRI AGARWAL MD Ot E78. 00 [...] 01/16/2020 MIRI AGARWAL MD, Ot Z79. 4 GEOPHYSICAL PROSPECTING SURVEYOR (CURRENT) USE OF INSULIN 01/16/2020 MIRI AGARWAL MD, Ot Z79. 82 GEOPHYSICAL PROSPECTING SURVEYOR (CURRENT) USE OF ASPIRIN 01/16/2020 MIRI AGARWAL MD, Ot Z79.890 HORMONE REPLACEMENT THERAPY 01/16/2020 MIRI AGARWAL MD, Ot Z79.899 OTHER GEOPHYSICAL PROSPECTING SURVEYOR (CURRENT) DRUG THERAPY 01/16/2020 MIRI AGARWAL MD, [...] E11.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 W DIABETIC OCEAN TRANSPORTATION INTERMEDIARY 01/20/2020 STEPHANE ROSE MD, Ot E78.00 PURE [...] DISEASE 01/20/2020 STEPHANE ROSE MD, Ot Z79.4 CARE HOME (CURRENT) USE OF INSULIN 01/20/2020 STEPHANE ROSE MD, Ot Z79.82 CARE HOME (CURRENT) USE OF ASPIRIN 01/20/2020 STEPHANE ROSE MD, Ot Z79.890 HORMONE REPLACEMENT THERAPY 01/20/2020 STEPHANE ROSE MD, Ot Z79.899 OTHER CARE HOME (CURRENT) DRUG THERAPY 01/20/2020 STEPHANE ROSE MD, [...] E11.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 W DIABETIC OCEAN TRANSPORTATION INTERMEDIARY 01/21/2020 ALY JORDAN MD, Ot E11.40 TYPE [...] COMM 01/21/2020 ALY JORDAN MD, Ot Z79.4 GEOPHYSICAL PROSPECTING SURVEYOR (CURRENT) USE OF INSULIN 01/21/2020 ALY JORDAN [...] Code Description [place] [address] [facility], per day, for the evaluation and management of a patient, which requires these JASEN KHAN MD 09/19/2017 430[address] [facility], per day, for the evaluation and management of a patient, which requires at YECENIA CHURCH MD 09/19/2017 [id number] Offi ce or other outpatient visit for the evaluation and management of an established patient, which TIMBO SMITH I 10/18/2017 38643 Offi ce or other outpatient visit for the evaluation and management of an established patient, which TIMBO SMITH I 03/29/2018 [address] [facility], per day, for the evaluation and management of a patient, which requires these JASEN KHAN MD 03/29/2018 [address] [facility], per day, for the evaluation and management [...] 5.0-8.0 Protein Pos 2+ NA Negative Specific [place] 1.015 NA 1.003-1.030 UA Collection type Clean [...] plasma chloride measurement (moles/volume) 98 mmol/L 98-107 Carbon dioxide 23 mmol/L 21-32 Serum or plasma anion gap determination (moles/volume) 17 mmol/L 5-14 Serum or plasma urea nitrogen measurement (mass/volume ) 40 mg/dL 7-18 Serum or plasma creatinine measurement (mass/volume) 4.13 mg/dL 0.60-1.30 Serum or plasma urea nitrogen/creatinine mass ratio 10 NRG Serum or plasma creatinine measurement w ith calculation of estimated glomerular filtration rate 11 NRG Serum or plasma glucose measurement (mass/volume) 298 mg/dL 70-105 Serum or plasma calcium measurement (mass/volume) 8.4 mg/dL 8.5-10.1 Serum or plasma total bilirubin measurement (mass/volu me) 0.4 mg/dL 0.1-1.0 Serum or plasma alkaline phosphatase apurva surement (enzymatic activity/volume) 86 U/L 40-136 Serum or plasma aspartate aminotransfera se measurement (enzymatic activity/volume) 10 U/L 5-34 Serum or plasma alanine aminotransferase measurement (enzymatic activity/volume) 11 U/L 0-55 Serum or plasma protein measurement (mass/volume) 7.2 g/dL 6.4-8.2 Serum or plasma albumin measurement (mass/volume) 3.8 g/dL 3.2-4.5 CALCIUM CORRECTED 8.6 mg/dL 8.5-10.1 Magnesium - 01/25/20 00:05 Magnesium 2.1 mg/dL 1.6-2.4 Radiology Report from [id number] on 09/14 10:09:00 Reason For ExamAbdominal pain, [...] Nohydronephrosis. There is no ascites.Dictated on worksta tion:[id number] Line PRELIMINARY DICTATED BY: ALBIN GUTIERREZ MDDICTATED DT/TM: 09/14/2017 9:54 Radiology Report from [id number] on 09/14 10:09:00 Reason For ExamSyncopeREPORTIndication: Syncope.Procedure: [...] significantstenosis hemodynamically. Both vertebrals are patent.Dictated on workstation:[id number] Line PRELIMINARY DICTATED BY: ALBIN GUTIERREZ MDDICTATED DT/TM: 09/14/2017 9:49 Radiology Report from [id number] on 09/14 12:41:00 Reason For ExamCoughREPORTINDICATION: Co ugh.COMPARISON: None available.TECHNIQUE: Frontal and lateral radiographs of the chest dated September 14, 2017.FINDINGS: The cardiac silhouette is mildly enlarged. No significant pulmonaryvascular congestion. The lungs are clear. No pleural effusion. No pneumothorax.Mild scattered osseous degenerative changes without acute osseous abnormality.IMPRESSION: Cardiomegaly without overt congestive heart failure or additionalsuperimposed acute cardiopulmonary abnormality.Dictated on workstation:[id number] Line PRELIMINARY DICTATED BY: MANSI LARSON MDDICTATED DT/TM: 09/14/2017 12:38 Encounters ACCT No. Visit Date/Time Discharge Status Pt. Type Provider Facility Loc./Unit Complaint [id number] 09/14/2017 04:48:00 018 10:59:00 DIS Inpatient Rodgers Chady [facility] on [place] VCHF F5SE Pancreatitis, Acute Renal Failure [id number] 09/15/2017 05:19:03 Document Registration [id number] 12/18/2017 13:34:06 23:59:59 CLS Outpatient TIMBO SMITH I [id number] 01/22/2020 07:04:00 10:12:00 DIS Outpatient Rex RIVERA MD [facility] CATH AFIB [id number] 01/19/2020 06:53:00 23:59:59 CLS Outpatient Rex RIVERA MD [facility] LABNPT [id number] 01/16/2020 09:26:00 10:42:00 DIS Emergency MIRI AGARWAL MD [facility] ER A FLUTTER [id number] 01/14/2020 03:15:00 05:40:00 DIS Emergency ALY JORDAN MD [facility] ER A-FLUTTER [id number] 01/13/2020 16:09:00 16:48:00 DIS Emergency STEPHANE ROSE MD [facility] ER A FLUTTER [id number] 01/10/2020 11:10:00 17:05:00 DIS Inpatient KIRT ANN MD [facility] ICU A-FLUTTER W/ RVR [id number] 12/30/2019 16:13:00 19:17:00 DIS Emergency BENTON SANDERS DO [facility] ER ATRIAL FLUTTER [id number] 12/27/2019 15:07:00 18:58:00 DIS Emergency ALY JORDAN MD [facility] ER HIGH PULSE - 14 5 [id number] 09/01/2019 10:19:00 23:59:59 CLS Outpatient SAULO CROWDER, KEN Sood [facility] RAD SCREENING [id number] 08/26/2019 20:56:00 06:25:00 DIS Outpatient DAYNA ARCE DEAF/HARD OF HEARING SPECIALIST [facility] SLEEP OBSTRUCTIVE SLEEP APNE A [id number] 08/06/2019 20:39:00 07:29:00 DIS Outpatient ISABELLA MEJIA APRN [facility] SLEEP KARO G47.33 [id number] 04/10/2019 13:22:00 12:15:00 DIS Outpatient BARNEY CROWDER, LINH [facility] IRON DEFICIENCY ANEMIA [id number] 04/08/2019 07:55:00 23:59:59 CLS Outpatient JOHANNA CROWDER FACC, LYDIA BRICEÑO CC DS [facility] CARD ACUTE DIAST OLIC CHF [id number] 03/06/2019 21:25:00 15:24:00 DIS Inpatient GAGAN CROWDER, CLAUDIO Coyne [facility] ICU CHF,UTI,CHRONIC RENAL FAILURE,HYPOMAGNESEMIA,HYPOT [id number] 08/27/2018 10:51:00 14:23:00 DIS Emergency BERNOT, SHERLYN [facility] ER POSSIBLE NECK ABCESS [id number] 06/25/2018 08:40:00 23:59:59 CLS Outpatient ISABELLA MEJIA APRN [facility] RAD CKD STAGE 4 [id number] 04/26/2018 09:26:00 13:25:00 DIS Outpatient SAVANNAH VILLAR DO [facility] SDC SKIN LESION NOSE [id number] 04/24/2018 11:40:00 12:16:00 DIS Outpatient SAVANNAH VILLAR DO [facility] PREOP SKIN LESION NOSE [id number] 01/18/2018 07:27:00 018 09:58:00 DIS Outpatient KIRT ANN MD [facility] ENDO SCREENING [id number] 01/14/2018 09:30:00 018 10:24:00 DIS Outpatient KIRT ANN MD [facility] PREOP COLONOSCOPY [id number] 01/25/2020 00:40:00 Document Registration [id number] 04/26/2018 09:26:00 Document Registration [id number] 02/22/2018 10:46:00 Document Registration
[2020-01-25] MEDS ORDERED: LEVOTHYROXINE 150 MCG (LEVOTHROID) TAB PO SCH (06:30)
[2020-01-25] MEDS: inSUlin ASPART (NovoLOG) 1 UNIT/0.01 ML (CHARGE PER UNIT) SC SCH ×2 (08:45→14:48)
[2020-01-25] MEDS ORDERED: meTOprolol SUCCINATE 100 MG (TOPROL XL) TAB PO SCH (09:00)
[2020-01-25] MEDS ORDERED: APIXABAN 5 MG (ELIQUIS) TABLET PO SCH (09:00)
--- NOTE | 2020-01-25 10:57 | History & Physical-Hospitalist ---
History of Present Illness Date Seen 01/25/20 Attending Physician Tabby Chacon Julie A MD Referring Physician Date of Admission Jan 25, 2020 at 02:19 Home Medications & Allergies Home Medications Reviewed patient Home Medication Reconciliation performed by pharmacy medication reconciliations aircraft avionics technician and/or nursing. Patients Allergies have been reviewed. Allergies Allergies Coded Allergies Sulfa (Sulfonamide Antibiotics) (Verified Allergy, Mild, HIVES, 01/14/18) Past Hihwktd-Qopcuj-Bwhnid Hx Past Med/Social Hx: Reviewed Nursing Past Med/Soc Hx Patient Social History Alcohol Use: Denies Use Recreational Drug Use: Yes Drug of Choice: THC Former Smoker, Quit: Jan 14, 1999 Type Used: Cigarettes 2nd Hand Smoke Exposure: No Recent Foreign Travel: No Contact w/other who traveled: No Recent Hopitalizations: Yes (ABLATION) Recent Infectious Disease Expo: No Immunizations Up To Date Tetanus Booster (TDap): Less than 5yrs Pediatric: Yes Date of Pneumonia Vaccine: Jun 12, 2019 Date of Influenza Vaccine: Jun 11, 2019 Seasonal Allergies Seasonal Allergies: Yes Past Medical History Surgeries: Cardiac (cardiac ablation), Dialysis, Gallbladder, Hysterectomy, Oophorectomy Currently Using CPAP: Yes Cardiac: Chronic Edema/Swelling, High Cholesterol, Hypertension Neurological: Neuropathy 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: No Sexually Transmitted Disease: No HIV/AIDS: No Female 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 Disorders: 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 Hysterectomy, Menopausal Genitourinary: Renal Failure, Dialysis, UTI-Chronic Gastrointestinal: Chronic Constipation, Chronic Diarrhea Musculoskeletal: Arthritis, Chronic Back Pain Endocrine: Diabetes, Insulin dep Loss of Vision: Bilateral Hearing Impairment: Denies Cancer: Skin Psychosocial: Anxiety, Depression History of Blood Disorders: No Adverse Reaction to Blood Hurst: No (N/A) Family History Cardiovascular disease G8 SISTER Diabetes mellitus G8 SISTER FH: lung cancer G8 SISTER Physical Exam Physical Exam Vital Signs Vital Signs - First Documented 01/24/20 01/25/20 01/25/20 23:53 01:30 03:45 Temp 36.9 Pulse 147 Resp 20 B/P (MAP) 128/73 (91) Pulse Ox 96 O2 Delivery Room Air O2 Flow Rate 2.00 Capillary Refill : Less Than 3 Seconds Height, Weight, BMI Height: 5'3.00" Weight: 264lbs. 1.0oz. 119.901283vf; 43.73 BMI Method:Stated Results Results/Procedures Labs Laboratory Tests 01/25/20 00:05 Patient resulted labs reviewed. Clinical Quality Measures DVT/VTE Risk/Contraindication: Risk Factor Score Per Nursin RFS Level Per Nursing on Admit: 4+=Very High TABBY CHACON DO Jan 25, 2020 10:57
[2020-01-25] MEDS ORDERED: DOCUSATE SODIUM 100 MG (COLACE) CAP PO PRN (13:45)
[2020-01-25] MEDS ORDERED: DILT180C84 PO ×2 (14:39)
[2020-01-25] MEDS ORDERED: APIX2.5T PO ×2 (14:39)
[2020-01-25] MEDS ORDERED: MTP100TCR PO ×2 (14:39)
[2020-01-25] MEDS ORDERED: AMIO200T4 PO ×2 (14:39)
--- NOTE | 2020-01-25 14:40 | Short Stay Summary-Hospitalist ---
History of Present Illness HPI/Chief Complaint CC: Atrial flutter HPI: This is a 54yoWF clinic patient of [facility] who is on dialysis MWF due to ESRD from HTN and DM who presented to the ER with palpitations after an uneventful atrial ablation by Dr Thapa. Patient was placed in ICU and currently feeling good but wants to go home. Source: patient, RN/MD, old records Exam Limitations: no limitations Date Seen 01/25/20 Time Seen by a Provider: 10:00 Attending Physician Tabby Chacon Julie A MD Referring Physician Date of Admission Jan 25, 2020 at 10:38 Home Medications & Allergies Home Medications Reviewed patient Home Medication Reconciliation performed by pharmacy medication reconciliations environmental compliance technician and/or nursing. Patients Allergies have been reviewed. Allergies Allergies Coded Allergies Sulfa (Sulfonamide Antibiotics) (Verified Allergy, Mild, HIVES, 01/14/18) Past [id number]-Mvpljr Hx Past Med/Social Hx: Reviewed Nursing Past Med/Soc Hx, Reviewed and Corrections made Patient Social History Marrital Status: single Employed/Student: unemployed Alcohol Use: Denies Use Recreational Drug Use: Yes Drug of Choice: THC Smoking Status: Former Smoker Former Smoker, Quit: Jan 14, 1999 Type Used: Cigarettes 2nd Hand Smoke Exposure: No Recent Foreign Travel: No Contact w/other who traveled: No Recent Hopitalizations: Yes (ABLATION) Recent Infectious Disease Expo: No Immunizations Up To Date Tetanus Booster (TDap): Less than 5yrs Pediatric: Yes Date of Pneumonia Vaccine: Jun 12, 2019 Date of Influenza Vaccine: Jun 11, 2019 Seasonal Allergies Seasonal Allergies: Yes Past Medical History Surgeries: Cardiac (cardiac ablation), Dialysis, Gallbladder, Hysterectomy, Oophorectomy Currently Using CPAP: Yes Cardiac: Atrial Fibrillation, Chronic Edema/Swelling, High Cholesterol, Hypertension Neurological: Neuropathy 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: No Sexually Transmitted Disease: No HIV/AIDS: No Female 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 Disorders: 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 Hysterectomy, Menopausal Genitourinary: Renal Failure, Dialysis, UTI-Chronic Gastrointestinal: Chronic Constipation, Chronic Diarrhea Musculoskeletal: Arthritis, Chronic Back Pain Endocrine: Diabetes, Insulin dep Loss of Vision: Bilateral Hearing Impairment: Denies Cancer: Skin Psychosocial: Anxiety, Depression History of Blood Disorders: No Adverse Reaction to Blood Hurst: No (N/A) Family History Cardiovascular disease G8 SISTER Diabetes mellitus G8 SISTER FH: lung cancer G8 SISTER Review of Systems Constitutional: see HPI Cardiovascular: palpitations Physical Exam Physical Exam Vital Signs Vital Signs - First Documented 01/24/20 01/25/20 01/25/20 23:53 01:30 03:45 Temp 36.9 Pulse 147 Resp 20 B/P (MAP) 128/73 (91) Pulse Ox 96 O2 Delivery Room Air O2 Flow Rate 2.00 Capillary Refill : Less Than 3 Seconds Height, Weight, BMI Height: 5'3.00" Weight: 264lbs. 1.0oz. [id number]; 43.73 BMI Method:Stated General Appearance: No Apparent Distress, WD/WN, Chronically ill, Obese HEENT: PERRL/EOMI, Normal ENT Inspection Neck: Normal Inspection Respiratory: Lungs Clear, Normal Breath Sounds, No Accessory Muscle Use, No Respiratory Distress Cardiovascular: No Edema, No Murmur, Irregularly Irregular, Tachycardia (regular) Gastrointestinal: Non Tender, Soft Extremity: Normal Inspection, No Pedal Edema Neurologic/Psychiatric: Alert, Oriented x3, No Motor/Sensory Deficits, Normal Mood/Affect, director of rehabilitation and wellness II-XII Norm as Tested Skin: Normal Color, Warm/Dry Results Results/Procedures Labs Laboratory Tests 01/25/20 00:05 Patient resulted labs reviewed. Short Stay Diagnosis Discharge Diagnosis-Short Stay Admission Diagnosis Assessment: Atrial flutter s/p ablation ESRD Final Discharge Diagnosis Assessment: Atrial flutter s/p ablation ESRD Conclusion Plan Plan: DC Cardiac meds changed per Dr Thapa Diagnosis/Problems Diagnosis/Problems (1) Atrial flutter Qualifiers: Qualified Codes: I48.92 - Unspecified atrial flutter (2) Anemia in chronic kidney disease Status: Acute (3) ESRD (end stage renal disease) on dialysis Status: Acute Clinical Quality Measures DVT/VTE Risk/Contraindication: Risk Factor Score Per Nursin RFS Level Per Nursing on Admit: 4+=Very High TABBY CHACON DO Jan 25, 2020 14:40
--- NOTE | 2020-01-25 15:19 | Consultation-Cardiology ---
HPI-Cardiology Cardiology Consultation: Date of Consultation 01/25/20 Date of Admission Attending Physician Tabby Owen DO Admitting Physician Gabby Benavidez MD Consulting Physician Rex THAPA MD HPI: Time Seen by a Provider: 13:30 Chief Complaint: Palpitations This is a 54-year-old lady with history of end-stage renal disease on dialysis. She has previously presented with typical atrial flutter requiring typical atrial flutter ablation on 01/22/2020. She was discharged on 01/23/2020. However she presented with palpitations and was found to be in either organized atrial fibrillation or atypical atrial flutter. Review of Systems-Cardiology Review of Systems Constitutional: As described under HPI; No As described under HPI, No no symptoms reported, No chills, No fever, No lightheadedness Eyes: No As described under HPI, No no symptoms reported, No blindness, No blurred vision, No contact lenses, No drainage, No decreased acuity, No foreign body sensation, No pain, No vision change Ears/Nose/Throat: No As described under HPI, No no symptoms reported, No chronic hearing loss, No ear discharge, No ear pain, No nasal drainage, No ulcerations Respiratory: No no symptoms reported; As described under HPI; No As described under HPI, No cough, No orthopnea, No shortness of breath, No SOB with excertion Cardiovascular: No no symptoms reported; As described under HPI; No As described under HPI, No chest pain, No edema, No irregular heart rate, No lightheadedness; palpitations Gastrointestinal: No no symptoms reported, No As described under HPI, No abdomen distended, No abdominal pain, No blood streaked bowels, No constipation, No diarrhea, No nausea, No vomiting, No stool coloration changes Genitourinary: No As described under HPI, No burning, No dysuria, No discharge, No frequency, No flank pain, No hematuria, No urgency : Yes : No Skin: No rash, No skin related problems, No ulcerations Psychiatric/Neurological: No anxiety, No depression, No seizure, No focal weakness, No syncope Hematologic: No bleeding abnormalities JEJ-Osqetp-Gamjqc Hx Patient Social History Alcohol Use: Denies Use Recreational Drug Use: Yes Drug of Choice: THC Type Used: Cigarettes 2nd Hand Smoke Exposure: No Recent Foreign Travel: No Recent Infectious Disease Expo: No Hospitalization with Isolation: Denies Immunizations Up To Date Tetanus Booster (TDap): Less than 5yrs Date of Pneumonia Vaccine: Jun 12, 2019 Date of Influenza Vaccine: Jun 11, 2019 Past Medical History PMH As described under Assessment. Family Medical History Family History: Cardiovascular disease G8 SISTER Diabetes mellitus G8 SISTER FH: lung cancer G8 SISTER Allergies and Home Medications Allergies Coded Allergies: Sulfa (Sulfonamide Antibiotics) (Verified Allergy, Mild, HIVES, 01/14/18) Home Medications Amiodarone HCl 200 Mg Tablet, 200 MG PO DAILY Prescribed by: TABBY OWEN on 01/25/201438 Apixaban 2.5 Mg Tablet, 2.5 MG PO BID Prescribed by: TABBY OWEN on 01/25/201438 Aspirin 81 Mg Tablet.dr, 81 MG PO DAILY, (Reported) Diltiazem HCl 180 Mg Cap.er.24h, 180 MG PO DAILY Prescribed by: TABBY OWEN on 01/25/201438 Duloxetine HCl 60 Mg Capsule.dr, 60 MG PO HS, (Reported) Famotidine 20 Mg Tablet, 20 MG PO DAILY, (Reported) Furosemide 80 Mg Tablet, 160 MG PO TUTHURSATSUN, (Reported) TAKES 2 (80 MG) TABLETS DAILY ON NON DIALYSIS DAYS Gabapentin 300 Mg Capsule, 300 MG PO DAILY, (Reported) Insulin Aspart 300 Units/3 Ml Solution, 15 UNITS SQ AC, (Reported) 15 UNITS BEFORE MEALS AND SLIDING SCALE Insulin Detemir 100 Unit/1 Ml Insuln.pen, 30 UNITS SC BID, (Reported) Levothyroxine Sodium 150 Mcg Tablet, 150 MCG PO HS, (Reported) Liraglutide 0.6 Mg/0.1 Ml Pen.injctr, 1.2 MG SQ DAILY, (Reported) Lisinopril 10 Mg Tablet, 10 MG PO DAILY, (Reported) Metoprolol Succinate 100 Mg Tab.er.24h, 100 MG PO DAILY Prescribed by: TABBY OWEN on 01/25/20 143 Potassium Chloride 10 Meq Tab.er.prt, 10 MEQ PO TUETHURSATSUN, (Reported) ONLY TAKES ON NON DIALYSIS DAYS Rosuvastatin Calcium 20 Mg Tablet, 20 MG PO DAILY, (Reported) Sevelamer Carbonate 800 Mg Tablet, 1,600 MG PO TID, (Reported) TAKES 2 (800 MG) TABLETS WITH EACH MEAL Trazodone HCl 50 Mg Tablet, 50 MG PO HS, (Reported) Patient Home Medication List Home Medication List Reviewed: Yes Physical Exam-Cardiology Physical Exam Vital Signs/I&O Capillary Refill : Less Than 3 Seconds Constitutional: appears stated age; No apparent distress; well-developed, well- nourished HEENT: PERRL; No discharge; hearing is well preserved, oral hygience is good; No ulceration, No xanthelasmas are seen Neck: No carotid bruit; carotid pulses are 2 + bilaterally Respiratory: chest is bilaterally symmetric, lungs clear to auscultation Cardiovascular: irregularly irregular, tachycardia, S1 and S2 Gastrointestinal: soft, audible bowel sounds; No spleenomegaly Rectal: deferred Extremities: normal range of motion, non-tender, normal inspection; No clubbing, No cyanosis; no lower extremity edema bilateral; No significant edema Neurologic/Psychiatric: no motor/sensory deficits, alert, normal mood/affect, oriented x 3, power is 5/5 both on sides Skin: normal color, warm/dry; No rash, No ulcerations Data Review Labs Microbiology 01/25/20 MRSA Screen - Final, Complete MRSA not isolated ECG Impression ECG Comment Organizing atrial fibrillation versus atypical atrial flutter A/P-Cardiology Assessment/Admission Diagnosis Atypical atrial flutter versus organized atrial fibrillation, End-stage renal disease, On hemodialysis Plan Currently well controlled on metoprolol and Cardizem. Continue metoprolol and Cardizem 180 mg. DC Cardizem infusion. Start amiodarone 200 mg daily. Pharmacy to dose Eliquis. Cardioversion as an outpatient on . Patient had typical atrial flutter ablation on past . I have reviewed all the strips and EKGs in detail. On some telemetry strips it does look like flutter, however there is a concern for organized atrial fibrillation or atypical atrial flutter with possible left-sided origin. Atrial tachycardia is also a possibility. Continue oral anticoagulation and rate control. I am not keen on doing a left atrial arrhythmia ablation and the patient with end-stage renal disease on chronic dialysis; since they usually is significant left atrial myopathy and scarring and results of any ablation are suboptimal. Rate control, oral anticoagulation and antiarrhythmic therapy is recommended. Patient can be discharged to follow-up in the office. Thank you for your consultation. Please call me if you have any questions. Damaris Thapa MD, FACP, FACC, FSCAI, FHRS, CCDS Interventional Cardiology Cardiac Electrophysiology Vascular Medicine and Endovascular Interventions Clinical Quality Measures DVT/VTE Risk/Contraindication: Risk Factor Score Per Nursin RFS Level Per Nursing on Admit: 4+=Very High Rex THAPA MD Jan 25, 2020 15:19
== END 2020-01-25 15:10 | disposition home or self-care (01) | DRG 308 ==
LOC: EDUNIT# 23:44 → ER 23:46 → ICU 01-25 02:19 → OBSVTOIN 01-25 10:38
PROVIDERS: ADMIT Internal Medicine; ATTEND Internal Medicine
DX: I48.92 Unspecified atrial flutter (principal); N18.6 End stage renal disease; I13.0 Hypertensive heart and chronic kidney disease with heart failure and stage 1 through stage 4 chronic kidney disease, or unspecified chronic kidney disease; I50.9 Heart failure, unspecified; E11.22 Type 2 diabetes mellitus with diabetic chronic kidney disease; E11.40 Type 2 diabetes mellitus with diabetic neuropathy, unspecified; D63.1 Anemia in chronic kidney disease; J44.9 Chronic obstructive pulmonary disease, unspecified; G47.30 Sleep apnea, unspecified; F41.9 Anxiety disorder, unspecified; F32.9 Major depressive disorder, single episode, unspecified; M19.91 Primary osteoarthritis, unspecified site; E78.00 Pure hypercholesterolemia, unspecified; Z99.2 Dependence on renal dialysis; Z79.4 Long term (current) use of insulin; Z87.891 Personal history of nicotine dependence; Z90.710 Acquired absence of both cervix and uterus; Z90.722 Acquired absence of ovaries, bilateral
CPT/HCPCS: 36415; 80053; 82962; 83735; 85025; 87081; 93041

== ENCOUNTER 2020-01-29 10:55 | Day surgery (SDC) | payer MEDICARE, OTHER, MEDICAID ==
[~2020-01-29] VITALS: Ht 157 cm; Wt 106.0 kg
[~2020-01-29 10:55] MED LIST changes: +AMIO200T4 PO; +APIX2.5T PO; +DILT180C84 PO
[2020-01-29] MEDS ORDERED: NS IV 1000 ML 1,000 ML ONE (11:17)
[2020-01-29 11:30] VITALS: BP 130/81
[2020-01-29] MEDS ORDERED: NS IV 1000 ML 1,000 ML IV SCH (11:30)
--- OUTSIDE RECORDS SUMMARY | 2020-01-29 11:37 | XMS REPORT | Continuity of Care Document ---
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 01 MORBID (SEVERE) OBESITY DUE TO EXCESS CA 01/18/2018 KIRT ANN MD Ot I11. 0 HYPERTENSIVE HEART DISEASE WITH HEART FA 01/18/2018 KIRT ANN MD Ot I25. 10 ATHSCL HEART DISEASE OF [place] CORONARY 01/18/2018 KIRT ANN MD Ot I50. 9 HEART FAILURE, UNSPECIFIED 01/18/2018 KIRT ANN MD Ot K57. 30 DVRTCLOS OF LG INT W/O PERFORATION OR AB 01/18/2018 KIRT ANN MD Ot Z12. 11 ENCOUNTER FOR SCREENING FOR MALIGNANT NE 01/18/2018 KIRT ANN MD Ot Z68. 41 BODY MASS INDEX (BMI) 40.0-44.9, ADULT 01/18/2018 KIRT ANN MD Ot Z79. 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 01 MORBID (SEVERE) OBESITY DUE TO EXCESS CA 01/22/2018 KIRT ANN MD Ot I11. 0 HYPERTENSIVE HEART DISEASE WITH HEART FA 01/22/2018 KIRT ANN MD, Ot I25. 10 ATHSCL HEART DISEASE OF [place] CORONARY 01/22/2018 KIRT ANN MD Ot I50. 9 HEART FAILURE, UNSPECIFIED 01/22/2018 KIRT ANN MD, Ot K57. 30 DVRTCLOS OF LG INT W/O PERFORATION OR AB 01/22/2018 KIRT ANN MD Ot Z12. 11 ENCOUNTER FOR SCREENING FOR MALIGNANT NE 01/22/2018 KIRT ANN MD Ot Z68. 41 BODY MASS INDEX (BMI) 40.0-44.9, ADULT 01/22/2018 KIRT ANN MD Ot Z79. 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 01 MORBID (SEVERE) OBESITY DUE TO EXCESS CA 01/23/2018 KIRT ANN MD Ot I11. 0 HYPERTENSIVE HEART DISEASE WITH HEART FA 01/23/2018 KIRT ANN MD, Ot I25. 10 ATHSCL HEART DISEASE OF [place] CORONARY 01/23/2018 KIRT ANN MD, Ot I50. 9 HEART FAILURE, UNSPECIFIED 01/23/2018 KIRT ANN MD, Ot K57. 30 DVRTCLOS OF LG INT W/O PERFORATION OR AB 01/23/2018 KIRT ANN MD Ot Z12. 11 ENCOUNTER FOR SCREENING FOR MALIGNANT NE 01/23/2018 KIRT ANN MD Ot Z68. 41 BODY MASS INDEX (BMI) 40.0-44.9, ADULT 01/23/2018 KIRT ANN MD Ot Z79. 84 RETIREMENT (CURRENT) USE OF ORAL HYPOGLYC 01/23/2018 KIRT ANN MD Ot Z79.899 OTHER SITECORE DEVELOPER (CURRENT) DRUG THERAPY 03/05/2018 Ot M47.26 OTH [...] 04/26/2018 VILLAR DOSAVANNAH D Ot Z79. 4 SITECORE DEVELOPER (CURRENT) USE OF INSULIN 04/26/2018 VILLAR DOSAVANNAH D Ot Z79.899 OTHER RETIREMENT (CURRENT) DRUG THERAPY 04/30/2018 VILLAR DOSAVANNAH D [...] 04/30/2018 VILLAR DOSAVANNAH D Ot Z79. 4 SITECORE DEVELOPER (CURRENT) USE OF INSULIN 04/30/2018 VILLAR DO, SAVANNAH D Ot Z79.899 OTHER SITECORE DEVELOPER (CURRENT) DRUG THERAPY 04/30/2018 VILLAR DO, SAVANNAH [...] VILLAR DO, SAVANNAH D Ot Z79. 4 RETIREMENT (CURRENT) USE OF INSULIN 04/30/2018 VILLAR DO, SAVANNAH D Ot Z79.899 OTHER SITECORE DEVELOPER (CURRENT) DRUG THERAPY 05/09/2018 VILLAR DO, SAVANNAH [...] VILLAR DO, SAVANNAH D Ot Z79. 4 RETIREMENT (CURRENT) USE OF INSULIN 05/09/2018 VILLAR DO, SAVANNAH D Ot Z79.899 OTHER SITECORE DEVELOPER (CURRENT) DRUG THERAPY 06/27/2018 ISABELLA MEJIA APRN Ot E11.21 TYPE 2 DIABETES MELLITUS WITH DIABETIC N 06/27/2018 ISABELLA MEJIA APRN Ot E11.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 W DIABETIC DRY FOLDER CLOTH 06/27/2018 ISABELLA MEJIA APRN Ot E78.5 HYPERLIPIDEMIA, [...] HISTORY OF NICOTINE DEPENDENCE 07/10/2018 ISABELLA MEJIA HOSPICE AIDE Ot E11.21 TYPE 2 DIABETES MELLITUS WITH DIABETIC N 07/10/2018 ISABELLA MEJIA APRN Ot E11.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 W DIABETIC DRY FOLDER CLOTH 07/10/2018 ISABELLA MEJIA APRN Ot E78.5 HYPERLIPIDEMIA, UNSPECIFIED 07/10/2018 ISABELLA MEJIA APRN Ot I12.9 HYPERTENSIVE CHRONIC KIDNEY DISEASE W ST 07/10/2018 ISABELLA MEJIA APRN Ot I50.9 HEART FAILURE, UNSPECIFIED 07/10/2018 ISABELLA MEJIA APRN Ot M10.9 GOUT, UNSPECIFIED 07/10/2018 ISABELLA MEJIA APRN Ot N18.4 CHRONIC KIDNEY DISEASE, STAGE 4 (SEVERE) 07/10/2018 ISABELLA MEJIA HOSPICE AIDE Ot N39.0 URINARY TRACT INFECTION, SITE NOT [...] LUMP, HEAD 08/27/2018 SHERLYN HARRIS Ot Z79.4 RETIREMENT (CURRENT) USE OF INSULIN 08/27/2018 SHERLYN HARRIS [...] OTHER SPECIFIED POSTPROCEDURAL STATES 08/27/2018 ISABELLA MEJIA HOSPICE AIDE Ot E11.21 TYPE 2 DIABETES MELLITUS WITH DIABETIC N 08/27/2018 ISABELLA MEJIA HOSPICE AIDE Ot E11.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 W DIABETIC DRY FOLDER CLOTH 08/27/2018 ISABELLA MEJIA APRN Ot E78.5 HYPERLIPIDEMIA, UNSPECIFIED 08/27/2018 ISABELLA MEJIA APRN Ot I12.9 HYPERTENSIVE CHRONIC KIDNEY DISEASE W ST 08/27/2018 ISABELLA MEJAI APRN Ot I50.9 HEART FAILURE, UNSPECIFIED 08/27/2018 [...] LUMP, HEAD 08/29/2018 SHERLYN HARRIS Ot Z79.4 RETIREMENT (CURRENT) USE OF INSULIN 08/29/2018 SHERLYN HARRIS [...] E11.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 W DIABETIC DRY FOLDER CLOTH 03/06/2019 ISABELLA MEJIA APRN Ot E78.5 HYPERLIPIDEMIA, [...] 03/07/2019 CLAUDIO FARAH MD, Ot Z79 .4 RETIREMENT (CURRENT) USE OF INSULIN 03/07/2019 CLAUDIO FARAH MD, Ot Z85.828 PERSONAL HISTORY OF OTHER MALIGNANT NEOP 03/07/2019 CLAUDIO FARAH MD, Ot Z91.19 PATIENT'S NONCOMPLIANCE W OT MEDICAL TR 03/17/2019 ISABELLA MEJIA APRN Ot E11.21 TYPE 2 DIABETES MELLITUS WITH DIABETIC N 03/17/2019 ISABELLA MEJIA APRN Ot E11.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 W DIABETIC DRY FOLDER CLOTH 03/17/2019 ISABELLA MEJIA APRN Ot E78.5 HYPERLIPIDEMIA, [...] E11.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 W DIABETIC DRY FOLDER CLOTH 03/17/2019 ISABELLA MEJIA APRN Ot E78.5 HYPERLIPIDEMIA, [...] E11.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 W DIABETIC DRY FOLDER CLOTH 04/08/2019 ISABELLA MEJIA APRN Ot E78.5 HYPERLIPIDEMIA, [...] E11.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 W DIABETIC DRY FOLDER CLOTH 04/08/2019 ISABELLA MEJIA APRN Ot E78.5 HYPERLIPIDEMIA, [...] E11.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 W DIABETIC DRY FOLDER CLOTH 04/10/2019 JOHANNA CROWDER FACC, LYDIA FACP CCDS [...] E11.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 W DIABETIC DRY FOLDER CLOTH 05/09/2019 JOHANNA CROWDER FACC, ALI FACP CCDS Ot I13.0 HYP HRT CHR KDNY DIS W HRT FAIL AND ST 05/09/2019 JOHANNA CROWDER FACC, ALI FACP CCDS Ot I50.31 ACUTE DIASTOLIC (CONGESTIVE) HEART FAILU 05/09/2019 JOHANNA CROWDER FACC, ALI FACP CCDS Ot N18.4 CHRONIC KIDNEY DISEASE, STAGE 4 (SEVERE) 08/05/2019 ISABELLA MEJIA APRN Ot G47.33 OBSTRUCTIVE SLEEP APNEA (ADULT) (PEDIATR 08/06/2019 ISABELLA MEJIA HOSPICE AIDE Ot G47.33 OBSTRUCTIVE SLEEP APNEA (ADULT) (PEDIATR 08/06/2019 ISABELLA MEJIA APRN Ot G47.33 OBSTRUCTIVE SLEEP APNEA (ADULT) (PEDIATR 08/06/2019 ISABELLA MEJIA APRN Ot G47.33 OBSTRUCTIVE SLEEP APNEA (ADULT) (PEDIATR 08/07/2019 ISABELLA MEJIA APRN Ot G47.33 OBSTRUCTIVE SLEEP APNEA (ADULT) (PEDIATR 08/07/2019 DOUTHITT, ISABELLA B HOSPICE AIDE Ot I10 ESSENTIAL (PRIMARY) HYPERTENSION 08/08/2019 ISABELLA MEJIA HOSPICE AIDE Ot G47.33 OBSTRUCTIVE SLEEP APNEA (ADULT) (PEDIATR 08/08/2019 ISABELLA MEJIA HOSPICE AIDE Ot I10 ESSENTIAL (PRIMARY) HYPERTENSION 08/15/2019 YAZMIN, DAYNA R HOSPICE AIDE Ot G47.33 OBSTRUCTIVE SLEEP APNEA (ADULT) (PEDIATR 08/21/2019 YAZMIN, DAYNA R HOSPICE AIDE Ot G47.33 OBSTRUCTIVE SLEEP APNEA (ADULT) (PEDIATR 08/21/2019 YAZMIN, DAYNA R HOSPICE AIDE Ot G47.33 OBSTRUCTIVE SLEEP APNEA (ADULT) (PEDIATR 08/21/2019 YAZMIN, DAYNA R HOSPICE AIDE Ot G47.33 OBSTRUCTIVE SLEEP APNEA (ADULT) (PEDIATR 08/21/2019 YAZMIN, DAYNA R HOSPICE AIDE Ot G47.33 OBSTRUCTIVE SLEEP APNEA (ADULT) (PEDIATR 08/21/2019 YAZMIN, DAYNA R HOSPICE AIDE Ot G47.33 OBSTRUCTIVE SLEEP APNEA (ADULT) (PEDIATR 08/22/2019 YAZMIN, DAYNA R HOSPICE AIDE Ot G47.33 OBSTRUCTIVE SLEEP APNEA (ADULT) (PEDIATR 08/22/2019 YAZMIN, DAYNA R HOSPICE AIDE Ot G47.33 OBSTRUCTIVE SLEEP APNEA (ADULT) (PEDIATR 08/22/2019 YAZMIN, DAYNA R HOSPICE AIDE Ot G47.33 OBSTRUCTIVE SLEEP APNEA (ADULT) (PEDIATR 08/26/2019 YAZMIN, DAYNA R HOSPICE AIDE Ot G47.33 OBSTRUCTIVE SLEEP APNEA (ADULT) (PEDIATR 08/26/2019 SAULO CROWDER, KEN Sood Ot Z12.31 ENCNTR SCREEN MAMMOGRAM FOR MALIGNANT NE 08/26/2019 DAYNA ARCE R HOSPICE AIDE Ot G47.33 OBSTRUCTIVE SLEEP APNEA (ADULT) (PEDIATR 08/26/2019 SAULO CROWDER, KEN Sood Ot Z12.31 ENCNTR SCREEN MAMMOGRAM FOR MALIGNANT NE 08/27/2019 DAYNA ARCE R HOSPICE AIDE Ot G47.33 OBSTRUCTIVE SLEEP APNEA (ADULT) (PEDIATR 08/27/2019 DAYNA ARCE R HOSPICE AIDE Ot G47.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 [...] E11.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 W DIABETIC DRY FOLDER CLOTH 12/27/2019 ALY JORDAN MD, Ot E11.40 TYPE 2 DIABETES MELLITUS WITH DIABETIC N 12/27/2019 ALY JORDAN MD, Ot E78.00 PURE HYPERCHOLESTEROLEMIA, UNSPECIFIED 12/27/2019 ALY JORDAN MD, Ot F32.9 MAJOR DEPRESSIVE DISORDER, SINGLE EPISOD 12/27/2019 ALY JORDAN MD, Ot F41.9 ANXIETY DISORDER, UNSPECIFIED 12/27/2019 AYL JORDAN MD, Ot I13.2 HYP HRT CHR [place] DIS W HRT FAIL AND W 12/27/2019 ALY JORDAN MD, Ot I48.92 UNSPECIFIED ATRIAL FLUTTER 12/27/2019 ALY JORDAN MD, Ot I50.9 HEART FAILURE, UNSPECIFIED 12/27/2019 ALY JORDAN MD, Ot N18.6 END STAGE RENAL DISEASE 12/27/2019 ALY JORDAN MD, Ot Z79.4 RETIREMENT (CURRENT) USE OF INSULIN 12/27/2019 ALY JORDAN MD, Ot Z79.82 RETIREMENT (CURRENT) USE OF ASPIRIN 12/27/2019 ALY JORDAN [...] E11.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 W DIABETIC DRY FOLDER CLOTH 12/30/2019 TOMMY DO, BENTON K Ot E11.40 [...] 12/30/2019 TOMMY DO, BENTON K Ot Z79.4 SITECORE DEVELOPER (CURRENT) USE OF INSULIN 12/30/2019 TOMMY DO, BENTON K Ot 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 12/30/2019 TOMMY DO, [...] E11.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 W DIABETIC DRY FOLDER CLOTH 12/31/2019 ALY JORDAN MD, Ot E11.40 TYPE [...] DISEASE 12/31/2019 ALY JORDAN MD, Ot Z79.4 RETIREMENT (CURRENT) USE OF INSULIN 12/31/2019 ALY JORDAN MD, Ot 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 12/31/2019 ALY JORDAN [...] E11.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 W DIABETIC DRY FOLDER CLOTH 01/02/2020 TOMMY DO, BENTON K Ot E11.40 [...] 01/02/2020 TOMMY DO, BENTON K Ot Z79.4 RETIREMENT (CURRENT) USE OF INSULIN 01/02/2020 [facility], [place] K Ot 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 01/02/2020 [facility], [place] K Ot Z80.1 FAMILY HISTORY OF MALIG NEOPLASM OF [place] 01/02/2020 [facility], [place] K Ot Z82.49 FAMILY HX OF ISCHEM HEART DIS AND OTH DI 01/02/2020 TOMMY DO, BENTON K Ot Z85.828 PERSONAL HISTORY OF OTHER MALIGNANT NEOP 01/02/2020 TOMMY DO, BENTON K Ot Z87.891 PERSONAL HISTORY OF NICOTINE DEPENDENCE 01/02/2020 [facility], [place] K Ot Z88.2 ALLERGY STATUS TO SULFONAMIDES STATUS 01/02/2020 [facility], [place] K Ot Z98.890 OTHER SPECIFIED POSTPROCEDURAL STATES 01/02/2020 TOMMY , BENTON K Ot Z99.2 DEPENDENCE ON RENAL DIALYSIS 01/10/2020 SETH CROWDER, KIRT [place] Ot E11. 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 W DIABETIC DRY FOLDER CLOTH 01/10/2020 SETH CROWDER, KIRT [place] Ot E11. [...] 01/10/2020 KIRT ANN MD Ot Z79. 01 SITECORE DEVELOPER (CURRENT) USE OF ANTICOAGULANT 01/10/2020 KIRT ANN MD Ot Z79. 4 RETIREMENT (CURRENT) USE OF INSULIN 01/10/2020 KIRT ANN MD, Ot Z79. 82 RETIREMENT (CURRENT) USE OF ASPIRIN 01/10/2020 KIRT ANN MD, Ot Z79.899 OTHER RETIREMENT (CURRENT) DRUG THERAPY 01/10/2020 KIRT ANN MD, [...] E11.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 W DIABETIC DRY FOLDER CLOTH 01/13/2020 ROSE CROWDER, STEPHANE Andrade Ot E78.00 [...] DISEASE 01/13/2020 STEPHANE ROSE MD, Ot Z79.4 RETIREMENT (CURRENT) USE OF INSULIN 01/13/2020 STEPHANE ROSE MD, Ot Z79.82 RETIREMENT (CURRENT) USE OF ASPIRIN 01/13/2020 STEPHANE ROSE MD, Ot Z79.890 HORMONE REPLACEMENT THERAPY 01/13/2020 STEPAHNE ROSE MD, Ot Z79.899 OTHER SITECORE DEVELOPER (CURRENT) DRUG THERAPY 01/13/2020 STEPHANE ROSE MD, Ot Z85.828 PERSONAL HISTORY OF OTHER MALIGNANT NEOP 01/13/2020 STEPHANE ROSE MD, Ot Z87.891 PERSONAL HISTORY OF NICOTINE DEPENDENCE 01/13/2020 STEPHANE ROSE MD, Ot Z88.2 ALLERGY STATUS TO SULFONAMIDES STATUS 01/13/2020 STEPHANE ROSE MD, Ot Z99.2 DEPENDENCE ON RENAL DIALYSIS 01/14/2020 ALY JORDAN MD, Ot E11.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 W DIABETIC DRY FOLDER CLOTH 01/14/2020 ALY JORDAN MD, Ot E11.40 TYPE [...] COMM 01/14/2020 ALY JORDAN MD Ot Z79.4 SITECORE DEVELOPER (CURRENT) USE OF INSULIN 01/14/2020 ALY JORDAN MD Ot Z87.891 PERSONAL HISTORY OF NICOTINE DEPENDENCE 01/14/2020 ALY JORDAN MD Ot Z99.2 DEPENDENCE ON RENAL DIALYSIS 01/14/2020 KEN VERNON MD Ot Z12.31 ENCNTR SCREEN MAMMOGRAM FOR MALIGNANT NE 01/15/2020 KEN VERNON MD Ot Z12.31 ENCNTR SCREEN MAMMOGRAM FOR MALIGNANT NE 01/16/2020 MIRI AGARWAL MD Ot E11. 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 W DIABETIC DRY FOLDER CLOTH 01/16/2020 MIRI AGARWAL MD Ot E78. 00 [...] 9 NONINFECTIVE GASTROENTERITIS AND COLITIS 01/16/2020 MIRI AAGRWAL MD Ot K59. 09 OTHER CONSTIPATION 01/16/2020 MIRI AGARWAL MD, Ot M19. 90 UNSPECIFIED OSTEOARTHRITIS, UNSPECIFIED 01/16/2020 MIRI AGARWAL MD, Ot M54. 9 DORSALGIA, UNSPECIFIED 01/16/2020 MIRI AGARWAL MD, Ot N18. 6 END STAGE RENAL DISEASE 01/16/2020 MIRI AGARWAL MD, Ot Z79. 4 SITECORE DEVELOPER (CURRENT) USE OF INSULIN 01/16/2020 MIRI AGARWAL MD, Ot Z79. 82 SITECORE DEVELOPER (CURRENT) USE OF ASPIRIN 01/16/2020 MIRI AGARWAL MD, Ot Z79.890 HORMONE REPLACEMENT THERAPY 01/16/2020 MIRI AGARWAL MD, Ot Z79.899 OTHER SITECORE DEVELOPER (CURRENT) DRUG THERAPY 01/16/2020 MIRI AGARWAL MD, [...] E11.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 W DIABETIC DRY FOLDER CLOTH 01/20/2020 STEPHANE ROSE MD, Ot E78.00 PURE [...] DISEASE 01/20/2020 STEPHANE ROSE MD, Ot Z79.4 RETIREMENT (CURRENT) USE OF INSULIN 01/20/2020 STEPHANE ROSE MD, Ot Z79.82 RETIREMENT (CURRENT) USE OF ASPIRIN 01/20/2020 STEPHANE ROSE MD, Ot Z79.890 HORMONE REPLACEMENT THERAPY 01/20/2020 STEPHANE ROSE MD, Ot Z79.899 OTHER RETIREMENT (CURRENT) DRUG THERAPY 01/20/2020 STEPHANE ROSE MD, [...] E11.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 W DIABETIC DRY FOLDER CLOTH 01/21/2020 ALY JORDAN MD, Ot E11.40 TYPE 2 DIABETES MELLITUS WITH DIABETIC N 01/21/2020 ALY JORDAN MD, Ot E78.00 PURE HYPERCHOLESTEROLEMIA, UNSPECIFIED 01/21/2020 ALY JORDAN MD, Ot G47.30 SLEEP APNEA, UNSPECIFIED 01/21/2020 ALY JORDAN MD Ot I13.2 HYP HRT CHR [place] DIS W HRT FAIL AND W 01/21/2020 ALY JORDAN MD Ot I48.92 UNSPECIFIED ATRIAL FLUTTER 01/21/2020 ALY JORDAN MD Ot I50.9 HEART FAILURE, UNSPECIFIED 01/21/2020 ALY JORDAN MD Ot J44.9 CHRONIC OBSTRUCTIVE PULMONARY DISEASE, U 01/21/2020 ALY JORDAN MD, Ot N18.6 END STAGE RENAL DISEASE 01/21/2020 ALY JORDAN MD, Ot Z20.828 CONTACT W AND EXPOSURE TO OTH VIRAL COMM 01/21/2020 ALY JORDAN MD, Ot Z79.4 SITECORE DEVELOPER (CURRENT) USE OF INSULIN 01/21/2020 ALY JORDAN MD Ot Z87.891 PERSONAL HISTORY OF NICOTINE DEPENDENCE 01/21/2020 ALY JORDAN MD Ot Z99.2 DEPENDENCE ON RENAL DIALYSIS 01/22/2020 KEN VERNON MD Ot Z12.31 ENCNTR SCREEN MAMMOGRAM FOR MALIGNANT NE 01/22/2020 Rex RIVERA MD Ot Z01.812 ENCOUNTER FOR PREPROCEDURAL LABORATORY E 01/22/2020 Rex RIVERA MD Ot Z53 .8 PROCEDURE AND TREATMENT NOT CARRIED OUT 01/23/2020 Rex RIVERA MD Ot E03 .9 HYPOTHYROIDISM, UNSPECIFIED 01/23/2020 Rex RIVERA MD Ot E11.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 W DIABETIC DRY FOLDER CLOTH 01/23/2020 Rex RIVERA MD Ot E66.01 MORBID (SEVERE) OBESITY DUE TO EXCESS CA 01/23/2020 Rex RIVERA MD Ot E78 .5 HYPERLIPIDEMIA, UNSPECIFIED 01/23/2020 Rex RIVERA MD Ot G47.33 OBSTRUCTIVE SLEEP APNEA (ADULT) (PEDIATR 01/23/2020 Rex RIVERA MD Ot I12 .0 HYP CHR KIDNEY DISEASE W STAGE 5 CHR KID 01/23/2020 Rex RIVERA MD Ot I48 .3 TYPICAL ATRIAL FLUTTER 01/23/2020 Rex RIVERA MD, Ot J44 .9 CHRONIC OBSTRUCTIVE PULMONARY DISEASE, U 01/23/2020 Rex RIVERA MD, Ot K21 .9 GASTRO-ESOPHAGEAL REFLUX DISEASE WITHOUT 01/23/2020 Rex RIVERA MD, Ot N18 .6 END STAGE RENAL DISEASE 01/23/2020 Rex RIVERA MD, Ot Z68.41 BODY MASS INDEX (BMI) 40.0-44.9, ADULT 01/23/2020 Rex RIVERA MD, Ot Z79.01 RETIREMENT (CURRENT) USE OF ANTICOAGULANT 01/23/2020 Rex RIVERA MD, Ot Z79 .4 RETIREMENT (CURRENT) USE OF INSULIN 01/23/2020 Rex RIVERA MD, Ot 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 01/23/2020 Rex RIVERA MD, Ot Z79.899 OTHER SITECORE DEVELOPER (CURRENT) DRUG THERAPY 01/23/2020 Rex RIVERA MD, Ot Z80 .1 FAMILY HISTORY OF MALIG NEOPLASM OF TRAC 01/23/2020 Rex RIVERA MD, Ot Z87.891 PERSONAL HISTORY OF NICOTINE DEPENDENCE 01/23/2020 Rex RIVERA MD, Ot Z88 .2 ALLERGY STATUS TO SULFONAMIDES STATUS 01/23/2020 Rex RIVERA MD, Ot Z99 .2 DEPENDENCE ON RENAL DIALYSIS 01/24/2020 KEN VERNON MD Ot Z12.31 ENCNTR SCREEN MAMMOGRAM FOR MALIGNANT NE 01/24/2020 Rex RIVERA MD Ot Z01.812 ENCOUNTER FOR PREPROCEDURAL LABORATORY E 01/24/2020 Rex RIVERA MD Ot Z53 .8 PROCEDURE AND TREATMENT NOT CARRIED OUT 01/25/2020 KEN VERNON MD Ot Z12.31 ENCNTR SCREEN MAMMOGRAM FOR MALIGNANT NE 01/25/2020 Rex RIVERA MD Ot Z01.812 ENCOUNTER FOR PREPROCEDURAL LABORATORY E 01/25/2020 Rex RIVERA MD, Ot Z53 .8 PROCEDURE AND TREATMENT NOT CARRIED OUT 01/25/2020 KEN VERNON MD Ot Z12.31 ENCNTR SCREEN MAMMOGRAM FOR MALIGNANT NE 01/25/2020 MIGUEL CROWDER, Rex DANIEL Ot Z01.812 ENCOUNTER FOR PREPROCEDURAL LABORATORY E 01/25/2020 MIGUEL CROWDER, Rex DANIEL Ot Z53 .8 PROCEDURE AND TREATMENT NOT CARRIED OUT 01/25/2020 OWEN DO, ELE Ot D63.1 ANEMIA IN CHRONIC KIDNEY DISEASE 01/25/2020 OWEN DO, ELE Ot E11.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 W DIABETIC DRY FOLDER CLOTH 01/25/2020 OWEN DO, ELE Ot E11.40 TYPE 2 DIABETES MELLITUS WITH DIABETIC N 01/25/2020 OWEN DO, ELE Ot E78.00 PURE HYPERCHOLESTEROLEMIA, UNSPECIFIED 01/25/2020 OWEN DO, ELE Ot F32.9 MAJOR DEPRESSIVE DISORDER, SINGLE EPISOD 01/25/2020 OWEN DO, ELE Ot F41.9 ANXIETY DISORDER, UNSPECIFIED 01/25/2020 OWEN DO, ELE Ot G47.30 SLEEP APNEA, UNSPECIFIED 01/25/2020 LEXIE DO, ELE Ot I13.0 HYP HRT CHR KD[place] DIS W HRT FAIL AND ST 01/25/2020 LEXIE DO, ELE Ot I48.92 UNSPECIFIED ATRIAL FLUTTER 01/25/2020 LEXIE DO, ELE Ot I50.9 HEART FAILURE, UNSPECIFIED 01/25/2020 OWEN DO, ELE Ot J44.9 CHRONIC OBSTRUCTIVE PULMONARY DISEASE, U 01/25/2020 ELXIE DO, ELE Ot M19.91 PRIMARY OSTEOARTHRITIS, UNSPECIFIED SITE 01/25/2020 LEXIE DO ELE Ot N18.6 END STAGE RENAL DISEASE 01/25/2020 LEXIE DO, ELE Ot Z79.4 RETIREMENT (CURRENT) USE OF INSULIN 01/25/2020 LEXIE DO, ELE Ot Z87.89 1 PERSONAL HISTORY OF NICOTINE DEPENDENCE 01/25/2020 OWEN DO, ELE Ot Z90.71 0 ACQUIRED ABSENCE OF BOTH CERVIX AND UTER 01/25/2020 OWEN DO, ELE Ot Z90.72 2 ACQUIRED ABSENCE OF OVARIES, BILATERAL 01/25/2020 LEXIE DO, ELE Ot Z99.2 DEPENDENCE ON RENAL DIALYSIS 01/26/2020 MIGUEL CROWDER, Rex DANIEL Ot E03 .9 HYPOTHYROIDISM, UNSPECIFIED 01/26/2020 Rex RIVERA MD, Ot E11.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 W DIABETIC DRY FOLDER CLOTH 01/26/2020 Rex RIVERA MD, Ot E66.01 MORBID (SEVERE) OBESITY DUE TO EXCESS CA 01/26/2020 Rex RIVERA MD, Ot E78 .5 HYPERLIPIDEMIA, UNSPECIFIED 01/26/2020 Rex RIVERA MD, Ot G47.33 OBSTRUCTIVE SLEEP APNEA (ADULT) (PEDIATR 01/26/2020 Rex RIVERA MD, Ot I12 .0 HYP CHR KIDNEY DISEASE W STAGE 5 CHR KID 01/26/2020 Rex RIVERA MD, Ot I48 .3 TYPICAL ATRIAL FLUTTER 01/26/2020 Rex RIVERA MD, Ot J44 .9 CHRONIC OBSTRUCTIVE PULMONARY DISEASE, U 01/26/2020 Rex RIVERA MD, Ot K21 .9 GASTRO-ESOPHAGEAL REFLUX DISEASE WITHOUT 01/26/2020 Rex RIVERA MD, Ot N18 .6 END STAGE RENAL DISEASE 01/26/2020 Rex RIVERA MD, Ot Z68.41 BODY MASS INDEX (BMI) 40.0-44.9, ADULT 01/26/2020 Rex RIVERA MD Ot Z79.01 SITECORE DEVELOPER (CURRENT) USE OF ANTICOAGULANT 01/26/2020 Rex RIVERA MD Ot Z79 .4 RETIREMENT (CURRENT) USE OF INSULIN 01/26/2020 Rex RIVERA MD Ot 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 01/26/2020 Rex RIVERA MD, Ot Z79.899 OTHER RETIREMENT (CURRENT) DRUG THERAPY 01/26/2020 Rex RIVERA MD, Ot Z80 .1 FAMILY HISTORY OF MALIG NEOPLASM OF TRAC 01/26/2020 Rex RIVERA MD, Ot Z87.891 PERSONAL HISTORY OF NICOTINE DEPENDENCE 01/26/2020 Rex RIVERA MD, Ot Z88 .2 ALLERGY STATUS TO SULFONAMIDES STATUS 01/26/2020 Rex RIVERA MD Ot Z99 .2 DEPENDENCE ON RENAL DIALYSIS 01/26/2020 KEN VERNON MD Ot Z12.31 ENCNTR SCREEN MAMMOGRAM FOR MALIGNANT NE 01/26/2020 Rex RIVERA MD, Ot Z01.812 ENCOUNTER FOR PREPROCEDURAL LABORATORY E 01/26/2020 Rex RIVERA MD, Ot Z53 .8 PROCEDURE AND TREATMENT NOT CARRIED OUT Procedures Code Description [place] [address] [facility] care, per day, for the evaluation and management of a patient, which requires these JASEN KHAN MD 09/19/2017 86294 [facility], per day, for the evaluation and management of a patient, which requires at YECENIA CHURCH MD 09/19/2017 20674 Offi ce or other outpatient visit for the evaluation and management of an established patient, which TIMBO SMITH I 10/18/2017 76647 Offi ce or other outpatient visit for the evaluation and management of an established patient, which TIMBO SMITH I 03/29/2018 80406 [facility], per day, for the evaluation and management of a patient, which requires these JASEN KHAN MD 03/29/2018 [address] [facility], per day, for the evaluation [...] 5.0-8.0 Protein Pos 2+ NA Negative Specific Festus 1.015 NA 1.003-1.030 UA Collection type Clean [...] - 03/06/19 17:59 Bacterial blood culture NG NR Complete blood [...] - 01/25/20 00:05 Magnesium 2.1 mg/dL 1.6-2.4 Methicillin resistant Staphylococcus aur eus (MRSA) screening culture - 01/25/20 04:08 Methicillin resistant Staphylococcus aureus (MRSA) scr eening culture NEG NRG Capillary blood glucose measurement by g lucometer (mass/volume) - 01/25/20 08:32 Capillary blood glucose measurement by glucometer (mas s/volume) 315 mg/dL 70-110 Capillary blood glucose measurement by g lucometer (mass/volume) - 01/25/20 14:24 Capillary blood glucose measurement by glucometer (mas s/volume) 276 mg/dL 70-110 Radiology Report from [id number] on 09/14 10:09:00 Reason For ExamAbdominal pain, [...] Nohydronephrosis. There is no ascites.Dictated on worksta tion:[id number] Line PRELIMINARY DICTATED BY: ALBIN GUTIERREZ MDDICTATED DT/TM: 09/14/2017 9:54 Radiology Report from [id number] on 09/14 10:09:00 Reason For ExamSyncopeREPORTIndication: Syncope.Procedure: [...] significantstenosis hemodynamically. Both vertebrals are patent.Dictated on workstation:[id number] Line PRELIMINARY DICTATED BY: ALBIN GUTIERREZ MDDICTATED DT/TM: 09/14/2017 9:49 Radiology Report from [id number] on 09/14 12:41:00 Reason For ExamCoughREPORTINDICATION: Co ugh.COMPARISON: None available.TECHNIQUE: Frontal and lateral radiographs of the chest dated September 14, 2017.FINDINGS: The cardiac silhouette is mildly enlarged. No significant pulmonaryvascular congestion. The lungs are clear. No pleural effusion. No pneumothorax.Mild scattered osseous degenerative changes without acute osseous abnormality.IMPRESSION: Cardiomegaly without overt congestive heart failure or additionalsuperimposed acute cardiopulmonary abnormality.Dictated on workstation:[id number] Line PRELIMINARY DICTATED BY: MANSI LARSON MDDICTATED DT/TM: 09/14/2017 12:38 Encounters ACCT No. Visit Date/Time Discharge Status Pt. Type Provider Facility Loc./Unit Complaint [id number] 09/14/2017 04:48:00 018 10:59:00 [facility], Acute Renal Failure [id number] 09/15/2017 05:19:03 Document Registration [id number] 12/18/2017 13:34:06 018 23:59:59 [facility] Outpatient TIMBO SMITH I [id number] 01/25/2020 10:38:00 020 15:10:00 DIS Inpatient OWEN DO, ELE Stevenson ia [facility] ICU A-FLUTTER W/ RVR [id number] 01/22/2020 07:04:00 10:12:00 DIS Outpatient Rex RIVERA MD [facility] CATH AFIB [id number] 01/19/2020 06:53:00 23:59:59 CLS Outpatient Rex RIVERA MD [facility] LABNPT [id number] 01/16/2020 09:26:00 10:42:00 DIS Emergency STEFANO CROWDER, MIRI Morales [facility] ER A FLUTTER [id number] 01/14/2020 03:15:00 05:40:00 DIS Emergency ALY JORDAN MD [facility] ER A-FLUTTER [id number] 01/13/2020 16:09:00 16:48:00 DIS Emergency ROSE CROWDER, STEPHANE Andrade [facility] System ER A FLUTTER [id number] 01/10/2020 11:10:00 17:05:00 DIS Inpatient ESTH CROWDER, KIRT [place] [facility] ICU A-FLUTTER W/ RVR [id number] 12/30/2019 16:13:00 19:17:00 DIS Emergency TOMMY , [place] K Vi a [facility] ER ATRIAL FLUTTER [id number] 12/27/2019 15:07:00 18:58:00 DIS Emergency ALY JORDAN MD Via [facility] ER HIGH PULSE - 14 5 [id number] 09/01/2019 10:19:00 23:59:59 CLS Outpatient KEN VERNON MD Via [facility] RAD SCREENING [id number] 08/26/2019 20:56:00 06:25:00 DIS Outpatient ADYNA ARCE APRN [facility] SLEEP OBSTRUCTIVE SLEEP APNE A [id number] 08/06/2019 20:39:00 07:29:00 DIS Outpatient ISABELLA MEJIA APRN [facility] SLEEP KARO G47.33 [id number] 04/10/2019 13:22:00 019 12:15:00 DIS Out[facility] IR[facility] DEFICIENCY ANEMIA [id number] 04/08/2019 07:55:00 23:59:59 CLS Outpatient JOHANNA CROWDER FACC, LYDIA BRICEÑO CC DS [facility] CARD ACUTE DIAST OLIC CHF [id number] 03/06/2019 21:25:00 15:24:00 DIS Inpatient CLAUDIO FARAH MD [facility] ICU CHF,UTI,CHRONIC RENAL FAILURE,HYPOMAGNESEMIA,HYPOT [id number] 08/27/2018 10:51:00 019 14:23:00 DIS Emergency SHERLYN HARRIS [facility] ER POSSIBLE NECK ABCESS [id number] 06/25/2018 08:40:00 23:59:59 CLS Outpatient ISABELLA MEJIA APRN [facility] RAD CKD STAGE 4 [id number] 04/26/2018 09:26:00 018 13:25:00 DIS Outpatient SAVANNAH VILLAR DO Via [facility] SDC SKIN LESION NOSE [id number] 04/24/2018 11:40:00 018 12:16:00 DIS Outpatient SAVANNAH VILLAR DO [facility] PREOP SKIN LESION NOSE [id number] 01/18/2018 07:27:00 018 09:58:00 DIS Outpatient KIRT ANN MD [facility] ENDO SCREENING [id number] 01/14/2018 09:30:00 018 10:24:00 DIS Outpatient KIRT ANN MD [facility] PREOP COLONOSCOPY [id number] 01/29/2020 12:00:00 P Rex Bell MD [facility] CATH ATYPICAL AFIB [id number] 04/26/2018 09:26:00 Document Registration [id number] 02/22/2018 10:46:00 Document Registration
[2020-01-29] MEDS ORDERED: proPOfol 200 MG/20 ML (DIPRIVAN) VIAL IV ONE (11:55)
[2020-01-29 12:07] VITALS: BP 133/70
--- NOTE | 2020-01-29 12:12 | Cardioversion ---
Cardioversion PROCEDURE PHYSICIAN: Damaris Thapa MD DATE OF PROCEDURE: 01/29/20 DIRECT EXTERNAL ELECTRICAL CARDIOVERSION: Indications: Atrial Fibrillation Preoperative diagnoses: Atrial Fibrillation Postoperative diagnosis: Sinus rhythm, Successful Electrical Cardioversion History: 54-year-old lady with history of end-stage renal disease on dialysis. Recent typical atrial flutter ablation. Presents with atrial fibrillation. Anesthesia: By Anesthesia services Complications: None Specimen: None Contrast: 0 Flouroscopy: none Procedure Details: The patient was brought the label press operator after informed consent was taken, all the risks and complications were explained including the risk of stroke. Electrical cardioversion was carried out with anesthesia support with propofol. 200 joules of synchronized shock was delivered through external patches which promptly restored sinus rhythm. The patient tolerated the procedure well. Conclusions: 1.Successful Cardioversion. 2.Continue amiodarone, oral anticoagulation and rate controlling agent. 3.Follow up in office in 7-14 days. Damaris Thapa MD, [facility] Cardiac Electrophysiology Rex THAPA MD Jan 29, 2020 12:12
--- NOTE | 2020-01-29 12:22 | Anesthesia-General Post-Op ---
MAC Patient Condition Mental Status/LOC: Same as Preop Cardiovascular: Satisfactory Nausea/Vomiting: Absent Respiratory: Satisfactory Pain: Controlled Complications: Absent Post Op Complications Complications None Follow Up Care/Instructions Patient Instructions None needed. Anesthesiology Discharge Order Discharge Order Patient is doing well, no complaints, stable vital signs, no apparent adverse anesthesia problems. No complications reported per nursing. JELENA HUSSEIN CRNA Jan 29, 2020 12:21
[2020-01-29 12:28] VITALS: BP 88/56
[2020-01-29 12:40] VITALS: BP 92/61
== END 2020-01-29 12:58 | disposition home or self-care (01) ==
LOC: CATH 10:55
PROVIDERS: ATTEND Internal Medicine Interventional Cardiology
DX: I48.91 Unspecified atrial fibrillation (principal); I12.0 Hypertensive chronic kidney disease with stage 5 chronic kidney disease or end stage renal disease; E11.22 Type 2 diabetes mellitus with diabetic chronic kidney disease; N18.6 End stage renal disease; Z99.2 Dependence on renal dialysis; E78.5 Hyperlipidemia, unspecified; G47.33 Obstructive sleep apnea (adult) (pediatric); E11.40 Type 2 diabetes mellitus with diabetic neuropathy, unspecified; K21.9 Gastro-esophageal reflux disease without esophagitis; Z87.891 Personal history of nicotine dependence; Z79.01 Long term (current) use of anticoagulants; Z79.899 Other long term (current) drug therapy; Z79.4 Long term (current) use of insulin; Z88.2 Allergy status to sulfonamides; Z79.890 Hormone replacement therapy
CPT/HCPCS: 92960; 93005

== ENCOUNTER 2020-03-24 11:07 | Emergency (ER) | payer MEDICARE, OTHER, MEDICAID ==
[~2020-03-24] VITALS: Ht 157.4 cm; Wt 103.0 kg
[2020-03-24] MEDS ORDERED: meTOprolol 5 MG/5 ML (LOPRESSOR) VIAL IV ONE ×2 (12:15→14:15)
[2020-03-24] MEDS ORDERED: NS IV 500 ML 500 ML IV SCH (12:15)
--- NOTE | 2020-03-24 12:19 | ED Cardiac General ---
History of Present Illness General Chief Complaint: Cardiac/General Problems Stated Complaint: HIGH PULSE RATE, HIGH BP Nursing Triage Note: KHAMB TO ROOM C/O HR IN 120 FOR SEVERAL DAY'S FINISHED DIALYSIS TODAY CONCERN THAT B/P WAS ELEVATED AND HR RATE. HAD A ABLATION IN JANUARY BY DR THAPA Source: patient Exam Limitations: no limitations History of Present Illness Date Seen by Provider: Mar 24, 2020 Time Seen by Provider: 12:05 Initial Comments 55-year-old female who was at dialysis today when they informed her that her heart rate was in the 120s. She reports that she has noted her heart rate has been elevated for at least 3 days. She did report that her blood pressure was slightly elevated prior to dialysis today. She receives dialysis on Sunday and Sunday. She reports that she did have an ablation by Dr. Thapa in January of this year. She denies any chest pain, shortness of breath, lightheadedness, dizziness. Timing/Duration: 2-3 days NTG SL GREENHOUSE OR NURSERY TRANSPLANTER: No ASA po GREENHOUSE OR NURSERY TRANSPLANTER: No Associated Systoms: Denies Symptoms Allergies and Home Medications Allergies Coded Allergies: Sulfa (Sulfonamide Antibiotics) (Verified Allergy, Mild, HIVES, 01/14/18) Home Medications Amiodarone HCl 200 Mg Tablet, 200 MG PO DAILY Prescribed by: ELE OWEN on 01/25/20 1439 Apixaban 2.5 Mg Tablet, 2.5 MG PO BID Prescribed by: ELE OWEN on 01/25/20 1439 Aspirin 81 Mg Tablet.dr, 81 MG PO DAILY, (Reported) Diltiazem HCl 180 Mg Cap.er.24h, 180 MG PO DAILY Prescribed by: ELE OWEN on 01/25/20 1439 Duloxetine HCl 60 Mg Capsule.dr, 60 MG PO HS, (Reported) Famotidine 20 Mg Tablet, 20 MG PO DAILY, (Reported) Furosemide 80 Mg Tablet, 160 MG PO TUTHURSATSUN, (Reported) TAKES 2 (80 MG) TABLETS DAILY ON NON DIALYSIS DAYS Gabapentin 300 Mg Capsule, 300 MG PO DAILY, (Reported) Insulin Aspart 300 Units/3 Ml Solution, 15 UNITS SQ AC, (Reported) 15 UNITS BEFORE MEALS AND SLIDING SCALE Insulin Detemir 100 Unit/1 Ml Insuln.pen, 30 UNITS SC BID, (Reported) Levothyroxine Sodium 150 Mcg Tablet, 150 MCG PO HS, (Reported) Liraglutide 0.6 Mg/0.1 Ml Pen.injctr, 1.2 MG SQ DAILY, (Reported) Lisinopril 10 Mg Tablet, 10 MG PO DAILY, (Reported) Metoprolol Succinate 100 Mg Tab.er.24h, 100 MG PO DAILY Prescribed by: ELE OWEN on 01/25/20 1439 Potassium Chloride 10 Meq Tab.er.prt, 10 MEQ PO TUETHURSATSUN, (Reported) ONLY TAKES ON NON DIALYSIS DAYS Rosuvastatin Calcium 20 Mg Tablet, 20 MG PO DAILY, (Reported) Sevelamer Carbonate 800 Mg Tablet, 1,600 MG PO TID, (Reported) TAKES 2 (800 MG) TABLETS WITH EACH MEAL Trazodone HCl 50 Mg Tablet, 50 MG PO HS, (Reported) Patient Home Medication List Home Medication List Reviewed: Yes Review of Systems Review of Systems Constitutional: see HPI; No chills, No fever Cardiovascular: See HPI, Irregular Heart Rate All Other Systems Reviewed Negative Unless Noted: Yes Past Vgagrpn-Qlkivy-Lecvsx Hx Past Med/Social Hx: Reviewed Nursing Past Med/Soc Hx Patient Social History Alcohol Use: Denies Use Recreational Drug Use: No Drug of Choice: THC Smoking Status: Current Everyday Smoker Type Used: Cigarettes Former Smoker, Quit: Jan 14, 1999 2nd Hand Smoke Exposure: No Recent Foreign Travel: No Contact w/Someone Who Travel: No Recent Infectious Disease Expo: No Recent Hopitalizations: Yes (ABLATION) Immunizations Up To Date Tetanus Booster (TDap): Less than 5yrs PED Vaccines UTD: Yes Date of Pneumonia Vaccine: Jun 12, 2019 Date of Influenza Vaccine: Jun 11, 2019 Seasonal Allergies Seasonal Allergies: Yes Past Medical History Surgeries: Yes (PILONIDAL CYST; DX LAPAROSCOPY; HYST/BSO, dialysis shunt in right forearm) Cardiac, Dialysis, Gallbladder, Hysterectomy, Oophorectomy Respiratory: Yes Sleep Apnea, COPD Currently Using CPAP: Yes Cardiac: Yes (CHF; ELEVATED TRIGLYCERIDES; A FLUTTER, ABLATION) Atrial Fibrillation, Chronic Edema/Swelling, High Cholesterol, Hypertension, Irregular Heartbeat Neurological: Yes Neuropathy 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 Disorders: No Female 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 Disorders: 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 GUIDE ALPINE History: Hysterectomy, Menopausal Sexually Transmitted Disease: No HIV/AIDS: No Genitourinary: Yes (DIALYSIS M-W-F) Renal Failure, Dialysis, UTI-Chronic Gastrointestinal: Yes Chronic Constipation, Chronic Diarrhea Musculoskeletal: Yes Arthritis, Chronic Back Pain Endocrine: Yes Diabetes, Insulin dep HEENT: No Loss of Vision: Bilateral Hearing Impairment: Denies Cancer: Yes Skin Psychosocial: Yes Anxiety, Depression Integumentary: Yes (skin lesion) Blood Disorders: No Adverse Reaction/Blood Tranf: No (N/A) Family Medical History Reviewed Nursing Family Hx Cardiovascular disease G8 SISTER Diabetes mellitus G8 SISTER FH: lung cancer G8 SISTER Physical Exam Vital Signs Vital Signs - First Documented 03/24/20 03/24/20 11:47 15:04 Temp 36.1 Pulse 124 Resp 18 B/P (MAP) 115/54 (74) Pulse Ox 97 O2 Delivery Room Air Capillary Refill : Less Than 3 Seconds Height, Weight, BMI Height: 5'3.00" Weight: 264lbs. 1.0oz. 119.615710xn; 41.00 BMI Method:Stated General Appearance: No Apparent Distress, WD/WN Respiratory: Chest Non Tender, Lungs Clear, Normal Breath Sounds, No Accessory Muscle Use, No Respiratory Distress Cardiovascular: No Edema, No Gallop, No JVD, No Murmur, Normal Peripheral Pulses, Tachycardia Extremity: Normal Capillary Refill Neurologic/Psychiatric: Alert, Oriented x3, Normal Mood/Affect Skin: Normal Color, Warm/Dry Procedures/Interventions Patient Education: Explained Benefits, Explained Risks, Pt. Ack. Understanding Patient History: Sleep Apnea Breath Sounds per Auscultation: Clear Heart Sounds per Auscultation: Regular Airway Exam: Mouth opens >2 fingers, Neck Full Range of Motion, Visulation of Uvula Sedation Adminstration Time: 1733 Progress/Results/Core Measures Results/Orders Lab Results Laboratory Tests Test 03/24/20 12:20 Range/Units White Blood Count 9.8 4.3-11.0 10^3/uL Red Blood Count 4.08 L 4.35-5.85 10^6/uL Hemoglobin 13.1 11.5-16.0 G/DL Hematocrit 41 35-52 % Mean Corpuscular Volume 102 H 80-99 FL Mean Corpuscular Hemoglobin 32 25-34 PG Mean Corpuscular Hemoglobin Concent 32 32-36 G/DL Red Cell Distribution Width 17.0 H 10.0-14.5 % Platelet Count 215 130-400 10^3/uL Mean Platelet Volume 10.3 7.4-10.4 FL Neutrophils (%) (Auto) 72 42-75 % Lymphocytes (%) (Auto) 19 12-44 % Monocytes (%) (Auto) 6 0-12 % Eosinophils (%) (Auto) 2 0-10 % Basophils (%) (Auto) 1 0-10 % Neutrophils # (Auto) 7.0 1.8-7.8 X 10^3 Lymphocytes # (Auto) 1.9 1.0-4.0 X 10^3 Monocytes # (Auto) 0.6 0.0-1.0 X 10^3 Eosinophils # (Auto) 0.2 0.0-0.3 10^3/uL Basophils # (Auto) 0.1 0.0-0.1 10^3/uL Sodium Level 135 135-145 MMOL/L Potassium Level 3.5 L 3.6-5.0 MMOL/L Chloride Level 94 L 98-107 MMOL/L Carbon Dioxide Level 24 21-32 MMOL/L Anion Gap 17 H 5-14 MMOL/L Blood Urea Nitrogen 19 H 7-18 MG/DL Creatinine 3.00 H 0.60-1.30 MG/DL Estimat Glomerular Filtration Rate 16 BUN/Creatinine Ratio 6 Glucose Level 241 H 70-105 MG/DL Calcium Level 8.8 8.5-10.1 MG/DL Corrected Calcium 8.8 8.5-10.1 MG/DL Total Bilirubin 0.5 0.1-1.0 MG/DL Aspartate Amino Transf (AST/SGOT) 13 5-34 U/L Alanine Aminotransferase (ALT/SGPT) 11 0-55 U/L Alkaline Phosphatase 98 40-136 U/L Troponin I < 0.028 <0.028 NG/ML Total Protein 7.6 6.4-8.2 GM/DL Albumin 4.0 3.2-4.5 GM/DL My Orders Orders - BERNOT,SHERLYN Troponin I (03/24/20 12:01) Chest 1 View, Ap/Pa Only (03/24/20 12:01) Ekg Tracing (03/24/20 12:01) Ed Iv/Invasive Line Start (03/24/20 12:01) Monitor-Rhythm Ecg Trace Only (03/24/20 12:01) Ns Iv 500 Ml (Sodium Chloride 0.9%) (03/24/20 12:15) Cbc With Automated Diff (03/24/20 12:01) Comprehensive Metabolic Panel (03/24/20 12:01) Metoprolol Tartrate Injection (Lopressor (03/24/20 12:15) Metoprolol Tartrate Injection (Lopressor (03/24/20 14:15) Medications Given in ED Current Medications Medications Dose Ordered Sig/Darren Route Start Time Stop Time Status Last Admin Dose Admin Metoprolol Tartrate 5 mg ONCE ONCE IV 03/24/20 12:15 03/24/20 12:16 DC 03/24/20 12:26 5 MG Metoprolol Tartrate 5 mg ONCE ONCE IV 03/24/20 14:15 03/24/20 14:16 DC 03/24/20 14:16 5 MG Vital Signs/I&O 03/24/20 03/24/20 11:47 15:04 Temp 36.1 Pulse 124 118 Resp 18 18 B/P (MAP) 115/54 (74) 120/79 Pulse Ox 97 98 O2 Delivery Room Air Blood Pressure Mean: 74 Progress Progress Note : Time: 14:51 Progress Note I've seen and evaluated the patient. I've informed her of her laboratory and astrid ging studies. Her heart rate did slow to the 90s to 100 range. She reports that she is ready to be discharged. I will instruct the patient to take one of her metoprolol by mouth when she gets home. She agrees with plan of care, plans for discharge, return precautions were given. Departure Impression Primary Impression: Sinus tachycardia Disposition: 01 HOME, SELF-CARE Condition: Stable/Unchanged Departure-Patient Inst. Decision time for Depature: 14:53 Referrals: BIMAL VITAL MD (PCP/Family) Primary Care Physician Patient Instructions: Tachycardia (DC) Add. Discharge Instructions: Call Dr. Thapa's office today to schedule a close follow-up. Follow-up with your primary care provider within 1 week for recheck. Take one of your metoprolol when you get home. If you're heart rate continues to elevate reviewed becomes symptomatic with chest pain shortness of breath, lightheadedness, dizziness, return to the emergency room or for any other concerns as needed. All discharge instructions reviewed with patient and/or family. Voiced understanding. SHERLYN HARRIS Mar 24, 2020 12:19
--- NOTE | 2020-03-24 12:25 | Diagnostic Imaging Report ---
INDICATION: Chest pain. Tachycardia. COMPARISON: 12/30/2019 FINDINGS: Single frontal radiograph view of the chest was obtained and shows moderate cardiomegaly. Pulmonary vasculature however is within normal limits. Lungs are clear. There is no focal consolidation, large effusion, no pneumothorax. Osseous structures show no acute abnormalities IMPRESSION:. Moderate cardiomegaly, but no evidence of failure or focal infiltrate. Dictated by: Dictated on workstation # [id number]
[2020-03-24 12:29] LABS: BASOPHILS # (AUTO) 0.1 10^3/uL (0.0-0.1); BASOPHILS % (AUTO) 1 % (0-10); EOSINOPHILS # (AUTO) 0.2 10^3/uL (0.0-0.3); EOSINOPHILS % (AUTO) 2 % (0-10); HEMATOCRIT 41 % (35-52); HEMOGLOBIN 13.1 G/DL (11.5-16.0); LYMPHOCYTES # (AUTO) 1.9 X 10^3 (1.0-4.0); LYMPHOCYTES % (AUTO) 19 % (12-44); MEAN CORPUSCULAR HEMOGLOBIN 32 PG (25-34); MEAN CORPUSCULAR HGB CONC 32 G/DL (32-36); MEAN CORPUSCULAR VOLUME 102 FL (80-99); MEAN PLATELET VOLUME 10.3 FL (7.4-10.4); MONOCYTES # (AUTO) 0.6 X 10^3 (0.0-1.0); MONOCYTES % (AUTO) 6 % (0-12); NEUTROPHILS % (AUTO) 72 % (42-75); PLATELET COUNT 215 10^3/uL (130-400); WHITE BLOOD COUNT 9.8 10^3/uL (4.3-11.0)
[2020-03-24 12:56] LABS: BILIRUBIN,TOTAL 0.5 MG/DL (0.1-1.0); CALCIUM 8.8 MG/DL (8.5-10.1); POTASSIUM 3.5 MMOL/L (3.6-5.0); TOTAL PROTEIN 7.6 GM/DL (6.4-8.2)
--- NOTE | 2020-03-24 14:55 | NUR ---
MONITOR SHOWS ST ON DISCHARGE.
--- NOTE | 2020-03-24 14:57 | NUR ---
PATIENT WANTS TO GO HOME . SHERLYN LAMBERT TO ROOM TO TALK WITH HER,
[2020-03-24 15:04] VITALS: BP 120/79
== END 2020-03-24 15:04 | disposition home or self-care (01) ==
LOC: EDUNIT# 11:07 → ER 11:09
DX: R00.0 Tachycardia, unspecified (principal); I10 Essential (primary) hypertension; E11.40 Type 2 diabetes mellitus with diabetic neuropathy, unspecified; I48.91 Unspecified atrial fibrillation; E78.00 Pure hypercholesterolemia, unspecified; F41.9 Anxiety disorder, unspecified; F32.9 Major depressive disorder, single episode, unspecified; F17.210 Nicotine dependence, cigarettes, uncomplicated; Z99.2 Dependence on renal dialysis; Z88.2 Allergy status to sulfonamides; Z79.01 Long term (current) use of anticoagulants; Z79.82 Long term (current) use of aspirin; Z79.4 Long term (current) use of insulin; Z82.49 Family history of ischemic heart disease and other diseases of the circulatory system; Z80.1 Family history of malignant neoplasm of trachea, bronchus and lung
CPT/HCPCS: 36415; 71045; 80053; 84484; 85025; 93005; 93041

== ENCOUNTER 2020-04-01 09:30 | Day surgery (SDC) | payer MEDICARE, OTHER, MEDICAID ==
[~2020-04-01] VITALS: Ht 157 cm; Wt 105.0 kg
[2020-04-01] VITALS (10 sets, daily range): BP systolic 127–150; BP diastolic 55–74
[2020-04-01 07:52] LABS: HEMOGLOBIN 11.7 G/DL (11.5-16.0); MEAN PLATELET VOLUME 10.5 FL (7.4-10.4); WHITE BLOOD COUNT 8.4 10^3/uL (4.3-11.0)
[2020-04-01 08:05] LABS: INR 1.2 (0.8-1.4); PROTHROMBIN TIME PATIENT 15.1 SEC (12.2-14.7)
[2020-04-01 08:10] LABS: BILIRUBIN,TOTAL 0.4 MG/DL (0.1-1.0); CALCIUM 8.6 MG/DL (8.5-10.1); CREATININE SERUM 5.11 MG/DL (0.60-1.30); POTASSIUM 4.2 MMOL/L (3.6-5.0); TOTAL PROTEIN 7.1 GM/DL (6.4-8.2)
[~2020-04-01 09:30] MED LIST changes: +ASPI-1238 PO; +DILT180C54 PO; +DULO20CA19 PO; +LEVO150T6 PO; +NS IV 1000 ML 1,000 ML IV SCH; +[UNRECOGNIZED DRUG - CODE] PO
[2020-04-01] MEDS ORDERED: VERAPAMIL 5 MG/2 ML (CALAN) VIAL IV ONE (09:40)
[2020-04-01] MEDS ORDERED: fentaNYL INJECTION 100 MCG/2 ML AMP ONE (09:40)
[2020-04-01] MEDS ORDERED: MIDAZOLAM 5 MG/5 ML (VERSED) VIAL ONE (09:40)
[2020-04-01] MEDS ORDERED: HEParin 1000 UNIT/ML (10ML VIAL) FOR BOLUS ONE (09:41)
[2020-04-01] MEDS ORDERED: NITRO DRIP 25000 MCG/D5W 250 ML IV ONE (09:41)
--- NOTE | 2020-04-01 10:53 | Cardiac Procedure Note-CS/ASA ---
Pre-Procedure Note Pre-Op Procedure Note H&P Reviewed The H&P was reviewed, patient examined and no changes noted. Date H&P Reviewed: Apr 01, 2020 Time H&P Reviewed: 10:00 Conscious Sedation Pre-Proced Time 10:00 ASA Score 3 For ASA 3 and 4: Consider anesthesia and medical clearance. Also, for patients with a history of failed moderate sedation consider anesthesia. Airway Lungs Heart ASA score ASA 1: a normal healthy patient ASA 2: a patient with a mild systemic disease (mid diabetes, controlled hypertension, obesity ASA 3: a patient with a severe systemic disease that limits activity (angina, COPD, prior Myocardial infarction) ASA 4: a patient with an incapacitating disease that is a constant threat to life (CHF, renal failure) ASA 5: a moribund patient not expected to survive 24 hrs. (ruptured aneurysm) ASA 6: a declared brain- patient whose organs are being harvested. For emergent operations, add the letter E after the classification Mallampati Classification Grade 1 Sedation Plan Analgesia, Amnesia, Plan communicated to team members, Discussed options with patient/fam, Discussed risks with patient/fam The patient is an appropriate candidate to undergo the planned procedure, sedation, and anesthesia. The patient immediately re-assessed prior to indication. Rex RIVERA MD Apr 01, 2020 10:53
[2020-04-01] MEDS ORDERED: NS IV 1000 ML 1,000 ML IV SCH (10:59)
--- NOTE | 2020-04-01 10:59 | Coronary Angiography Report ---
Coronary Angiography Report DATE OF PROCEDURE: 04/01/20 INDICATION: chest pain, abnormal EKG, end-stage renal disease. PREOPERATIVE DIAGNOSIS: chest pain, abnormal EKG, end-stage renal disease. POSTOPERATIVE DIAGNOSIS: mild CAD. HISTORY: this is a 55-year-old lady with end-stage renal disease on dialysis. she presented to the office with recurrent chest pain with suspicious EKG. Therefore, the patient was scheduled for coronary angiography. PROCEDURES PERFORMED: 1.Coronary angiography. 2.Left heart catheterization. 3. Aortic arch angiogram: Medical necessity: To rule out aneurysm or diss ection in a patient with no significant CAD and chest pain. COMPLICATIONS: None. SPECIMENS: None. ESTIMATED BLOOD LOSS: 10 mL ANESTHESIA: Conscious sedation ANTICOAGULATION: IV heparin CONTRAST: 100 mL. FLUOROSCOPY: 5.5 minutes. FLOUROSCOPY DOSE: 821 mgy. PROCEDURE DETAILS: The patient is a 55 female and was brought to the mushroom laborer after informed consent was taken. All the risks and complications were explained in detail; this included the risk of bleeding, vascular damage, stroke, OK and even . The patient was draped and prepped in the usual sterile fashion. Access was gained in the left radial artery with a 6 Cameroonian sheath. Coronary angiography and left heart catheterization was performed with the [place] catheter. FINDINGS: 1.Left main: separate ostia. 2.LAD: luminal irregularities. 3.Left circumflex artery: luminal irregularities. 4.RCA: patent. 5.Left heart catheterization: LV pressure 109/7 mmHg. LVEDP 17 mmHg. Aortic pressure 105/65 mmHg. Normal LV function with no wall motion abnormalities. No gradient across the aortic valve. 6. Aortic arch angiogram: No evidence of proximal aneurysm or dissection. Patent proximal segments of the great arteries. CONCLUSIONS: minimal CAD. Continue secondary prevention measures. Damaris Thapa MD, FACP, FACC, [facility] Interventional Cardiology Rex THAPA MD Apr 01, 2020 10:59
[2020-04-01] MEDS ORDERED: PATIENT MAY USE OWN MEDS, ALL PO SCH (11:00)
--- NOTE | 2020-04-01 11:02 | Discharge Inst-Post CATH ---
Discharge Inst-CATH/EP Problems Reviewed?: Yes Final Diagnosis Minimal CAD, ESRD. Post Cardiac Cath/EP D/C Inst Follow Up/Plan Dr Thapa on previously scheduled appointment. <b>CARDIAC CATH/EP PROCEDURE DISCHARGE INSTRUCTIONS</b> ACTIVITY * Go Home directly and rest. * Limit activity of the leg (or wrist if it was used) for 7 days including aerobics, swimming, jogging, bicycling, etc. * Restrict stair-climbing for 7 days if possible, if not, climb up with your non-cath leg, then bring together on the same step. * Avoid lifting, pushing, pulling or excessive movement of the affected extremity for 7 days. * Customary sexual activity may be resumed after 2 days-use caution not to use a position that strains or causes pain to the affected extremity. * No driving for 24 hours. * NO SMOKING. * Avoid straining for bowel movements for 7 days. * Gentle walking on level ground is allowed. * Returning to work will depend on the type of procedure and the results. Your doctor will discuss this with you. CALL YOUR DOCTOR FOR ANY OF THE FOLLOWING: *If bleeding from the puncture site occurs- Apply gentle pressure to site with clean cloth and call your doctor or EMS. * If a knot or lump forms under the skin, increases in size, or causes pain. * If bruising appears to be worsening or moving further down your leg instead of disappearing. * Temperature above 101 F. CARE OF YOUR GROIN INCISION; * Bruising or purple discoloration of the skin near the puncture site is common. * You may shower only, no bathtub bathing for 5 days. Be careful to avoid slipping as your leg may feel stiff. * If a closure device was used on your femoral artery, please see the attached guide regarding care of the device and your leg. * Leave dressing on FOR 24 hours. CARE OF YOUR WRIST INCISION; * Bruising or purple discoloration of the skin near the puncture site is common. * You may shower. * DO NOT submerge wrist. * Leave dressing on FOR 24 hours. Rex THAPA MD Apr 01, 2020 11:02
--- NOTE | 2020-04-01 11:04 | Cardiology Discharge Summary ---
Diagnosis/Chief Complaint Date of Admission 04/01/2020 Date of Discharge 04/01/2020 Admission Diagnosis chest pain, end-stage renal disease Final/Discharge Diagnosis minimal CAD, end-stage renal disease Chief Complaint/HPI Chief Complaint/HPI this is a 55-year-old lady with end-stage renal disease on dialysis. she presented to the office with recurrent chest pain with suspicious EKG. Therefore, the patient was scheduled for coronary angiography. Discharge Summary Procedures coronary angiography shows luminal irregularities. Separate ostia of the LAD and left circumflex artery. Normal LV function. LVEDP 17 mmHg. Discharge Physical Examination normal cardiac vascular examination. Hospital Course Was the Problem List Reviewed?: Yes unremarkable. Pending Labs Laboratory Tests 04/01/20 07:43: White Blood Count 8.4, Red Blood Count 3.74, Hemoglobin 11.7, Hematocrit 39, M malgorzata Corpuscular Volume 105, Mean Corpuscular Hemoglobin 31, Mean Corpuscular Hemoglobin Concent 30, Red Cell Distribution Width 18.2, Platelet Count 248, Mean Platelet Volume 10.5, Prothrombin Time 15.1, INR Comment 1.2, Activated Partial Thromboplast Time 29, Sodium Level 139, Potassium Level 4.2, Chloride Level 96, Carbon Dioxide Level 27, Anion Gap 16, Blood Urea Nitrogen 22, Cr eatinine 5.11, Estimat Glomerular Filtration Rate 9, BUN/Creatinine Ratio 4, Glucose Level 152, Calcium Level 8.6, Corrected Calcium 8.6, Total Bilirubin 0.4, Aspartate Amino Transf (AST/SGOT) 12, Alanine Aminotransferase (ALT/SGPT) 11, Alkaline Phosphatase 94, Total Protein 7.1, Albumin 4.0 Discussion & Recommendations Discussion discharge on the same medications. Follow up appt.: follow-up with Dr. Thapa on previously scheduled appointment. Dicharge Diet: Cardiac Diet Activity as Tolerated: Yes Home Medications Reviewed patient Home Medication Reconciliation performed by pharmacy medication reconciliations auto technician mechanic and/or nursing. Patients Allergies have been reviewed. Discharge Home Medications: Reviewed and agree with Discharge Medication list on patient's Discharge Instruction sheet Condition at discharge stable. Instructions to patient/family Dr Thapa on previously scheduled appointment. Rex THAPA MD Apr 01, 2020 11:04
--- NOTE | 2020-04-01 12:29 | NUR ---
SPOKE WITH THE PT (SHE HAS MOST OF HER MED BOTTLES WITH HER) AND WENT THRU THE EXT MED HISTORY TO COMPLETE THE MED REC DULOXETINE 20MG FILLED 03-26-2020 12/7DS PT HAS A BOTTLE OF BUPROPION WITH HER BUT SHE HAS NOT STARTED TAKING YET (SHE IS TAPERING OFF DULOXETINE AND THEN WILL START BUPROPION) DILTIAZEM ER 180MG DIRECTIONS SHOW 1 TAB DAILY HOWEVER PT IS NOW TAKING 1 TAB BID METOPROLOL ER 100MG- DIRECTIONS SHOW 1 TAB DAILY HOWEVER PT IS TAKING TAB DAILY FUROSEMIDE 80MG AND POTASSIUM 10MEQ - PT ONLY TAKES ON DAYS SHE IS NOT ON DIALYSIS R[place] 800MG- PT IS HONEST AND SAYS THERE ARE DAYS WHEN SHE DOESNT TAKE ALL DOSES THAT ARE PRESCRIBED PT IS NO LONGER TAKING THE FOLLOWING: AMIODARONE VICTOZA AMLODIPINE OTC MEDS: FAMOTIDINE ASPIRIN 81 SIMETHICONE
== END 2020-04-01 14:15 | disposition home or self-care (01) ==
LOC: CATH 09:30 → SDC 11:19 → CATH 14:15
PROVIDERS: ATTEND Internal Medicine Interventional Cardiology
DX: I25.110 Atherosclerotic heart disease of native coronary artery with unstable angina pectoris (principal); I13.2 Hypertensive heart and chronic kidney disease with heart failure and with stage 5 chronic kidney disease, or end stage renal disease; E11.22 Type 2 diabetes mellitus with diabetic chronic kidney disease; N18.6 End stage renal disease; I50.31 Acute diastolic (congestive) heart failure; R94.39 Abnormal result of other cardiovascular function study; I48.4 Atypical atrial flutter; I48.19 Other persistent atrial fibrillation; Z99.2 Dependence on renal dialysis; Z79.01 Long term (current) use of anticoagulants; Z79.899 Other long term (current) drug therapy; Z79.82 Long term (current) use of aspirin; Z88.2 Allergy status to sulfonamides; Z90.710 Acquired absence of both cervix and uterus; Z87.891 Personal history of nicotine dependence; Z80.0 Family history of malignant neoplasm of digestive organs
CPT/HCPCS: 36221; 36415; 80053; 85027; 85610; 85730; 87081; 93458

== ENCOUNTER 2020-05-01 08:51 | Emergency (ER) | payer MEDICARE, OTHER, MEDICAID ==
[~2020-05-01] VITALS: Ht 157 cm; Wt 106.0 kg
[~2020-05-01 08:51] MED LIST changes: -NS IV 1000 ML 1,000 ML IV SCH
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
[2020-05-01] MEDS ORDERED: ACHD5005 PO (09:36)
[2020-05-01 09:42] VITALS: BP 134/90
== END 2020-05-01 09:42 | disposition home or self-care (01) ==
LOC: EDUNIT# 08:51 → ER 08:53
DX: M54.12 Radiculopathy, cervical region (principal); E66.9 Obesity, unspecified; I10 Essential (primary) hypertension; F41.9 Anxiety disorder, unspecified; F32.9 Major depressive disorder, single episode, unspecified; E11.9 Type 2 diabetes mellitus without complications; E78.00 Pure hypercholesterolemia, unspecified; N19 Unspecified kidney failure; F17.210 Nicotine dependence, cigarettes, uncomplicated; Z99.2 Dependence on renal dialysis; Z68.41 Body mass index [BMI] 40.0-44.9, adult; Z82.49 Family history of ischemic heart disease and other diseases of the circulatory system; Z83.3 Family history of diabetes mellitus; Z80.1 Family history of malignant neoplasm of trachea, bronchus and lung; Z85.828 Personal history of other malignant neoplasm of skin; Z20.828 Contact with and (suspected) exposure to other viral communicable diseases; Z88.2 Allergy status to sulfonamides; Z79.82 Long term (current) use of aspirin; Z79.01 Long term (current) use of anticoagulants; Z79.4 Long term (current) use of insulin
CPT/HCPCS: 99282

== ENCOUNTER → 2021-01-21 | Outpatient (CLI) | payer MEDICARE, OTHER, MEDICAID ==
[~2021-01-21] MED LIST changes: +ACHD5005 PO; -AMIO200T4 PO; +AMIO200T6 PO; +AMLO-250 PO; -AMLO5TAB9 PO; +CATHETER FLUSH 10 ML SYR IV PRN; -COLC0.6T56 PO; +COLC0.6T59 PO; +ESCI20TA39 PO; -ESCI20TA45 PO; +HOLD METFORMIN - RECEIVED CONTRAST 20 ML VIAL IV SCH; +IOHEXOL 350 MG/ML 100 ML (OMNIPAQUE 350) VIAL IV ONE; -LISI10TA2 PO; +LISI10TA25 PO; +NS 100 ML (IVPB) BAG IV ONE; +SIME180C65 PO; -[UNRECOGNIZED DRUG - CODE] PO
[2021-01-21 09:06] LABS: ALBUMIN 3.9 GM/DL (3.2-4.5); BILIRUBIN,TOTAL 0.5 MG/DL (0.1-1.0); CALCIUM 9.5 MG/DL (8.5-10.1); CREATININE SERUM 4.03 MG/DL (0.60-1.30); POTASSIUM 4.1 MMOL/L (3.6-5.0); TOTAL PROTEIN 7.1 GM/DL (6.4-8.2)
--- NOTE | 2021-01-21 10:02 | Diagnostic Imaging Report ---
PROCEDURE: CT abdomen and pelvis with contrast. TECHNIQUE: Multiple contiguous axial images were obtained through the abdomen and pelvis after administration of intravenous contrast. Auto Exposure Controls were utilized during the CT exam to meet ALARA standards for radiation dose reduction. All CT scans use one or more of the following dose optimizing techniques: automated exposure control, MA and/or KvP adjustment based on patient size and exam type or iterative reconstruction. INDICATION: Lower abdominal pain and bilateral flank pain. No prior studies are available for comparison. FINDINGS: The lung bases are clear. The heart is enlarged. No discrete liver mass is identified. Gallbladder is surgically absent. There is no biliary ductal dilatation. The pancreas and spleen are unremarkable. No adrenal mass is identified. There does appear to be some cortical thinning and atrophy involving bilateral kidneys. Small cyst lower pole left kidney is noted. Aorta is heavily calcified but nonaneurysmal. The bowel loops are normal caliber. There is no obstruction. There is extensive diverticulosis of the sigmoid colon but no evidence of acute diverticulitis. The patient does have a fat-containing umbilical hernia. The bladder is decompressed. IMPRESSION: 1. Uncomplicated diverticulosis. 2. Fat-containing umbilical hernia. 3. No other significant abnormality is detected. Dictated by: Dictated on workstation # [id number]
== END ==
LOC: RAD 09:15
PROVIDERS: ATTEND Pediatrics
DX: E11.51 Type 2 diabetes mellitus with diabetic peripheral angiopathy without gangrene (principal); K57.30 Diverticulosis of large intestine without perforation or abscess without bleeding; N18.6 End stage renal disease; K42.9 Umbilical hernia without obstruction or gangrene
CPT/HCPCS: 36415; 74177; 80053

== ENCOUNTER → 2021-08-18 | Outpatient (CLI) | payer MEDICARE, OTHER, MEDICAID ==
[~2021-08-18] VITALS: Ht 157 cm; Wt 106.6 kg
[~2021-08-18] MED LIST changes: +ACETAMINOPHEN 500 MG TAB (TYLENOL) PO PRN; -AMIO200T6 PO; +AMIO200T65 PO; -CATHETER FLUSH 10 ML SYR IV PRN; -DULO60CA6 PO; +DULO60CA7 PO; +EPINEPHrine INJECTION 1 MG/ML AMP IM PRN; -HOLD METFORMIN - RECEIVED CONTRAST 20 ML VIAL IV SCH; -IOHEXOL 350 MG/ML 100 ML (OMNIPAQUE 350) VIAL IV ONE; -NS 100 ML (IVPB) BAG IV ONE; +ONDANSETRON 4 MG/2 ML (SDV) Z0FRAN IV PRN; -POTA10TA36; -POTA10TA36 PO; +POTA10TA37; +POTA10TA37 PO; +SOTROVIMAB 500 MG/NS 50 ML IVPB IV ONE; +diphenhydrAMINE 50 MG/ML INJ (BENADRYL) IV PRN
[2021-08-18 09:03] VITALS: BP 116/63
[2021-08-18 10:20] VITALS: BP 83/51
== END ==
LOC: INFUSION 08:43
PROVIDERS: ATTEND Nurse Practitioner Community Health
DX: U07.1 COVID-19 (principal)

== ENCOUNTER 2021-08-20 17:38 | Emergency (ER) | payer MEDICARE, MEDICAID ==
[~2021-08-20] VITALS: Ht 157 cm; Wt 107.7 kg
[~2021-08-20 17:38] MED LIST changes: -ACETAMINOPHEN 500 MG TAB (TYLENOL) PO PRN; -EPINEPHrine INJECTION 1 MG/ML AMP IM PRN; -ONDANSETRON 4 MG/2 ML (SDV) Z0FRAN IV PRN; -SOTROVIMAB 500 MG/NS 50 ML IVPB IV ONE; -diphenhydrAMINE 50 MG/ML INJ (BENADRYL) IV PRN
--- NOTE | 2021-08-20 18:41 | Diagnostic Imaging Report ---
INDICATION: Short of breath, hypoxia, Covid positive. EXAMINATION: Chest 08/20/2021. COMPARISON: 03/24/2020. FINDINGS: There is cardiomegaly. There are diffuse infiltrates throughout the mid and lower lungs. No effusions. No pneumothorax. IMPRESSION: Diffuse bilateral infiltrates. Dictated by: Dictated on workstation # [id number]
[2021-08-20 18:50] LABS: BASOPHILS % (AUTO) 0 % (0-10); EOSINOPHILS % (AUTO) 0 % (0-10); HEMATOCRIT 28 % (35-52); HEMOGLOBIN 8.7 g/dL (11.5-16.0); LYMPHOCYTES # (AUTO) 0.8 10^3/uL (1.0-4.0); LYMPHOCYTES % (AUTO) 17 % (12-44); MEAN CORPUSCULAR HEMOGLOBIN 32 pg (25-34); MEAN CORPUSCULAR HGB CONC 31 g/dL (32-36); MEAN CORPUSCULAR VOLUME 102 fL (80-99); MEAN PLATELET VOLUME 10.4 fL (9.0-12.2); MONOCYTES # (AUTO) 0.3 10^3/uL (0.0-1.0); MONOCYTES % (AUTO) 6 % (0-12); NEUTROPHILS # (AUTO) 3.5 10^3/uL (1.8-7.8); NEUTROPHILS % (AUTO) 75 % (42-75); PLATELET COUNT 175 10^3/uL (130-400); WHITE BLOOD COUNT 4.7 10^3/uL (4.3-11.0)
--- NOTE | 2021-08-20 18:51 | ED General ---
General Chief Complaint: COVID19 Suspect/Confirmed Stated Complaint: COVID + OF SUNDAY, SOB, ON DIALYSIS Nursing Triage Note: PT AMB TO [facility] 9 STATES HAS COVID DX ON 08/15/21, SX STARTED ON 08/14/21, PT HAD INFUSION ON 08/18/21. PT STATES HAD 2ND VACCINE ON 08/13/21. PT IS VERY SOA, PT SAT UPON AMB TO RM 9 IS 72% ON RA. PT O2 @6L N/C STARTED. PT HR 120. RR 36. PT IS A DIALYSIS PT AND HAS GOTTEN DIALYSIS THIS AM. LAST FEVER WAS ON 08/19/21. Source of Information: Patient Exam Limitations: No Limitations History of Present Illness Date Seen by Provider: Aug 20, 2021 Time Seen by Provider: 18:30 Initial Comments Patient is a 56-year-old female with a history of atrial fibrillation, end-stage renal disease on hemodialysis, chronically anticoagulated who presents to the emergency department with shortness of breath today. Patient states that she received her second initial Covid vaccination a week ago last on August 11. Patient states on August 14 she started running a fever was subsequently tested positive for Covid on 15 August at urgent care [facility]. Patient had Sotrovimab infusion on August 17. She has been dialyzing last week on a Sunday schedule. Patient states she did dialyze this morning the full 4 hours. She states that the dialysis center, [facility] put her on oxygen during dialysis and then took her off of it and sent her home. She states she has been staying with her boyfriend recently, he wears oxygen and she put herself on 2-1/2 L when she got home. She continued to get more short of breath throughout the afternoon and presented at 72% room air saturations. She is not really coughing up much but when she does cough up is a little blood-streaked. She has no chest pain, abdominal pain. She is having some diarrhea. She sees Dr. 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 Bimal Vital is her primary care doctor. Patient does make urine, 2-3 times daily. She denies dysuria, urgency or frequency. No URI symptoms currently. After ambulating to the emergency room she was placed on 5 to 6 L per nasal cannula, no significant respiratory distress is noted and she is satting 95%. All other review of systems reviewed and negative except as stated. Timing/Duration: 1 Week Severity: Moderate Modifying Factors: worse with Movement; improves with Rest Associated Systoms: Fever/Chills, Loss of Appetite, Other (diarrhea) Allergies and Home Medications Allergies Coded Allergies: Sulfa (Sulfonamide Antibiotics) (Verified Allergy, Mild, HIVES, 01/14/18) Patient Home Medication List Home Medication List Reviewed: Yes Allopurinol (Allopurinol) 100 Mg Tablet, 100 MG PO DAILY, (Reported) Entered as Reported by: DENNYS LEIVA on 04/01/20 0859 Apixaban (Eliquis) 5 Mg Tablet, 2.5 MG PO BID, (Reported) Entered as Reported by: DENNYS LEIVA on 04/01/20 0859 Aspirin (Aspirin EC) 81 Mg Tablet., 81 MG PO DAILY, (Reported) Entered as Reported by: DENNYS LEIVA on 04/01/20 0859 Diltiazem HCl (Cartia Xt) 180 Mg Cap.er.24h, 180 MG PO BID, (Reported) Entered as Reported by: DENNYS LEIVA on 04/01/20 0859 Duloxetine HCl (Duloxetine HCl) 20 Mg Capsule.dr, 20 MG PO DAILY, (Reported) Entered as Reported by: DENNYS LEIVA on 04/01/20 0859 Famotidine (Pepcid) 20 Mg Tablet, 20 MG PO DAILY, (Reported) Entered as Reported by: TREY WAGONER on 01/22/20 0747 Furosemide (Furosemide) 80 Mg Tablet, 160 MG PO DAILY PRN for NONDIALYSIS DAYS, (Reported) Entered as Reported by: TREY WAGONER on 01/22/20 0747 Gabapentin (Neurontin) 300 Mg Capsule, 300 MG PO DAILY, (Reported) Entered as Reported by: TREY WAGONER on 01/22/20 0747 Hydrocodone/Acetaminophen (Hydrocodone-Acetamin 5-325 mg) 1 Each Tablet, 1 EACH PO Q6H PRN for PAIN-BREAKTHROUGH Prescribed by: MIRI AGARWAL on 05/01/20 0937 Insulin Aspart (Novolog Flexpen) 300 Units/3 Ml Solution, 15 UNITS SQ AC, (Rep orted) Entered as Reported by: ABBEY MORENO on 03/07/19 0952 Insulin Detemir (Levemir Flextouch) 100 Unit/1 Ml Insuln.pen, 30 UNITS SC BID, (Reported) Entered as Reported by: ABBEY MORENO on 03/07/19 0948 Levothyroxine Sodium (Levothyroxine Sodium) 150 Mcg Tablet, 150 MCG PO DAILY, (Reported) Entered as Reported by: DENNYS LEIVA on 04/01/20 08 Metoprolol Succinate (Metoprolol Succinate) 100 Mg Tab.er.24h, 50 MG PO DAILY, (Reported) Entered as Reported by: DENNYS LEIVA on 04/01/20858 Potassium Chloride (Potassium Chloride) 10 Meq Tab.er.prt, 10 MEQ PO DAILY PRN for NONDIALYSIS DAYS, (Reported) Entered as Reported by: TREY WAGONER on 01/22/20 07 Rosuvastatin Calcium (Crestor) 20 Mg Tablet, 20 MG PO HS, (Reported) Entered as Reported by: TREY WAGONER on 01/22/20746 Sevelamer Carbonate (Renvela) 800 Mg Tablet, 3,200 MG PO TIDWM, (Reported) Entered as Reported by: GRACE GARCIA on 01/14/20 0328 Sevelamer Carbonate (Renvela) 800 Mg Tablet, 1,600 MG PO BID W/SNACKS, (Reported) Entered as Reported by: DENNYS LEIVA on 04/01/20 08 Simethicone (Simethicone) 180 Mg Capsule, 180 MG PO PRN PRN for GAS, (Reported) Entered as Reported by: DENNYS LEIVA on 04/01/20 0859 Trazodone HCl (Trazodone HCl) 50 Mg Tablet, 50 MG PO HS, (Reported) Entered as Reported by: TREY WAGONER on 01/22/20746 Review of Systems Review of Systems Constitutional: see HPI, malaise EENTM: no symptoms reported Respiratory: dyspnea on exertion, hemoptysis (mild), short of breath Cardiovascular: no symptoms reported Gastrointestinal: diarrhea Genitourinary: no symptoms reported : No Musculoskeletal: no symptoms reported Skin: no symptoms reported Psychiatric/Neurological: No Symptoms Reported All Other Systems Reviewed Negative Unless Noted: Yes Past Hsttsrd-Rwhyeq-Tgfwws Hx Patient Social History Tobacco Use?: No Substance use?: No Alcohol Use?: No Immunizations Up To Date Tetanus Booster (TDap): Less than 5yrs PED Vaccines UTD: Yes First/Initial COVID19 Vaccinat: 2020 Second COVID19 Vaccination Amarjit: Sunday08/11/21 COVID19 Vaccine Enrichment Specialist: BizangaA Seasonal Allergies Seasonal Allergies: Yes Past Medical History Surgery/Hospitalization HX: DIALYSIS Surgeries: Yes (PILONIDAL CYST; DX LAPAROSCOPY; HYST/BSO, dialysis shunt in right forearm) Cardiac, Dialysis, Gallbladder, Hysterectomy, Oophorectomy Respiratory: Yes Sleep Apnea, COPD Currently Using CPAP: Yes Cardiac: Yes (CHF; ELEVATED TRIGLYCERIDES; A FLUTTER, ABLATION) Atrial Fibrillation, Chronic Edema/Swelling, High Cholesterol, Hypertension, Irregular Heartbeat Neurological: Yes Neuropathy 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 Disorders: No Female 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 Disorders: 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, 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 Sexually Transmitted Disease: No HIV/AIDS: No Genitourinary: Yes (DIALYSIS M-W-F) Renal Failure, Dialysis, UTI-Chronic Gastrointestinal: Yes Chronic Constipation, Chronic Diarrhea Musculoskeletal: Yes Arthritis, Chronic Back Pain Endocrine: Yes Diabetes, Insulin dep HEENT: No Loss of Vision: Bilateral Hearing Impairment: Denies Cancer: Yes Skin Psychosocial: Yes Anxiety, Depression Integumentary: Yes (skin lesion) Blood Disorders: No Adverse Reaction/Blood Tranf: No (N/A) Family Medical History Cardiovascular disease G8 SISTER Diabetes mellitus G8 SISTER FH: lung cancer G8 SISTER Physical Exam Vital Signs Vital Signs - First Documented 08/20/21 17:50 Temp 36.9 Pulse 120 Resp 30 B/P (MAP) 135/76 (95) Pulse Ox 95 O2 Delivery Nasal Cannula O2 Flow Rate 6.00 Capillary Refill : Less Than 3 Seconds Height, Weight, BMI Height: 5'3.00" Weight: 264lbs. 1.0oz. 119.987603dy; 43.00 BMI Method:Stated General Appearance: No Apparent Distress, WD/WN Eyes: Bilateral Eye Normal Inspection, Bilateral Eye PERRL, Bilateral Eye EOMI HEENT: PERRL/EOMI Neck: Normal Inspection Respiratory: No Accessory Muscle Use, No Respiratory Distress, Rhonci (bilateral bases) Cardiovascular: Normal Peripheral Pulses, Systolic Murmur (coarse systeoloc murmur hear throughout the precordium), Tachycardia (120) Gastrointestinal: Non Tender, Soft Extremity: Normal Inspection, Normal Range of Motion, Non Tender, No Calf Tenderness, No Pedal Edema Neurologic/Psychiatric: Alert, Oriented x3, No Motor/Sensory Deficits, Normal Mood/Affect, Other (appears apprehensive) Skin: Normal Color, Warm/Dry Focused Exam Lactate Level 08/20/21 18:08: Lactic Acid Level 1.37 Lactic Acid Level Laboratory Tests Test 08/20/21 18:08 Lactic Acid Level 1.37 MMOL/L (0.50-2.00) Procedures/Interventions Patient Education: Explained Benefits, Explained Risks, Pt. Ack. Understanding Patient History: Sleep Apnea Breath Sounds per Auscultation: Clear Heart Sounds per Auscultation: Regular Airway Exam: Mouth opens >2 fingers, Neck Full Range of Motion, Visulation of Uvula Sedation Adminstration Time: 1733 Progress/Results/Core Measures Suspected Sepsis Recent Fever Within 48 Hours: No Infection Criteria Present: Documented Infection New/Unexplained Altered Menta: No Within 3hrs of presentation: Blood cultures prior to ABX's, Lactate level SIRS Temperature: Pulse: 120 Respiratory Rate: 30 Laboratory Tests 08/20/21 18:08: White Blood Count 4.7 Blood Pressure 135 /76 Mean: 95 08/20/21 18:08: Lactic Acid Level 1.37 Laboratory Tests 08/20/21 18:08: Creatinine 4.78H, INR Comment 1.3, Platelet Count 175, Total Bilirubin 0.4 Results/Orders Lab Results Laboratory Tests Test 08/20/21 18:08 08/20/21 19:00 08/20/21 19:30 Range/Units White Blood Count 4.7 4.3-11.0 10^3/uL Red Blood Count 2.71 L 3.80-5.11 10^6/uL Hemoglobin 8.7 L 11.5-16.0 g/dL Hematocrit 28 L 35-52 % Mean Corpuscular Volume 102 H 80-99 fL Mean Corpuscular Hemoglobin 32 25-34 pg Mean Corpuscular Hemoglobin Concent 31 L 32-36 g/dL Red Cell Distribution Width 16.0 H 10.0-14.5 % Platelet Count 175 130-400 10^3/uL Mean Platelet Volume 10.4 9.0-12.2 fL Immature Granulocyte % (Auto) 1 % Neutrophils (%) (Auto) 75 42-75 % Lymphocytes (%) (Auto) 17 12-44 % Monocytes (%) (Auto) 6 0-12 % Eosinophils (%) (Auto) 0 0-10 % Basophils (%) (Auto) 0 0-10 % Neutrophils # (Auto) 3.5 1.8-7.8 10^3/uL Lymphocytes # (Auto) 0.8 L 1.0-4.0 10^3/uL Monocytes # (Auto) 0.3 0.0-1.0 10^3/uL Eosinophils # (Auto) 0.0 0.0-0.3 10^3/uL Basophils # (Auto) 0.0 0.0-0.1 10^3/uL Immature Granulocyte # (Auto) 0.1 0.0-0.1 10^3/uL Prothrombin Time 16.8 H 12.2-14.7 SEC INR Comment 1.3 0.8-1.4 Activated Partial Thromboplast Time 41 H 24-35 SEC D-Dimer 0.91 H 0.00-0.49 UG/ML Sodium Level 139 135-145 MMOL/L Potassium Level 3.2 L 3.6-5.0 MMOL/L Chloride Level 96 L 98-107 MMOL/L Carbon Dioxide Level 27 21-32 MMOL/L Anion Gap 16 H 5-14 MMOL/L Blood Urea Nitrogen 29 H 7-18 MG/DL Creatinine 4.78 H 0.60-1.30 MG/DL Estimat Glomerular Filtration Rate 10 BUN/Creatinine Ratio 6 Glucose Level 125 H 70-105 MG/DL Lactic Acid Level 1.37 0.50-2.00 MMOL/L Calcium Level 8.0 L 8.5-10.1 MG/DL Corrected Calcium 8.4 L 8.5-10.1 MG/DL Total Bilirubin 0.4 0.1-1.0 MG/DL Aspartate Amino Transf (AST/SGOT) 22 5-34 U/L Alanine Aminotransferase (ALT/SGPT) 18 0-55 U/L Alkaline Phosphatase 53 40-136 U/L C-Reactive Protein High Sensitivity 9.99 H 0.00-0.50 MG/DL Total Protein 6.7 6.4-8.2 GM/DL Albumin 3.5 3.2-4.5 GM/DL Procalcitonin 1.26 H <0.10 NG/ML Blood Gas Puncture Site LRAD Blood Gas Patient Temperature 36.9 Arterial Blood pH 7.49 H 7.37-7.43 Arterial Blood Partial Pressure CO2 39 35-45 MMHG Arterial Blood Partial Pressure O2 98 H 79-93 MMHG Arterial Blood HCO3 30 H 23-27 MMOL/L Arterial Blood Total CO2 31.1 H 21.0-31.0 MMOL/L Arterial Blood Oxygen Saturation 99 94-100 % Arterial Blood Base Excess 6.4 H -2.5-2.5 MMOL/L Aiden Test POS Blood Gas Ventilator Setting NO Blood Gas Inspired Oxygen 6L Urine Color YELLOW Urine Clarity CLEAR Urine pH 5.5 5-9 Urine Specific Bally 1.025 H 1.016-1.022 Urine Protein 2+ H NEGATIVE Urine Glucose (UA) NEGATIVE NEGATIVE Urine Ketones NEGATIVE NEGATIVE Urine Nitrite NEGATIVE NEGATIVE Urine Bilirubin NEGATIVE NEGATIVE Urine Urobilinogen 0.2 < = 1.0 MG/DL Urine Leukocyte Esterase NEGATIVE NEGATIVE Urine RBC (Auto) 3+ H NEGATIVE Urine RBC 25-50 H /HPF Urine WBC 0-2 /HPF Urine Crystals PRESENT H /LPF Urine Amorphous Sediment MOD NATALEE URATES H /LPF Urine Bacteria FEW H /HPF Urine Casts PRESENT /LPF Urine Granular Casts 2-5 H /LPF Urine Mucus NEGATIVE /LPF Urine Culture Indicated CULTURE PENDING My Orders Orders - ZIYAD RIDDLE MD Chest 1 View, Ap/Pa Only (08/20/21 18:28) Cbc With Automated Diff (08/20/21 18:42) Comprehensive Metabolic Panel (08/20/21 18:42) Blood Culture (08/20/21 18:42) Sputum Culture (08/20/21 18:42) Urinalysis (08/20/21 18:42) Urine Culture (08/20/21 18:42) Protime With Inr (08/20/21 18:42) Partial Thromboplastin Time (08/20/21 18:42) Ed Iv/Invasive Line Start (08/20/21 18:42) Ed Iv/Invasive Line Start (08/20/21 18:42) Vital Signs Adult Sepsis Patie Q15M (08/20/21 18:42) O2 (08/20/21 18:42) Remove Rings In Anticipation O (08/20/21 18:42) Lactic Acid Analyzer (08/20/21 18:42) Fibrin Degradation Products (08/20/21 18:42) Procalcitonin (Pct) (08/20/21 18:42) Hs C Reactive Protein (08/20/21 18:42) Dexamethasone Injection (Decadron Injec (08/20/21 18:45) Ekg Tracing (08/20/21 18:52) Covid-19 External Lab Results (08/20/21 18:53) Isolation Central Supply Req (08/20/21 18:53) Arterial Blood Gas (08/20/21 19:02) Alprazolam Tablet (Xanax Tablet) (08/20/21 20:00) Piperacillin Sodium/Tazobactam (Zosyn Vi (08/20/21 20:00) Diltiazem Injection (Cardizem Injection) (08/20/21 20:00) Medications Given in ED Current Medications Medications Dose Ordered Sig/Darren Route Start Time Stop Time Status Last Admin Dose Admin Dexamethasone Sodium Phosphate 6 mg ONCE ONCE IV 08/20/21 18:45 08/20/21 18:46 DC 08/20/21 19:00 6 MG Vital Signs/I&O 08/20/21 08/20/21 17:50 18:00 Temp 36.9 Pulse 120 Resp 30 B/P (MAP) 135/76 (95) Pulse Ox 95 95 O2 Delivery Nasal Cannula Nasal Cannula O2 Flow Rate 6.00 6.00 Capillary Refill : Less Than 3 Seconds Blood Pressure Mean: 95 Progress Note #1: Time: 19:08 Progress Note After seeing and evaluating the patient, patient will need inpatient treatment for Covid pneumonia/hypoxia/end-stage renal disease. Patient quite tachycardic , appears to be normal sinus rhythm which is confirmed by EKG. Patient's blood pressure 135/76. She is currently satting 94 to 95% on 6 L of oxygen per nasal cannula. No significant respiratory distress at this time. 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 I did put in a consult at this time to [place] control to help to find bed placement. Progress Note #2: Time: 19:32 Progress Note Per review of the medical record patient had left heart cath 2019 with minimal coronary artery disease noted. An echo in December 2019 showed normal normal bilateral ventricular systolic function. She does have a history of a flutter status post ablation. It seems continues to have episodes of a flutter. On reevaluation of her EKG today she may be in a 2-1 slow a flutter at 116 beats a minute. Admission control seems to have found a stent and HCA bed at [facility]. Awaiting a phone call back. Labs have been reviewed, patient has expected moderate degree of anemia with a hemoglobin of 8.6. Pro-Topher is greater than 1. CRP is elevated D-dimer is slightly elevated at 0.9. Respiratory rate is back up from 14-16 to about 20-22. She is satting 95% on her 6 L. Systolic blood pressure 156. Quite a significant bit of cardiomegaly on chest x-ray with coarse systolic murmur and significant bilateral pulmonary infiltrates consistent with Covid pneumonia Progress Note #3: Time: 19:51 Progress Note Discussed case with [facility], Dr. Allred who accepts the patient for transfer at 1945. I did go back in and talk to the patient she does take Cardizem on a daily basis. I am going to go ahead and give her a small IV bolus of 20 mg and see if we can break her tachycardia. If she is also complaining of a significant amount of anxiety. And because cultures have been obtained that her pro-Topher is elevated above 0.5 we will go ahead and put her on some community-acquired pneumonia antibiotics. She is only allergic to sulfa. ECG Initial ECG Impression Date: Aug 20, 2021 Initial ECG Impression Time: 18:59 Initial ECG Rate: 126 Initial ECG Rhythm: A Fib/Flutter Comment ? aflutter at 2:1 - I believe at 116bpm with a right bundle branch block, TN 86, QRS 152, QTc 559 Diagnostic Imaging Diagonstic Imaging: Xray Plain Films/CT/US/NM/MRI: chest Comments [facility]. [place], [place] NAME: SABINO VELASQUEZ [facility] REC#: [id number] PT STATUS: REG ER : 1965 PHYSICIAN: ZYIAD RIDDLE MD ADMIT DATE: 08/20/21/ER Signed Date of Exam:08/20/21 CHEST 1 VIEW, AP/PA ONLY INDICATION: Short of breath, hypoxia, Covid positive. EXAMINATION: Chest 08/20/2021. COMPARISON: 03/24/2020. FINDINGS: There is cardiomegaly. There are diffuse infiltrates throughout the mid and lower lungs. No effusions. No pneumothorax. IMPRESSION: Diffuse bilateral infiltrates. Dictated by: Dictated on workstation # [id number] Dict: 08/20/21 183 Trans: 08/20/21 184 [facility] [id number] Interpreted by: SANDY CAPONE MD Electronically signed by: SANDY CAPONE MD 08/20/211841 Critical Care Note Critical Care Start Time: 18:30 Total Time (minutes) 40 minutes critical care time in the evaluation and management of this patient with Covid pneumonia/hypoxemia. Room air saturations at 72% time includes initial evaluation and management of hypoxia with oxygen supplementation, review of the medical record, review of labs and imaging studies, EKG at this visit. Administration of Decadron, discussion with mission control for bed placement. Departure Impression Primary Impression: Pneumonia due to COVID-19 virus Additional Impressions: Hypoxia ESRD (end stage renal disease) on dialysis Cardiomegaly Chronic anticoagulation Atrial flutter with rapid ventricular response Disposition: T-[facility] Condition: Critical Transfer Transfer Reason: Exceeds level of care Departure-Patient Inst. Referrals: BIMAL VITAL MD (PCP/Family) Primary Care Physician ZIYAD RIDDLE MD Aug 20, 2021 18:51
[2021-08-20 18:56] LABS: ALBUMIN 3.5 GM/DL (3.2-4.5); POTASSIUM 3.2 MMOL/L (3.6-5.0)
[2021-08-20 18:59] LABS: FIBRIN DEGRADATION PRODUCTS 0.91 UG/ML (0.00-0.49); INR 1.3 (0.8-1.4); PROTHROMBIN TIME PATIENT 16.8 SEC (12.2-14.7); TOTAL PROTEIN 6.7 GM/DL (6.4-8.2)
[2021-08-20 19:00] LABS: BILIRUBIN,TOTAL 0.4 MG/DL (0.1-1.0)
[2021-08-20 19:02] LABS: CREATININE SERUM 4.78 MG/DL (0.60-1.30)
[2021-08-20 19:13] LABS: ABG BASE EXCESS 6.4 MMOL/L (-2.5-2.5); ABG OXYGEN SATURATION 99 % (94-100); ABG PCO2 39 MMHG (35-45); ABG PH 7.49 (7.37-7.43); ABG PO2 98 MMHG (79-93); ABG TCO2 31.1 MMOL/L (21.0-31.0)
[2021-08-20 19:15] LABS: ALLENS TEST POS; INSPIRED O2 6L; PATIENT TEMP 36.9; VENTILATOR NO
[2021-08-20 19:40] LABS: BILIRUBIN,URINE NEGATIVE (NEGATIVE); CLARITY,URINE CLEAR; COLOR,URINE YELLOW; GLUCOSE, URINE (UA) NEGATIVE (NEGATIVE); KETONES,URINE NEGATIVE (NEGATIVE); LEUKOCYTE ESTERASE ,URINE NEGATIVE (NEGATIVE); NITRITE,URINE NEGATIVE (NEGATIVE); PH,URINE 5.5 (5-9); PROTEIN,URINE 2+ (NEGATIVE)
[2021-08-20 19:49] LABS: AMORPHOUS SEDIMENT,UR MOD AMOR URATES /LPF; BACTERIA,URINE FEW /HPF; RBC,URINE 25-50 /HPF; WBC,URINE 0-2 /HPF
[2021-08-20] MEDS ORDERED: ALPRAZolam 0.25 MG (XANAX) TAB PO ONE (20:00)
[2021-08-20] MEDS ORDERED: PIPERACILLIN SODIUM/TAZOBACTAM 4.5 GM in NS (IVPB) 100 ML IV ONE (20:00)
[2021-08-20 21:02] VITALS: BP 158/87
== END 2021-08-20 21:42 | disposition short-term general hospital (02) ==
LOC: EDUNIT# 17:38 → ER 17:48
DX: U07.1 COVID-19 (principal); J12.82 Pneumonia due to coronavirus disease 2019; R09.02 Hypoxemia; I12.0 Hypertensive chronic kidney disease with stage 5 chronic kidney disease or end stage renal disease; E11.22 Type 2 diabetes mellitus with diabetic chronic kidney disease; N18.6 End stage renal disease; I48.92 Unspecified atrial flutter; R00.0 Tachycardia, unspecified; I13.2 Hypertensive heart and chronic kidney disease with heart failure and with stage 5 chronic kidney disease, or end stage renal disease; I50.84 End stage heart failure; J44.9 Chronic obstructive pulmonary disease, unspecified; G47.30 Sleep apnea, unspecified; E78.00 Pure hypercholesterolemia, unspecified; I48.91 Unspecified atrial fibrillation; F41.9 Anxiety disorder, unspecified; F32.9 Major depressive disorder, single episode, unspecified; G89.29 Other chronic pain; M54.9 Dorsalgia, unspecified; Z79.82 Long term (current) use of aspirin; Z79.01 Long term (current) use of anticoagulants; Z79.4 Long term (current) use of insulin; Z79.891 Long term (current) use of opiate analgesic; Z79.899 Other long term (current) drug therapy
CPT/HCPCS: 36415; 71045; 80053; 81000; 82805; 83605; 84145; 85025; 85379; 85610; 85730; 86141; 87040; 87088; 93005

== ENCOUNTER 2021-10-25 10:26 | Emergency (ER) | payer MEDICARE, MEDICAID ==
[~2021-10-25] VITALS: Ht 154 cm; Wt 105.9 kg
[2021-10-25] MEDS ORDERED: fentaNYL INJ 100 MCG/2 ML AMP IVP ONE ×2 (10:45→12:00)
--- NOTE | 2021-10-25 10:54 | ED Abdominal Pain ---
General Chief Complaint: Abdominal/GI Problems Stated Complaint: LOW ABD & BACK PAIN Nursing Triage Note: abdominal pain for 2 weeks was reffered to [facility] in [place]. Bimal Vital questions if patient may have prolapse bladder. Source of Information: Patient Exam Limitations: No Limitations History of Present Illness Date Seen by Provider: Oct 25, 2021 Time Seen by Provider: 10:33 Initial Comments Patient to ER by private conveyance from home with chief complaint of about a week of progressively worsening pain in her low back as well as in her genital area and lower abdomen/pelvis. She is not having dysuria. She thinks maybe she has a discharge. She is a dialysis patient who saw her primary care doctor who referred her on to women services but she does not have that appointment for several more weeks. She does not think she can tolerate the pain. She has not had any lab or imaging done. No speculum exam. No hematuria. She has not had or appendectomy. She has had her gallbladder out surgically. She has had a hysterectomy in the past. Allergies and Home Medications Allergies Coded Allergies: Sulfa (Sulfonamide Antibiotics) (Verified Allergy, Mild, HIVES, 01/14/18) Patient Home Medication List Home Medication List Reviewed: Yes Allopurinol (Allopurinol) 100 Mg Tablet, 100 MG PO DAILY, (Reported) Entered as Reported by: DENNYS LEIVA on 04/01/20 08 Apixaban (Eliquis) 5 Mg Tablet, 2.5 MG PO BID, (Reported) Entered as Reported by: DENNYS LEIVA on 04/01/20 08 Aspirin (Aspirin EC) 81 Mg Tablet.dr, 81 MG PO DAILY, (Reported) Entered as Reported by: DENNYS LEIVA on 04/01/20 0859 Diltiazem HCl (Cartia Xt) 180 Mg Cap.er.24h, 180 MG PO BID, (Reported) Entered as Reported by: DENNYS LEIVA on 04/01/20 0859 Duloxetine HCl (Duloxetine HCl) 20 Mg Capsule.dr, 20 MG PO DAILY, (Reported) Entered as Reported by: DENNYS LEIVA on 04/01/20 0859 Famotidine (Pepcid) 20 Mg Tablet, 20 MG PO DAILY, (Reported) Entered as Reported by: TREY WAGONER on 01/22/20 0747 Furosemide (Furosemide) 80 Mg Tablet, 160 MG PO DAILY PRN for NONDIALYSIS DAYS, (Reported) Entered as Reported by: TREY WAGONER on 01/22/20746 Gabapentin (Neurontin) 300 Mg Capsule, 300 MG PO DAILY, (Reported) Entered as Reported by: TREY WAGONER on 01/22/20746 Hydrocodone/Acetaminophen (Hydrocodone-Acetamin 5-325 mg) 1 Each Tablet, 1 EACH PO Q6H PRN for PAIN-BREAKTHROUGH Prescribed by: MIRI AGARWAL on 05/01/20 0937 Insulin Aspart (Novolog Flexpen) 300 Units/3 Ml Solution, 15 UNITS SQ AC, (Reported) Entered as Reported by: ABBEY MORENO on 03/07/19 0952 Insulin Detemir (Levemir Flextouch) 100 Unit/1 Ml Insuln.pen, 30 UNITS SC BID, (Reported) Entered as Reported by: ABBEY MORENO on 03/07/19 0948 Levothyroxine Sodium (Levothyroxine Sodium) 150 Mcg Tablet, 150 MCG PO DAILY, (Reported) Entered as Reported by: DENNYS LEIVA on 04/01/20 08 Metoprolol Succinate (Metoprolol Succinate) 100 Mg Tab.er.24h, 50 MG PO DAILY, (Reported) Entered as Reported by: DENNYS LEIVA on 04/01/20858 Potassium Chloride (Potassium Chloride) 10 Meq Tab.er.prt, 10 MEQ PO DAILY PRN for NONDIALYSIS DAYS, (Reported) Entered as Reported by: TREY WAGONER on 01/22/20746 Rosuvastatin Calcium (Crestor) 20 Mg Tablet, 20 MG PO HS, (Reported) Entered as Reported by: TREY WAGONER on 01/22/20746 Sevelamer Carbonate (Renvela) 800 Mg Tablet, 3,200 MG PO TIDWM, (Reported) Entered as Reported by: GRACE GARCIA on 01/14/20 0328 Sevelamer Carbonate (Renvela) 800 Mg Tablet, 1,600 MG PO BID W/SNACKS, (Reported) Entered as Reported by: DENNYS LEIVA on 04/01/20 0859 Simethicone (Simethicone) 180 Mg Capsule, 180 MG PO PRN PRN for GAS, (Reported) Entered as Reported by: DENNYS LEIVA on 04/01/20 0859 Trazodone HCl (Trazodone HCl) 50 Mg Tablet, 50 MG PO HS, (Reported) Entered as Reported by: TREY WAGONER on 01/22/20 0747 Review of Systems Review of Systems Constitutional: No chills, No diaphoresis EENTM: No Blurred Vision, No Double Vision Respiratory: Denies Cough, Denies Shortness of Air Cardiovascular: Denies Chest Pain, Denies Lightheadedness Gastrointestinal: See HPI, Abdominal Pain; Denies Constipated, Denies Diarrhea, Denies Nausea Genitourinary: Denies Burning, Denies Discharge Musculoskeletal: back pain; No joint pain Skin: No pruritus, No rash Psychiatric/Neurological: Denies Headache, Denies Numbness All Other Systems Reviewed Negative Unless Noted: Yes Past Hkqobpn-Oxspkd-Nlhdsz Hx Patient Social History Tobacco Use?: No Use of E-Cig and/or Vaping dev: No Substance use?: No Immunizations Up To Date Tetanus Booster (TDap): Less than 5yrs PED Vaccines UTD: Yes First/Initial COVID19 Vaccinat: 2020 Second COVID19 Vaccination Amarjit: Sunday08/11/21 Seasonal Allergies Seasonal Allergies: Yes Past Medical History Surgery/Hospitalization HX: DIALYSIS Surgeries: Yes (PILONIDAL CYST; DX LAPAROSCOPY; HYST/BSO, dialysis shunt in right forearm) Cardiac, Dialysis, Gallbladder, Hysterectomy, Oophorectomy Respiratory: Yes Sleep Apnea, COPD Currently Using CPAP: Yes Cardiac: Yes (CHF; ELEVATED TRIGLYCERIDES; A FLUTTER, ABLATION) Atrial Fibrillation, Chronic Edema/Swelling, High Cholesterol, Hypertension, Irregular Heartbeat Neurological: Yes Neuropathy 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 Disorders: No Female 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 Disorders: 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, 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 Sexually Transmitted Disease: No HIV/AIDS: No Genitourinary: Yes (DIALYSIS M-W-F) Renal Failure, Dialysis, UTI-Chronic Gastrointestinal: Yes Chronic Constipation, Chronic Diarrhea Musculoskeletal: Yes Arthritis, Chronic Back Pain Endocrine: Yes Diabetes, Insulin dep HEENT: No Loss of Vision: Bilateral Hearing Impairment: Denies Cancer: Yes Skin Psychosocial: Yes Anxiety, Depression Integumentary: Yes (skin lesion) Blood Disorders: No Adverse Reaction/Blood Tranf: No (N/A) Family Medical History Cardiovascular disease G8 SISTER Diabetes mellitus G8 SISTER FH: lung cancer G8 SISTER Physical Exam Vital Signs Vital Signs - First Documented 10/25/21 10:38 Temp 37.0 Pulse 79 Resp 20 B/P (MAP) 140/65 (90) Pulse Ox 98 O2 Delivery Room Air Capillary Refill : Less Than 3 Seconds Height/Weight/BMI Height: 5'3.00" Weight: 264lbs. 1.0oz. 119.885874mg; 44.00 BMI Method:Stated General Appearance: WD/WN, mild distress HEENT: PERRL/EOMI, normal ENT inspection Neck: full range of motion, supple, normal inspection Respiratory: lungs clear, normal breath sounds, no respiratory distress, no accessory muscle use Cardiovascular: normal peripheral pulses, regular rate, rhythm Peripheral Pulses: 2+ Radial Pulses (R), 2+ Radial Pulses (L) Gastrointestinal: normal bowel sounds, soft, tenderness (Bilateral lower abdomen and suprapubic without Rovsing sign or mesenteric signs), other (Significant obese body habitus makes good examination difficult) Pelvic: normal external exam, other (Normal complement of vaginal discharge. Positioning was suboptimal due to patient's low back pain. We were able to get a speculum in and get a wet prep and were not able to palpate either ovary on manual exam. No masses or nodules. No bleeding.) Neurologic/Psychiatric: alert, oriented x 3 Skin: normal color, warm/dry Procedures/Interventions Patient Education: Explained Benefits, Explained Risks, Pt. Ack. Understanding Patient History: Sleep Apnea Breath Sounds per Auscultation: Clear Heart Sounds per Auscultation: Regular Airway Exam: Mouth opens >2 fingers, Neck Full Range of Motion, Visulation of Uvula Sedation Adminstration Time: 1733 Progress/Results/Core Measures Results/Orders Lab Results Laboratory Tests Test 10/25/21 10:50 10/25/21 14:53 10/25/21 15:03 Range/Units White Blood Count 9.8 4.3-11.0 10^3/uL Red Blood Count 3.43 L 3.80-5.11 10^6/uL Hemoglobin 10.9 L 11.5-16.0 g/dL Hematocrit 36 35-52 % Mean Corpuscular Volume 105 H 80-99 fL Mean Corpuscular Hemoglobin 32 25-34 pg Mean Corpuscular Hemoglobin Concent 30 L 32-36 g/dL Red Cell Distribution Width 17.4 H 10.0-14.5 % Platelet Count 189 130-400 10^3/uL Mean Platelet Volume 10.5 9.0-12.2 fL Immature Granulocyte % (Auto) 1 % Neutrophils (%) (Auto) 60 42-75 % Lymphocytes (%) (Auto) 32 12-44 % Monocytes (%) (Auto) 6 0-12 % Eosinophils (%) (Auto) 2 0-10 % Basophils (%) (Auto) 1 0-10 % Neutrophils # (Auto) 5.8 1.8-7.8 10^3/uL Lymphocytes # (Auto) 3.1 1.0-4.0 10^3/uL Monocytes # (Auto) 0.6 0.0-1.0 10^3/uL Eosinophils # (Auto) 0.2 0.0-0.3 10^3/uL Basophils # (Auto) 0.1 0.0-0.1 10^3/uL Immature Granulocyte # (Auto) 0.1 0.0-0.1 10^3/uL Sodium Level 140 135-145 MMOL/L Potassium Level 3.9 3.6-5.0 MMOL/L Chloride Level 98 98-107 MMOL/L Carbon Dioxide Level 25 21-32 MMOL/L Anion Gap 17 H 5-14 MMOL/L Blood Urea Nitrogen 28 H 7-18 MG/DL Creatinine 4.63 H 0.60-1.30 MG/DL Estimat Glomerular Filtration Rate 10 BUN/Creatinine Ratio 6 Glucose Level 230 H 70-105 MG/DL Calcium Level 9.5 8.5-10.1 MG/DL Corrected Calcium 9.4 8.5-10.1 MG/DL Magnesium Level 1.9 1.6-2.4 MG/DL Total Bilirubin 0.5 0.1-1.0 MG/DL Aspartate Amino Transf (AST/SGOT) 16 5-34 U/L Alanine Aminotransferase (ALT/SGPT) 14 0-55 U/L Alkaline Phosphatase 71 40-136 U/L C-Reactive Protein High Sensitivity 2.90 H 0.00-0.50 MG/DL Total Protein 6.7 6.4-8.2 GM/DL Albumin 4.1 3.2-4.5 GM/DL Glucometer 182 H 70-110 MG/DL Urine Color YELLOW Urine Clarity CLOUDY Urine pH 5.5 5-9 Urine Specific [place] >=1.030 1.016-1.022 Urine Protein 3+ H NEGATIVE Urine Glucose (UA) NEGATIVE NEGATIVE Urine Ketones NEGATIVE NEGATIVE Urine Nitrite NEGATIVE NEGATIVE Urine Bilirubin 2+ H NEGATIVE Urine Urobilinogen 0.2 < = 1.0 MG/DL Urine Leukocyte Esterase TRACE H NEGATIVE Urine RBC (Auto) 2+ H NEGATIVE Urine RBC 10-25 H /HPF Urine WBC RARE /HPF Urine Squamous Epithelial Cells 10-25 H /HPF Urine Crystals PRESENT H /LPF Urine Amorphous Sediment FEW NATALEE URATES H /LPF Urine Bacteria FEW H /HPF Urine Casts NONE /LPF Urine Mucus NEGATIVE /LPF Urine Culture Indicated NO Micro Results Microbiology 10/25/21 Wet Prep - Final, Complete My Orders Orders - MIRI AGARWAL Ua Culture If Indicated (10/25/21 10:34) Cbc With Automated Diff (10/25/21 10:43) Comprehensive Metabolic Panel (10/25/21 10:43) Hs C Reactive Protein (10/25/21 10:43) Magnesium (10/25/21 10:43) Wet Prep (10/25/21 10:43) Fentanyl Inj (Sublimaze Injection) (10/25/21 10:45) Fentanyl Inj (Sublimaze Injection) (10/25/21 12:00) Morphine Injection (Morphine Injection (10/25/21 12:54) Ct Abdomen/Pelvis Wo (10/25/21 12:52) Ondansetron Injection (Zofran Injectio (10/25/21 15:00) Accucheck Stat ONCE (10/25/21 14:51) Medications Given in ED Current Medications Medications Dose Ordered Sig/Darren Route Start Time Stop Time Status Last Admin Dose Admin Fentanyl Citrate 50 mcg ONCE ONCE IVP 10/25/21 10:45 10/25/21 10:48 DC 10/25/21 10:57 50 MCG Fentanyl Citrate 50 mcg ONCE ONCE IVP 10/25/21 12:00 10/25/21 12:01 DC 10/25/21 11:55 50 MCG Ondansetron HCl 8 mg ONCE ONCE IVP 10/25/21 15:00 10/25/21 15:01 DC 10/25/21 14:55 8 MG Vital Signs/I&O 10/25/21 10:38 Temp 37.0 Pulse 79 Resp 20 B/P (MAP) 140/65 (90) Pulse Ox 98 O2 Delivery Room Air Blood Pressure Mean: 90 Progress Progress Note #1: Time: 10:52 Progress Note Plan to do a speculum exam, wet prep, urinalysis labs and will discuss the case with gynecology about appropriate imaging based on our findings and exam. Progress Note #2: Time: 11:54 Progress Note After her pelvic exam we were able to get a wet prep but because of the suboptimal nature of positioning in her significant back pain we had to settle for a less than diagnostic view. Manual exam was not able to palpate any significant nodules or masses. Another 50 mcg of fentanyl for her low back pain were ordered. A voicemail was left for Dr. Miranda, gynecology on-call. Diagnostic Imaging Diagonstic Imaging: CT Plain Films/CT/US/NM/MRI: abdomen, pelvis Comments [facility]. [place], [place] NAME: SABINO VELASQUEZ [facility] REC#: [id number] PT STATUS: REG ER : 1965 PHYSICIAN: MIRI AGARWAL MD ADMIT DATE: 10/25/21/ER Draft Date of Exam:10/25/21 CT ABDOMEN/PELVIS WO PROCEDURE: CT abdomen and pelvis without contrast. TECHNIQUE: Multiple contiguous axial images were obtained through the abdomen and pelvis without the use of intravenous contrast. Auto Exposure Controls were utilized during the CT exam to meet ALARA standards for radiation dose reduction. INDICATION: Lower pelvic pain. Patient is on dialysis. COMPARISON: Correlation is made with prior CT from 01/21/2021. FINDINGS: Imaging through the lung bases demonstrates the heart to be enlarged. Lung bases are clear. The liver is enlarged measuring up to 23 cm. The gallbladder is surgically absent. There is no biliary ductal dilatation. Pancreas and spleen are unremarkable. No adrenal mass is detected. Bilateral renal atrophy is noted. No calculi or hydronephrosis are seen. Aorta and iliac vessels are calcified but nonaneurysmal. Bowel loops are normal in caliber. There is diverticulosis of the sigmoid and descending colon but no evidence of acute diverticulitis. There is a fat-containing umbilical hernia. There is some edema in the subcutaneous tissues of the anterior abdominal wall. No free fluid or fluid collection is seen. The bladder is decompressed. The uterus appears to be absent or atrophic. Bony structures are nonacute. IMPRESSION: 1. Hepatomegaly and uncomplicated diverticulosis. 2. Cardiomegaly. 3. Fat-containing umbilical hernia. 4. Bilateral renal atrophy. 5. No acute feature detected. Dictated on workstation # [id number] Dict: 10/25/21 1330 Trans: 10/25/21 1344 [id number] Interpreted by: ARPITA GUADARRAMA MD Electronically signed by: Reviewed: Reviewed by Me Departure Impression Primary Impression: Pelvic pain Disposition: HOME, SELF-CARE Condition: Stable Departure-Patient Inst. Decision time for Depature: 15:33 Referrals: BIMAL VITAL MD (PCP/Family) Primary Care Physician Patient Instructions: Pelvic Pain (DC), Pelvic Floor Exercises Add. Discharge Instructions: Keep your follow-up appointment with women services. You can get records by going to medical records today or during the week during business hours and getting copies. Tylenol 650 mg every 6 hours as needed for pain. Hydrocodone 1 tablet every 6 hours as needed for severe breakthrough pain keeping you from being functional. May cause constipation and drowsiness and increased risk of falls. Do not drive or drink alcohol under the influence of hydrocodone. All discharge instructions reviewed with patient and/or family. Voiced understanding. Scripts Hydrocodone/Acetaminophen (Hydrocodone-Acetamin 5-325 mg) 1 Each Tablet 1 TAB PO Q6H PRN for PAIN-MODERATE (5-7), #14 TAB 0 Refills Prov: MIRI AGARWAL 10/25/21 Copy Copies To 1: BIMAL VITAL MD, TITUS J Oct 25, 2021 10:54
[2021-10-25 10:59] LABS: BASOPHILS # (AUTO) 0.1 10^3/uL (0.0-0.1); BASOPHILS % (AUTO) 1 % (0-10); EOSINOPHILS # (AUTO) 0.2 10^3/uL (0.0-0.3); EOSINOPHILS % (AUTO) 2 % (0-10); HEMATOCRIT 36 % (35-52); HEMOGLOBIN 10.9 g/dL (11.5-16.0); LYMPHOCYTES # (AUTO) 3.1 10^3/uL (1.0-4.0); LYMPHOCYTES % (AUTO) 32 % (12-44); MEAN CORPUSCULAR HEMOGLOBIN 32 pg (25-34); MEAN CORPUSCULAR HGB CONC 30 g/dL (32-36); MEAN CORPUSCULAR VOLUME 105 fL (80-99); MEAN PLATELET VOLUME 10.5 fL (9.0-12.2); MONOCYTES # (AUTO) 0.6 10^3/uL (0.0-1.0); MONOCYTES % (AUTO) 6 % (0-12); NEUTROPHILS # (AUTO) 5.8 10^3/uL (1.8-7.8); NEUTROPHILS % (AUTO) 60 % (42-75); PLATELET COUNT 189 10^3/uL (130-400); WHITE BLOOD COUNT 9.8 10^3/uL (4.3-11.0)
[2021-10-25 11:15] LABS: ALBUMIN 4.1 GM/DL (3.2-4.5); POTASSIUM 3.9 MMOL/L (3.6-5.0)
[2021-10-25 11:16] LABS: CALCIUM 9.5 MG/DL (8.5-10.1)
[2021-10-25 11:18] LABS: TOTAL PROTEIN 6.7 GM/DL (6.4-8.2)
[2021-10-25 11:19] LABS: BILIRUBIN,TOTAL 0.5 MG/DL (0.1-1.0)
[2021-10-25 11:21] LABS: CREATININE SERUM 4.63 MG/DL (0.60-1.30)
[2021-10-25 11:24] LABS: MAGNESIUM 1.9 MG/DL (1.6-2.4)
[2021-10-25] MEDS ORDERED: morphine INJ 10 MG/ML 1ML (SYR OR VIAL) IVP STA (12:54)
--- NOTE | 2021-10-25 13:44 | Diagnostic Imaging Report ---
PROCEDURE: CT abdomen and pelvis without contrast. TECHNIQUE: Multiple contiguous axial images were obtained through the abdomen and pelvis without the use of intravenous contrast. Auto Exposure Controls were utilized during the CT exam to meet ALARA standards for radiation dose reduction. INDICATION: Lower pelvic pain. Patient is on dialysis. COMPARISON: Correlation is made with prior CT from 01/21/2021. FINDINGS: Imaging through the lung bases demonstrates the heart to be enlarged. Lung bases are clear. The liver is enlarged measuring up to 23 cm. The gallbladder is surgically absent. There is no biliary ductal dilatation. Pancreas and spleen are unremarkable. No adrenal mass is detected. Bilateral renal atrophy is noted. No calculi or hydronephrosis are seen. Aorta and iliac vessels are calcified but nonaneurysmal. Bowel loops are normal in caliber. There is diverticulosis of the sigmoid and descending colon but no evidence of acute diverticulitis. There is a fat-containing umbilical hernia. There is some edema in the subcutaneous tissues of the anterior abdominal wall. No free fluid or fluid collection is seen. The bladder is decompressed. The uterus appears to be absent or atrophic. Bony structures are nonacute. IMPRESSION: 1. Hepatomegaly and uncomplicated diverticulosis. 2. Cardiomegaly. 3. Fat-containing umbilical hernia. 4. Bilateral renal atrophy. 5. No acute feature detected. Dictated by: Dictated on workstation # [id number]
[2021-10-25] MEDS ORDERED: ONDANSETRON 4 MG/2 ML (SDV) Z0FRAN IVP ONE (15:00)
[2021-10-25 15:11] LABS: CLARITY,URINE CLOUDY; COLOR,URINE YELLOW; GLUCOSE, URINE (UA) NEGATIVE (NEGATIVE); KETONES,URINE NEGATIVE (NEGATIVE); LEUKOCYTE ESTERASE ,URINE TRACE (NEGATIVE); NITRITE,URINE NEGATIVE (NEGATIVE); PH,URINE 5.5 (5-9); PROTEIN,URINE 3+ (NEGATIVE)
[2021-10-25 15:19] LABS: BILIRUBIN,URINE 2+ (NEGATIVE)
[2021-10-25 15:20] LABS: AMORPHOUS SEDIMENT,UR FEW AMOR URATES /LPF; BACTERIA,URINE FEW /HPF; WBC,URINE RARE /HPF
[2021-10-25] MEDS ORDERED: ACHD5005 PO (15:35)
[2021-10-25 15:42] VITALS: BP 162/74
== END 2021-10-25 15:43 | disposition home or self-care (01) ==
LOC: EDUNIT# 10:26 → ER 10:27
DX: R10.2 Pelvic and perineal pain (principal); E66.9 Obesity, unspecified; Z68.41 Body mass index [BMI] 40.0-44.9, adult
CPT/HCPCS: 36415; 74176; 80053; 81000; 82947; 83735; 85025; 86141; 87210

== ENCOUNTER 2021-11-20 06:19 | Emergency (ER) | payer MEDICARE, MEDICAID ==
[~2021-11-20] VITALS: Ht 157.4 cm; Wt 108.7 kg
--- NOTE | 2021-11-20 06:34 | ED Abdominal Pain ---
General Chief Complaint: Abdominal/GI Problems Stated Complaint: R UPPER SIDE/BACK PAIN Source of Information: Patient History of Present Illness Date Seen by Provider: November 20, 2021 Time Seen by Provider: 06:25 Initial Comments PT ARRIVES VIA POV FROM HOME C/O RIGHT FLANK AND RIGHT SIDED ABDOMINAL PAIN SINCE Sunday11/17/21 PAIN COMES AND GOES, BUT WOKE HER UP AT 0300 AND IS WORSE THAN IT HAS BEEN AND IS CONSTANT NOTHING WORSENS OR IMPROVES PAIN HAS NOT TAKEN ANYTHING FOR PAIN NO FEVER + NAUSEA, NO VOMITING PT HAS CHRONIC CONSTIPATION, HAD A VERY SMALL BM YESTERDAY. NO BLACK/BLOODY/TARRY STOOLS PT HAS ESRD ON DIALYSIS --, AND NO MISSED DIALYSIS SESSIONS. PT STILL MAKES URINE AND VOIDED JUST PRIOR TO ARRIVAL C/O SOME PRESSURE ON URINATION AND ONLY MILD BURNING/DISCOMFORT ON URINATION PT HAD BEEN HAVING SOME ONGOING PELVIC PAIN FOR THE LAST COUPLE OF WEEKS, AND WAS SEEN HERE IN ER 11/04/21, THEN FOLLOWED UP WITH DR. BIMAL VITAL 1-2 WEEKS AGO FOR THAT PROBLEM--NO TESTS OR RX GIVEN, THEN SAW PROJECT FINANCE ANALYST IN [place] THIS PAST WEEK AND DX WITH YEAST INFECTION. PT HAS HAD 2 DOSES OF DIFLUCAN AND HER PELVIC PAIN AND EXTERNAL GENITAL PAIN HAVE COMPLETELY RESOLVED. PT HAS NOT SOUGHT CARE UNTIL TODAY STATES SHE HAS NOT TAKEN ANYTHING FOR PAIN NO HISTORY OF SIMILAR HAS CHRONIC LOW BACK PAIN AND SCIATICA, BUT THIS PAIN IS DIFFERENT AND IN A DIFFERENT LOCATION THAN HER CHRONIC BACK PAIN WITH SCIATICA. PT HAS HAD CHOLECYSTECTOMY AND HYSTERECTOMY/BILATERAL SALPINGO-OOPHORECTOMY FOR BENIGN DISEASE. PT HAS NOT TAKEN ANY OF HER MORNING MEDICATIONS HAS HAD COVID-19 VACCINE X 2, NO BOOSTER HAS HAD SEASONAL FLU VACCINE. PCP: EDGARD-KHURRAM, DR. BIMAL VITAL MOLD YARD SUPERVISOR: DR. Chicas" Allergies and Home Medications Allergies Coded Allergies: Sulfa (Sulfonamide Antibiotics) (Verified Allergy, Mild, HIVES, 01/14/18) Patient Home Medication List Home Medication List Reviewed: Yes Allopurinol (Allopurinol) 100 Mg Tablet, 100 MG PO DAILY, (Reported) Entered as Reported by: DENNYS LEIVA on 04/01/20 0859 Apixaban (Eliquis) 5 Mg Tablet, 2.5 MG PO BID, (Reported) Entered as Reported by: DENNYS LEIVA on 04/01/20 0859 Aspirin (Aspirin EC) 81 Mg Tablet.dr, 81 MG PO DAILY, (Reported) Entered as Reported by: DENNYS LEIVA on 04/01/20 08 Diltiazem HCl (Cartia Xt) 180 Mg Cap.er.24h, 180 MG PO BID, (Reported) Entered as Reported by: DENNYS LEIVA on 04/01/20 08 Duloxetine HCl (Duloxetine HCl) 20 Mg Capsule.dr, 20 MG PO DAILY, (Reported) Entered as Reported by: DENNYS LEIVA on 04/01/20 08 Famotidine (Pepcid) 20 Mg Tablet, 20 MG PO DAILY, (Reported) Entered as Reported by: TREY WAGONER on 01/22/20746 Furosemide (Furosemide) 80 Mg Tablet, 160 MG PO DAILY PRN for NONDIALYSIS DAYS, (Reported) Entered as Reported by: TREY WAGONER on 01/22/20746 Gabapentin (Neurontin) 300 Mg Capsule, 300 MG PO DAILY, (Reported) Entered as Reported by: TREY WAGONER on 01/22/20746 Hydrocodone/Acetaminophen (Hydrocodone-Acetamin 5-325 mg) 1 Each Tablet, 1 EACH PO Q6H PRN for PAIN-BREAKTHROUGH Prescribed by: MIRI AGARWAL on 05/01/20 0937 Hydrocodone/Acetaminophen (Hydrocodone-Acetamin 5-325 mg) 1 Each Tablet, 1 TAB PO Q6H PRN for PAIN-MODERATE (5-7) Prescribed by: MIRI AGARWAL on 10/25/21 1535 Insulin Aspart (Novolog Flexpen) 300 Units/3 Ml Solution, 15 UNITS SQ AC, (Reported) Entered as Reported by: ABBEY MORENO on 03/07/19 0952 Insulin Detemir (Levemir Flextouch) 100 Unit/1 Ml Insuln.pen, 30 UNITS SC BID, (Reported) Entered as Reported by: ABBEY MORENO on 03/07/19 0948 Levothyroxine Sodium (Levothyroxine Sodium) 150 Mcg Tablet, 150 MCG PO DAILY, (Reported) Entered as Reported by: DENNYS LEIVA on 04/01/20 08 Metoprolol Succinate (Metoprolol Succinate) 100 Mg Tab.er.24h, 50 MG PO DAILY, (Reported) Entered as Reported by: DENNYS LEIVA on 04/01/20 0859 Potassium Chloride (Potassium Chloride) 10 Meq Tab.er.prt, 10 MEQ PO DAILY PRN for NONDIALYSIS DAYS, (Reported) Entered as Reported by: TREY WAGONER on 01/22/20 0747 Rosuvastatin Calcium (Crestor) 20 Mg Tablet, 20 MG PO HS, (Reported) Entered as Reported by: TREY WAGONER on 01/22/20 07 Sevelamer Carbonate (Renvela) 800 Mg Tablet, 3,200 MG PO TIDWM, (Reported) Entered as Reported by: GRACE GARCIA on 01/14/20 0328 Sevelamer Carbonate (Renvela) 800 Mg Tablet, 1,600 MG PO BID W/SNACKS, (Reported) Entered as Reported by: DENNYS LEIVA on 04/01/20 0859 Simethicone (Simethicone) 180 Mg Capsule, 180 MG PO PRN PRN for GAS, (Reported) Entered as Reported by: DENNYS LEIVA on 04/01/20 0859 Trazodone HCl (Trazodone HCl) 50 Mg Tablet, 50 MG PO HS, (Reported) Entered as Reported by: TREY WAGONER on 01/22/2047 Review of Systems Review of Systems Constitutional: no symptoms reported; No chills, No diaphoresis, No dizziness EENTM: No Symptoms Reported Respiratory: No Symptoms Reported; Denies Cough, Denies Shortness of Air Cardiovascular: No Symptoms Reported; Denies Chest Pain Gastrointestinal: See HPI, Abdominal Pain, Constipated, Nausea; Denies Vomiting Genitourinary: See HPI Musculoskeletal: see HPI, back pain Skin: no symptoms reported; No rash Psychiatric/Neurological: No Symptoms Reported Endocrine: No Symptoms Reported Hematologic/Lymphatic: No Symptoms Reported Past Zidesom-Gozzss-Ilrppq Hx Patient Social History Tobacco Use?: Yes Tobacco type used: Cigarettes Smoking Status: Former Smoker Use of E-Cig and/or Vaping dev: No Substance use?: Yes Substance type: Marijuana Substance frequency: Couple times a week Alcohol Use?: Yes Alcohol Frequency: Rarely Pt feels they are or have been: No Immunizations Up To Date Tetanus Booster (TDap): Less than 5yrs PED Vaccines UTD: Yes Influenza Vaccine Up-to-Date: Yes; Up-to-Date First/Initial COVID19 Vaccinat: 2020 Second COVID19 Vaccination Amarjit: Sunday08/11/21 Third COVID19 Vaccination Date: 2020 Seasonal Allergies Seasonal Allergies: Yes Past Medical History Surgeries: Yes (PILONIDAL CYST; DX LAPAROSCOPY; HYST/BSO, dialysis shunt in right forearm) Abdominal, Cardiac, Dialysis, Gallbladder, Hysterectomy, Oophorectomy, Vascular Surgery Respiratory: Yes (COVID-19 INFECTION 08/2021--NO HOSPITALIZATION OR TX) Sleep Apnea, COPD Currently Using CPAP: Yes Cardiac: Yes (CHF; ELEVATED TRIGLYCERIDES; A FLUTTER WITH ABLATION;RBBB) Atrial Fibrillation, Chronic Edema/Swelling, High Cholesterol, Hypertension, Irregular Heartbeat Neurological: Yes Neuropathy 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 Disorders: Yes (CHRONIC PELVIC PAIN--S/P HYST/BSO) Female 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 Disorders: 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, Ovarian Cyst MEDICAL PRACTITIONERS History: Hysterectomy, Menopausal Sexually Transmitted Disease: No HIV/AIDS: No Genitourinary: Yes (DIALYSIS M-W-F) Renal Failure, Dialysis, UTI-Chronic Gastrointestinal: Yes Abdominal Hernia, Gastroesophageal Reflux, Chronic Constipation, Diverticulosis, Chronic Diarrhea, Polyps Musculoskeletal: Yes (CHRONIC SCIATICA) Arthritis, Chronic Back Pain, Gout Endocrine: Yes (MORBID OBESITY) Diabetes, Insulin dep HEENT: No Loss of Vision: Bilateral Hearing Impairment: Denies Cancer: Yes Skin Did You Recieve Any Treatments: Yes What Type of Treatment Did You: Surgical Intervention Psychosocial: Yes Anxiety, Depression Integumentary: Yes (SKIN LESION REMOVED; PILONIDAL CYST REMOVED) Blood Disorders: No Adverse Reaction/Blood Tranf: No (N/A) Family Medical History Cardiovascular disease G8 SISTER Diabetes mellitus G8 SISTER FH: lung cancer G8 SISTER SOCIAL HISTORY: -SMOKED 1 PPD, QUIT 1998 -ETOH--MILD TO MODERATE USE IN PAST, NOW VERY RARELY DRINKS -DRUGS--REGULAR MARIJUANA USE PAST SURGICAL HISTORY: --CARDIAC CATHS--MOST RECENT ONE DONE HERE WAS 04/01/[address] RIVERA: FINDINGS: 1.Left main: separate ostia. 2.LAD: luminal irregularities. 3.Left circumflex artery: luminal irregularities. 4.RCA: patent. 5.Left heart catheterization: LV pressure 109/7 mmHg. LVEDP 17 mmHg. Aortic pressure 105/65 mmHg. Normal LV function with no wall motion abnormalities. No gradient across the aortic valve. 6. Aortic arch angiogram: No evidence of proximal aneurysm or dissection. Patent proximal segments of the great arteries. -CHOLECYSTECTOMY -HERNIA REPAIR WITH CHOLECYSTECTOMY-HERNIA RECURRED, BUT NO REPEAT SURGERY -HYSTERECTOMY/BILATERAL SALPINGO-OOPHORECTOMY FOR BENIGN DISEASE > 30 YEARS AGO -RIGHT ARM DIALYSIS GRAFT/A-V FISTULA -EGD/COLONOSCOPIES X 2 WITH POLYPECTOMIES -PILONIDAL CYST REMOVED -DIAGNOSTIC LAPAROSCOPY FOR CHRONIC PELVIC PAIN Physical Exam Vital Signs Vital Signs - First Documented 11/20/21 11/20/21 06:29 09:17 Temp 36.8 Pulse 79 Resp 22 B/P (MAP) 184/89 (120) Pulse Ox 97 O2 Delivery Room Air Capillary Refill : Height/Weight/BMI Height: 5'3.00" Weight: 264lbs. 1.0oz. 119.632506vi; 44.00 BMI Method:Stated General Appearance: WD/WN, obese (MORBIDLY), other (LOOKS UNCOMFORTABLE) Neck: non-tender, full range of motion, supple, normal inspection Respiratory: normal breath sounds, no respiratory distress, no accessory muscle use Cardiovascular: regular rate, rhythm, no murmur Gastrointestinal: soft, tenderness (MARKED DIFFUSE RIGHT FLANK AND RIGHT SIDED TENDERNESS. ), hernia (LARGE VENTRAL HERNIA, NON-TENDER), other (MORBIDLY OBESE, UNABLE TO DETERMINE IF ORGANOMEGALY IS PRESENT) Extremities: normal range of motion, non-tender, normal capillary refill, pedal edema (1+ EDEMA BILATERALLY) Back: no vertebral tenderness, CVA tenderness (R) Neurologic/Psychiatric: assistant fitness manager II-XII nml as tested, no motor/sensory deficits (HX PERIPHERAL NEUROPATHY), alert, normal mood/affect, oriented x 3 Skin: normal color, warm/dry; No rash Focused Exam Sepsis Stage: Ruled Out Reason for ruling out sepsis: DOES NOT MEET CRITERIA Possible Source: Genitouriary Lactate Level 11/20/21 08:15: Lactic Acid Level 1.28 Time of Focused Exam: 08:30 Respiratory: Normal Breath Sounds, No Accessory Muscle Use, No Respiratory Distress Cardiovascular: Regular Rate, Rhythm, No Edema, No JVD, No Murmur, Normal Peripheral Pulses Capillary Refill: Less Than 3 Seconds Skin: normal color, warm/dry Lactic Acid Level Laboratory Tests Test 11/20/21 08:15 Lactic Acid Level 1.28 MMOL/L (0.50-2.00) Within 3hrs of presentation: Admin ABX, Blood cultures prior to ABX's, Focus exam, Lactate level Procedures/Interventions Patient Education: Explained Benefits, Explained Risks, Pt. Ack. Understanding Patient History: Sleep Apnea Breath Sounds per Auscultation: Clear Heart Sounds per Auscultation: Regular Airway Exam: Mouth opens >2 fingers, Neck Full Range of Motion, Visulation of Uvula Sedation Adminstration Time: 1733 Progress/Results/Core Measures Results/Orders Lab Results Laboratory Tests Test 11/20/21 07:50 11/20/21 08:15 Range/Units White Blood Count 8.1 4.3-11.0 10^3/uL Red Blood Count 3.44 L 3.80-5.11 10^6/uL Hemoglobin 10.7 L 11.5-16.0 g/dL Hematocrit 34 L 35-52 % Mean Corpuscular Volume 100 H 80-99 fL Mean Corpuscular Hemoglobin 31 25-34 pg Mean Corpuscular Hemoglobin Concent 31 L 32-36 g/dL Red Cell Distribution Width 16.1 H 10.0-14.5 % Platelet Count 119 L 130-400 10^3/uL Mean Platelet Volume 11.3 9.0-12.2 fL Immature Granulocyte % (Auto) 2 % Neutrophils (%) (Auto) 76 H 42-75 % Lymphocytes (%) (Auto) 15 12-44 % Monocytes (%) (Auto) 6 0-12 % Eosinophils (%) (Auto) 1 0-10 % Basophils (%) (Auto) 1 0-10 % Neutrophils # (Auto) 6.2 1.8-7.8 10^3/uL Lymphocytes # (Auto) 1.3 1.0-4.0 10^3/uL Monocytes # (Auto) 0.5 0.0-1.0 10^3/uL Eosinophils # (Auto) 0.1 0.0-0.3 10^3/uL Basophils # (Auto) 0.0 0.0-0.1 10^3/uL Immature Granulocyte # (Auto) 0.1 0.0-0.1 10^3/uL Percent Immature Platelet Fraction 3.9 0.0-7.6 % Prothrombin Time 15.1 H 12.2-14.7 SEC INR Comment 1.1 0.8-1.4 Activated Partial Thromboplast Time 28 24-35 SEC Urine Color YELLOW Urine Clarity CLEAR Urine pH 6.0 5-9 Urine Specific [place] 1.020 1.016-1.022 Urine Protein 2+ H NEGATIVE Urine Glucose (UA) 3+ H NEGATIVE Urine Ketones NEGATIVE NEGATIVE Urine Nitrite NEGATIVE NEGATIVE Urine Bilirubin NEGATIVE NEGATIVE Urine Urobilinogen 0.2 < = 1.0 MG/DL Urine Leukocyte Esterase NEGATIVE NEGATIVE Urine RBC (Auto) TRACE-I H NEGATIVE Urine RBC 0-2 /HPF Urine WBC 2-5 /HPF Urine Crystals NONE /LPF Urine Bacteria TRACE /HPF Urine Casts NONE /LPF Urine Mucus NEGATIVE /LPF Urine Culture Indicated CULTURE PENDING Sodium Level 138 135-145 MMOL/L Potassium Level 4.4 3.6-5.0 MMOL/L Chloride Level 98 98-107 MMOL/L Carbon Dioxide Level 21 21-32 MMOL/L Anion Gap 19 H 5-14 MMOL/L Blood Urea Nitrogen 87 H 7-18 MG/DL Creatinine 9.14 H 0.60-1.30 MG/DL Estimat Glomerular Filtration Rate 5 BUN/Creatinine Ratio 10 Glucose Level 345 H 70-105 MG/DL Calcium Level 8.7 8.5-10.1 MG/DL Corrected Calcium 8.8 8.5-10.1 MG/DL Phosphorus Level 8.0 H 2.3-4.7 MG/DL Magnesium Level 2.1 1.6-2.4 MG/DL Total Bilirubin 0.4 0.1-1.0 MG/DL Aspartate Amino Transf (AST/SGOT) 8 5-34 U/L Alanine Aminotransferase (ALT/SGPT) 10 0-55 U/L Alkaline Phosphatase 75 40-136 U/L Troponin I 0.034 H <0.028 NG/ML Total Protein 6.8 6.4-8.2 GM/DL Albumin 3.9 3.2-4.5 GM/DL Amylase Level 67 25-125 U/L Lipase 368 H 8-78 U/L Procalcitonin 0.74 H <0.10 NG/ML Digoxin Level < 0.30 L 0.80-2.00 NG/ML Urine Opiates Screen POSITIVE H NEGATIVE Urine Oxycodone Screen NEGATIVE NEGATIVE Urine Methadone Screen NEGATIVE NEGATIVE Urine Propoxyphene Screen NEGATIVE NEGATIVE Urine Barbiturates Screen NEGATIVE NEGATIVE Ur Tricyclic Antidepressants Screen NEGATIVE NEGATIVE Urine Phencyclidine Screen NEGATIVE NEGATIVE Urine Amphetamines Screen NEGATIVE NEGATIVE Urine Methamphetamines Screen NEGATIVE NEGATIVE Urine Benzodiazepines Screen NEGATIVE NEGATIVE Urine Cocaine Screen NEGATIVE NEGATIVE Urine Cannabinoids Screen POSITIVE H NEGATIVE Lactic Acid Level 1.28 0.50-2.00 MMOL/L Micro Results Microbiology 11/20/21 Blood Culture - Preliminary, Resulted No growth 11/20/21 Blood Culture - Preliminary, Resulted No growth 11/20/21 Urine Culture - Final, Complete NO GROWTH My Orders Orders - BENTON SANDERS DO Ed Iv/Invasive Line Start (11/20/21 06:28) Ekg Tracing (11/20/21 06:28) Monitor-Rhythm Ecg Trace Only (11/20/21 06:28) Amylase (11/20/21 06:28) Cbc With Automated Diff (11/20/21:28) Comprehensive Metabolic Panel (11/20/21 06:28) Lipase (11/20/21 06:28) Magnesium (11/20/21 06:28) Troponin I [place] (11/20/21 06:28) Chest 1 View, Ap/Pa Only (11/20/21 06:28) Protime With Inr (11/20/21 06:28) Partial Thromboplastin Time (11/20/21 06:28) Phosphorus (11/20/21 06:28) Ct Abd/Pelvis Wo(Kidney Stone) (11/20/21 06:46) Drug Screen Stat (Urine) (11/20/21 06:46) Ua Culture If Indicated (11/20/21 06:46) Abdomen/Kub [place] (11/20/21 06:46) Fentanyl Inj (Sublimaze Injection) (11/20/21 06:47) Straight Cath For Spec.-Adult (11/20/21 07:24) Blood Culture (11/20/21 07:25) Urine Culture (11/20/21 07:25) Ed Iv/Invasive Line Start (11/20/21 07:25) Vital Signs Adult Sepsis Patie Q15M (11/20/21 07:25) O2 (11/20/21 07:25) Remove Rings In Anticipation O (11/20/21 07:25) Lactic Acid Analyzer (11/20/21 07:25) Cefepime Injection (Maxipime Injection) (11/20/21 07:30) Insulin (Regular) Human (Novolin R (Per (11/20/21 08:45) Ns (Ivpb) (Sodium Chloride 0.9%) (11/20/21 08:45) Ed Iv/Invasive Line Start (11/20/21 08:34) Procalcitonin (Pct) (11/20/21 08:46) Nitroglycerin Ointment (Nitrobid Ointme (11/20/21 09:00) Digoxin (11/20/21 08:50) Fentanyl Inj (Sublimaze Injection) (11/20/21 10:45) Accucheck Stat ONCE (11/20/21 10:45) Medications Given in ED Vital Signs/I&O 11/20/21 11/20/21 11/20/21 06:29 09:17 11:45 Temp 36.8 36.4 Pulse 79 93 Resp 22 20 B/P (MAP) 184/89 (120) 178/83 Pulse Ox 97 94 O2 Delivery Room Air Room Air Progress Progress Note : Progress Note SEPSIS PROTOCOL INITIATED ON RECEIVING CT SCAN REPORT FLUIDS HELD DUE TO PT IS HYPERTENSIVE, ON DIALYSIS WITH EVIDENCE OF PULMONARY EDEMA/FLUID IN LUNGS ON CXR. NOT DUE FOR DIALYSIS UNTIL TOMORROW. GIVEN FENTANYL FOR PAIN WITH MUCH IMPROVEMENT IN PAIN AND PT NOW LAYING ON HER RIGHT SIDE GIVEN CEFEPIME FOR UTI GIVEN NITROPASTE FOR HTN GIVEN INSULIN FOR ELEVATED BLOOD GLUCOSE NO FEVER NO DYSPNEA NO HYPOXIA NO TACHYCARDIA OR HYPOTENSION NO DETERIORATION IN PT'S CONDITION DURING ER STAY Initial ECG Impression Date: November 20, 2021 Initial ECG Impression Time: 06:37 Initial ECG Rate: 73 Initial ECG Rhythm: Normal Sinus (RBBB) Initial ECG Comparisson: Unchanged Diagnostic Imaging Comments CT ABDOMEN/PELVIS--PER RADIOLOGIST REPORT AT 0724 FINDINGS: Lung bases: The lung bases are clear. Solid organs: The liver is normal. The gallbladder is surgically absent. There is no biliary ductal dilation. Pancreas is normal. Spleen is normal. Adrenal glands are normal. There is significant right perinephric and periureteral stranding without visualized calculus or hydronephrosis. Left perinephric stranding to a lesser degree is present. Bowel: The stomach and small bowel are normal without obstruction. There is scattered colonic diverticulosis. The appendix is normal. Peritoneum: There is no intraperitoneal free fluid or free air. No suspicious lymphadenopathy. Vasculature: Calcification of the aorta without aneurysm. Musculoskeletal: Degenerative changes of the spine without suspicious osseous lesion or compression fracture. Significant edema within the subcutaneous soft tissues. There is a fat-containing periumbilical hernia. Pelvis: The uterus is surgically absent. No adnexal mass. The urinary bladder is normal. IMPRESSION: 1. No visualized renal calculus or hydronephrosis. 2. Right perinephric and periureteral fat stranding which is nonspecific but could be seen with infectious process such as nephritis. Recommend correlation with urinalysis. XRAYS--PER RADIOLOGIST REPORTS AT 0731 CXR-- FINDINGS: Stable enlargement of the cardiac silhouette. There are mild interstitial opacities within the mid and lower lungs. No pleural effusion or pneumothorax. The osseous structures are intact. IMPRESSION: 1. Patchy interstitial opacities within the mid and lower lungs which can be seen with pulmonary edema or atypical infection. KUB-- FINDINGS: The bowel gas pattern is nonspecific. Lung bases are clear. No free air. There are surgical clips in the right upper quadrant. Bowel gas pattern is nonspecific. The osseous structures are unremarkable. IMPRESSION: Nonspecific bowel gas pattern. Reviewed: Reviewed by Mi Departure Communication (Admissions) 0843--CALLED [facility]. THEY WILL CALL BACK RADIOLOGY TO CLOUD IMAGES 0919--SPOKE WITH AMBIKA MARIE,( DR. VIDAL IS HOSPITALIST) SHE WILL DISCUSS WITH MOLD YARD SUPERVISOR AND CALL BACK. 0930--[facility] CALLED BACK. PT HAS BEEN ACCEPTED BY DR. VIDAL. THEY WILL CALL BACK WITH BED ASSIGNMENT 1048--EMS HERE FOR TRANSPORT Impression Primary Impression: Pyelonephritis Additional Impressions: ESRD on dialysis HX OF ATRIAL FIB/FLUTTER Diabetes mellitus, insulin dependent (IDDM), uncontrolled Uncontrolled hypertension Marijuana use, continuous Chronic prescription opiate use Chronic anticoagulation Disposition: 02 XFER SHT-TRM HOSP Condition: Stable Transfer Transfer Reason: Exceeds level of care Transfer Facility: [facility] Method of Transfer: EMS Departure-Patient Inst. Referrals: BIMAL VITAL MD (PCP/Family) Primary Care Physician BENTON SANDERS DO November 20, 2021 06:34
[2021-11-20] MEDS ORDERED: fentaNYL INJ 100 MCG/2 ML AMP IVP STA ×2 (06:47→10:45)
--- NOTE | 2021-11-20 07:11 | Diagnostic Imaging Report ---
EXAMINATION: CT abdomen and pelvis without contrast. TECHNIQUE: Multiple contiguous axial images were obtained through the abdomen and pelvis without the use of intravenous contrast. All CT scans use one or more of the following dose optimizing techniques: automated exposure control, MA and/or KvP adjustment based on patient size and exam type or iterative reconstruction. HISTORY: Flank pain, kidney stone suspected COMPARISON: 10/25/2021 FINDINGS: Lung bases: The lung bases are clear. Solid organs: The liver is normal. The gallbladder is surgically absent. There is no biliary ductal dilation. Pancreas is normal. Spleen is normal. Adrenal glands are normal. There is significant right perinephric and periureteral stranding without visualized calculus or hydronephrosis. Left perinephric stranding to a lesser degree is present. Bowel: The stomach and small bowel are normal without obstruction. There is scattered colonic diverticulosis. The appendix is normal. Peritoneum: There is no intraperitoneal free fluid or free air. No suspicious lymphadenopathy. Vasculature: Calcification of the aorta without aneurysm. Musculoskeletal: Degenerative changes of the spine without suspicious osseous lesion or compression fracture. Significant edema within the subcutaneous soft tissues. There is a fat-containing periumbilical hernia. Pelvis: The uterus is surgically absent. No adnexal mass. The urinary bladder is normal. IMPRESSION: 1. No visualized renal calculus or hydronephrosis. 2. Right perinephric and periureteral fat stranding which is nonspecific but could be seen with infectious process such as nephritis. Recommend correlation with urinalysis. Dictated by: Dictated on workstation # [id number]
--- NOTE | 2021-11-20 07:12 | Diagnostic Imaging Report ---
EXAMINATION: Chest 1 view HISTORY: Chest pain. COMPARISON: 08/20/2021 FINDINGS: Stable enlargement of the cardiac silhouette. There are mild interstitial opacities within the mid and lower lungs. No pleural effusion or pneumothorax. The osseous structures are intact. IMPRESSION: 1. Patchy interstitial opacities within the mid and lower lungs which can be seen with pulmonary edema or atypical infection. Dictated by: Dictated on workstation # [id number]
--- NOTE | 2021-11-20 07:26 | Diagnostic Imaging Report ---
INDICATION: Abdominal pain. FINDINGS: The bowel gas pattern is nonspecific. Lung bases are clear. No free air. There are surgical clips in the right upper quadrant. Bowel gas pattern is nonspecific. The osseous structures are unremarkable. IMPRESSION: Nonspecific bowel gas pattern. Dictated by: Dictated on workstation # [id number]
[2021-11-20] MEDS ORDERED: CEFEPIME INJECTION 1,000 MG in NS (IVPB) 50 ML IV ONE (07:30)
[2021-11-20 08:11] LABS: BILIRUBIN,URINE NEGATIVE (NEGATIVE); CLARITY,URINE CLEAR; COLOR,URINE YELLOW; GLUCOSE, URINE (UA) 3+ (NEGATIVE); KETONES,URINE NEGATIVE (NEGATIVE); LEUKOCYTE ESTERASE ,URINE NEGATIVE (NEGATIVE); NITRITE,URINE NEGATIVE (NEGATIVE); PROTEIN,URINE 2+ (NEGATIVE)
[2021-11-20 08:14] LABS: MEAN CORPUSCULAR VOLUME 100 fL (80-99); MEAN PLATELET VOLUME 11.3 fL (9.0-12.2)
[2021-11-20 08:15] LABS: BASOPHILS % (AUTO) 1 % (0-10); EOSINOPHILS # (AUTO) 0.1 10^3/uL (0.0-0.3); EOSINOPHILS % (AUTO) 1 % (0-10); HEMATOCRIT 34 % (35-52); HEMOGLOBIN 10.7 g/dL (11.5-16.0); LYMPHOCYTES # (AUTO) 1.3 10^3/uL (1.0-4.0); LYMPHOCYTES % (AUTO) 15 % (12-44); MEAN CORPUSCULAR HEMOGLOBIN 31 pg (25-34); MEAN CORPUSCULAR HGB CONC 31 g/dL (32-36); MONOCYTES # (AUTO) 0.5 10^3/uL (0.0-1.0); MONOCYTES % (AUTO) 6 % (0-12); NEUTROPHILS # (AUTO) 6.2 10^3/uL (1.8-7.8); NEUTROPHILS % (AUTO) 76 % (42-75); PLATELET COUNT 119 10^3/uL (130-400); WHITE BLOOD COUNT 8.1 10^3/uL (4.3-11.0)
[2021-11-20 08:19] LABS: RBC,URINE 0-2 /HPF
[2021-11-20 08:20] LABS: BACTERIA,URINE TRACE /HPF
[2021-11-20 08:24] LABS: AMPHETAMINE SCREEN, URINE NEGATIVE (NEGATIVE); BARBITURATE SCREEN URINE NEGATIVE (NEGATIVE); BENZODIAZEPINES SCREEN URINE NEGATIVE (NEGATIVE); CANNABINOID SCREEN, URINE POSITIVE (NEGATIVE); COCAINE SCREEN URINE NEGATIVE (NEGATIVE); METHADONE STAT NEGATIVE (NEGATIVE); OPIATE SCREEN URINE POSITIVE (NEGATIVE); OXYCODONE STAT NEGATIVE (NEGATIVE); PROPOXYPHENE STAT NEGATIVE (NEGATIVE); TRICYCLIC ANTIDEPRESSANTS SCRE NEGATIVE (NEGATIVE)
[2021-11-20 08:26] LABS: ALBUMIN 3.9 GM/DL (3.2-4.5); POTASSIUM 4.4 MMOL/L (3.6-5.0)
[2021-11-20 08:28] LABS: CALCIUM 8.7 MG/DL (8.5-10.1)
[2021-11-20 08:29] LABS: TOTAL PROTEIN 6.8 GM/DL (6.4-8.2)
[2021-11-20 08:31] LABS: BILIRUBIN,TOTAL 0.4 MG/DL (0.1-1.0); INR 1.1 (0.8-1.4); PROTHROMBIN TIME PATIENT 15.1 SEC (12.2-14.7)
[2021-11-20 08:33] LABS: CREATININE SERUM 9.14 MG/DL (0.60-1.30)
[2021-11-20 08:35] LABS: MAGNESIUM 2.1 MG/DL (1.6-2.4)
[2021-11-20] MEDS ORDERED: inSUlin (REGULAR) HUMAN 1 UNIT/0.01 ML (CHARGE PER UNIT) IV ONE (08:45)
[2021-11-20] MEDS ORDERED: NS (IVPB) 250 ML IV ONE (08:45)
[2021-11-20] MEDS ORDERED: NITROGLYCERIN 2% OINT 1 GM UNIT DOSE PACKET TOP ONE (09:00)
[2021-11-20 11:45] VITALS: BP 178/83
== END 2021-11-20 10:55 | disposition short-term general hospital (02) ==
LOC: EDUNIT# 06:19 → ER 06:21
DX: I12.0 Hypertensive chronic kidney disease with stage 5 chronic kidney disease or end stage renal disease (principal); N18.6 End stage renal disease; E11.22 Type 2 diabetes mellitus with diabetic chronic kidney disease; N12 Tubulo-interstitial nephritis, not specified as acute or chronic; E11.42 Type 2 diabetes mellitus with diabetic polyneuropathy; F12.20 Cannabis dependence, uncomplicated; K43.9 Ventral hernia without obstruction or gangrene; I48.92 Unspecified atrial flutter; E66.01 Morbid (severe) obesity due to excess calories; Z99.2 Dependence on renal dialysis; Z79.4 Long term (current) use of insulin; Z79.01 Long term (current) use of anticoagulants; Z79.891 Long term (current) use of opiate analgesic; Z87.891 Personal history of nicotine dependence; Z90.49 Acquired absence of other specified parts of digestive tract; Z90.710 Acquired absence of both cervix and uterus; Z90.722 Acquired absence of ovaries, bilateral; Z86.16 Personal history of COVID-19
CPT/HCPCS: 36415; 51701; 71045; 74018; 74176; 80053; 80162; 80306; 81000; 82150; 83605; 83690; 83735; 84100; 84145; 84484; 85025; 85610; 85730; 87040; 87088; 93005; 93041

== ENCOUNTER 2022-02-27 15:50 | Emergency (ER) | payer MEDICARE, MEDICAID ==
[~2022-02-27] VITALS: Ht 157.5 cm; Wt 104.5 kg
[2022-02-27] MEDS ORDERED: dilTIAZem120 MG (CARDIZEM CD) CAP PO ONE (16:45)
[2022-02-27] MEDS ORDERED: dilTIAZem DRIP PRE-MIX 125 ML IV SCH (16:45)
--- NOTE | 2022-02-27 16:50 | ED Dyspnea ---
General Chief Complaint: Respiratory Problems Stated Complaint: SOB Nursing Triage Note: Pt states that she went to dialysis this AM and her BP was elevated so she went to urgent care. She was told that she needed O2. She quit smoking over a week ago. About 5 days ago she started getting more and more short of breath. She uses BiPAP at night time. No home oxygen. She is having her DME provider come out to check her machine. SOA is significantly worse with exertion. [place] sounds decreased on the right. Source of Information: Patient Exam Limitations: No Limitations History of Present Illness Date Seen by Provider: Feb 27, 2022 Time Seen by Provider: 16:48 Initial Comments To ER by private vehicle with reports of shortness of breath. She is end-stage renal disease on dialysis. She had a full course of dialysis this morning and was at 96% on 4 L but dropped to 88% with exertion and off of her oxygen. She has worn oxygen before. She started dialysis under her dry weight this morning and they took her down an additional 2 kg in fluid weight. She denies fevers or chills. She did quit smoking 1 week ago. She states that she also has a history of atrial fibrillation and has been cardioverted several times. States that her heart rate is always atrial fibrillation, typically 1 15-1 20 on the rate for several months. She follows with Dr. Gifford in [place] and is scheduled for pacemaker next month. She states she will not be admitted to the hospital or transferred. Timing/Duration: 1 Week Severity: Moderate Activities at Onset: None Prior Episodes/Possible Cause: No Prior Episodes Allergies and Home Medications Allergies Coded Allergies: Sulfa (Sulfonamide Antibiotics) (Verified Allergy, Mild, HIVES, 01/14/18) Patient Home Medication List Home Medication List Reviewed: Yes Allopurinol (Allopurinol) 100 Mg Tablet, 100 MG PO DAILY, (Reported) Entered as Reported by: DENNYS LEIVA on 04/01/20858 Apixaban (Eliquis) 5 Mg Tablet, 2.5 MG PO BID, (Reported) Entered as Reported by: DENNYS LEIVA on 04/01/20858 Aspirin (Aspirin EC) 81 Mg Tablet.dr, 81 MG PO DAILY, (Reported) Entered as Reported by: DENNYS LEIVA on 04/01/20858 Diltiazem HCl (Cartia Xt) 180 Mg Cap.er.24h, 180 MG PO BID, (Reported) Entered as Reported by: DENNYS LEIVA on 04/01/20858 Diltiazem HCl (Diltiazem 24Hr Cd) 180 Mg Cap.er.24h, 180 MG PO DAILY Prescribed by: KIMBERLY LEMA on 02/27/221830 Duloxetine HCl (Duloxetine HCl) 20 Mg Capsule.dr, 20 MG PO DAILY, (Reported) Entered as Reported by: DENNYS LEIVA on 04/01/20858 Famotidine (Pepcid) 20 Mg Tablet, 20 MG PO DAILY, (Reported) Entered as Reported by: TREY WAGONER on 01/22/20746 Furosemide (Furosemide) 80 Mg Tablet, 160 MG PO DAILY PRN for NONDIALYSIS DAYS, (Reported) Entered as Reported by: TREY WAGONER on 01/22/20746 Furosemide (Lasix) 40 Mg Tablet, 40 MG PO DAILY Prescribed by: KIMBERLY LEMA on 02/27/221831 Gabapentin (Neurontin) 300 Mg Capsule, 300 MG PO DAILY, (Reported) Entered as Reported by: TREY WAGONER on 01/22/20746 Hydrocodone/Acetaminophen (Hydrocodone-Acetamin 5-325 mg) 1 Each Tablet, 1 EACH PO Q6H PRN for PAIN-BREAKTHROUGH Prescribed by: MIRI AGARWAL on 05/01/20 0937 Hydrocodone/Acetaminophen (Hydrocodone-Acetamin 5-325 mg) 1 Each Tablet, 1 TAB PO Q6H PRN for PAIN-MODERATE (5-7) Prescribed by: MIRI AGARWAL on 10/25/21 1535 Insulin Aspart (Novolog Flexpen) 300 Units/3 Ml Solution, 15 UNITS SQ AC, (Reported) Entered as Reported by: ABBEY MORENO on 03/07/19 0952 Insulin Detemir (Levemir Flextouch) 100 Unit/1 Ml Insuln.pen, 30 UNITS SC BID, (Reported) Entered as Reported by: ABBEY MORENO on 03/07/19 0948 Levothyroxine Sodium (Levothyroxine Sodium) 150 Mcg Tablet, 150 MCG PO DAILY, (Reported) Entered as Reported by: DENNYS LEIVA on 04/01/20858 Metoprolol Succinate (Metoprolol Succinate) 100 Mg Tab.er.24h, 50 MG PO DAILY, (Reported) Entered as Reported by: DENNYS LEIVA on 04/01/20 0859 Potassium Chloride (Potassium Chloride) 10 Meq Tab.er.prt, 10 MEQ PO DAILY PRN for NONDIALYSIS DAYS, (Reported) Entered as Reported by: TREY WAGONER on 01/22/20 0747 Rosuvastatin Calcium (Crestor) 20 Mg Tablet, 20 MG PO HS, (Reported) Entered as Reported by: TREY WAGONER on 01/22/20 0747 Sevelamer Carbonate (Renvela) 800 Mg Tablet, 3,200 MG PO TIDWM, (Reported) Entered as Reported by: GRACE GARCIA on 01/14/20 0328 Sevelamer Carbonate (Renvela) 800 Mg Tablet, 1,600 MG PO BID W/SNACKS, (Reported) Entered as Reported by: DENNYS LEIVA on 04/01/20 0859 Simethicone (Simethicone) 180 Mg Capsule, 180 MG PO PRN PRN for GAS, (Reported) Entered as Reported by: DENNYS LEIVA on 04/01/20 0859 Trazodone HCl (Trazodone HCl) 50 Mg Tablet, 50 MG PO HS, (Reported) Entered as Reported by: TREY WAGONER on 01/22/20 0747 Review of Systems Review of Systems Constitutional: see HPI EENTM: see HPI Respiratory: see HPI, dyspnea on exertion Cardiovascular: no symptoms reported Genitourinary: no symptoms reported Musculoskeletal: no symptoms reported Skin: no symptoms reported Psychiatric/Neurological: No Symptoms Reported Endocrine: No Symptoms Reported Hematologic/Lymphatic: No Symptoms Reported Past Roqogev-Dlmxtb-Dnzudd Hx Patient Social History Smoking Status: Former Smoker Use of E-Cig and/or Vaping dev: No Substance use?: Yes Substance type: Marijuana Substance frequency: Couple times a week Alcohol Use?: No Pt feels they are or have been: No Immunizations Up To Date Tetanus Booster (TDap): Less than 5yrs PED Vaccines UTD: Yes First/Initial COVID19 Vaccinat: 2020 Second COVID19 Vaccination Amarjit: Sunday08/11/21 Third COVID19 Vaccination Date: 2020 Seasonal Allergies Seasonal Allergies: Yes Past Medical History Surgeries: Yes (PILONIDAL CYST; DX LAPAROSCOPY; HYST/BSO, dialysis shunt in right forearm) Abdominal, Cardiac, Dialysis, Gallbladder, Hysterectomy, Oophorectomy, Vascular Surgery Respiratory: Yes (COVID-19 INFECTION 08/2021--NO HOSPITALIZATION OR TX) Sleep Apnea, COPD Currently Using CPAP: Yes Cardiac: Yes (CHF; ELEVATED TRIGLYCERIDES; A FLUTTER WITH ABLATION;RBBB) Atrial Fibrillation, Chronic Edema/Swelling, High Cholesterol, Hypertension, Irregular Heartbeat Neurological: Yes Neuropathy 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 Disorders: Yes (CHRONIC PELVIC PAIN--S/P HYST/BSO) Female 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 Disorders: 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, 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 History: Hysterectomy, Menopausal Sexually Transmitted Disease: No HIV/AIDS: No Genitourinary: Yes (DIALYSIS M-W-F) Renal Failure, Dialysis, UTI-Chronic Gastrointestinal: Yes Abdominal Hernia, Gastroesophageal Reflux, Chronic Constipation, Diverticulosis, Chronic Diarrhea, Polyps Musculoskeletal: Yes (CHRONIC SCIATICA) Arthritis, Chronic Back Pain, Gout Endocrine: Yes (MORBID OBESITY) Diabetes, Insulin dep HEENT: No Loss of Vision: Bilateral Hearing Impairment: Denies Cancer: Yes Skin Did You Recieve Any Treatments: Yes What Type of Treatment Did You: Surgical Intervention Psychosocial: Yes Anxiety, Depression Integumentary: Yes (SKIN LESION REMOVED; PILONIDAL CYST REMOVED) Blood Disorders: No Adverse Reaction/Blood Tranf: No (N/A) Family Medical History Cardiovascular disease G8 SISTER Diabetes mellitus G8 SISTER FH: lung cancer G8 SISTER SOCIAL HISTORY: -SMOKED 1 PPD, QUIT 1998 -ETOH--MILD TO MODERATE USE IN PAST, NOW VERY RARELY DRINKS -DRUGS--REGULAR MARIJUANA USE PAST SURGICAL HISTORY: --CARDIAC CATHS--MOST RECENT ONE DONE HERE WAS 04/01/[address] RIVERA: FINDINGS: 1.Left main: separate ostia. 2.LAD: luminal irregularities. 3.Left circumflex artery: luminal irregularities. 4.RCA: patent. 5.Left heart catheterization: LV pressure 109/7 mmHg. LVEDP 17 mmHg. Aortic pressure 105/65 mmHg. Normal LV function with no wall motion abnormalities. No gradient across the aortic valve. 6. Aortic arch angiogram: No evidence of proximal aneurysm or dissection. Patent proximal segments of the great arteries. -CHOLECYSTECTOMY -HERNIA REPAIR WITH CHOLECYSTECTOMY-HERNIA RECURRED, BUT NO REPEAT SURGERY -HYSTERECTOMY/BILATERAL SALPINGO-OOPHORECTOMY FOR BENIGN DISEASE > 30 YEARS AGO -RIGHT ARM DIALYSIS GRAFT/A-V FISTULA -EGD/COLONOSCOPIES X 2 WITH POLYPECTOMIES -PILONIDAL CYST REMOVED -DIAGNOSTIC LAPAROSCOPY FOR CHRONIC PELVIC PAIN Physical Exam Vital Signs Vital Signs - First Documented 02/27/22 15:58 Temp 37.0 Pulse 118 Resp 26 B/P (MAP) 127/79 (95) Pulse Ox 96 O2 Delivery Nasal Cannula O2 Flow Rate 4.00 Capillary Refill : Less Than 3 Seconds Height, Weight, BMI Height: 5'3.00" Weight: 264lbs. 1.0oz. 119.604486is; 42.00 BMI Method:Stated General Appearance: No Apparent Distress, WD/WN, Obese (Chronically ill. Appears older than stated age. She does have atrial fibrillation with rapid ventricular response rate of 120-140. Blood pressure of 169/109. Respiratory rate is 15 oxygen 94% on 4 L. ) HEENT: PERRL/EOMI, TMs Normal Neck: Full Range of Motion, Normal Inspection Respiratory: No Accessory Muscle Use, No Respiratory Distress Cardiovascular: Irregularly Irregular, Tachycardia Gastrointestinal: Non Tender, Soft Extremity: Normal Capillary Refill, Normal Inspection Neurologic/Psychiatric: Alert, Oriented x3 Skin: Normal Color, Warm/Dry Procedures/Interventions Patient Education: Explained Benefits, Explained Risks, Pt. Ack. Understanding Patient History: Sleep Apnea Breath Sounds per Auscultation: Clear Heart Sounds per Auscultation: Regular Airway Exam: Mouth opens >2 fingers, Neck Full Range of Motion, Visulation of Uvula Sedation Adminstration Time: 1733 Progress/Results/Core Measures Results/Orders Lab Results Laboratory Tests Test 02/27/22 16:32 02/27/22 17:50 Range/Units SARS-CoV-2 RNA (RT-PCR) Not Detected Not Detecte White Blood Count 11.2 H 4.3-11.0 10^3/uL Red Blood Count 4.11 3.80-5.11 10^6/uL Hemoglobin 12.0 11.5-16.0 g/dL Hematocrit 40 35-52 % Mean Corpuscular Volume 97 80-99 fL Mean Corpuscular Hemoglobin 29 25-34 pg Mean Corpuscular Hemoglobin Concent 30 L 32-36 g/dL Red Cell Distribution Width 16.6 H 10.0-14.5 % Platelet Count 184 130-400 10^3/uL Mean Platelet Volume 10.2 9.0-12.2 fL Immature Granulocyte % (Auto) 1 % Neutrophils (%) (Auto) 80 H 42-75 % Lymphocytes (%) (Auto) 12 12-44 % Monocytes (%) (Auto) 6 0-12 % Eosinophils (%) (Auto) 1 0-10 % Basophils (%) (Auto) 1 0-10 % Neutrophils # (Auto) 9.0 H 1.8-7.8 10^3/uL Lymphocytes # (Auto) 1.3 1.0-4.0 10^3/uL Monocytes # (Auto) 0.6 0.0-1.0 10^3/uL Eosinophils # (Auto) 0.1 0.0-0.3 10^3/uL Basophils # (Auto) 0.1 0.0-0.1 10^3/uL Immature Granulocyte # (Auto) 0.1 0.0-0.1 10^3/uL Sodium Level 140 135-145 MMOL/L Potassium Level 3.4 L 3.6-5.0 MMOL/L Chloride Level 98 98-107 MMOL/L Carbon Dioxide Level 29 21-32 MMOL/L Anion Gap 13 5-14 MMOL/L Blood Urea Nitrogen 23 H 7-18 MG/DL Creatinine 3.70 H 0.60-1.30 MG/DL Estimat Glomerular Filtration Rate 14 BUN/Creatinine Ratio 6 Glucose Level 173 H 70-105 MG/DL Calcium Level 9.8 8.5-10.1 MG/DL Corrected Calcium 9.6 8.5-10.1 MG/DL Total Bilirubin 0.7 0.1-1.0 MG/DL Aspartate Amino Transf (AST/SGOT) 11 5-34 U/L Alanine Aminotransferase (ALT/SGPT) 14 0-55 U/L Alkaline Phosphatase 64 40-136 U/L Total Protein 6.8 6.4-8.2 GM/DL Albumin 4.3 3.2-4.5 GM/DL My Orders Orders - KIMBERLY LEMA APRN Cbc With Automated Diff (02/27/22 16:20) Comprehensive Metabolic Panel (02/27/22 16:20) Chest 1 View, Ap/Pa Only (02/27/22 16:20) Ed Iv/Invasive Line Start (02/27/22 16:20) Covid 19 Inhouse Test (02/27/22 16:20) Ed Iv/Invasive Line Start (02/27/22 16:45) Diltiazem Cd 24 Hr Capsule (Cardizem Cd (02/27/22 16:45) Diltiazem Injection (Cardizem Injection) (02/27/22 16:45) Diltiazem Drip Pre-Mix (Cardizem Drip Pr (02/27/22 16:45) Acetaminophen Tablet/Caplet (Tylenol T (02/27/22 18:00) Furosemide Injection (Lasix Injection) (02/27/22 18:45) Metoprolol Tartrate Injection (Lopressor (02/27/22 18:45) Medications Given in ED Current Medications Medications Dose Ordered Sig/Darren Route Start Time Stop Time Status Last Admin Dose Admin Acetaminophen 650 mg ONCE ONCE PO 02/27/22 18:00 02/27/22 18:01 DC 02/27/22 17:53 650 MG Diltiazem HCl 10 mg ONCE ONCE IVP 02/27/22 16:45 02/27/22 16:46 DC 02/27/22 17:54 10 MG Diltiazem HCl 120 mg ONCE ONCE PO 02/27/22 16:45 02/27/22 16:46 DC 02/27/22 17:54 120 MG Vital Signs/I&O 02/27/22 15:58 Temp 37.0 Pulse 118 Resp 26 B/P (MAP) 127/79 (95) Pulse Ox 96 O2 Delivery Nasal Cannula O2 Flow Rate 4.00 Blood Pressure Mean: 95 Departure Communication (Admissions) Family Conversation She does drop SPO2 to 88% without oxygen. I will get her set up for home oxygen to use as needed.. 1546-still refuses to be admitted to the hospital or transferred to another facility. Remains 1 15-1 20 atrial fibrillation on Cardizem drip at 10 mg an hour. We did give Cardizem CD1 120 mg p.o. as well as a 10 mg IV bolus. Blood pressure still 145/99. I will give 5 mg of Lopressor. Given the chest x-ray findings of pulmonary edema I will give 40 mg of IV Lasix. She still produces urine at home. I will give her prescription for Lasix 40 mg daily for the next 5 days. She denies any shortness of breath at this time but states that she does have shortness of breath with any exertion. I will get her set up for home oxygen. She agrees to sign refusal of services form in regards to being admitted or transfer to another hospital. NAME: SABINO VELASQUEZ [facility] REC#: [id number] PT STATUS: REG ER : 1965 PHYSICIAN: KIMBERLY LEMA APRN ADMIT DATE: 02/27/22/ER Draft Date of Exam:02/27/22 CHEST 1 VIEW, AP/PA ONLY INDICATION: Dyspnea AP view of the chest is obtained with comparison made to the study of 11/20/2021. There is cardiomegaly and pulmonary venous congestion with increasing bilateral airspace disease. There is also blunting of the right costophrenic sulcus suggesting pleural fluid. IMPRESSION: Probable congestive heart failure with increasing bilateral pulmonary edema and developing right pleural fluid. Dictated on workstation # [id number] Dict: 02/27/22 1748 Trans: 02/27/22 1751 [facility] [id number] Interpreted by: PHILLY GUTIERREZ MD Electronically signed by: Impression Primary Impression: CHF (congestive heart failure) Additional Impression: Atrial flutter with rapid ventricular response Disposition: HOME, SELF-CARE Condition: Stable Departure-Patient Inst. Decision time for Depature: 17:54 Referrals: BIMAL VITAL MD (PCP/Family) Primary Care Physician Patient Instructions: Atrial Fibrillation and Atrial Flutter ED Add. Discharge Instructions: 1. Return to ER for any concerns. Take the diltiazem as directed. Continue your Eliquis blood thinner. Return to ER for any worsening. All discharge instructions reviewed with patient and/or family. Voiced understanding. Scripts Furosemide (Lasix) 40 Mg Tablet 40 MG PO DAILY, #5 TAB Prov: KIMBERLY LEMA APRN 02/27/22 Diltiazem HCl (Diltiazem 24Hr Cd) 180 Mg Cap.er.24h 180 MG PO DAILY, #30 CAP Prov: KIMBERLY LEMA APRN 02/27/22 KIMBERLY LEMA APRN Feb 27, 2022 16:50
--- NOTE | 2022-02-27 17:51 | Diagnostic Imaging Report ---
INDICATION: Dyspnea AP view of the chest is obtained with comparison made to the study of 11/20/2021. There is cardiomegaly and pulmonary venous congestion with increasing bilateral airspace disease. There is also blunting of the right costophrenic sulcus suggesting pleural fluid. IMPRESSION: Probable congestive heart failure with increasing bilateral pulmonary edema and developing right pleural fluid. Dictated by: Dictated on workstation # [id number]
[2022-02-27 17:56] LABS: BASOPHILS # (AUTO) 0.1 10^3/uL (0.0-0.1); BASOPHILS % (AUTO) 1 % (0-10); EOSINOPHILS # (AUTO) 0.1 10^3/uL (0.0-0.3); EOSINOPHILS % (AUTO) 1 % (0-10); HEMATOCRIT 40 % (35-52); LYMPHOCYTES # (AUTO) 1.3 10^3/uL (1.0-4.0); LYMPHOCYTES % (AUTO) 12 % (12-44); MEAN CORPUSCULAR HEMOGLOBIN 29 pg (25-34); MEAN CORPUSCULAR HGB CONC 30 g/dL (32-36); MEAN CORPUSCULAR VOLUME 97 fL (80-99); MEAN PLATELET VOLUME 10.2 fL (9.0-12.2); MONOCYTES # (AUTO) 0.6 10^3/uL (0.0-1.0); MONOCYTES % (AUTO) 6 % (0-12); NEUTROPHILS % (AUTO) 80 % (42-75); PLATELET COUNT 184 10^3/uL (130-400); WHITE BLOOD COUNT 11.2 10^3/uL (4.3-11.0)
[2022-02-27] MEDS ORDERED: ACETAMINOPHEN 325 MG TABLET PO ONE (18:00)
[2022-02-27 18:08] LABS: ALBUMIN 4.3 GM/DL (3.2-4.5); POTASSIUM 3.4 MMOL/L (3.6-5.0)
[2022-02-27 18:09] LABS: CALCIUM 9.8 MG/DL (8.5-10.1)
[2022-02-27 18:10] LABS: TOTAL PROTEIN 6.8 GM/DL (6.4-8.2)
[2022-02-27 18:12] LABS: BILIRUBIN,TOTAL 0.7 MG/DL (0.1-1.0)
[2022-02-27 18:14] LABS: CREATININE SERUM 3.7 MG/DL (0.60-1.30)
[2022-02-27] MEDS ORDERED: DILT180C84 PO (18:31)
[2022-02-27] MEDS ORDERED: FURO-124 PO (18:32)
[2022-02-27] MEDS ORDERED: meTOprolol 5 MG/5 ML (LOPRESSOR) VIAL IV ONE (18:45)
[2022-02-27] MEDS ORDERED: FUROSEMIDE 40 MG/4 ML INJ (LASIX) IVP ONE (18:45)
[2022-02-27 19:16] VITALS: BP 138/88
== END 2022-02-27 19:16 | disposition home or self-care (01) ==
LOC: EDUNIT# 15:50 → ER 15:52
DX: I13.2 Hypertensive heart and chronic kidney disease with heart failure and with stage 5 chronic kidney disease, or end stage renal disease (principal); E11.22 Type 2 diabetes mellitus with diabetic chronic kidney disease; I50.9 Heart failure, unspecified; N18.6 End stage renal disease; I48.92 Unspecified atrial flutter; E11.40 Type 2 diabetes mellitus with diabetic neuropathy, unspecified; G47.30 Sleep apnea, unspecified; E66.01 Morbid (severe) obesity due to excess calories; Z68.41 Body mass index [BMI] 40.0-44.9, adult; Z99.89 Dependence on other enabling machines and devices; Z99.2 Dependence on renal dialysis; Z87.891 Personal history of nicotine dependence; Z20.822 Contact with and (suspected) exposure to COVID-19
CPT/HCPCS: 36415; 71045; 80053; 85025; 87636

== ENCOUNTER 2023-04-18 17:35 | Emergency (ER) | payer MEDICARE, MEDICAID ==
[~2023-04-18] VITALS: Ht 155 cm; Wt 79.3 kg
[~2023-04-18 17:35] MED LIST changes: +FURO-124 PO; -INSU100I29 SC; +INSU100I30 SC; +POTA-177; +POTA-177 PO; -POTA10TA37; -POTA10TA37 PO; -ROSU20TA32 PO; +ROSU20TA73 PO
--- NOTE | 2023-04-18 18:04 | ED Upper Extremity ---
General Chief Complaint: Upper Extremity Stated Complaint: RT SHOULDER PAIN - FALL Nursing Triage Note: pt states she lost her balance and fell into a door. complaining of R shoulder pain. pms in tact. Source: patient History of Present Illness Date Seen by Provider: Apr 18, 2023 Time Seen by Provider: 18:00 Initial Comments PT ARRIVES VIA POV FROM HOME PT STATES THAT AROUND 0800 THIS MORNING, SHE LOST HER BALANCE AND FELL AGAINST A DOORWAY--HITTING RIGHT SHOULDER/ARM SHE DID NOT FALL TO THE GROUND C/O PAIN TO RIGHT SHOULDER STATES "MY WHOLE ARM HURTS" NO PARESTHESIAS OR MOTOR DEFICITS NO OTHER INJURIES FROM THE INCIDENT PT IS LEFT HANDED PT HAS HAD ONGOING ISSUES WITH PAIN IN THIS RIGHT SHOULDER PT FELL LAST WEEK ALSO, AND HIT HER FACE/FOREHEAD, AND WAS SEEN HERE 04/11/23 NO FRACTURES OR INTRACRANIAL INJURY NOTED A THAT TIME SHE STATES SHE IS NOT HAVING PAIN TO HER FACE OR HEAD AT THIS TIME PCP: ANSHU Allergies and Home Medications Allergies Coded Allergies: Sulfa (Sulfonamide Antibiotics) (Verified Allergy, Mild, HIVES, 01/14/18) Patient Home Medication List Home Medication List Reviewed: Yes Allopurinol (Allopurinol) 100 Mg Tablet, 100 MG PO DAILY, (Reported) Entered as Reported by: DENNYS LEIVA on 04/01/20 08 Apixaban (Eliquis) 5 Mg Tablet, 2.5 MG PO BID, (Reported) Entered as Reported by: DENNYS LEIVA on 04/01/20 08 Aspirin (Aspirin EC) 81 Mg Tablet., 81 MG PO DAILY, (Reported) Entered as Reported by: DENNYS LEIVA on 04/01/20858 Diltiazem HCl (Cartia Xt) 180 Mg Cap.er.24h, 180 MG PO BID, (Reported) Entered as Reported by: DENNYS LEIVA on 04/01/20 08 Diltiazem HCl (Diltiazem 24Hr Cd) 180 Mg Cap.er.24h, 180 MG PO DAILY Prescribed by: KIMBERLY LEMA on 02/27/221830 Duloxetine HCl (Duloxetine HCl) 20 Mg Capsule., 20 MG PO DAILY, (Reported) Entered as Reported by: DENNYS LEIVA on 04/01/20 08 Famotidine (Pepcid) 20 Mg Tablet, 20 MG PO DAILY, (Reported) Entered as Reported by: TREY WAGONER on 01/22/20 0747 Furosemide (Furosemide) 80 Mg Tablet, 160 MG PO DAILY PRN for NONDIALYSIS DAYS, (Reported) Entered as Reported by: TREY WAGONER on 01/22/20 07 Furosemide (Lasix) 40 Mg Tablet, 40 MG PO DAILY Prescribed by: KIMBERLY LEMA on 02/27/22 183 Gabapentin (Neurontin) 300 Mg Capsule, 300 MG PO DAILY, (Reported) Entered as Reported by: TREY WAGONER on 01/22/20 0747 Hydrocodone/Acetaminophen (Hydrocodone-Acetamin 5-325 mg) 1 Each Tablet, 1 EACH PO Q6H PRN for PAIN-BREAKTHROUGH Prescribed by: MIRI AGARWAL on 05/01/20 0937 Hydrocodone/Acetaminophen (Hydrocodone-Acetamin 5-325 mg) 1 Each Tablet, 1 TAB PO Q6H PRN for PAIN-MODERATE (5-7) Prescribed by: MIRI AGARWAL on 10/25/21 1535 Hydrocodone/Acetaminophen (Hydrocodone-Acetamin 5-325 mg) 5 Mg-325 Mg Tablet, 1 TAB PO Q4H PRN for PAIN-MODERATE (5-7) Prescribed by: STEPHANE TAMAYO on 04/11/23 1523 Hydrocodone/Acetaminophen (Hydrocodone-Acetamin 5-325 mg) 5 Mg-325 Mg Tablet, 1 EACH PO Q4-6 HOURS PRN for PAIN Prescribed by: BENTON SANDERS on 04/18/23 1846 Insulin Aspart (Novolog Flexpen) 300 Units/3 Ml Solution, 15 UNITS SQ AC, (Reported) Entered as Reported by: ABBEY MORENO on 03/07/19 0952 Insulin Detemir (Levemir Flextouch) 100 Unit/1 Ml Insuln.pen, 30 UNITS SC BID, (Reported) Entered as Reported by: ABBEY MORENO on 03/07/19 0948 Levothyroxine Sodium (Levothyroxine Sodium) 150 Mcg Tablet, 150 MCG PO DAILY, (Reported) Entered as Reported by: DENNYS LEIVA on 04/01/20 0859 Metoprolol Succinate (Metoprolol Succinate) 100 Mg Tab.er.24h, 50 MG PO DAILY, (Reported) Entered as Reported by: DENNYS LEIVA on 04/01/20 0859 Potassium Chloride (Potassium Chloride) 10 Meq Tab.er.prt, 10 MEQ PO DAILY PRN for NONDIALYSIS DAYS, (Reported) Entered as Reported by: TREY WAGONER on 01/22/20 07 Rosuvastatin Calcium (Crestor) 20 Mg Tablet, 20 MG PO HS, (Reported) Entered as Reported by: TREY WAGONER on 01/22/20 07 Sevelamer Carbonate (Renvela) 800 Mg Tablet, 3,200 MG PO TIDWM, (Reported) Entered as Reported by: GRACE GARCIA on 01/14/20 0328 Sevelamer Carbonate (Renvela) 800 Mg Tablet, 1,600 MG PO BID W/SNACKS, (Reported) Entered as Reported by: DENNYS LEIVA on 04/01/20 0859 Simethicone (Simethicone) 180 Mg Capsule, 180 MG PO PRN PRN for GAS, (Reported) Entered as Reported by: DENNYS LEIVA on 04/01/20 0859 Trazodone HCl (Trazodone HCl) 50 Mg Tablet, 50 MG PO HS, (Reported) Entered as Reported by: TREY WAGONER on 01/22/2047 Review of Systems Constitutional: see HPI Musculoskeletal: see HPI Skin: no symptoms reported Psychiatric/Neurological: No Symptoms Reported Past [id number] Hx Patient Social History Tobacco Use?: No Use of E-Cig and/or Vaping dev: No Substance use?: No Alcohol Use?: No Pt feels they are or have been: No Immunizations Up To Date Tetanus Booster (TDap): Less than 5yrs PED Vaccines UTD: Yes First/Initial COVID19 Vaccinat: 2020 Second COVID19 Vaccination Amarjit: Sunday08/11/21 Third COVID19 Vaccination Date: 2020 Seasonal Allergies Seasonal Allergies: Yes Past Medical History Surgery/Hospitalization HX: DIALYSIS, AFIB, DM2, HTN, CHF PVD, COPD, HYPOTHYROIDISM, ANEMIA, GERD, Surgeries: Yes (PILONIDAL CYST; DX LAPAROSCOPY; HYST/BSO, dialysis shunt in right forearm) Abdominal, Cardiac, Dialysis, Gallbladder, Hysterectomy, Oophorectomy, Vascular Surgery Respiratory: Yes (COVID-19 INFECTION 08/2021--NO HOSPITALIZATION OR TX) Sleep Apnea, COPD Currently Using CPAP: Yes Cardiac: Yes (CHF; ELEVATED TRIGLYCERIDES; A FLUTTER WITH ABLATION;RBBB) Atrial Fibrillation, Chronic Edema/Swelling, High Cholesterol, Hypertension, Irregular Heartbeat Neurological: Yes Neuropathy 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 Disorders: Yes (CHRONIC PELVIC PAIN--S/P HYST/BSO) Female 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 Disorders: 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, 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 Cyst 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: Hysterectomy, Menopausal Sexually Transmitted Disease: No HIV/AIDS: No Genitourinary: Yes (DIALYSIS M-W-) Renal Failure, Dialysis, UTI-Chronic Gastrointestinal: Yes Abdominal Hernia, Gastroesophageal Reflux, Chronic Constipation, Diverticulosis, Chronic Diarrhea, Polyps Musculoskeletal: Yes (CHRONIC SCIATICA) Arthritis, Chronic Back Pain, Gout Endocrine: Yes (MORBID OBESITY) Diabetes, Insulin dep HEENT: No Loss of Vision: Bilateral Hearing Impairment: Denies Cancer: Yes Skin Did You Recieve Any Treatments: Yes What Type of Treatment Did You: Surgical Intervention Psychosocial: Yes Anxiety, Depression Integumentary: Yes (SKIN LESION REMOVED; PILONIDAL CYST REMOVED) Blood Disorders: No Adverse Reaction/Blood Tranf: No (N/A) Family Medical History Cardiovascular disease G8 SISTER Diabetes mellitus G8 SISTER FH: lung cancer G8 SISTER SOCIAL HISTORY: -SMOKED 1 PPD, QUIT 1998 -ETOH--MILD TO MODERATE USE IN PAST, NOW VERY RARELY DRINKS -DRUGS--REGULAR MARIJUANA USE PAST SURGICAL HISTORY: --CARDIAC CATHS--MOST RECENT ONE DONE HERE WAS 04/01/[address] RIVERA: FINDINGS: 1.Left main: separate ostia. 2.LAD: luminal irregularities. 3.Left circumflex artery: luminal irregularities. 4.RCA: patent. 5.Left heart catheterization: LV pressure 109/7 mmHg. LVEDP 17 mmHg. Aortic pressure 105/65 mmHg. Normal LV function with no wall motion abnormalities. No gradient across the aortic valve. 6. Aortic arch angiogram: No evidence of proximal aneurysm or dissection. Patent proximal segments of the great arteries. -CHOLECYSTECTOMY -HERNIA REPAIR WITH CHOLECYSTECTOMY-HERNIA RECURRED, BUT NO REPEAT SURGERY -HYSTERECTOMY/BILATERAL SALPINGO-OOPHORECTOMY FOR BENIGN DISEASE > 30 YEARS AGO -RIGHT ARM DIALYSIS GRAFT/A-V FISTULA -EGD/COLONOSCOPIES X 2 WITH POLYPECTOMIES -PILONIDAL CYST REMOVED -DIAGNOSTIC LAPAROSCOPY FOR CHRONIC PELVIC PAIN Physical Exam Vital Signs Vital Signs - First Documented 04/18/23 17:42 Temp 36.3 Pulse 66 Resp 17 B/P (MAP) 134/73 (93) Pulse Ox 99 Capillary Refill : Less Than 3 Seconds Height, Weight, BMI Height: 5'3.00" Weight: 264lbs. 1.0oz. 119.061599qb; 33.00 BMI Method:Stated General Appearance: WD/WN, no apparent distress HEENT: PERRL/EOMI, other (PT HAS EXTENSIVE OLD BRUISING TO ENTIRE FACE--FROM A FALL LAST WEEK. NO SIGNIFICANT TENDERNESS TO HER FACE AT THIS TIEM) Neck: non-tender, full range of motion, supple, normal inspection Cardiovascular: regular rate, rhythm Respiratory: chest non-tender Shoulder: bone tenderness, limited ROM, pain, soft tissue tenderness Elbow/Forearm: Right, bone tenderness, limited ROM, pain, soft tissue tenderness Wrist: Yes normal inspection Hand: normal inspection Neurologic/Tendon: normal sensation, normal motor functions, normal tendon functions Neurologic/Psychiatric: no motor/sensory deficits, alert, normal mood/affect, oriented x 3 Skin: normal color, warm/dry, other (NO EXTERNAL EVIDENCE OF TRAUMA TO RIGHT ARM) Procedures/Interventions Patient Education: Explained Benefits, Explained Risks, Pt. Ack. Understanding Patient History: Sleep Apnea Breath Sounds per Auscultation: Clear Heart Sounds per Auscultation: Regular Airway Exam: Mouth opens >2 fingers, Neck Full Range of Motion, Visulation of Uvula Sedation Adminstration Time: 1733 Splinting and Joint Reduction : Immobilizers: Large Shoulder Progress/Results/Core Measures Results/Orders My Orders Orders - BENTON SANDERS DO Shoulder, Right, 3 Views (04/18/23 18:00) Forearm, Right, 2 Views (04/18/23 18:00) Humerus, Right, 2 Views (04/18/23 18:00) Shoulder Immoblizer (04/18/23 18:40) Vital Signs/I&O 04/18/23 17:42 Temp 36.3 Pulse 66 Resp 17 B/P (MAP) 134/73 (93) Pulse Ox 99 Blood Pressure Mean: 93 Progress Progress Note : Progress Note XRAYS DO NOT SHOW ANY ACUTE TRAUMATIC INJURY PLACED IN SHOULDER IMMOBILIZER FOR COMFORT DISCUSSED ANTICIPATED COURSE, SYMPTOMATIC TREATMENT, NEED FOR FOLLOW UP, MEDICATIONS AND RETURN PRECAUTIONS PT IS DIALYSIS PT--CANNOT TAKE NSAIDS. PT STATES "TRAMADOL NEVER WORKS", AND PT IS ON ELIQUIS. Diagnostic Imaging Comments XRAYS--ALL PER RADIOLOGIST REPORTS AT 1838 RIGHT SHOULDER-- FINDINGS: Glenohumeral and acromioclavicular joints are normal in alignment. Subacromial space is preserved. There is no acute fracture. A small amount of subcortical cystic change is present in the greater tuberosity and likely due to overlying rotator cuff pathology. IMPRESSION: No acute osseous abnormality about the right shoulder. RIGHT HUMERUS-- AP and lateral views of the right humerus show no fracture or dislocation. IMPRESSION: Negative right humerus RIGHT FOREARM-- AP and lateral views of the right forearm show no fracture or dislocation. IMPRESSION: Negative right forearm Reviewed: Reviewed by Me Departure Impression Primary Impression: Fall from standing Additional Impression: Contusion of right shoulder or upper extremity Disposition: 01 HOME, SELF-CARE Condition: Stable Departure-Patient Inst. Decision time for Depature: 18:38 Referrals: BIMAL VITAL MD (PCP/Family) Primary Care Physician Patient Instructions: Contusion (DC), How to Use a Shoulder Sling ED, Preventing Falls ED Add. Discharge Instructions: ICE TO SORE AREAS AT 20 MINUTE INTERVALS WEAR SHOULDER IMMOBILIZER NEEDED FOR COMFORT FOLLOW UP WITH [facility] IN 1 WEEK IF NO BETTER All discharge instructions reviewed with patient and/or family. Voiced understanding. Scripts Hydrocodone/Acetaminophen (Hydrocodone-Acetamin 5-325 mg) 5 Mg-325 Mg Tablet 1 EACH PO Q4-6 HOURS PRN for PAIN, #10 TAB Prov: BENTON SANDERS DO 04/18/23 BENTON SANDERS DO Apr 18, 2023 18:04
--- NOTE | 2023-04-18 18:29 | Diagnostic Imaging Report ---
SHOULDER, RIGHT, 3 VIEWS INDICATION: Right shoulder pain COMPARISON: None available. TECHNIQUE: 3 views of right shoulder FINDINGS: Glenohumeral and acromioclavicular joints are normal in alignment. Subacromial space is preserved. There is no acute fracture. A small amount of subcortical cystic change is present in the greater tuberosity and likely due to overlying rotator cuff pathology. IMPRESSION: No acute osseous abnormality about the right shoulder. Dictated by: Dictated on workstation # [id number]
--- NOTE | 2023-04-18 18:30 | Diagnostic Imaging Report ---
INDICATION: Right arm pain AP and lateral views of the right forearm show no fracture or dislocation. IMPRESSION: Negative right forearm Dictated by: Dictated on workstation # [id number]
--- NOTE | 2023-04-18 18:33 | Diagnostic Imaging Report ---
INDICATION: Right arm pain AP and lateral views of the right humerus show no fracture or dislocation. IMPRESSION: Negative right humerus Dictated by: Dictated on workstation # [id number]
[2023-04-18] MEDS ORDERED: ACHD5005 PO (18:45)
[2023-04-18 18:52] VITALS: BP 154/78
== END 2023-04-18 18:55 | disposition home or self-care (01) ==
LOC: EDUNIT# 17:35 → ER 17:37
DX: S40.011A Contusion of right shoulder, initial encounter (principal); G47.30 Sleep apnea, unspecified; E11.22 Type 2 diabetes mellitus with diabetic chronic kidney disease; I13.0 Hypertensive heart and chronic kidney disease with heart failure and stage 1 through stage 4 chronic kidney disease, or unspecified chronic kidney disease; I50.9 Heart failure, unspecified; N18.9 Chronic kidney disease, unspecified; E66.01 Morbid (severe) obesity due to excess calories; Z68.33 Body mass index [BMI] 33.0-33.9, adult; Z79.4 Long term (current) use of insulin; Z99.89 Dependence on other enabling machines and devices; Z87.891 Personal history of nicotine dependence; Z99.2 Dependence on renal dialysis; Z86.16 Personal history of COVID-19; W01.190A Fall on same level from slipping, tripping and stumbling with subsequent striking against furniture, initial encounter
CPT/HCPCS: 73030; 73060; 73090